=== PATIENT | male | born 1935 | race Caucasian/White ===

== ENCOUNTER 2016-11-04 14:23 | Inpatient (IN) ==
--- NOTE | 2016-11-04 14:47 | Emergency Department Report ---
Medical Clearance HPI - General Chief complaint: Medical Clearance Stated complaint: Gen Eval Time Seen by Provider: 11/04/16 14:47 Source: old records reviewed, other (retirement staff) - History of Present Illness HPI Narrative: 81 YO M brought to ED for medical clearance for [facility] from retirement. Staff who accompanies patient report that patient has become more agitated, angry, tearful and trying to exit retirement over past week. Patient stated that he want to kill himself. Asked his to bring a gun when she came to visit. long term staff reports patient has had visual hallucinations. long term staff says patient lived at home with his until September of this year when could not longer care for patient. Staff deny fever, chills, cough, report of pain or known falls/injury. Patient denies pain while in the ED. Patient has hx. of dementia per retirement staff. Home medications: Home Medications Medication Instructions Recorded Confirmed Aspirin [Adult Low Dose Aspirin EC] 81 mg PO DAILY 11/04/16 11/04/16 FLUoxetine [Prozac] 40 mg PO DAILY 11/04/16 11/04/16 Finasteride [Proscar] 5 mg PO DAILY 11/04/16 11/04/16 Fluticasone Nasal [place] [Flonase] 1 spray LYNSEY DAILY 11/04/16 11/04/16 Gabapentin [Neurontin] 800 mg PO TID 11/04/16 11/04/16 Ibuprofen 200 mg PO HS 11/04/16 11/04/16 LORazepam [Ativan] 0.5 mg PO Q8H PRN 11/04/16 11/04/16 Memantine [Namenda] 20 mg PO BID 11/04/16 11/04/16 Multivit-Minerals/Ferrous Fum 15 ml PO DAILY 11/04/16 11/04/16 [Multivitamin Liquid] OLANZapine [Olanzapine] 5 mg PO HS 11/04/16 11/04/16 Simvastatin 20 mg PO HS 11/04/16 11/04/16 Allergies/Adverse reactions: Allergies Allergy/AdvReac Type Severity Reaction Status Date / Time No Known Allergies Allergy Verified 11/04/16 14:51 Review of Systems Limitations: ROS unobtainable due to patient's medical condition PFSH HTN Hyperlipidemia BPH CKD Major depressive disorder Urinary tract infection Iron deficiency anemia Alzheimer's Dementia Surgical History: Unable due to patient condition Family History: Unable due to patient's condition - Social History Housing: retirement Physical Exam - Limitations Limitations: other (dementia) - General General appearance: alert, in no apparent distress - Normal Exams: Head:: Normocephalic without trauma Eyes:: Pupils are PERRLA w/ EOMI, No scleral icterus, irritation ENMT:: No facial trauma, nasal exudates, pharyngeal erythema Neck:: Full range of motion, without adenopathy, JVD Chest/Respirations:: Clear all hutchins, with good airflow, and symmetry bilaterally Cardiovascular:: Regular rate and rhythm Abdomen:: Bowel sounds positive, soft, non-tender, non-distended Musculoskeletal:: No tenderness, or deformity noted, all extremities Integumentary:: No rashes Neurological:: Patient is alert, and oriented (to self only) - Psychiatric Psychiatric exam: Present: other (cooperative) Course Vital Signs Temperature 98 F 11/04/16 14:40 Pulse Rate 91 11/04/16 14:40 Respiratory Rate 20 11/04/16 14:40 Blood Pressure 117/84 11/04/16 14:40 Pulse Oximetry 94 11/04/16 14:40 Temperature 97.1 F 11/07/16 19:45 Pulse Rate 75 11/07/16 19:45 Respiratory Rate 20 11/07/16 19:45 Blood Pressure 147/78 H 11/07/16 19:45 Pulse Oximetry 93 11/07/16 19:45 Medical Clearance - [facility] Narrative Medical decision making narrative: CBC unremarkable Chemistry elevated sodium of 150, most likely related to patient not drinking any water per staff, only will drink coffee. Patient was given fluids in ED. Patient is medically cleared for [facility] admission. Differential Dx. Delirium UTI Depression Anxiety Dementia - Medical Records Attestation: I reviewed the patient's medical records. - Lab Data Attestation: I reviewed the patient's lab results. Result diagrams: 11/04/16 15:09 11/06/16 07:52 Lab Results 11/04/16 11/04/16 11/04/16 Range/Units 15:09 15:09 15:09 WBC 8.0 (4.5-11.0) T/MM3 RBC 4.34 L (4.50-5.90) M/MM3 Hgb 13.3 L (13.5-17.5) GM/DL Hct 42.7 (41-53) % MCV 98.4 (80-100) UM3 MCH 30.6 (26-34) UUG MCHC 31.1 (31-37) GM/DL RDW Std Deviation 48.1 (36.9-50.2) FL Plt Count 194 (130-400) T/MM3 MPV 9.6 (9.4-12.4) UM3 Immature Gran % (Auto) 0.1 (0.0-0.5) % Neut % (Auto) 67.8 H (33-66) % Lymph % (Auto) 18.8 L (23-45) % [place] % (Auto) 7.8 (0-9.0) % Eos % (Auto) 4.9 H (0-4) % Baso % (Auto) 0.6 (0-2) % Neut # 5.4 (1.8-7.7) T/MM3 Lymph # 1.5 (1-4.8) T/MM3 [place] # 0.6 (0-0.8) T/MM3 Eos # 0.4 (0-0.5) T/MM3 Baso # 0.1 (0-0.2) T/MM3 Abs Immat Gran (auto) 0.01 (0.00-0.03) T/MM3 Turbidity 21 H (0-20) Sodium 150 H (134-144) MEQ/L Potassium 5.0 (3.6-5) MEQ/L Chloride 109 H (98-107) MEQ/L Carbon Dioxide 33 H (22-30) MEQ/L Anion Gap 8 (5-15) MEQ/L BUN 24.0 H (9-20) MG/DL Creatinine 1.5 (0.8-1.5) MG/DL GFR Calculation 45 BUN/Creatinine Ratio 16 (6-26) RATIO Glucose 93 (75-110) MG/DL Calculated Osmolality 292 H (261-280) MOSM/KG Calcium 9.2 (8.4-10.2) MG/DL Total Bilirubin 0.50 (0.20-1.30) MG/DL Icterus Index < 2 (0-7) AST 22 (17-59) U/L ALT 37 (21-72) U/L Alkaline Phosphatase 70 (38-126) U/L Total Protein 7.0 (6.3-8.2) G/DL Albumin 3.8 (3.5-5.0) G/DL Globulin 3.2 (2.4-3.6) G/DL Albumin/Globulin Ratio 1.2 (1.1-2.2) RATIO Prealbumin 26.6 (17.6-36.0) MG/DL Vitamin B12 (239-931) PG/ML Folate (2.76-20) NG/ML TSH 1.65 (0.47-4.68) MIU/L Specimen Hemolysis 22 (0-25) Ur Collection Type Urine Color (YELLOW) Urine Clarity Urine pH (5.0-8.0) Ur Specific [place] (1.015-1.025) Urine Protein (NEGATIVE) Urine Glucose (UA) (NEGATIVE) Urine Ketones (NEGATIVE) Urine Occult Blood (NEGATIVE) Urine Nitrate (NEGATIVE) Urine Bilirubin (NEGATIVE) Urine Urobilinogen (NORMAL) EU/DL Ur Leukocyte Esterase (NEGATIVE) Urinalysis Comment RPR (NonReactive) 11/04/16 11/04/16 11/04/16 Range/Units 15:09 15:09 17:16 WBC (4.5-11.0) T/MM3 RBC (4.50-5.90) M/MM3 Hgb (13.5-17.5) GM/DL Hct (41-53) % MCV (80-100) UM3 MCH (26-34) UUG MCHC (31-37) GM/DL RDW Std Deviation (36.9-50.2) FL Plt Count (130-400) T/MM3 MPV (9.4-12.4) UM3 Immature Gran % (Auto) (0.0-0.5) % Neut % (Auto) (33-66) % Lymph % (Auto) (23-45) % [place] % (Auto) (0-9.0) % Eos % (Auto) (0-4) % Baso % (Auto) (0-2) % Neut # (1.8-7.7) T/MM3 Lymph # (1-4.8) T/MM3 [place] # (0-0.8) T/MM3 Eos # (0-0.5) T/MM3 Baso # (0-0.2) T/MM3 Abs Immat Gran (auto) (0.00-0.03) T/MM3 Turbidity (0-20) Sodium (134-144) MEQ/L Potassium (3.6-5) MEQ/L Chloride (98-107) MEQ/L Carbon Dioxide (22-30) MEQ/L Anion Gap (5-15) MEQ/L BUN (9-20) MG/DL Creatinine (0.8-1.5) MG/DL GFR Calculation BUN/Creatinine Ratio (6-26) RATIO Glucose (75-110) MG/DL Calculated Osmolality (261-280) MOSM/KG Calcium (8.4-10.2) MG/DL Total Bilirubin (0.20-1.30) MG/DL Icterus Index (0-7) AST (17-59) U/L ALT (21-72) U/L Alkaline Phosphatase (38-126) U/L Total Protein (6.3-8.2) G/DL Albumin (3.5-5.0) G/DL Globulin (2.4-3.6) G/DL Albumin/Globulin Ratio (1.1-2.2) RATIO Prealbumin (17.6-36.0) MG/DL Vitamin B12 457 (239-931) PG/ML Folate 17.6 (2.76-20) NG/ML TSH (0.47-4.68) MIU/L Specimen Hemolysis (0-25) Ur Collection Type Urine, clean catch Urine Color Yellow (YELLOW) Urine Clarity Clear Urine pH 7.0 (5.0-8.0) Ur Specific [place] 1.020 (1.015-1.025) Urine Protein Negative (NEGATIVE) Urine Glucose (UA) Negative (NEGATIVE) Urine Ketones Negative (NEGATIVE) Urine Occult Blood Negative (NEGATIVE) Urine Nitrate Negative (NEGATIVE) Urine Bilirubin Negative (NEGATIVE) Urine Urobilinogen 0.2 (NORMAL) EU/DL Ur Leukocyte Esterase Negative (NEGATIVE) Urinalysis Comment Microscopic not ind. RPR Non-reactive (NonReactive) Disposition Clinical Impression: Medical clearance for psychiatric admission, Hypernatremia, Dementia with aggressive behavior Disposition: 65 To [facility] [place] [facility] Condition: Stable - Seen By: midlevel
--- OUTSIDE RECORDS SUMMARY | 2016-11-04 14:51 | External Medical Summary | Summary of Care ---
:1935 Author Name Eliazar Barnett M.D. Address [address], [place] [id number] Care Team Providers Name Role Phone Eliazar Barnett M.D. Unavailable Unavailable Ian Butcher M.D. Unavailable Unavailable Kurt Barnett Primary Care Provider Unavailable Unavailable Unavailable Unavailable Functional Status Functional Status Health Issues Name Dates Details Functional status health issues are not documented Status: Cognitive Status Health Issues Name Dates Details Cognitive status health issues are not documented Status: Problems Name Dates Details Insomnia(780.52, G47.00) Status:Active Chronic constipation(564.00, K59.00) Status:Active Esophageal ulcer(530.20, K22.10) Status:Active Actinic keratosis(702.0, L57.0) Status:Active Obesity(278.00, E66.9) Status:Active Sensorineural hearing loss(389.10, H90.5) Status:Active 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, 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 Benign colon polyp(211.3, K63.5) Status:Active Tinnitus(388.30, H93.19) Status:Active CKD (chronic kidney disease)(585.9, N18.9) Status:Active Edema(782.3, R60.9) Status:Active 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, 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 Benign prostatic hypertrophy(600.00, N40.0) Status:Active Peripheral neuropathy(356.9, G62.9) Status:Active Depression(311, F32.9) Status:Active Hyperlipidemia(272.4, E78.5) Status:Active Abnormal vision(368.9, H53.9) Status:Active Incoordination(781.3, R27.9) Status:Active Hallucinations(780.1, R44.3) Status:Active Onychomycosis of toenail(110.1, B35.1) Status:Active Hyperglycemia(790.29, R73.9) Status:Active Hypertension(401.9, I10) Status:Active Allergic rhinitis(477.9, J30.9) Status:Active Dementia(294.20, F03.90) Status:Active Medications Name Dates Details Aspirin 81 MG Oral Tablet TAKE 1 TABLET DAILY. Quantity:30 Refills:0 Kurt Barnett M.D. Yxrksow69-Zkl-3689 ActiveFinasteride 5 MG Oral Tablet take one tablet by mouth every day Quantity:90 Refills:3 Kurt Barnett M.D. Ynylkui03-Try-5501 ActiveGlycoLax Oral Powder 17 gm po daily for constipation Quantity:1 Refills:5 Kurt Barnett M.D. Ttqvmrk03-Rnc-6512 Rrxzzj819 GM Bottle Donepezil HCl - 23 MG Oral Tablet take one tablet by mouth every day Quantity:90 Refills:3 Kurt Barnett M.D. Mwqaazd29-Dbn-9840 ActiveGabapentin 600 MG Oral Tablet TAKE ONE TABLET BY MOUTH THREE TIMES DAILY Quantity:270 Refills:3 Kurt Barnett M.D. Pnojqsx8-Kxf-9927 ActiveNamenda XR 28 MG Oral Capsule Extended Release 24 Hour TAKE ONE CAPSULE BY MOUTH EVERY DAY Quantity:30 Refills:5 Kurt Barnett M.D. Sysbyoa60-Ahs-8481 ActiveTravatan Z 0.004 % Ophthalmic Solution Refills:0 Kwadwo Butcher M.D. Vxaeruq33-Hslc-2843 ActiveFLUoxetine HCl - 20 MG Oral Capsule TAKE TWO CAPSULES BY MOUTH ONCE DAILY Quantity:180 Refills:1 Kurt Barnett M.D. Vzloxnp83-Rid-9286 ActiveFluticasone Propionate 50 MCG/ACT Nasal Suspension USE 2 SPRAYS IN EACH NOSTRIL DAILY Quantity:3 Refills:5 Kurt Barnett M.D. Imkzqeg6-Xse-4222 Xvuxvu89 GM Bottle Allergies and Adverse Reactions Name Dates Details No Known Drug Allergies Status:Active Past Medical History Name Dates Details History of acute pharyngitis(V12.69, Z87.09) Status:Resolved History of chan(V15.59, Z87.828) Status:Resolved History of cataract(V12.49, Z86.69) Status:Resolved History of Hearing loss, functional(306.7, F45.8) Status:Resolved History of Numbness(782.0, R20.0) Status:Resolved Procedures Procedure Dates Details History of Complete Colonoscopy Comments:Completed: 2006 History of Dermatological Surgery Skin Graft History of Tonsillectomy With Adenoidectomy History of Arthroplasty For Hammertoe History of Rectal Surgery History of Cataract Surgery History of Eye Surgery Procedures not documented Immunization Name Dates Details Fluzone Intramuscular Injectable Administered on:10-Jan-2008 Influenza Administered on:23-Dec-2008 Influenza Administered on:12-Jan-2010 Influenza Administered on:30-Dec-2010 Pneumo (Pneumovax) Administered on:01-Mar-2011 Influenza Administered on:18-Jan-2013 Lot #:[id number] Fluzone High-Dose Intramuscular Suspension Administered on:25-Dec-2013 Lot #:[id number] Zostavax [id number] UNT/0.65ML Subcutaneous Solution Reconstituted Administered on: 12-Feb-2014 Lot #:[id number] Prevnar 13 Intramuscular Suspension Administered on:04-Jun-2014 Lot #:[id number] Family History Unknown Family Member Name Dates Details Family history of Composition Of Household ___ Brothers Comments:Family History Status:Active Family history of Composition Of Household ___ Sisters Comments:Family History Status:Active Mother Name Dates Details Family history of Alzheimer Disease Status:Active Father Name Dates Details Family history of Glaucoma Status:Active Social History Name Dates Details Smoking StatusFormer smoker Vital Signs Date Test Result Details No Known Vitals to report Results Date Description Value Details Results not documented Plan of Care Planned Observations Name Dates Details Planned Goals not documented Goal Planned Encounters Appointment; Provider: Kurt Barnett 10:00 Appointment; Provider: Kwadwo Butcher 09:45 Appointment; Provider: Bruce Amaro 10:45 Instructions Instructions not documented Encounters Appointment; Kurt Barnett Encounter Diagnosis:Problem not documented 10:45 Appointment; Kurt Barnett Encounter Diagnosis:Problem not documented 10:45 Appointment; Kurt Barnett Encounter Diagnosis:Problem not documented 09:00 Appointment; Kurt Barnett Encounter Diagnosis:Problem not documented 07:00 Appointment; Kurt Barnett Encounter Diagnosis:Problem not documented 11:00 Appointment; Moe Merritt Encounter Diagnosis:Problem not documented 16:30 Appointment; Kwadwo Butcher Encounter Diagnosis:Problem not documented 09:45 Appointment; Kurt Barnett Encounter Diagnosis:Problem not documented 10:30 Appointment; Kurt Barnett Encounter Diagnosis:Problem not documented 08:30 Appointment; Kurt Barnett Encounter Diagnosis:Problem not documented 09:30 Appointment; Kurt Barnett Encounter Diagnosis:Problem not documented 10:00 Appointment; Kurt Barnett Encounter Diagnosis:Problem not documented 10:30 Appointment; Kurt Barnett Encounter Diagnosis:Problem not documented 11:30 Appointment; Kwadwo Butcher Encounter Diagnosis:Problem not documented 11:00 Appointment; Kurt Barnett Encounter Diagnosis:Problem not documented 10:30 Appointment; Flash Corey Encounter Diagnosis:Problem not documented 13:30 Appointment; Kurt Barnett Encounter Diagnosis:Problem not documented 10:45
--- OUTSIDE RECORDS SUMMARY | 2016-11-04 14:52 | External Medical Summary | Summary of Care ---
:1935 Author Name Eliazar Barnett M.D. 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 Tinnitus(388.30, H93.19) Status:Active Edema(782.3, R60.9) Status:Active Benign prostatic hypertrophy(600.00, N40.0) Status:Active Abnormal vision(368.9, H53.9) Status:Active Incoordination(781.3, R27.9) Status:Active Hallucinations(780.1, R44.3) Status:Active Onychomycosis of toenail(110.1, B35.1) Status:Active Allergic rhinitis(477.9, J30.9) Status:Active CKD (chronic kidney disease)(585.9, N18.9) Status:Active Peripheral neuropathy(356.9, G62.9) Status:Active Hyperlipidemia(272.4, E78.5) Status:Active Routine physical examination(V70.0, Z00.00) Status:Active Depression(311, F32.9) Status:Active Urinary tract infection(599.0, N39.0) Status:Active Lower back pain(724.2, M54.5) Status:Active Hyperglycemia(790.29, R73.9) Status:Active Hypertension(401.9, I10) Status:Active Dementia(294.20, F03.90) Status:Active Lung nodule, multiple(793.19, R91.8) Status:Active Medications Name Dates Details Aspirin 81 MG Oral Tablet TAKE 1 TABLET DAILY. Quantity:30 Refills:0 Kurt Barnett M.D. Yziaylm76-Mkv-3452 ActiveFinasteride 5 MG Oral Tablet take one tablet by mouth every day Quantity:90 Refills:3 Kurt Barnett M.D. Hveqcln20-Ggg-8473 ActiveGlycoLax Oral Powder 17 gm po daily for constipation Quantity:1 Refills:5 Kurt Barnett M.D. Ehueyvf50-Epf-3032 Udytsw872 GM Bottle Donepezil HCl - 23 MG Oral Tablet TAKE ONE TABLET BY MOUTH ONCE DAILY Quantity:90 Refills:0 Kurt Barnett M.D. Vslpffc26-Pvr-7926 ActiveGabapentin 600 MG Oral Tablet TAKE ONE TABLET BY MOUTH THREE TIMES DAILY Quantity:270 Refills:3 Kurt Barnett M.D. Shobxkf7-Rhg-7221 ActiveNamenda XR 28 MG Oral Capsule Extended Release 24 Hour TAKE ONE CAPSULE BY MOUTH EVERY DAY Quantity:30 Refills:5 Kurt Barnett M.D. Hknlgjt75-Tfq-9216 ActiveTravatan Z 0.004 % Ophthalmic Solution Refills:0 Kwadwo Butcher M.D. Gqbdeei08-Rzsc-0932 ActiveFLUoxetine HCl - 20 MG Oral Capsule TAKE TWO CAPSULES BY MOUTH ONCE DAILY Quantity:180 Refills:1 Kurt Barnett M.D. Lgxcazq21-Iel-2989 ActiveFluticasone Propionate 50 MCG/ACT Nasal Suspension USE 2 SPRAYS IN EACH NOSTRIL DAILY Quantity:3 Refills:5 Kurt Barnett M.D. Lsrtwpq5-Wdi-0434 Ugixxs03 GM Bottle Motrin IB 200 MG Oral Tablet TAKE 1 TABLET EVERY 8 HOURS NEEDED. Refills:0 Kurt Barnett M.D. Rmbkcev66-Mbj-5079 ActiveMens 50+ Multi Vitamin/Min Oral Tablet TAKE 1 TABLET DAILY. Refills:0 Kurt Barnett M.D. Kgdfhxa26-Fgr-1007 ActivePercocet 5-325 MG Oral Tablet TAKE 1 TABLET EVERY 4 TO 6 HOURS NEEDED FOR PAIN. Refills:0 Kurt Barnett M.D. Dpypfvx35-Olx-2891 ActiveHydrocodone-Acetaminophen 5-325 MG Oral Tablet TAKE 1 TABLET EVERY 6 HOURS NEEDED. Quantity:24 Refills:0 Kurt Barnett M.D. Ddxfqip89-Tjj-7964 ActiveBuPROPion HCl ER (SR) 150 MG Oral Tablet Extended Release 12 Hour Take 1 tablet daily Quantity:30 Refills:2 Kurt Barnett M.D. Symczyt05-Nja-3063 Active Allergies and Adverse Reactions Name Dates Details No Known Drug Allergies Status:Active Past Medical History Name Dates Details History of acute pharyngitis(V12.69, Z87.09) Status:Resolved History of Benign colon polyp(211.3, K63.5) Status:Resolved History of chan(V15.59, Z87.828) Status:Resolved History of cataract(V12.49, Z86.69) Status:Resolved History of Hearing loss, functional(306.7, F44.6) Status:Resolved History of hematuria(V13.09, Z87.448) Status:Resolved History of Numbness(782.0, R20.0) Status:Resolved History of UTI (lower urinary tract infection)(599.0, N39.0) Status:Resolved Procedures Procedure Dates Details History of Complete Colonoscopy Comments:Completed: 2005 History of Dermatological Surgery Skin Graft History of Tonsillectomy With Adenoidectomy History of Arthroplasty For Hammertoe History of Rectal Surgery History of Cataract Surgery History of Eye Surgery CBC w/ Auto Diff 7150 Ordered:06-Jun-2015 Comprehensive Metabolic Panel 1212 Ordered:06-Jun-2015 LIPID PROFILE 1184 Ordered:06-Jun-2015 THYROID STIM. HORMONE 3602 Ordered:06-Jun-2015 LIVER PROFILE 1215 Ordered:06-Jun-2015 HEMOGLOBIN A1C 3507 Ordered:06-Jun-2015 CT CHEST WITH IV CONTRAST Ordered:05-Jun-2015 Immunization Name Dates Details Fluzone Intramuscular Injectable Administered on:10-Jan-2008 Influenza Administered on:23-Dec-2008 Influenza Administered on:12-Jan-2010 Influenza Administered on:30-Dec-2010 Pneumo (Pneumovax) Administered on:01-Mar-2011 Influenza Administered on:18-Jan-2013 Lot #:[id number] Fluzone High-Dose Intramuscular Suspension Administered on:25-Dec-2013 Lot #:[id number] Zostavax [id number] UNT/0.65ML Subcutaneous Solution Reconstituted Administered on: 12-Feb-2014 Lot #:[id number] Prevnar 13 Intramuscular Suspension Administered on:04-Jun-2014 Lot #:[id number] Fluzone High-Dose Intramuscular Suspension Administered on:23-Jan-2015 Lot #:[id number] Tdap (Adacel) Administered on:23-Jan-2015 Lot #:[id number] Family History Unknown Family Member Name Dates Details Family history of Composition Of Household ___ Brothers Comments:Family History Status:Active Family history of Composition Of Household ___ Sisters Comments:Family History Status:Active Mother Name Dates Details Family history of Alzheimer Disease Status:Active Father Name Dates Details Family history of Glaucoma Status:Active Social History Name Dates Details Smoking StatusFormer smoker Vital Signs Date Test Result Details 05-Jun-2015 10:54 BP Systolic 118mm[Hg] Status: BP Diastolic 66mm[Hg] Status: Heart Rate 84/min Status: Weight 246lb Status: Body Mass Index Calculated 31.16kg/m2 Status: Body Surface Area Calculated 2.38m2 Status: Results Date Description Value Details Results not documented Plan of Care Planned Observations Name Dates Details Planned Goals not documented Goal Planned Encounters Appointment; Provider: Kurt Barnett Ei66-Inrg-9263 11:00 Appointment; Provider: Schedule Radiology 14:30 Appointment; Provider: Bruce Amaro 10:45 Instructions Instructions not documented Encounters Appointment; Kurt Barnett Encounter Diagnosis:Problem not documented 10:45 Appointment; Kurt Barnett Encounter Diagnosis:Problem not documented 16:15 Appointment; Kurt Barnett Encounter Diagnosis:Problem not documented 10:45 Appointment; Kurt Barnett Encounter Diagnosis:Problem not documented 11:00 Appointment; Kurt Barnett Encounter Diagnosis:Problem not documented 10:00 Appointment; Kwadwo Butcher Encounter Diagnosis:Problem not documented 09:45 Appointment; Miguel Benton Encounter Diagnosis:Problem not documented 12:20 Appointment; Kurt Barnett Encounter Diagnosis:Problem not documented [...]
--- OUTSIDE RECORDS SUMMARY | 2016-11-04 14:52 | External Medical Summary | Summary of Care ---
:1935 Author Name Eliazar Barnett M.D. Address [address], [place] [id number] Care Team Providers Name Role Phone Eliazar [...] Allergic rhinitis(477.9, J30.9) Status:Active Dementia(294.20, F03.90) Status:Active Blood in urine(599.70, R31.9) Status:Active UTI (lower urinary tract infection)(599.0, N39.0) Status:Active Medications Name Dates Details Finasteride 5 MG Oral Tablet take one tablet by mouth every day Quantity:90 Refills:3 Kurt Barnett M.D. Cclhjci62-Qkk-6151 ActiveGlycoLax Oral Powder 17 gm po daily for constipation Quantity:1 Refills:5 Kurt Barnett M.D. Tiqtktc76-Hrz-9834 Xmbjqk871 GM Bottle Donepezil HCl - 23 MG Oral Tablet take one tablet by mouth every day Quantity:90 Refills:0 Kurt Barnett M.D. Zbsfdra32-Dfz-8797 ActiveGabapentin 600 MG Oral Tablet TAKE ONE TABLET BY MOUTH THREE TIMES DAILY Quantity:270 Refills:3 Kurt Barnett M.D. Iojavdu9-Udw-6888 ActiveNamenda XR 28 MG Oral Capsule Extended Release 24 Hour TAKE ONE CAPSULE BY MOUTH EVERY DAY Quantity:30 Refills:5 Kurt Barnett M.D. Nvosdkv06-Xdp-0607 ActiveTravatan Z 0.004 % Ophthalmic Solution Refills:0 Kwadwo Butcher M.D. Rlintcm63-Dbgl-8863 ActiveFLUoxetine HCl - 20 MG Oral Capsule TAKE TWO CAPSULES BY MOUTH ONCE DAILY Quantity:180 Refills:1 Kurt Barnett M.D. Tyiybem96-Xnk-4497 ActiveFluticasone Propionate 50 MCG/ACT Nasal Suspension USE 2 SPRAYS IN EACH NOSTRIL DAILY Quantity:3 Refills:5 Kurt Barnett M.D. Isivozm1-Btw-6356 Wquerj42 GM Bottle Aspirin 81 MG Oral Tablet TAKE 1 TABLET DAILY. Quantity:30 Refills:0 Kurt Barnett M.D. Zfoxhlo69-Vcc-3980 Active Allergies and Adverse Reactions Name Dates [...] (Pneumovax) Administered on:01-Mar-2011 Influenza Administered on:18-Jan-2013 Lot #:[id number] Fluzone High-Dose Intramuscular Suspension Administered on:25-Dec-2013 Lot #:[id number] Zostavax [id number] UNT/0.65ML Subcutaneous Solution Reconstituted Administered on: 12-Feb-2014 Lot #:[id number] Prevnar 13 Intramuscular Suspension Administered on:04-Jun-2014 Lot #:[id number] Family History Unknown Family Member Name Dates [...] Goal Planned Encounters Appointment; Provider: Kurt Barnett Yt55-Qyam-9010 10:00 Appointment; Provider: Bruce Amaro 10:45 Instructions Instructions not documented Encounters Appointment; Kwadwo Butcher Gz36-Ovgh-5651 Encounter Diagnosis:Problem not documented 09:45 Appointment; Miguel Benton Sx4-Xku-[id number] Encounter Diagnosis:Problem not documented 12:20 Appointment; Kurt Barnett Yv5-Qmn-5798 Encounter Diagnosis:Problem not documented 10:45 Appointment; Kurt [...]
--- OUTSIDE RECORDS SUMMARY | 2016-11-04 14:52 | External Medical Summary | Summary of Care ---
:1935 Author Name Eliazar Barnett M.D. Address [address], [place] [id number] Care Team Providers Name Role Phone Eliazar [...] disease)(585.9, N18.9) Status:Active Peripheral neuropathy(356.9, G62.9) Status:Active Benign colon polyp(211.3, K63.5) Status:Active Hyperlipidemia(272.4, E78.5) Status:Active Routine physical examination(V70.0, Z00.00) Status:Active Hypertension(401.9, I10) Status:Active Hyperglycemia(790.29, R73.9) Status:Active Dementia(294.20, F03.90) Status:Active Depression(311, F32.9) Status:Active Urinary tract infection(599.0, N39.0) Status:Active Medications Name Dates Details Aspirin 81 MG Oral Tablet TAKE 1 TABLET DAILY. Quantity:30 Refills:0 Kurt Barnett M.D. Geohrjb88-Uwj-7471 ActiveFinasteride 5 MG Oral Tablet take one tablet by mouth every day Quantity:90 Refills:3 Kurt Barnett M.D. Ylyhoav42-Ccn-7881 ActiveGlycoLax Oral Powder 17 gm po daily for constipation Quantity:1 Refills:5 Kurt Barnett M.D. Lkelspm55-Fzx-9159 Ywjbxk973 GM Bottle Donepezil HCl - 23 MG Oral Tablet TAKE ONE TABLET BY MOUTH ONCE DAILY Quantity:90 Refills:0 Kurt Barnett M.D. Fixupvv98-Mgz-2655 ActiveGabapentin 600 MG Oral Tablet TAKE ONE TABLET BY MOUTH THREE TIMES DAILY Quantity:270 Refills:3 Kurt Barnett M.D. Ufnvwvc9-Rpe-8182 ActiveNamenda XR 28 MG Oral Capsule Extended Release 24 Hour TAKE ONE CAPSULE BY MOUTH EVERY DAY Quantity:30 Refills:5 Kurt Barnett M.D. Jllpbds44-Yyz-5846 ActiveTravatan Z 0.004 % Ophthalmic Solution Refills:0 Kwadwo Butcher M.D. Wgojbls17-Fhdp-7748 ActiveFLUoxetine HCl - 20 MG Oral Capsule TAKE TWO CAPSULES BY MOUTH ONCE DAILY Quantity:180 Refills:1 Kurt Barnett M.D. Rhnehki35-Hej-9859 ActiveFluticasone Propionate 50 MCG/ACT Nasal Suspension USE 2 SPRAYS IN EACH NOSTRIL DAILY Quantity:3 Refills:5 Kurt Barnett M.D. Xbjbviw6-Bxt-2185 Qeasjc38 GM Bottle Motrin IB 200 MG Oral Tablet TAKE 1 TABLET EVERY 8 HOURS NEEDED. Refills:0 Kurt Barnett M.D. Ifgzhic20-Wiw-6491 ActiveMens 50+ Multi Vitamin/Min Oral Tablet TAKE 1 TABLET DAILY. Refills:0 Kurt Barnett M.D. Kgnnaqz04-Flj-4213 ActivePercocet 5-325 MG Oral Tablet TAKE 1 TABLET EVERY 4 TO 6 HOURS NEEDED FOR PAIN. Refills:0 Kurt Barnett M.D. Nyuysrx94-Baq-2775 ActiveLevofloxacin 500 MG Oral Tablet TAKE 1 TABLET Daily FOR 5 MORE DAYS Quantity:5 Refills:0 Kurt Barnett M.D. Csmngtv34-Ptn-8750 ActiveHydrocodone-Acetaminophen 5-325 MG Oral Tablet TAKE 1 TABLET EVERY 6 HOURS NEEDED. Quantity:24 Refills:0 Kurt Barnett M.D. Iavoysm58-Rzl-1819 Active Allergies and Adverse Reactions Name Dates [...] (Pneumovax) Administered on:01-Mar-2011 Influenza Administered on:18-Jan-2013 Lot #:[id number] Fluzone High-Dose Intramuscular Suspension Administered on:25-Dec-2013 Lot #:[id number] Zostavax [id number] UNT/0.65ML Subcutaneous Solution Reconstituted Administered on: 12-Feb-2014 Lot #:[id number] Prevnar 13 Intramuscular Suspension Administered on:04-Jun-2014 Lot #:[id number] Fluzone High-Dose Intramuscular Suspension Administered on:23-Jan-2015 Lot #:[id number] Tdap (Adacel) Administered on:23-Jan-2015 Lot #:[id number] Family History Unknown Family Member Name Dates Details Family history of Composition Of Household ___ Brothers Comments:Family History Status:Active Family history of Composition Of Household ___ Sisters Comments:Family History Status:Active Mother Name Dates Details Family history of Alzheimer Disease Status:Active Father Name Dates Details Family history of Glaucoma Status:Active Social History Name Dates Details Smoking StatusFormer smoker Vital Signs Date Test Result Details 20-May-2015 16:43 BP Systolic 104mm[Hg] Status: BP Diastolic 62mm[Hg] Status: Temperature 97.7f Status: Heart Rate 60/min Status: Weight 245lb Status: Body Mass Index Calculated 31.04kg/m2 Status: Body Surface Area Calculated 2.38m2 Status: Results Date Description Value Details Results not documented Plan of Care Planned Observations Name Dates Details Planned Goals not documented Goal Planned Encounters Appointment; Provider: Kurt Barnett 11:00 Appointment; Provider: Bruce Amaro 10:45 Instructions Instructions [...]
--- OUTSIDE RECORDS SUMMARY | 2016-11-04 14:52 | External Medical Summary | Summary of Care ---
:1935 Author Name Eliazar Barnett M.D. Address Unavailable Unavailable , Care Team Providers Name Role Phone Eliazar Barnett M.D. Unavailable Unavailable Ian Butcher M.D. Unavailable Unavailable Kurt Barnett Unavailable Unavailable Unavailable Unavailable Unavailable Functional Status Functional [...] F03.90) Status:Active Lung nodule, multiple(793.19, R91.8) Status:Active Rib pain on right side(786.50, R07.81) Status:Active Fall, accidental(E888.9, W19.XXXA) Status:Active Medications Name Dates Details Finasteride 5 MG Oral Tablet TAKE ONE TABLET BY MOUTH ONCE DAILY Quantity:90 Refills:0 AnibalM.D., Kurt Perea Jrdqt60-Zxm-2363 Active GlycoLax Oral Powder 17 gm po daily for constipation Quantity:1 Refills:5 JacksonM.D., Kurt Perea Ihjoa30-Fhq-4900 Active 527 GM Bottle Donepezil HCl - 23 MG Oral Tablet TAKE ONE TABLET BY MOUTH ONCE DAILY Quantity:90 Refills:0 AnibalM.D.Kurt Zleou60-Oiq-4894 Active Travatan Z 0.004 % Ophthalmic Solution Refills:0 Noé.D.Kwadwo Apkoy53-Jblt-6690 Active Fluticasone Propionate 50 MCG/ACT Nasal Suspension USE 2 SPRAYS IN EACH NOSTRIL DAILY Quantity:3 Refills:5 JacksonM.D.Kurt Kprcp4-Fgi-5618 Active 16 GM Bottle Motrin IB 200 MG Oral Tablet TAKE 1 TABLET EVERY 8 HOURS NEEDED. Refills:0 AnibalM.D., Kurt Perea Xeqir82-Exl-5199 Active Mens 50+ Multi Vitamin/Min Oral Tablet TAKE 1 TABLET DAILY. Refills:0 AnibalM.D., Kurt Perea Uuzav97-Ypo-6079 Active Hydrocodone-Acetaminophen 5-325 MG Oral Tablet TAKE 1 TABLET EVERY 6 HOURS NEEDED. Quantity:24 Refills:0 JacksonM.D., Kurt Perea Pchse25-Dsq-5398 Active BuPROPion HCl ER (SR) 150 MG Oral Tablet Extended Release 12 Hour TAKE ONE TABLET BY MOUTH ONCE DAILY Quantity:30 Refills:2 JacksonM.D., Kurt Perea Yghdv67-Suj-1981 Active TraZODone HCl - 100 MG Oral Tablet TAKE 1/2 TO 1 TABLET AT BEDTIME. Quantity:30 Refills:5 JacksonM.D., Kurt Perea Gtwkr84-Irkp-4194 Active Percocet 5-325 MG Oral Tablet TAKE 1 TABLET EVERY 4 TO 6 HOURS NEEDED FOR PAIN. Refills:0 AnibalM.Kerry, Kurt Perea Hdxpm62-Jot-2117 Active FLUoxetine HCl - 20 MG Oral Capsule TAKE TWO CAPSULES BY MOUTH ONCE DAILY Quantity:180 Refills:1 AnibalM.D., Kurt Perea Qgded53-Pqx-8946 Active Namenda XR 28 MG Oral Capsule Extended Release 24 Hour TAKE ONE CAPSULE BY MOUTH EVERY DAY Quantity:30 Refills:5 AnibalM.D., Kurt Perea Skopk38-Tqu-9655 Active Gabapentin 600 MG Oral Tablet TAKE ONE TABLET BY MOUTH THREE TIMES DAILY Quantity:270 Refills:3 AnibalM.D., Kurt Perea Ghgqz1-Vbu-9757 Active Aspirin 81 MG TABS TAKE 1 TABLET DAILY. Quantity:30 Refills:0 AnibalM.Kerry, Kurt Perea Fdzud88-Myt-3093 Active Allergies and Adverse Reactions Name Dates Details No Known Drug Allergies(Allergy) Status:Active Past Medical History Name Dates Details [...] not documented Immunization Name Dates Details Fluzone INJ on:10-Jan-2008 Influenza on:23-Dec-2008 Influenza on:12-Jan-2010 Influenza on:30-Dec-2010 Pneumo (Pneumovax) on:01-Mar-2011 Influenza on:18-Jan-2013 Lot #:[id number] Fluzone High-Dose SUSP on:25-Dec-2013 Lot #:[id number] Zostavax [id number] UNT/0.65ML Subcutaneous Solution Reconstituted on:12-Feb-2014 Lot #:[id number] Prevnar 13 Intramuscular Suspension on:04-Jun-2014 Lot #:[id number] Fluzone High-Dose SUSP on:23-Jan-2015 Lot #:[id number] Tdap (Adacel) on:23-Jan-2015 Lot #:[id number] Family History Unknown Family Member Name Dates Details Family history of Composition Of Household ___ Brothers Comments:Family History Status:Active Family history of Composition Of Household ___ Sisters Comments:Family History Status:Active Mother Name Dates Details Family history of Alzheimer Disease Status:Active Father Name Dates Details Family history of Glaucoma Status:Active Social History Name Dates Details - Status: Smoking Status Name Dates Details Former smoker Vital Signs Date Test Result Details No Known Vitals to report Results Date Description Value Details Results not documented Plan of Care Name Dates Details Planned Observations Comprehensive Metabolic Panel 1212 Intent HEMOGLOBIN A1C 3507 Hz71-Gplz-6835 Intent Planned Goals not documented Planned Encounters Appointment; Provider: Schedule Radiology [id number]-9018 14:30 Instructions Name Dates Details Instructions not documented Encounters Appointment; Kurt Barnett M.D. [id number]-[id number] Encounter Diagnosis:Problem not documented 16:15 Appointment; Kurt Barnett M.D. Cc04-Jrh-1513 Encounter Diagnosis:Problem not documented 10:45 Appointment; Kurt Barnett M.D. Vf18-Ixu-8408 Encounter Diagnosis:Problem not documented 11:00 Appointment; Kurt Barnett M.D. Rm87-Grqw-7486 Encounter Diagnosis:Problem not documented 10:00 Appointment; Kwadwo Butcher M.D. Ru99-Filc-9312 Encounter Diagnosis:Problem not documented 09:45 Appointment; Miguel Benton M.D. Encounter Diagnosis:Problem not documented 12:20 Appointment; Kurt Barnett M.D. Yi7-Jpm-0325 Encounter Diagnosis:Problem not documented 10:45 Appointment; Kurt Barnett M.D. Encounter Diagnosis:Problem not documented 10:45 Appointment; Kurt Barnett M.D. Encounter Diagnosis:Problem not documented 09:00 Appointment; Kurt Barnett M.D. Encounter Diagnosis:Problem not documented 07:00 Appointment; Kurt Barnett M.D. Encounter Diagnosis:Problem not documented 11:00
--- OUTSIDE RECORDS SUMMARY | 2016-11-04 14:52 | External Medical Summary ---
:1935 Author Name GENERATED, SYSTEM Care Team Providers Name Role Phone MD PREM, VANNESSA TEJADA Primary Care Provider [phone] Reason For Visit Reason for Visit from 09/17/2016 11:50 PM:Pt Stated Reason for Adm : Rhabdomyolysis, Alzheimers Chief Complaint RHABDOMYOLYSIS, AMS, ALZHEIMER Social History Social History from 09/22/2016 1:07 PM:Tobacco Use? : Former SmokerSocial History from 09/17/2016 11:50 PM:Tobacco Use? : Former Smoker Functional Status Functional Status from 09/21/2016 7:49 PM:LOC : ConfusedOriented To : PersonWeight Bearing Status : FullAssist Level : Dependent# Assists : 1Functional Status from 09/21/2016 2:35 PM:# Assists : 1Functional Status from 9:52 AM:# Assists : 1Functional Status from 09/21/2016 9:50 AM:# Assists : 1Functional Status from 09/21/2016 8:30 AM:LOC : ConfusedOriented To : Person, PlaceWeight Bearing Status : FullAssist Level : Dependent# Assists : 1Functional Status from 09/21/2016 6:11 AM:# Assists : 1Functional Status from 5:06 AM:# Assists : 1Functional Status from 09/21/2016 4:25 AM:# Assists : 1Functional Status from 09/21/2016 4:06 AM:LOC : ConfusedOriented To : PersonWeight Bearing Status : FullAssist Level : Partial# Assists : 1Functional Status from 09/21/2016 2:00 AM:# Assists : 1Functional Status from 09/20/2016 4: 10 PM:LOC : AlertOriented To : Person,Place,Time,EventWeight Bearing Status : FullAssist Level : Partial# Assists : 1Functional Status from 09/20/2016 8:11 AM: LOC : ConfusedOriented To : PersonWeight Bearing Status : FullAssist Level : Partial# Assists : 1Functional Status from 09/19/2016 8:44 PM:LOC : AlertOriented To : Person,Place,TimeWeight Bearing Status : FullAssist Level : Partial# Assists : 1Functional Status from 09/19/2016 10:07 AM:# Assists : 1Functional Status from 09/19/2016 7:47 AM:LOC : AlertOriented To : PersonWeight Bearing Status : FullAssist Level : Partial# Assists : 1Functional Status from 7:15 PM:LOC : AlertOriented To : PersonWeight Bearing Status : FullAssist Level : Partial# Assists : 1Functional Status from 09/18/2016 10:47 AM :# Assists : 1Functional Status from 09/18/2016 9:15 AM:LOC : ConfusedOriented To : PersonWeight Bearing Status : FullAssist Level : Partial# Assists : 1Functional Status from 09/17/2016 11:50 PM:LOC : ConfusedOriented To : PersonWeight Bearing Status : FullAssist Level : Partial# Assists : 2 Vital Signs Hospital Vital Signs from 09/22/2016 7:32 AM:Height : 6/4 ft,inTemperature : 96.9 FPulse : 53Respirations : 20BP : 145/90Hospital Vital Signs from 09/22/2016 3:28 AM:Height : 6/4 ft,inTemperature : 95.1 FPulse : 65BP : 185/94Hospital Vital Signs from 09/21/2016 9:58 PM:Height : 6/4 ft,inTemperature : 99.2 FPulse : 66Respirations : 16BP : 142/81Hospital Vital Signs from 09/21/2016 3:15 PM: Height : 6/4 ft,inTemperature : 98.3 FPulse : 66Respirations : 16BP : 169/ 94Hospital Vital Signs from 09/21/2016 7:58 AM:Height : 6/4 ft,inTemperature : 97.4 FPulse : 61Respirations : 16BP : 166/79Hospital Vital Signs from 09/21/2016 5:11 AM:Height : 6/4 ft,inTemperature : 97.4 FHospital Vital Signs from 2016 11:17 PM:Height : 6/4 ft,inTemperature : 98.5 FPulse : 63Respirations : 18BP : 158/90Hospital Vital Signs from 09/20/2016 3:20 PM:Height : 6/4 ft, inTemperature : 97.7 FPulse : 67Respirations : 18BP : 159/76Hospital Vital Signs from 09/20/2016 10:34 AM:Height : 6/4 ft,inHospital Vital Signs from 2016 7:33 AM:Height : 6/4 ft,inTemperature : 98.6 FPulse : 63Respirations : 18BP : 141/84Hospital Vital Signs from 09/19/2016 10:15 PM:Height : 6/4 ft, inTemperature : 98.5 FPulse : 79Respirations : 20BP : 157/70Hospital Vital Signs from 09/19/2016 2:59 PM:Height : 6/4 ft,inTemperature : 98.9 FPulse : 70Respirations : 18BP : 139/79Hospital Vital Signs from 09/19/2016 7:37 AM: Height : 6/4 ft,inTemperature : 97.1 FPulse : 68Respirations : 18BP : 141/ 85Hospital Vital Signs from 09/18/2016 10:46 PM:Height : 6/4 ft,inTemperature : 97.8 FPulse : 65Respirations : 18BP : 124/84Hospital Vital Signs from 09/18/2016 3:41 PM:Height : 6/4 ft,inTemperature : 96.5 FPulse : 60Respirations : 18BP : 139/77Hospital Vital Signs from 09/18/2016 7:12 AM:Height : 6/4 ft,inTemperature : 94.8 FPulse : 61Respirations : 18BP : 106/64Hospital Vital Signs from 2016 11:50 PM:Weight : 102.7/ kgHeight : 6/4 ft,inHospital Vital Signs from 09/17 11:48 PM:Weight : 102.7/ kgHeight : 6/3 ft,inTemperature : 97.6 FPulse : 63Respirations : 20BP : 144/78 Results Chemistry from 09/22/2016 6:02 [id number] MMOL/L(136-145 MMOL/L) POTASSIUM4.1 MMOL/L(3.5-5.1 MMOL/L) EJNXEBKU145 MMOL/L(98-107 MMOL/L) BOB034.5 MMOL/L(21.0-32.0 MMOL/L) *ANION GAP3.5 MMOL/L L(8.0-16.0 MMOL/L) BUN16 MG/DL(7-18 MG/DL) CREATININE1.37 MG/DL H(0.70-1.30 MG/DL) *BUN/CREATININE RATIO11.7(9.1-17.0 ) RGJVFYU91 MG/DL(65-99 MG/DL) *GFR EST NON AFR WFSRHCCV69 ML/MIN (Reference Range: not available) *GFR EST AFR AMER55 ML/MIN (Reference Range: not available) CALCIUM8.8 MG/DL(8.5-10.1 MG/DL) BILIRUBIN TOTAL0.40 MG/DL(0.20-1.00 MG/DL) TOTAL PROTEIN6.3 GM/DL L(6.4-8.2 GM/DL) ALBUMIN2.4 GM/DL L(3.4-5.0 GM/DL) *GLOBULIN3.9 GM/DL H(2.3-3.5 GM/DL) *A/G RATIO0.6 MG/DL L(1.5-2.2 MG/DL) ALK PHOS77 U/L(46-116 U/L) ALT (SGPT)44 U/L(14-59 U/L) AST (SGOT)27 U/L(15-37 U/L) MAGNESIUM2.1 MG/DL(1.8-2.4 MG/DL)Chemistry from 09/21/2016 6:00 ERHQPMEF196 MMOL/ L(136-145 MMOL/L) POTASSIUM4.2 MMOL/L(3.5-5.1 MMOL/L) HFJVFKSZ633 MMOL/L(98-107 MMOL/L) DSX741.7 MMOL/L(21.0-32.0 MMOL/L) *ANION GAP4.3 MMOL/L L(8.0-16.0 MMOL/L) BUN13 MG/DL(7-18 MG/DL) CREATININE1.18 MG/DL(0.70-1.30 MG/DL) *BUN/CREATININE RATIO11.0(9.1-17.0 ) SMLWQGG40 MG/DL(65-99 MG/DL) *GFR EST NON AFR IRCOZYQN84 ML/MIN (Reference Range: not available) *GFR EST AFR AMER66 ML/MIN (Reference Range: not available) CALCIUM8.1 MG/DL L(8.5-10.1 MG/DL) BILIRUBIN TOTAL0.40 MG/DL(0.20-1.00 MG/DL) TOTAL PROTEIN6.2 GM/DL L(6.4-8.2 GM/DL) ALBUMIN2.4 GM/DL L(3.4-5.0 GM/DL) *GLOBULIN3.8 GM/DL H(2.3-3.5 GM/DL) *A/G RATIO0.6 MG/DL L(1.5-2.2 MG/DL) ALK PHOS78 U/L(46-116 U/L) ALT (SGPT)45 U/L(14-59 U/L) AST (SGOT)32 U/L(15-37 U/L) MAGNESIUM1.6 MG/DL L(1.8-2.4 MG/DL)Chemistry from 09/20/2016 6:40 WMSV198 U/L(39- 308 U/L)Chemistry from 09/20/2016 2:34 DJKPISIF798 MMOL/L(136-145 MMOL/L) POTASSIUM4.1 MMOL/L(3.5-5.1 MMOL/L) MCOTJLQL978 MMOL/L(98-107 MMOL/L) LED041.1 MMOL/L(21.0-32.0 MMOL/L) *ANION GAP4.9 MMOL/L L(8.0-16.0 MMOL/L) BUN21 MG/DL H(7-18 MG/DL) CREATININE1.30 MG/DL(0.70-1.30 MG/DL) *BUN/CREATININE RATIO16.2(9.1-17.0 ) IOTGBEN473 MG/DL H(65-99 MG/DL) *GFR EST NON AFR HEXAQAWW10 ML/MIN (Reference Range: not available) *GFR EST AFR AMER59 ML/MIN (Reference Range: not available) CALCIUM8.4 MG/DL L(8.5-10.1 MG/DL) BILIRUBIN TOTAL0.40 MG/DL(0.20-1.00 MG/DL) TOTAL PROTEIN6.4 GM/DL(6.4-8.2 GM/DL) ALBUMIN2.5 GM/DL L(3.4-5.0 GM/DL) *GLOBULIN3.9 GM/DL H(2.3-3.5 GM/DL) *A/G RATIO0.6 MG/DL L(1.5-2.2 MG/DL) ALK PHOS88 U/L(46-116 U/L) ALT (SGPT)52 U/L(14-59 U/L) AST (SGOT)46 U/L H(15-37 U/L) MAGNESIUM1.6 MG/DL L(1.8-2.4 MG/DL) CK220 U/L(39-308 U/L)Chemistry from 09/19/2016 11:06 TJBL903 U/L(39-308 U/L) Chemistry from 09/19/2016 6:29 QAMZ646 U/L(39-308 U/L)Chemistry from 09/19/2016 2: 49 QEXV218 U/L H(39-308 U/L)Chemistry from 09/19/2016 11:12 XWWO437 U/L H(39-308 U/L)Chemistry from 09/19/2016 6:23 IGPH776 U/L H(39-308 U/L)Chemistry from 2016 2:48 KRYYAZVG878 MMOL/L(136-145 MMOL/L) POTASSIUM4.1 MMOL/L(3.5-5.1 MMOL/L) ALJQZYEV013 MMOL/L(98-107 MMOL/L) SZG473.3 MMOL/L(21.0-32.0 MMOL/L) *ANION GAP5.7 MMOL/L L(8.0-16.0 MMOL/L) BUN19 MG/DL H(7-18 MG/DL) CREATININE1.19 MG/DL(0.70-1.30 MG/DL) *BUN/CREATININE RATIO16.0(9.1-17.0 ) ZMRWZQA52 MG/DL(65-99 MG/DL) *GFR EST NON AFR QUXRNFIU82 ML/MIN (Reference Range: not available) *GFR EST AFR AMER66 ML/MIN (Reference Range: not available) CALCIUM8.3 MG/DL L(8.5-10.1 MG/DL) BILIRUBIN TOTAL0.80 MG/DL(0.20-1.00 MG/DL) TOTAL PROTEIN6.1 GM/DL L(6.4-8.2 GM/DL) ALBUMIN2.5 GM/DL L(3.4-5.0 GM/DL) *GLOBULIN3.6 GM/DL H(2.3-3.5 GM/DL) *A/G RATIO0.7 MG/DL L(1.5-2.2 MG/DL) ALK PHOS80 U/L(46-116 U/L) ALT (SGPT)38 U/L(14-59 U/L) AST (SGOT)45 U/L H(15-37 U/L) MAGNESIUM2.0 MG/DL(1.8-2.4 MG/DL) CK425 U/L H(39-308 U/L)Chemistry from 09/18/2016 10:48 XYZE550 U/L H(39-308 U/L) Chemistry from 09/18/2016 12:11 PMMAGNESIUM2.1 MG/DL(1.8-2.4 MG/DL) CK830 U/L H(39-308 U/L)Chemistry from 09/18/2016 6:10 QLJXAZZS019 MMOL/L(136-145 MMOL/L) POTASSIUM4.2 MMOL/L(3.5-5.1 MMOL/L) FJTIGAHI879 MMOL/L(98-107 MMOL/L) VZF382.7 MMOL/L(21.0-32.0 MMOL/L) *ANION GAP8.3 MMOL/L(8.0-16.0 MMOL/L) BUN20 MG/DL H(7-18 MG/DL) CREATININE1.16 MG/DL(0.70-1.30 MG/DL) *BUN/CREATININE RATIO17.2 H(9.1-17.0 ) LVCNLTI91 MG/DL(65-99 MG/DL) *GFR EST NON AFR XCIKGMGR82 ML/MIN (Reference Range: not available) *GFR EST AFR AMER68 ML/MIN (Reference Range: not available) CALCIUM8.4 MG/DL L(8.5-10.1 MG/DL) BP6489 U/L H(39-308 U/L)Hematology from 09/22/2016 6:02 AMWBC9.4 X10e3/UL(3.6- 11.2 X10e3/UL) RBC3.92 X10e6/UL L(4.06-5.63 X10e6/UL) BXYMMXMSCE61.1 G/DL L(12.5-16.3 G/DL) UMJGDHNXNP60.5 % L(36.7-47.1 %) *MCV93.0 FL(80.0-100.0 FL) *MCH30.9 PG(27.0-33.0 PG) *MCHC33.2 G/DL(32.0-36.0 G/DL) *RDW13.0 %(12.3-17.0 %) *RDWSD42.4(37.1-47.8 ) WJHTVZDJ234 X10e3/UL(159-386 X10e3/UL) *MPV7.5 FL(7.4-10.4 FL) AUTOMATED DIFFPERFORMED (Reference Range: not available) SEGS65.8 % (Reference Range: not available) *RIYSELKNBPF04.1 % (Reference Range: not available) *MONOCYTES7.5 % (Reference Range: not available) *EOSINOPHILS5.7 % (Reference Range: not available) *BASOPHILS0.9 % (Reference Range: not available) *ABSOLUTE NEUTROPHILS6.20 X10e3/UL(1.80-7.80 X10e3/UL) *ABSOLUTE LYMPHOCYTES1.90 X10e3/UL(1.00-3.00 X10e3/UL) *ABSOLUTE MONOCYTES0.70 X10e3/UL(0.30-1.00 X10e3/UL) *ABSOLUTE EOSINOPHILS0.50 X10e3/UL(0.00-0.50 X10e3/UL) *ABSOLUTE BASOPHILS0.10 X10e3/UL(0.00-0.20 X10e3/UL)Hematology from 09/21/2016 6: 00 AMWBC9.8 X10e3/UL(3.6-11.2 X10e3/UL) RBC3.88 X10e6/UL L(4.06-5.63 X10e6/UL) GZSJVRBMYJ72.0 G/DL L(12.5-16.3 G/DL) FGBOSKDFFR93.7 % L(36.7-47.1 %) *MCV91.9 FL(80.0-100.0 FL) *MCH30.8 PG(27.0-33.0 PG) *MCHC33.5 G/DL(32.0-36.0 G/DL) *RDW12.8 %(12.3-17.0 %) *RDWSD41.6(37.1-47.8 ) ONDWITLB175 X10e3/UL(159-386 X10e3/UL) *MPV7.7 FL(7.4-10.4 FL) AUTOMATED DIFFPERFORMED (Reference Range: not available) SEGS69.1 % (Reference Range: not available) *PGKBMMZRTTE93.0 % (Reference Range: not available) *MONOCYTES6.4 % (Reference Range: not available) *EOSINOPHILS5.5 % (Reference Range: not available) *BASOPHILS1.0 % (Reference Range: not available) *ABSOLUTE NEUTROPHILS6.70 X10e3/UL(1.80-7.80 X10e3/UL) *ABSOLUTE LYMPHOCYTES1.80 X10e3/UL(1.00-3.00 X10e3/UL) *ABSOLUTE MONOCYTES0.60 X10e3/UL(0.30-1.00 X10e3/UL) *ABSOLUTE EOSINOPHILS0.50 X10e3/UL(0.00-0.50 X10e3/UL) *ABSOLUTE BASOPHILS0.10 X10e3/UL(0.00-0.20 X10e3/UL)Hematology from 09/20/2016 2: 34 AMWBC11.3 X10e3/UL H(3.6-11.2 X10e3/UL) RBC4.17 X10e6/UL(4.06-5.63 X10e6/UL) CWAGFCVVFM87.8 G/DL(12.5-16.3 G/DL) RCBPUVZWMF73.9 %(36.7-47.1 %) *MCV93.2 FL(80.0-100.0 FL) *MCH30.7 PG(27.0-33.0 PG) *MCHC33.0 G/DL(32.0-36.0 G/DL) *RDW13.0 %(12.3-17.0 %) *RDWSD42.4(37.1-47.8 ) JPGZBKIS917 X10e3/UL(159-386 X10e3/UL) *MPV8.4 FL(7.4-10.4 FL) AUTOMATED DIFFPERFORMED (Reference Range: not available) SEGS71.5 % (Reference Range: not available) *KOZMMAGOPZJ98.0 % (Reference Range: not available) *MONOCYTES9.1 % (Reference Range: not available) *EOSINOPHILS4.4 % (Reference Range: not available) *BASOPHILS1.0 % (Reference Range: not available) *ABSOLUTE NEUTROPHILS8.10 X10e3/UL H(1.80-7.80 X10e3/UL) *ABSOLUTE LYMPHOCYTES1.60 X10e3/UL(1.00-3.00 X10e3/UL) *ABSOLUTE MONOCYTES1.00 X10e3/UL(0.30-1.00 X10e3/UL) *ABSOLUTE EOSINOPHILS0.50 X10e3/UL(0.00-0.50 X10e3/UL) *ABSOLUTE BASOPHILS0.10 X10e3/UL(0.00-0.20 X10e3/UL)Hematology from 09/19/2016 2: 48 AMWBC8.7 X10e3/UL(3.6-11.2 X10e3/UL) RBC4.00 X10e6/UL L(4.06-5.63 X10e6/UL) MEPPCRPXNS85.3 G/DL L(12.5-16.3 G/DL) CLDGMZTCVN20.3 %(36.7-47.1 %) *MCV93.3 FL(80.0-100.0 FL) *MCH30.7 PG(27.0-33.0 PG) *MCHC33.0 G/DL(32.0-36.0 G/DL) *RDW12.8 %(12.3-17.0 %) *RDWSD42.0(37.1-47.8 ) KEMXKKQE051 X10e3/UL(159-386 X10e3/UL) *MPV7.7 FL(7.4-10.4 FL) AUTOMATED DIFFPERFORMED (Reference Range: not available) SEGS67.7 % (Reference Range: not available) *JVFVTNGVPCV88.1 % (Reference Range: not available) *MONOCYTES8.5 % (Reference Range: not available) *EOSINOPHILS5.0 % (Reference Range: not available) *BASOPHILS0.7 % (Reference Range: not available) *ABSOLUTE NEUTROPHILS5.90 X10e3/UL(1.80-7.80 X10e3/UL) *ABSOLUTE LYMPHOCYTES1.60 X10e3/UL(1.00-3.00 X10e3/UL) *ABSOLUTE MONOCYTES0.70 X10e3/UL(0.30-1.00 X10e3/UL) *ABSOLUTE EOSINOPHILS0.40 X10e3/UL(0.00-0.50 X10e3/UL) *ABSOLUTE BASOPHILS0.10 X10e3/UL(0.00-0.20 X10e3/UL)Hematology from 09/18/2016 6: 10 AMWBC15.3 X10e3/UL H(3.6-11.2 X10e3/UL) RBC4.30 X10e6/UL(4.06-5.63 X10e6/UL) ZOGXKWAUJR85.9 G/DL(12.5-16.3 G/DL) KZJWKGRCCA34.7 %(36.7-47.1 %) *MCV92.1 FL(80.0-100.0 FL) *MCH30.0 PG(27.0-33.0 PG) *MCHC32.5 G/DL(32.0-36.0 G/DL) *RDW12.5 %(12.3-17.0 %) TTYKTQRK984 X10e3/UL(159-386 X10e3/UL) *MPV8.1 FL(7.4-10.4 FL) *MANUAL DIFFPERFORMED (Reference Range: not available) SEGS82.0 % (Reference Range: not available) *BANDS0.0 % (Reference Range: not available) *DCCTCOYKUOF54.0 % (Reference Range: not available) *MONOCYTES4.0 % (Reference Range: not available) *EOSINOPHILS4.0 % (Reference Range: not available) *BASOPHILS0.0 % (Reference Range: not available) *ABSOLUTE GFMFLFBUZHS67.55 X10e3/UL H(1.80-7.80 X10e3/UL) *ABSOLUTE LYMPHOCYTES1.53 X10e3/UL(1.00-3.00 X10e3/UL) *ABSOLUTE MONOCYTES0.61 X10e3/UL(0.30-1.00 X10e3/UL) *ABSOLUTE EOSINOPHILS0.61 X10e3/UL H(0.00-0.50 X10e3/UL) *ABSOLUTE BASOPHILS0.00 X10e3/UL(0.00-0.20 X10e3/UL) Problems Encounter Diagnosis Altered Mental Status Status:Active.Fall Risk Status:Active.Rhabdomyolysis Status:Active. Encounters Encounter Diagnosis Altered Mental Status Status:Active.Fall Risk Status:Active.Rhabdomyolysis Status:Active. Plan of Care Treatment Plan from 09/22/2016 12:00 PM:Care Management Note : BODY,TD,TH,BUTTON, INPUT,SELECT,TEXTAREA{FONT-SIZE: 10pt; FONT-FAMILY: [place],Helvetica; COLOR: black;} P,DIV,UL,OL,BLOCKQUOTE{MARGIN-BOTTOM: 0px; MARGIN-TOP: 0px;} BODY{MARGIN : 5px;} Tai Chi Instructor reviewed POC w/ Dr. Miner. Patient has been accepted by [facility] for discharge today. Dr. Miner signed intermediate orders et will perform med rec. [facility] would like to pick patient up at 1300. Patient's nurse at lunch. Tai Chi Instructor confirmed requested order picker time w/ [facility] Kim Clinical coordinator.Treatment Plan from 09/22/2016 10:15 AM:Care Management Note : BODY,TD,TH,BUTTON,INPUT,SELECT,TEXTAREA{FONT-SIZE: 10pt; FONT- FAMILY: [place],Helvetica; COLOR: black;} P,DIV,UL,OL,BLOCKQUOTE{MARGIN-BOTTOM: 0px; MARGIN-TOP: 0px;} BODY{MARGIN: 5px;} SW received call from [facility] stating that they received call from spouse stating that she would be there this afternoon to complete paperwork. [place] would like to order picker patientat 1300 today. ROMÁN then phoned patient's spouse Claudine who stated that she does plan to have patienttransfer to [facility]. Spouse state that she does not plan to come to hospital prior to patient being discharged as she was not feeling well today. SW explained order picker time and spouse in in agreement with plan. No other needs or concerns at this time.Treatment Plan from 09/21/2016 2:21 PM:Care Management Note : BODY,TD,TH,BUTTON,INPUT,SELECT, TEXTAREA{FONT-SIZE: 10pt; FONT-FAMILY: [place],Helvetica; COLOR: black;} P,DIV,UL, OL,BLOCKQUOTE{MARGIN-BOTTOM: 0px; MARGIN-TOP: 0px;} BODY{MARGIN: 5px;}labs and vital signs noted. Mag 1.6.Replace magnesium with IVs. IVF SL. Continues Lovenox for DVT prevention.Patient has been accepted into 2 nursing homes - to make decision. Anticipate discharge tomorrow.Treatment Plan from 2016 12:30 PM:Care Management Note : BODY,TD,TH,BUTTON,INPUT,SELECT,TEXTAREA{ FONT-SIZE: 10pt; FONT-FAMILY: [place],Helvetica; COLOR: black;} P,DIV,UL,OL, BLOCKQUOTE{MARGIN-BOTTOM: 0px; MARGIN-TOP: 0px;} BODY{MARGIN: 5px;} ROMÁN spoke with patient spouse regarding plansat discharge. Spouse would like for patient to be transferred to [facility] or [place], ROMÁN will make referrals.Treatment Plan from 09/20/2016 11:09 AM:Care Management Note : BODY,TD, TH,BUTTON,INPUT,SELECT,TEXTAREA{FONT-SIZE: 10pt; FONT-FAMILY: [place],Helvetica; COLOR: black;} P,DIV,UL,OL,BLOCKQUOTE{MARGIN-BOTTOM: 0px; MARGIN-TOP: 0px;} BODY {MARGIN: 5px;}labs and vital signs noted.Continues up with assist, follow vital signs with oximetry, monitor labs, IVF at 100, and Lovenox. [facility] is working on NH placement.Treatment Plan from 09/19/2016 2:20 PM:Care Management Note : BODY,TD,TH,BUTTON,INPUT,SELECT,TEXTAREA{FONT-SIZE: 10pt; FONT-FAMILY: [place],Helvetica; COLOR: black;} P,DIV,UL,OL,BLOCKQUOTE{MARGIN-BOTTOM: 0px; MARGIN-TOP: 0px;} BODY{MARGIN: 5px;}ROMÁN consulted with Pt's per ROMÁN Henry's request. Pt is confused, reports he does not have a . SW contacted Pt's Gonzalez via telephone ([phone] OR [phone]) to inquire aboutdesired intermediate placement choices. is okay with referrals to [facility] [place] and [facility]. SW encouraged to follow up with Linda, social services specialist with the [facility], to further inquire about the [facility] covering Pt's fci care needs.Treatment Plan from 09/18/2016 5:17 PM: Care Management Note : BODY,TD,TH,BUTTON,INPUT,SELECT,TEXTAREA{FONT-SIZE: 10pt; FONT-FAMILY: [place],Helvetica; COLOR: black;} P,DIV,UL,OL,BLOCKQUOTE{MARGIN- BOTTOM: 0px; MARGIN-TOP: 0px;} BODY{MARGIN: 5px;}ROMÁN received consult for NHP. This SW met pt and spouse in the Emergency Room on Tuesday evening prior to admission to hospital. Spouse is primary caregiver of pt at home with NO services. [facility]. PCP is Dr. Barnett at the [facility]. Pt has severe dementia and is becoming more difficult to care for. Pt has boughts of agitation and refuses to follow spouse or others directions at home. Pt is a . 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 ROMÁN handed spouse a list of NH in the [facility] and identified that [facility] in [place] has worked with the [facility]. Handed spouse information about the [facility]; and Aid and Attendance information.SW called spouse by phone today. She expressed she was exhausted. Sw offered to assist with NHP for this hospitalization dc planning. Spouse was interested in [facility] in [place] but she was notsure.ROMÁN informed the [facility] in [place] has in the past worked with the [facility]. She would like a SW to call her tomorrow at home to discuss the options. Román explained PT should work with pt on Tuesday. Pt waschanged to IP today. A Sw on Tuesday will need to make referrals to 1-3 NH's of her choice to evaluate for NHP.SW with have ROMÁN Tran call spouse on TuesdayTreatment Plan from 09/18/2016 9:48 AM:Care Management Note : BODY,TD,TH,BUTTON,INPUT,SELECT,TEXTAREA{FONT-SIZE: 10pt; FONT- FAMILY: [place],Helvetica; COLOR: black;} P,DIV,UL,OL,BLOCKQUOTE{MARGIN-BOTTOM: 0px; MARGIN-TOP: 0px;} BODY{MARGIN: 5px;}Patient to medical bed as inpatient for Rhabdomyelosis.Patient presented to ER for Altered mental status changes. Patient reports that the patient javier down on the floor and refused to get up, eat, drink, or take meds. 81Ylabs and vitals noted. CK 1752.Started IVF at 100, Lovenox for DVT prevention, Up with assist, follow labs, and monitor vital signs with oximetry.stay is anticipated longer than 2 midnights. meets inpatient status per [facility]. Procedures Completed , on 06/26/2011 12:00 AMCompleted , on 09/26/2008 12:00 AM Immunizations No immunizations administered or ordered. Hospital Course Hospital Discharge Instructions How to care for yourself at home from 09/22/2016 1:07 PM:Discharge Activity : Activity as toleratedDischarge Diet : As before hospitalizationDischarge Diet: : low sodium dietCall your doctor if: : Fever over 101 F or severe chills,Chest pain or other unexplained symptoms,Tingling or numbness develops,A sudden increase or decrease in weight,You have persistent or worseningsymptoms,If you have Heart Failure and you gain 3pounds within 1 week or your symptoms worsen. ( Weigh at home tomorrow morning)Specific Discharge Teaching Instructions provided : : NoDischarge on Warfarin : No Allergies, Adverse Reactions, Alerts This section is customer retention representative of the current allergy information, at the time of the CCD generation. In the case of regeneration of the CCD, the allergy information may not reflect the state of knownallergies at the time of the CCD' s subject visit. No Latex Allergy.No IV Contrast Allergy.No Known Drug Allergies. Medication It is the responsibility of the patient or patient customer retention representative to confirm the list of medications with either the patient's personal care provider or the patient's follow-up care provider to ensurethe patient has an appropriate list of medicationsto take at home. Discharge medicationsContinued medicationsfluticasone furoate 50 mcg spray, suspension, Ordered By: MALATHI MARK MD Directions: 2 spray nasal daily finasteride 5 mg Tablet, Ordered By: MALATHI MARK MD Directions: 1 tablet oral daily every morning Additional Instructions: pt supply FLUoxetine 20 mg Capsule, Ordered By: MALATHI MARK MD Directions: 2 capsule oral daily every morning ibuprofen (Motrin IB) 200 mg Tablet, Ordered By: MALATHI MARK MD Directions: 1 tablet oral at HS aspirin (Aspirin Low Dose) 81 mg tablet,delayed release (DR/EC), Ordered By: MALATHI MARK MD Directions: 1 tablet oral daily Additional Instructions: pt supply simvastatin 20 mg Tablet, Ordered By: MALATHI MARK MD Directions: 1 tablet oral daily at bedtime MEMAntine 10 mg Tablet, Ordered By: MALATHI MARK MD Directions: 2 tablet oral twice a day Changed medicationsgabapentin 600 mg Capsule, Ordered By: MALATHI MARK MD Directions: 1 capsule oral three times a day Additional Instructions: pt supply miqtndmg-xsnehytq-tzknzgq fum (Multi Vitamin) 9 mg iron/15 mL Liquid, Ordered By : MALATHI MARK MD Directions: 15 mL oral daily every morning Stopped medicationsNone
--- OUTSIDE RECORDS SUMMARY | 2016-11-04 14:52 | External Medical Summary | Summary of Care ---
[...] accidental(E888.9, W19.XXXA) Status:Active Medications Name Dates Details Aspirin 81 MG TABS TAKE 1 TABLET DAILY. Quantity:30 Refills:0 JacksonM.D., Kurt Perea Okkbf43-Xsa-7552 Active Finasteride 5 MG Oral Tablet TAKE ONE TABLET BY MOUTH ONCE DAILY Quantity:90 Refills:0 JacksonM.D., Kurt Perea Nuoou18-Txq-7389 Active GlycoLax Oral Powder 17 gm po daily for constipation Quantity:1 Refills:5 JacksonM.D., Kurt Perea Aiffw85-Zhe-1347 Active 527 GM Bottle Donepezil HCl - 23 MG Oral Tablet TAKE ONE TABLET BY MOUTH ONCE DAILY Quantity:90 Refills:0 JacksonM.D., Kurt Perea Vhkkm57-Xeh-7964 Active Gabapentin 600 MG Oral Tablet TAKE ONE TABLET BY MOUTH THREE TIMES DAILY Quantity:270 Refills:3 JacksonM.D., Kurt Perea Yidvi6-Cdd-6495 Active Namenda XR 28 MG Oral Capsule Extended Release 24 Hour TAKE ONE CAPSULE BY MOUTH ONCE DAILY Quantity:30 Refills:5 JacksonM.D., Kurt Perea Kafhe93-Ckz-0025 Active Travatan Z 0.004 % Ophthalmic Solution Refills:0 Noé.Kwadwo Payne Qfbff24-Gnrw-3967 Active Fluticasone Propionate 50 MCG/ACT Nasal Suspension USE 2 SPRAYS IN EACH NOSTRIL DAILY Quantity:3 Refills:5 JacksonM.D.Kurt Ipurm2-Eyg-9048 Active 16 GM Bottle Motrin IB 200 MG Oral Tablet TAKE 1 TABLET EVERY 8 HOURS NEEDED. Refills:0 JacksonM.D., Kurt Perea Ecknu73-Hab-9707 Active Mens 50+ Multi Vitamin/Min Oral Tablet TAKE 1 TABLET DAILY. Refills:0 JacksonM.D.Kurt Adyjk76-Hsv-1798 Active Percocet 5-325 MG Oral Tablet TAKE 1 TABLET EVERY 4 TO 6 HOURS NEEDED FOR PAIN. Refills:0 JacksonM.D., Kurt Perea Rndml57-Tik-4701 Active BuPROPion HCl ER (SR) 150 MG Oral Tablet Extended Release 12 Hour TAKE ONE TABLET BY MOUTH ONCE DAILY Quantity:30 Refills:2 JacksonM.D., Kurt Perea Gstgr89-Dyg-9268 Active Hydrocodone-Acetaminophen 5-325 MG Oral Tablet TAKE 1 TABLET EVERY 6 HOURS NEEDED. Quantity:24 Refills:0 JacksonM.D., Kurt Perea Hsgve34-Hxu-1342 Active FLUoxetine HCl - 20 MG Oral Capsule TAKE TWO CAPSULES BY MOUTH ONCE DAILY Quantity:180 Refills:1 JacksonM.D., Kurt Leey Ygmvg31-Wey-2871 Active TraZODone HCl - 100 MG Oral Tablet TAKE 1/2 TO 1 TABLET AT BEDTIME. Quantity:30 Refills:5 JacksonM.D., Kurt Perea Gugcb06-Lqhy-8135 Active Allergies and Adverse Reactions Name Dates [...] Eye Surgery CBC w/ Auto Diff 7150 Ordered:07-Jan-2016 Comprehensive Metabolic Panel 1212 Ordered:07-Jan-2016 LIPID PROFILE 1184 Ordered:07-Jan-2016 THYROID STIM. HORMONE 3602 Ordered:07-Jan-2016 Immunization Name Dates Details Fluzone INJ on:10-Jan-2008 Influenza on:23-Dec-2008 Influenza on:12-Jan-2010 Influenza on:30-Dec-2010 Pneumo (Pneumovax) on:01-Mar-2011 Influenza on:18-Jan-2013 Lot #:[id number] Fluzone High-Dose SUSP on:25-Dec-2013 Lot #:[id number] Zostavax 15218 UNT/0.65ML Subcutaneous Solution Reconstituted on:12-Feb-2014 Lot #:[id number] Prevnar 13 Intramuscular Suspension on:04-Jun-2014 Lot #:[id number] Fluzone High-Dose SUSP on:23-Jan-2015 Lot #:[id number] Tdap (Adacel) on:23-Jan-2015 Lot #:[id number] Fluzone High-Dose 0.5 ML Intramuscular Suspension Prefilled Syringe on:2015 Lot #:[id number] Family History Unknown Family Member Name Dates [...] of Care Name Dates Details Planned Observations CBC w/ Auto Diff 7150 Vh79-Qul-8285 Intent Comprehensive Metabolic Panel 1212 Yl48-Lru-4866 Intent LIPID PROFILE 1184 Fl76-Lrw-6116 Intent THYROID STIM. HORMONE 3602 Intent Planned Goals not documented Planned Encounters Appointment; Provider: Kurt Barnett M.D. Ok08-Klh-1952 13:15 Interventions Provided Medications/Immunizations AdministeredFluzone High-Dose 0.5 ML Intramuscular Suspension Prefilled Syringe; Done: 07 Jan 2016 Instructions Name Dates Details Instructions not documented Encounters Appointment; Kurt Barnett M.D. Wf13-Dqph-1326 Encounter Diagnosis:Problem not documented 13:45 Appointment; Kurt Barnett M.D. Ct0-Mlfj-4544 Encounter Diagnosis:Problem not documented 09:45 Appointment; Kurt Barnett M.D. Tn8-Sul-4012 Encounter Diagnosis:Problem not documented 10:45 Appointment; Kurt Barnett M.D. Fq47-Jqv-6374 Encounter Diagnosis:Problem not documented 16:15 Appointment; Kurt Barnett M.D. Encounter Diagnosis:Problem not documented 10:45 Appointment; Kurt Barnett M.D. Encounter Diagnosis:Problem not documented 11:00 Appointment; Kurt Banrett M.D. Encounter Diagnosis:Problem not documented 10:00 Appointment; Kwadwo Butcher M.D. Encounter Diagnosis:Problem not documented 09:45 Appointment; Miguel Benton M.D. Tg2-Sip-1029 Encounter Diagnosis:Problem not documented 12:20 Appointment; Kurt Barnett M.D. Encounter Diagnosis:Problem not documented 10:45 Appointment; Kurt Barnett M.D. Encounter Diagnosis:Problem not documented 10:45 Appointment; Kurt Barnett M.D. Encounter Diagnosis:Problem not documented 09:00
--- OUTSIDE RECORDS SUMMARY | 2016-11-04 14:53 | External Medical Summary | Summary of Care ---
[...] TABS TAKE 1 TABLET DAILY. Quantity:30 Refills:0 Kurt Barnett M.D. Nlgwexx24-Mpy-9162 ActiveFinasteride 5 MG Oral Tablet TAKE ONE TABLET BY MOUTH ONCE DAILY Quantity:90 Refills:0 Kurt Barnett M.D. Rigvzwv18-Epi-2798 ActiveGlycoLax Oral Powder 17 gm po daily for constipation Quantity:1 Refills:5 Kurt Barnett M.D. Ofzrhdq39-Isl-8360 Vgxfjg761 GM Bottle Donepezil HCl - 23 MG Oral Tablet TAKE ONE TABLET BY MOUTH ONCE DAILY Quantity:90 Refills:0 Kurt Barnett M.D. Hvpduve54-Ntr-4798 ActiveGabapentin 600 MG Oral Tablet TAKE ONE TABLET BY MOUTH THREE TIMES DAILY Quantity:270 Refills:3 Kurt Barnett M.D. Lxlcvxw6-Ksq-5644 ActiveNamenda XR 28 MG Oral Capsule Extended Release 24 Hour TAKE ONE CAPSULE BY MOUTH EVERY DAY Quantity:30 Refills:5 Kurt Barnett M.D. Izpbqhe13-Wbn-3733 ActiveTravatan Z 0.004 % Ophthalmic Solution Refills:0 Kwadwo Butcher M.D. Nohxlci45-Dgjp-1085 ActiveFluticasone Propionate 50 MCG/ACT Nasal Suspension USE 2 SPRAYS IN EACH NOSTRIL DAILY Quantity:3 Refills:5 Kurt Barnett M.D. Hocrctv8-Mcj-8292 Jeadaq70 GM Bottle Motrin IB 200 MG Oral Tablet TAKE 1 TABLET EVERY 8 HOURS NEEDED. Refills:0 Kurt Barnett M.D. Nqwjkdl74-Rrp-6108 ActiveMens 50+ Multi Vitamin/Min Oral Tablet TAKE 1 TABLET DAILY. Refills:0 Kurt Barnett M.D. Ipyxudw09-Gsb-5607 ActivePercocet 5-325 MG Oral Tablet TAKE 1 TABLET EVERY 4 TO 6 HOURS NEEDED FOR PAIN. Refills:0 Kurt Barnett M.D. Izxkrid47-Bje-0400 ActiveHydrocodone-Acetaminophen 5-325 MG Oral Tablet TAKE 1 TABLET EVERY 6 HOURS NEEDED. Quantity:24 Refills:0 Kurt Barnett M.D. Musbfls94-Vag-3270 ActiveFLUoxetine HCl - 20 MG Oral Capsule TAKE TWO CAPSULES BY MOUTH ONCE DAILY Quantity:180 Refills:1 Kurt Barnett M.D. Vltbrkc94-Bgt-6988 ActiveTraZODone HCl - 100 MG Oral Tablet TAKE 1/2 TO 1 TABLET AT BEDTIME. Quantity:30 Refills:5 Kurt Barnett M.D. Yhljmvi44-Irzf-3628 ActiveBuPROPion HCl ER (SR) 150 MG Oral Tablet Extended Release 12 Hour TAKE ONE TABLET BY MOUTH ONCE DAILY Quantity:30 Refills:2 Kurt Barnett M.D. Rbbgtxp70-Cmo-6768 Active Allergies and Adverse Reactions Name Dates [...] (Pneumovax) Administered on:01-Mar-2011 Influenza Administered on:18-Jan-2013 Lot #:[id number] Fluzone High-Dose Intramuscular Suspension Administered on:25-Dec-2013 Lot #:[id number] Zostavax [id number] UNT/0.65ML Subcutaneous Solution Reconstituted Administered on: 12-Feb-2014 Lot #:[id number] Prevnar 13 Intramuscular Suspension Administered on:04-Jun-2014 Lot #:[id number] Fluzone High-Dose Intramuscular Suspension Administered on:23-Jan-2015 Lot #:[id number] Tdap (Adacel) Administered on:23-Jan-2015 Lot #:[id number] Family History Unknown Family Member Name Dates Details Family history of Composition Of Household ___ Brothers Comments:Family History Status:Active Family history of Composition Of Household ___ Sisters Comments:Family History Status:Active Mother Name Dates Details Family history of Alzheimer Disease Status:Active Father Name Dates Details Family history of Glaucoma Status:Active Social History Name Dates Details Smoking StatusFormer smoker Vital Signs Date Test Result Details 11:11 BP Systolic 120mm[Hg] Status: BP Diastolic 76mm[Hg] Status: Heart Rate 80/min Status: Weight 244.25lb Status: Body Mass Index Calculated 30.94kg/m2 Status: Body Surface Area Calculated 2.38m2 Status: Results Date Description Value Details 10:56 XRay RIBS-Right Comments:Exam Date: 10/08/2015 10: 35Dictation Date: 10/08/2015 10:56 X RIBS UNILATERAL RT (Better) 10:56 XRay CHEST-PA & LAT Comments:Exam Date: 10/08/2015 10:35Dictation Date: 10/08/2015 10:56 X CHEST PA & LAT (Better) Plan of Care Planned Observations Name Dates Details Planned Goals not documented Goal Planned Encounters Appointment; Provider: Kurt Barnett Rl40-Qdtp-4320 13:45 Appointment; Provider: Kurt Barnett Jw10-Ccju-3879 11:00 Appointment; Provider: Schedule Radiology 14:30 Appointment; Provider: Bruce Amaro 10:45 Instructions Instructions not documented Encounters Appointment; Kurt Barnett Gc1-Lkmg-6589 Encounter Diagnosis:Problem not documented 09:45 Appointment; Kurt Barnett Nr7-Fzm-9472 Encounter Diagnosis:Problem not documented 10:45 Appointment; Kurt Barnett Tg74-Mna-6419 Encounter Diagnosis:Problem not documented 16:15 Appointment; Kurt [...] Barnett Encounter Diagnosis:Problem not documented 07:00 Appointment; Kutr Barnett Encounter Diagnosis:Problem not documented 11:00 Appointment; Moe Merritt Encounter Diagnosis:Problem not documented 16:30
--- OUTSIDE RECORDS SUMMARY | 2016-11-04 14:53 | External Medical Summary | Summary of Care ---
:1935 Author Name Eliazar Barnett M.D. 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 Quantity:30 Refills:0 Kurt Barnett M.D. Ishulmf60-Zdm-2079 ActiveFinasteride 5 MG Oral Tablet take one tablet by mouth every day Quantity:90 Refills:3 Kurt Barnett M.D. Gacjsoo32-Kai-0424 ActiveGlycoLax Oral Powder 17 gm po daily for constipation Quantity:1 Refills:5 Kurt Barnett M.D. Sipoewu99-Tyn-2801 Wndoif813 GM Bottle Donepezil HCl - 23 MG Oral Tablet TAKE ONE TABLET BY MOUTH ONCE DAILY Quantity:90 Refills:0 Kurt Barnett M.D. Zebjenk52-Bxo-1347 ActiveGabapentin 600 MG Oral Tablet TAKE ONE TABLET BY MOUTH THREE TIMES DAILY Quantity:270 Refills:3 Kurt Barnett M.D. Whvevcy9-Xof-3667 ActiveNamenda XR 28 MG Oral Capsule Extended Release 24 Hour TAKE ONE CAPSULE BY MOUTH EVERY DAY Quantity:30 Refills:5 Kurt Barnett M.D. Swooovc91-Qqq-1001 ActiveTravatan Z 0.004 % Ophthalmic Solution Refills:0 Kwadwo Butcher M.D. Frkcuhw13-Jxit-8449 ActiveFLUoxetine HCl - 20 MG Oral Capsule TAKE TWO CAPSULES BY MOUTH ONCE DAILY Quantity:180 Refills:1 Kurt Barnett M.D. Liqpovw92-Axe-6088 ActiveFluticasone Propionate 50 MCG/ACT Nasal Suspension USE 2 SPRAYS IN EACH NOSTRIL DAILY Quantity:3 Refills:5 Kurt Barnett M.D. Ldyvgot6-Kff-1643 Zxtngj12 GM Bottle Motrin IB 200 MG Oral Tablet TAKE 1 TABLET EVERY 8 HOURS NEEDED. Refills:0 Kurt Barnett M.D. Bebvxji74-Dvc-4252 ActiveMens 50+ Multi Vitamin/Min Oral Tablet TAKE 1 TABLET DAILY. Refills:0 Kurt Barnett M.D. Udbzvhc44-Jlu-5818 Active Allergies and Adverse Reactions Name Dates [...] (Pneumovax) Administered on:01-Mar-2011 Influenza Administered on:18-Jan-2013 Lot #:[id number] Fluzone High-Dose Intramuscular Suspension Administered on:25-Dec-2013 Lot #:[id number] Zostavax 27126 UNT/0.65ML Subcutaneous Solution Reconstituted Administered on: 12-Feb-2014 Lot #:[id number] Prevnar 13 Intramuscular Suspension Administered on:04-Jun-2014 Lot #:[id number] Fluzone High-Dose Intramuscular Suspension Administered on:23-Jan-2015 Lot #:[id number] Tdap (Adacel) Administered on:23-Jan-2015 Lot #:[id number] Family History Unknown Family Member Name Dates Details Family history of Composition Of Household ___ Brothers Comments:Family History Status:Active Family history of Composition Of Household ___ Sisters Comments:Family History Status:Active Mother Name Dates Details Family history of Alzheimer Disease Status:Active Father Name Dates Details Family history of Glaucoma Status:Active Social History Name Dates Details Smoking StatusFormer smoker Vital Signs Date Test Result Details 23-Jan-2015 11:34 BP Systolic 128mm[Hg] Status: BP Diastolic 78mm[Hg] Status: Heart Rate 58/min Status: Weight 249lb Status: Body Mass Index Calculated 31.54kg/m2 Status: Body Surface Area Calculated 2.4m2 Status: Results Date Description Value Details Results [...] Encounter Diagnosis:Problem not documented 16:30 Appointment; Kwadwo Btucher Encounter Diagnosis:Problem not documented 09:45 Appointment; Kurt [...]
--- OUTSIDE RECORDS SUMMARY | 2016-11-04 14:53 | External Medical Summary | Summary of Care ---
:1935 Author Name Eliazar Barnett M.D. Address [address] [place], [place] [id number] Care Team Providers Name Role Phone Eliazar [...] toenail(110.1, B35.1) Status:Active Allergic rhinitis(477.9, J30.9) Status:Active Hyperglycemia(790.29, R73.9) Status:Active Hypertension(401.9, I10) Status:Active CKD (chronic kidney disease)(585.9, N18.9) Status:Active Peripheral neuropathy(356.9, G62.9) Status:Active Benign colon polyp(211.3, K63.5) Status:Active Dementia(294.20, F03.90) Status:Active Depression(311, F32.9) Status:Active Hyperlipidemia(272.4, E78.5) Status:Active Routine physical examination(V70.0, Z00.00) Status:Active Medications Name Dates Details Aspirin 81 MG Oral Tablet TAKE 1 TABLET DAILY. Quantity:30 Refills:0 Kurt Barnett M.D. Clktuty89-Oaf-1923 ActiveFinasteride 5 MG Oral Tablet take one tablet by mouth every day Quantity:90 Refills:3 Kurt Barnett M.D. Zytnane08-Rdi-3988 ActiveGlycoLax Oral Powder 17 gm po daily for constipation Quantity:1 Refills:5 Kurt Barnett M.D. Oeevfds73-Pbw-6779 Yrhjbz405 GM Bottle Donepezil HCl - 23 MG Oral Tablet take one tablet by mouth every day Quantity:90 Refills:0 Kurt Barnett M.D. Ualrpwj03-Ryh-7887 ActiveGabapentin 600 MG Oral Tablet TAKE ONE TABLET BY MOUTH THREE TIMES DAILY Quantity:270 Refills:3 Kurt Barnett M.D. Isexlmj1-Igb-1735 ActiveNamenda XR 28 MG Oral Capsule Extended Release 24 Hour TAKE ONE CAPSULE BY MOUTH EVERY DAY Quantity:30 Refills:5 Kurt Barnett M.D. Kjaqzoo13-Koe-3074 ActiveTravatan Z 0.004 % Ophthalmic Solution Refills:0 Kwadwo Butcher M.D. Ssyzdlu98-Xzrw-1644 ActiveFLUoxetine HCl - 20 MG Oral Capsule TAKE TWO CAPSULES BY MOUTH ONCE DAILY Quantity:180 Refills:1 Kurt Barnett M.D. Heozdha69-Rhc-6832 ActiveFluticasone Propionate 50 MCG/ACT Nasal Suspension USE 2 SPRAYS IN EACH NOSTRIL DAILY Quantity:3 Refills:5 Kurt Barnett M.D. 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 History of hematuria(V13.09, Z87.448) Status:Resolved History [...] (Pneumovax) Administered on:01-Mar-2011 Influenza Administered on:18-Jan-2013 Lot #:[id number] Fluzone High-Dose Intramuscular Suspension Administered on:25-Dec-2013 Lot #:[id number] Zostavax 79739 UNT/0.65ML Subcutaneous Solution Reconstituted Administered on: 12-Feb-2014 Lot #:[id number] Prevnar 13 Intramuscular Suspension Administered on:04-Jun-2014 Lot #:[id number] Family History Unknown Family Member Name Dates Details Family history of Composition Of Household ___ Brothers Comments:Family History Status:Active Family history of Composition Of Household ___ Sisters Comments:Family History Status:Active Mother Name Dates Details Family history of Alzheimer Disease Status:Active Father Name Dates Details Family history of Glaucoma Status:Active Social History Name Dates Details Smoking StatusFormer smoker Vital Signs Date Test Result Details 10:01 BP Systolic 128mm[Hg] Status: BP Diastolic 80mm[Hg] Status: Heart Rate 62/min Status: Weight 263lb Status: Height 74.5in Status: Body Mass Index Calculated 33.32kg/m2 Status: Body Surface Area Calculated 2.45m2 Status: Results Date Description Value Details CBC w/ Auto Diff 7150 Comments:Fastin hours 08:58 WBC 6.8 K/uL (Better) Range: 4.5-11.0 RBC 4.42 mil/uL Range: 4.20-5.40 (Better) HGB 13.6 g/dL (Below Range: 14.0-18.0 low threshold) HCT 42.3 % (Better) Range: 42.0-53.0 MCV 95.7 fL (Better) Range: 80.0-99.0 MCH 30.9 pg (Better) Range: 27.3-32.5 MCHC 32.2 % (Better) Range: 32.0-36.0 RDW 13.0 % (Better) Range: 11.6-14.8 PLATELETS 201 K/uL (Better) Range: 150-400 MPV 7.9 fL (Better) Range: 6.0-11.0 %NEUTRO 70.9 % (Better) Range: 37.0-80.0 %LYMPHS 17.7 % (Better) Range: 13.0-50.0 %MONO 6.0 % (Better) Range: 0.0-12.0 %EOS 3.2 % (Better) Range: 0.0-7.0 %BASO 1.0 % (Better) Range: 0.0-2.5 %LORENZO 1.3 % (Better) Range: 0.0-5.0 NEUTRO 4.8 K/uL (Better) Range: 2.0-6.9 LYMPHS 1.2 K/uL (Better) Range: 0.6-3.4 MONOS 0.4 K/uL (Better) Range: 0.0-0.9 EOS 0.2 K/uL (Better) Range: 0.0-0.7 BASO 0.1 K/uL (Better) Range: 0.0-0.2 09:19 Comprehensive Metabolic Comments:Fastin hours Panel 1212 SODIUM 138 mmol/L Range: 133-144 (Better) POTASSIUM 4.2 mmol/L Range: 3.5-5.1 (Better) CHLORIDE 100 mmol/L Range: 98-110 (Better) CARBON DIOXIDE 30.3 mmol/L Range: 23.0-33.0 (Better) ANION GAP 8 mmol/L (Better) Range: 6-16 BUN 15 mg/dL (Better) Range: 7-18 CREATININE, SERUM 1.19 mg/dL (Above Range: 0.55-1.02 high threshold) Comments:Please note new reference ranges effective 2014.----- BUN:CREATININE RATIO 13 (Better) EST GFR, >60 ml/min Range: >60 (Better) EST GFR, NON-AFR BERMUDIAN 59 ml/min (Below Range: >60 low threshold) Comments:EST GFR is reported in ml/min per 1.73 m2 of body surface area. For -[place], please multiple result by 1.2.----- GLUCOSE 89 mg/dL (Better) Range: 70-100 ALK PHOSPHATASE 71 U/L (Better) Range: 46-116 TOTAL BILIRUBIN 0.60 mg/dL Range: 0.20-1.00 (Better) AST 18 U/L (Better) Range: 8-35 ALT 19 U/L (Better) Range: 16-63 Comments:Please note new reference ranges. Effective 06/13/2014.----- ALBUMIN 3.4 g/dL (Better) Range: 3.4-5.0 TOTAL PROTEIN 7.3 g/dL (Better) Range: 6.4-8.2 A/G RATIO 0.9 units (Below Range: 1.0-1.8 low threshold) CALCIUM 9.0 mg/dL Range: 8.5-10.1 (Better) 09:19 LIPID PROFILE 1184 Comments:Fastin hours CHOLESTEROL 211 mg/dL (Above Range: <200 high threshold) TRIGLYCERIDES 96 mg/dL (Better) Range: 30-200 HDL Cholesterol 58 mg/dL (Better) Range: >39 NON HDL CHOLESTEROL 153 (Better) CARDIAC RSK FACTOR 3.6 units (Below Range: 4.4-5.0 low threshold) LDL - CALCULATED 134 mg/dL (Above Range: 0-130 high threshold) 09:38 THYROID STIM. HORMONE 3602 Comments:Fastin hours THYROID STIM. HORMONE 2.705 uIU/mL Range: 0.550-4.780 (Better) Comments:\[id number]\No established reference ranges for infants and children <2 years of ageNo established reference ranges for infants and children <2 years of age----- 09:59 HEMOGLOBIN A1C 3507 Comments:Fastin hours Hemoglobin A1C 5.8 % (Better) ESTIMATED AVG. GLUCOSE 120 (Better) Plan of Care Planned Observations Name Dates Details Planned Goals not documented Goal Planned Encounters Appointment; Provider: Kurt Barnett 11:00 Appointment; Provider: Bruce Amaro 10:45 Instructions Instructions not documented Encounters Appointment; uKrt Barnett Encounter Diagnosis:Problem not documented 10:00 Appointment; [...]
--- OUTSIDE RECORDS SUMMARY | 2016-11-04 14:53 | External Medical Summary | Summary of Care ---
[...] TABS TAKE 1 TABLET DAILY. Quantity:30 Refills:0 AnibalM.Kurt Payne Dcnzd10-Jhj-9312 Active Finasteride 5 MG Oral Tablet TAKE ONE TABLET BY MOUTH ONCE DAILY Quantity:90 Refills:0 AnibalM.D., Kurt Perea Myvkw80-Fow-0480 Active GlycoLax Oral Powder 17 gm po daily for constipation Quantity:1 Refills:5 AnibalM.D., Kurt Perea Cqibt92-Chp-2685 Active 527 GM Bottle Donepezil HCl - 23 MG Oral Tablet TAKE ONE TABLET BY MOUTH ONCE DAILY Quantity:90 Refills:0 AnibalM.Brayan.Kurt Xaehf99-Lqz-3829 Active Gabapentin 600 MG Oral Tablet TAKE ONE TABLET BY MOUTH THREE TIMES DAILY Quantity:270 Refills:3 AnibalM.D.Kurt Pulsu4-Vwp-3449 Active Namenda XR 28 MG Oral Capsule Extended Release 24 Hour TAKE ONE CAPSULE BY MOUTH EVERY DAY Quantity:30 Refills:5 AnibalM.D.Kurt Trloc98-Psc-4627 Active Travatan Z 0.004 % Ophthalmic Solution Refills:0 Kwadwo Chatman Nxklo34-Gflh-1735 Active FLUoxetine HCl - 20 MG Oral Capsule TAKE TWO CAPSULES BY MOUTH ONCE DAILY Quantity:180 Refills:1 AnibalM.D.Kurt Tlprd08-Nzg-3392 Active Fluticasone Propionate 50 MCG/ACT Nasal Suspension USE 2 SPRAYS IN EACH NOSTRIL DAILY Quantity:3 Refills:5 JacksonM.D.Kurt Wmzxl8-Hnp-0848 Active 16 GM Bottle Motrin IB 200 MG Oral Tablet TAKE 1 TABLET EVERY 8 HOURS NEEDED. Refills:0 AnibalM.Kurt Payne Clkan75-Jbv-7366 Active Mens 50+ Multi Vitamin/Min Oral Tablet TAKE 1 TABLET DAILY. Refills:0 JacksonM.D., Kurt Perea Fchwu64-Pgd-3859 Active Percocet 5-325 MG Oral Tablet TAKE 1 TABLET EVERY 4 TO 6 HOURS NEEDED FOR PAIN. Refills:0 JacksonM.D., Kurtsorin Perea Kcaeu00-Syc-6970 Active Hydrocodone-Acetaminophen 5-325 MG Oral Tablet TAKE 1 TABLET EVERY 6 HOURS NEEDED. Quantity:24 Refills:0 JacksonM.D., Kurt Eliazar Dbgsf68-Mmj-7741 Active BuPROPion HCl ER (SR) 150 MG Oral Tablet Extended Release 12 Hour TAKE ONE TABLET BY MOUTH ONCE DAILY Quantity:30 Refills:2 JacksonM.D., Kurtsorin Perea Dqqgy28-Wuh-9442 Active TraZODone HCl - 100 MG Oral Tablet TAKE 1/2 TO 1 TABLET AT BEDTIME. Quantity:30 Refills:5 JacksonM.D., Kurtsorin Perea Hnnjm46-Dwnt-1144 Active Allergies and Adverse Reactions Name Dates [...] on:30-Dec-2010 Pneumo (Pneumovax) on:01-Mar-2011 Influenza on:18-Jan-2013 Lot #:[id number] Fluzone High-Dose SUSP on:25-Dec-2013 Lot #:[id number] Zostavax [id number] UNT/0.65ML Subcutaneous Solution Reconstituted on:12-Feb-2014 Lot #:[id number] Prevnar 13 Intramuscular Suspension on:04-Jun-2014 Lot #:[id number] Fluzone High-Dose SUSP on:23-Jan-2015 Lot #:[id number] Tdap (Adacel) on:23-Jan-2015 Lot #:[id number] Family History Unknown Family Member Name Dates [...] Planned Observations Comprehensive Metabolic Panel 1212 Intent LIPID PROFILE 1184 Intent THYROID STIM. HORMONE 3602 Intent HEMOGLOBIN A1C 3507 Al28-Bedu-6296 Intent Planned Goals not documented Planned Encounters Appointment; Provider: Schedule Radiology 14:30 Instructions Name Dates Details Instructions not documented Encounters Appointment; Kurt Barnett M.D. Ay42-Tcn-5073 Encounter Diagnosis:Problem not documented 16:15 Appointment; Kurt Barnett M.D. Is36-Qxq-9080 Encounter Diagnosis:Problem not documented 10:45 Appointment; Kurt Barnett M.D. Mb86-Izz-9754 Encounter Diagnosis:Problem not documented 11:00 Appointment; Kurt Barnett M.D. Ie14-Anxr-0924 Encounter Diagnosis:Problem not documented 10:00 Appointment; Kwadwo Butcher M.D. Tq02-Hqrl-1919 Encounter Diagnosis:Problem not documented 09:45 Appointment; Miguel Benton M.D. Qn0-Axf-8719 Encounter Diagnosis:Problem not documented 12:20 Appointment; Kurt Barnett M.D. Encounter Diagnosis:Problem not documented 10:45 Appointment; Kurt Barnett M.D. Encounter Diagnosis:Problem not documented 10:45 Appointment; Kurt Barnett M.D. Encounter Diagnosis:Problem not documented 09:00 Appointment; Kurt Barnett M.D. Encounter Diagnosis:Problem not documented 07:00 Appointment; Kurt Barnett M.D. Encounter Diagnosis:Problem not documented 11:00
--- OUTSIDE RECORDS SUMMARY | 2016-11-04 14:53 | External Medical Summary | Summary of Care ---
[...] hypertrophy(600.00, N40.0) Status:Active Abnormal vision(368.9, H53.9) Status:Active Hallucinations(780.1, R44.3) Status:Active Onychomycosis of toenail(110.1, B35.1) Status:Active Allergic rhinitis(477.9, J30.9) Status:Active CKD (chronic kidney disease)(585.9, N18.9) Status:Active Peripheral neuropathy(356.9, G62.9) Status:Active Routine physical examination(V70.0, Z00.00) Status:Active Depression(311, F32.9) Status:Active Urinary tract infection(599.0, N39.0) Status:Active Lower back pain(724.2, M54.5) Status:Active Lung nodule, multiple(793.19, R91.8) Status:Active Rib pain on right side(786.50, R07.81) Status:Active Fall, accidental(E888.9, W19.XXXA) Status:Active Hyperlipidemia(272.4, E78.5) Status:Active Hypertension, essential, benign(401.1, I10) Status:Active Visit for periodic health examination(V70.0, Z00.00) Status:Active Incoordination(781.3, R27.9) Status:Active Gait instability(781.2, R26.81) Status:Active Frequent falls(V15.88, R29.6) Status:Active Dementia(294.20, F03.90) Status:Active Hyperglycemia(790.29, R73.9) Status:Active Medications Name Dates Details Donepezil HCl - 23 MG Oral Tablet TAKE ONE TABLET BY MOUTH ONCE DAILY Quantity:90 Refills:0 JacksonM.D., Kurt Perea Zetce6-Oqh-4886 Active Gabapentin 600 MG Oral Tablet TAKE ONE TABLET BY MOUTH THREE TIMES DAILY Quantity:270 Refills:0 JacksonM.D., Kurt Perea Gyrcs9-Alx-4738 Active Namenda XR 28 MG Oral Capsule Extended Release 24 Hour TAKE ONE CAPSULE BY MOUTH ONCE DAILY Quantity:30 Refills:5 JacksonM.D., Kurt Perea Svobz01-Fmn-5745 Active Simvastatin 20 MG Oral Tablet TAKE 1 TABLET AT BEDTIME. Quantity:30 Refills:5 JacksonM.D., Kurt Perea Diaez98-Ygy-0091 Active GlycoLax Oral Powder 17 gm po daily for constipation Quantity:1 Refills:5 JacksonM.D., Kurt Perea Rsbwd55-Enf-5240 Active 527 GM Bottle Finasteride 5 MG Oral Tablet TAKE ONE TABLET BY MOUTH ONCE DAILY Quantity:90 Refills:0 JacksonM.D., Kurt Perea Vzdcp77-Ywd-1517 Active Aspirin 81 MG TABS TAKE 1 TABLET DAILY. Quantity:30 Refills:0 JacksonM.D., Kurt Perea Llhxa11-Srs-5804 Active Travatan Z 0.004 % Ophthalmic Solution Refills:0 EduardooneeM.DKwadwo Guy Xpbbu68-Bjao-2142 Active Fluticasone Propionate 50 MCG/ACT Nasal Suspension USE 2 SPRAYS IN EACH NOSTRIL DAILY Quantity:3 Refills:5 JacksonM.D., Kurt Kim3-Mar-2015 Active 16 GM Bottle Mens 50+ Multi Vitamin/Min Oral Tablet TAKE 1 TABLET DAILY. Refills:0 JacksonM.D., Kurt Eliazar Iyymf52-Zyj-9084 Active Motrin IB 200 MG Oral Tablet TAKE 1 TABLET EVERY 8 HOURS NEEDED. Refills:0 JacksonM.D., Kurt Eliazar Lvavn60-Gde-2576 Active TraZODone HCl - 100 MG Oral Tablet TAKE 1/2 TO 1 TABLET AT BEDTIME. Quantity:30 Refills:5 JacksonM.D., Kurt Eliazar Yyxmm22-Nhza-9124 Active BuPROPion HCl ER (SR) 150 MG Oral Tablet Extended Release 12 Hour TAKE ONE TABLET BY MOUTH ONCE DAILY Quantity:30 Refills:0 JacksonM.D., Kurt Eliazar Fgott78-Gwm-1011 Active FLUoxetine HCl - 20 MG Oral Capsule TAKE TWO CAPSULES BY MOUTH ONCE DAILY Quantity:90 Refills:1 JacksonM.D., Kurtsorin Perea Lfmol92-Cgm-1581 Active Allergies and Adverse Reactions Name Dates [...] of Cataract Surgery History of Eye Surgery HEMOGLOBIN A1C 3507 Ordered:18-Jun-2016 BASIC METABOLIC PROFILE 1210 Ordered:18-Jun-2016 LIPID PROFILE 1184 Ordered:17-Jun-2016 Comprehensive Metabolic Panel 1212 Ordered:17-Jun-2016 Immunization Name Dates Details Fluzone INJ on:10-Jan-2008 Influenza on:23-Dec-2008 Influenza on:12-Jan-2010 Influenza on:30-Dec-2010 Pneumo (Pneumovax) on:01-Mar-2011 Influenza on:18-Jan-2013 Lot #:[id number] Fluzone High-Dose SUSP on:25-Dec-2013 Lot #:[id number] Zostavax 51861 UNT/0.65ML Subcutaneous Solution Reconstituted on:12-Feb-2014 Lot #:[id number] Prevnar 13 Intramuscular Suspension on:04-Jun-2014 Lot #:[id number] Fluzone High-Dose SUSP on:23-Jan-2015 Lot #:[id number] Tdap (Adacel) on:23-Jan-2015 Lot #:[id number] Fluzone High-Dose 0.5 ML Intramuscular Suspension Prefilled Syringe on:2015 Lot #:[id number] Family History Unknown Family Member Name Dates [...] of Care Name Dates Details Planned Observations Planned Goals not documented Planned Encounters Appointment; Provider: Kurt Barnett M.D. [id number] 11:30 Instructions Name Dates Details Instructions not documented Encounters Appointment; Kurt Barnett M.D. [id number] Encounter Diagnosis:Problem not documented 13:15 Appointment; Kurt Barnett M.D. [id number] Encounter Diagnosis:Problem not documented 07:30 Appointment; Kurt Barnett M.D. Ax16-[id number] Encounter Diagnosis:Problem not documented 13:45 Appointment; Kurt Barnett M.D. [id number]-Xzwz-[id number] Encounter Diagnosis:Problem not documented 09:45 Appointment; Kurt Barnett M.D. Qt1-Rsd-7422 Encounter Diagnosis:Problem not documented 10:45 Appointment; Kurt Barnett M.D. [id number]-Mqp-2282 Encounter Diagnosis:Problem not documented 16:15 Appointment; Kurt Barnett M.D. Ke28-Mri-8169 Encounter Diagnosis:Problem not documented 10:45 Appointment; Kurt Barnett M.D. Encounter Diagnosis:Problem not documented 11:00 Appointment; Kurt Barnett M.D. Encounter Diagnosis:Problem not documented 10:00 Appointment; Kwadwo Butcher M.D. Encounter Diagnosis:Problem not documented 09:45 Appointment; Miguel Benton M.D. Encounter Diagnosis:Problem not documented 12:20
--- OUTSIDE RECORDS SUMMARY | 2016-11-04 14:53 | External Medical Summary | Summary of Care ---
[...] Fall, accidental(E888.9, W19.XXXA) Status:Active Hyperlipidemia(272.4, E78.5) Status:Active Medications Name Dates Details Aspirin 81 MG TABS TAKE 1 TABLET DAILY. Quantity:30 Refills:0 AnibalM.Kurt Payne Nugvs94-Qxh-2772 Active Finasteride 5 MG Oral Tablet TAKE ONE TABLET BY MOUTH ONCE DAILY Quantity:90 Refills:0 AnibalM.D.Kurt Kywua32-Cwt-0219 Active GlycoLax Oral Powder 17 gm po daily for constipation Quantity:1 Refills:5 JacksonM.D., Kurt Perea Metsy06-Hci-2660 Active 527 GM Bottle Donepezil HCl - 23 MG Oral Tablet TAKE ONE TABLET BY MOUTH ONCE DAILY Quantity:90 Refills:0 AnibalM.Brayan.Kurt Xujij05-Fve-5034 Active Gabapentin 600 MG Oral Tablet TAKE ONE TABLET BY MOUTH THREE TIMES DAILY Quantity:270 Refills:3 JacksonM.D.Kurt Znbjx0-Yms-8327 Active Namenda XR 28 MG Oral Capsule Extended Release 24 Hour TAKE ONE CAPSULE BY MOUTH ONCE DAILY Quantity:30 Refills:5 AnibalM.D., Kurt Perea Tobce33-Vph-1843 Active Travatan Z 0.004 % Ophthalmic Solution Refills:0 Kwadwo Chatman Hkrlx47-Lkbo-4120 Active FLUoxetine HCl - 20 MG Oral Capsule TAKE TWO CAPSULES BY MOUTH ONCE DAILY Quantity:180 Refills:1 AnibalM.D.Kurt Ekzvu53-Nct-7222 Active Fluticasone Propionate 50 MCG/ACT Nasal Suspension USE 2 SPRAYS IN EACH NOSTRIL DAILY Quantity:3 Refills:5 JacksonM.D.Kurt Btqqs6-Cxr-5779 Active 16 GM Bottle Motrin IB 200 MG Oral Tablet TAKE 1 TABLET EVERY 8 HOURS NEEDED. Refills:0 AnibalM.Brayan.Kurt Wecpg06-End-7223 Active Mens 50+ Multi Vitamin/Min Oral Tablet TAKE 1 TABLET DAILY. Refills:0 AnibalM.Kerry, Kurt Perea Vfpwa19-Geq-5860 Active BuPROPion HCl ER (SR) 150 MG Oral Tablet Extended Release 12 Hour TAKE ONE TABLET BY MOUTH ONCE DAILY Quantity:30 Refills:2 AnibalM.Brayan., Kurt Perea Wqrun85-Myw-3845 Active TraZODone HCl - 100 MG Oral Tablet TAKE 1/2 TO 1 TABLET AT BEDTIME. Quantity:30 Refills:5 AnibalM.Brayan. Kurt Leey Aepxd59-Jmir-5843 Active Simvastatin 20 MG Oral Tablet TAKE 1 TABLET AT BEDTIME. Quantity:30 Refills:5 Drake.Kerry Kurt Leey Rbrpf70-Qpi-8945 Active Allergies and Adverse Reactions Name Dates [...] on:30-Dec-2010 Pneumo (Pneumovax) on:01-Mar-2011 Influenza on:18-Jan-2013 Lot #:[id number] Fluzone High-Dose SUSP on:25-Dec-2013 Lot #:[id number] Zostavax 13062 UNT/0.65ML Subcutaneous Solution Reconstituted on:12-Feb-2014 Lot #:[id number] Prevnar 13 Intramuscular Suspension on:04-Jun-2014 Lot #:[id number] Fluzone High-Dose SUSP on:23-Jan-2015 Lot #:[id number] Tdap (Adacel) on:23-Jan-2015 Lot #:[id number] Fluzone High-Dose 0.5 ML Intramuscular Suspension Prefilled Syringe on:2015 Lot #:[id number] Family History Unknown Family Member Name Dates [...] smoker Vital Signs Date Test Result Details 01-Mar-2016 13:48 BP Systolic 122mm[Hg] Status:Comments:Location: ; Position: BP Diastolic 78mm[Hg] Status:Comments:Location: ; Position: Heart Rate 70/min Status:Comments:Location: ; Height 75in Status: Weight 242lb Status: Body Mass Index Calculated 30.25kg/m2 Status: Body Surface Area Calculated 2.38m2 Status: Results Date Description Value Details 01-Mar-2016 13:32 CBC w/ Auto Diff 7150 Comments:Fastin hours WBC 7.3 K/uL Range:4.5-11.0 RBC 4.53 mil/uL Range:4.20-5.40 HGB 14.3 g/dL Range:14.0-18.0 HCT 43.1 % Range:42.0-53.0 MCV 95.1 fL Range:80.0-99.0 MCH 31.5 pg Range:27.3-32.5 MCHC 33.1 % Range:32.0-36.0 RDW 13.3 % Range:11.6-14.8 PLATELETS 213 K/uL Range:150-400 MPV 6.4 fL Range:6.0-11.0 %NEUTRO 75.0 % Range:37.0-80.0 %LYMPHS 15.9 % Range:13.0-50.0 %MONO 4.0 % Range:0.0-12.0 %EOS 3.3 % Range:0.0-7.0 %BASO 0.5 % Range:0.0-2.5 %LORENZO 1.3 % Range:0.0-5.0 NEUTRO 5.5 K/uL Range:2.0-6.9 LYMPHS 1.2 K/uL Range:0.6-3.4 MONOS 0.3 K/uL Range:0.0-0.9 EOS 0.2 K/uL Range:0.0-0.7 BASO 0.0 K/uL Range:0.0-0.2 13:53 Comprehensive Metabolic Panel 1212 Comments:Fastin hours SODIUM 139 mmol/L Range:133-144 POTASSIUM 4.4 mmol/L Range:3.5-5.1 CHLORIDE 103 mmol/L Range:98-110 CARBON DIOXIDE 30.9 mmol/L Range:23.0-33.0 ANION GAP 5 mmol/L (Below low Range:6-16 threshold) BUN 16 mg/dL Range:7-18 CREATININE, SERUM 1.31 mg/dL (Above high Range:0.70-1.30 threshold) BUN:CREATININE RATIO 12 EST GFR, >60 ml/min Range:>60 EST GFR, NON-AFR [place] 53 ml/min (Below low Range:>60 threshold) Comments:EST GFR is reported in ml/min per 1.73 m2 of body surface area. ----- GLUCOSE 99 mg/dL Range:70-100 ALK PHOSPHATASE 72 U/L Range:46-116 TOTAL BILIRUBIN 0.60 mg/dL Range:0.20-1.00 AST 18 U/L Range:8-35 ALT 25 U/L Range:16-63 ALBUMIN 3.5 g/dL Range:3.4-5.0 TOTAL PROTEIN 7.4 g/dL Range:6.4-8.2 A/G RATIO 0.9 units (Below low Range:1.0-1.8 threshold) CALCIUM 8.8 mg/dL Range:8.5-10.1 13:53 LIPID PROFILE 1184 Comments:Fastin hours CHOLESTEROL 222 mg/dL (Above high threshold) Range:<200 TRIGLYCERIDES 77 mg/dL Range:30-200 HDL Cholesterol 70 mg/dL Range:>39 NON HDL CHOLESTEROL 152 CARDIAC RSK FACTOR 3.2 units (Below low threshold) Range:4.4-5.0 LDL - CALCULATED 137 mg/dL (Above high threshold) Range:0-130 14:10 THYROID STIM. HORMONE 3602 Comments:Fastin hours THYROID STIM. HORMONE 3.018 uIU/mL Range:0.550-4.780 Comments:No established reference ranges for infants and children <2 years of age----- Plan of Care Name Dates Details Planned Observations Planned Goals not documented Interventions Provided Medication ChangesSimvastatin 20 MG Oral Tablet - Start Instructions Name Dates Details Instructions not documented Encounters Appointment; Kurt Barnett M.D. [id number] Encounter Diagnosis:Problem not documented 07:30 Appointment; Kurt Barnett M.D. [id number] Encounter Diagnosis:Problem not documented 13:45 Appointment; Kurt Barnett M.D. Sk5-Mmka-2622 Encounter Diagnosis:Problem not documented 09:45 Appointment; Kurt Barnett M.D. Nn3-Ryl-3227 Encounter Diagnosis:Problem not documented 10:45 Appointment; Kurt Barnett M.D. [id number]-Gvh-3671 Encounter Diagnosis:Problem not documented 16:15 Appointment; Kurt Barnett M.D. Ls12-Eve-9346 Encounter Diagnosis:Problem not documented 10:45 Appointment; Kurt Barnett M.D. Encounter Diagnosis:Problem not documented 11:00 Appointment; Kurt Barnett M.D. Encounter Diagnosis:Problem not documented 10:00 Appointment; Kwadwo Butcher M.D. Encounter Diagnosis:Problem not documented 09:45 Appointment; Miguel Benton M.D. Encounter Diagnosis:Problem not documented 12:20 Appointment; Kurt Barnett M.D. Encounter Diagnosis:Problem not documented 10:45
--- OUTSIDE RECORDS SUMMARY | 2016-11-04 14:54 | External Medical Summary ---
:1935 Author Name GENERATED, SYSTEM Care Team Providers Name Role Phone MD PREM, VANNESSA TEJADA Primary Care Provider [phone] Reason For Visit Reason for Visit from [...] : 144/78 Results Chemistry from 09/22/2016 6:02 [id number] MMOL/L(136-145 MMOL/L) POTASSIUM4.1 MMOL/L(3.5-5.1 MMOL/L) OLWDPWHQ291 MMOL/L(98-107 MMOL/L) LUQ398.5 MMOL/L(21.0-32.0 MMOL/L) *ANION GAP3.5 MMOL/L L(8.0-16.0 MMOL/L) BUN16 MG/DL(7-18 MG/DL) CREATININE1.37 MG/DL H(0.70-1.30 MG/DL) *BUN/CREATININE RATIO11.7(9.1-17.0 ) IDNWSXK89 MG/DL(65-99 MG/DL) *GFR EST NON AFR GHYTBPLA54 ML/MIN (Reference Range: not available) *GFR EST AFR AMER55 ML/MIN (Reference Range: not available) CALCIUM8.8 MG/DL(8.5-10.1 MG/DL) BILIRUBIN TOTAL0.40 MG/DL(0.20-1.00 MG/DL) TOTAL PROTEIN6.3 GM/DL L(6.4-8.2 GM/DL) ALBUMIN2.4 GM/DL L(3.4-5.0 GM/DL) *GLOBULIN3.9 GM/DL H(2.3-3.5 GM/DL) *A/G RATIO0.6 MG/DL L(1.5-2.2 MG/DL) ALK PHOS77 U/L(46-116 U/L) ALT (SGPT)44 U/L(14-59 U/L) AST (SGOT)27 U/L(15-37 U/L) MAGNESIUM2.1 MG/DL(1.8-2.4 MG/DL)Chemistry from 09/21/2016 6:00 PTDALIAP034 MMOL/ L(136-145 MMOL/L) POTASSIUM4.2 MMOL/L(3.5-5.1 MMOL/L) OSMCDCJJ802 MMOL/L(98-107 MMOL/L) ETH900.7 MMOL/L(21.0-32.0 MMOL/L) *ANION GAP4.3 MMOL/L L(8.0-16.0 MMOL/L) BUN13 MG/DL(7-18 MG/DL) CREATININE1.18 MG/DL(0.70-1.30 MG/DL) *BUN/CREATININE RATIO11.0(9.1-17.0 ) YGKSLDR24 MG/DL(65-99 MG/DL) *GFR EST NON AFR LKGMCMVM37 ML/MIN (Reference Range: not available) *GFR EST AFR AMER66 ML/MIN (Reference Range: not available) CALCIUM8.1 MG/DL L(8.5-10.1 MG/DL) BILIRUBIN TOTAL0.40 MG/DL(0.20-1.00 MG/DL) TOTAL PROTEIN6.2 GM/DL L(6.4-8.2 GM/DL) ALBUMIN2.4 GM/DL L(3.4-5.0 GM/DL) *GLOBULIN3.8 GM/DL H(2.3-3.5 GM/DL) *A/G RATIO0.6 MG/DL L(1.5-2.2 MG/DL) ALK PHOS78 U/L(46-116 U/L) ALT (SGPT)45 U/L(14-59 U/L) AST (SGOT)32 U/L(15-37 U/L) MAGNESIUM1.6 MG/DL L(1.8-2.4 MG/DL)Chemistry from 09/20/2016 6:40 QWZW898 U/L(39- 308 U/L)Chemistry from 09/20/2016 2:34 RMQYPELK772 MMOL/L(136-145 MMOL/L) POTASSIUM4.1 MMOL/L(3.5-5.1 MMOL/L) UXKVZBXE285 MMOL/L(98-107 MMOL/L) TEO376.1 MMOL/L(21.0-32.0 MMOL/L) *ANION GAP4.9 MMOL/L L(8.0-16.0 MMOL/L) BUN21 MG/DL H(7-18 MG/DL) CREATININE1.30 MG/DL(0.70-1.30 MG/DL) *BUN/CREATININE RATIO16.2(9.1-17.0 ) YNTINDN432 MG/DL H(65-99 MG/DL) *GFR EST NON AFR BELZJYXL74 ML/MIN (Reference Range: not available) *GFR EST AFR AMER59 ML/MIN (Reference Range: not available) CALCIUM8.4 MG/DL L(8.5-10.1 MG/DL) BILIRUBIN TOTAL0.40 MG/DL(0.20-1.00 MG/DL) TOTAL PROTEIN6.4 GM/DL(6.4-8.2 GM/DL) ALBUMIN2.5 GM/DL L(3.4-5.0 GM/DL) *GLOBULIN3.9 GM/DL H(2.3-3.5 GM/DL) *A/G RATIO0.6 MG/DL L(1.5-2.2 MG/DL) ALK PHOS88 U/L(46-116 U/L) ALT (SGPT)52 U/L(14-59 U/L) AST (SGOT)46 U/L H(15-37 U/L) MAGNESIUM1.6 MG/DL L(1.8-2.4 MG/DL) CK220 U/L(39-308 U/L)Chemistry from 09/19/2016 11:06 UIUN069 U/L(39-308 U/L) Chemistry from 09/19/2016 6:29 ZUBH895 U/L(39-308 U/L)Chemistry from 09/19/2016 2: 49 MZXQ530 U/L H(39-308 U/L)Chemistry from 09/19/2016 11:12 ZMTC903 U/L H(39-308 U/L)Chemistry from 09/19/2016 6:23 DWPW257 U/L H(39-308 U/L)Chemistry from 2016 2:48 HBFVOPUB750 MMOL/L(136-145 MMOL/L) POTASSIUM4.1 MMOL/L(3.5-5.1 MMOL/L) AWHDEZCS832 MMOL/L(98-107 MMOL/L) LXJ968.3 MMOL/L(21.0-32.0 MMOL/L) *ANION GAP5.7 MMOL/L L(8.0-16.0 MMOL/L) BUN19 MG/DL H(7-18 MG/DL) CREATININE1.19 MG/DL(0.70-1.30 MG/DL) *BUN/CREATININE RATIO16.0(9.1-17.0 ) FRBJYGH53 MG/DL(65-99 MG/DL) *GFR EST NON AFR HUVTQXRY34 ML/MIN (Reference Range: not available) *GFR EST AFR AMER66 ML/MIN (Reference Range: not available) CALCIUM8.3 MG/DL L(8.5-10.1 MG/DL) BILIRUBIN TOTAL0.80 MG/DL(0.20-1.00 MG/DL) TOTAL PROTEIN6.1 GM/DL L(6.4-8.2 GM/DL) ALBUMIN2.5 GM/DL L(3.4-5.0 GM/DL) *GLOBULIN3.6 GM/DL H(2.3-3.5 GM/DL) *A/G RATIO0.7 MG/DL L(1.5-2.2 MG/DL) ALK PHOS80 U/L(46-116 U/L) ALT (SGPT)38 U/L(14-59 U/L) AST (SGOT)45 U/L H(15-37 U/L) MAGNESIUM2.0 MG/DL(1.8-2.4 MG/DL) CK425 U/L H(39-308 U/L)Chemistry from 09/18/2016 10:48 ZKEL422 U/L H(39-308 U/L) Chemistry from 09/18/2016 12:11 PMMAGNESIUM2.1 MG/DL(1.8-2.4 MG/DL) CK830 U/L H(39-308 U/L)Chemistry from 09/18/2016 6:10 MVBBKBWE501 MMOL/L(136-145 MMOL/L) POTASSIUM4.2 MMOL/L(3.5-5.1 MMOL/L) JRHVMFXN123 MMOL/L(98-107 MMOL/L) SDL022.7 MMOL/L(21.0-32.0 MMOL/L) *ANION GAP8.3 MMOL/L(8.0-16.0 MMOL/L) BUN20 MG/DL H(7-18 MG/DL) CREATININE1.16 MG/DL(0.70-1.30 MG/DL) *BUN/CREATININE RATIO17.2 H(9.1-17.0 ) BJMTMVI33 MG/DL(65-99 MG/DL) *GFR EST NON AFR ODZECXST22 ML/MIN (Reference Range: not available) *GFR EST AFR AMER68 ML/MIN (Reference Range: not available) CALCIUM8.4 MG/DL L(8.5-10.1 MG/DL) OJ4184 U/L H(39-308 U/L)Hematology from 09/22/2016 6:02 AMWBC9.4 X10e3/UL(3.6- 11.2 X10e3/UL) RBC3.92 X10e6/UL L(4.06-5.63 X10e6/UL) BXDLMJFWMQ79.1 G/DL L(12.5-16.3 G/DL) JRFTZSUNKV84.5 % L(36.7-47.1 %) *MCV93.0 FL(80.0-100.0 FL) *MCH30.9 PG(27.0-33.0 PG) *MCHC33.2 G/DL(32.0-36.0 G/DL) *RDW13.0 %(12.3-17.0 %) *RDWSD42.4(37.1-47.8 ) XAFEXXBR888 X10e3/UL(159-386 X10e3/UL) *MPV7.5 FL(7.4-10.4 FL) AUTOMATED DIFFPERFORMED (Reference Range: not available) SEGS65.8 % (Reference Range: not available) *TMVBXTVRAWP36.1 % (Reference Range: not available) *MONOCYTES7.5 % (Reference Range: not available) *EOSINOPHILS5.7 % (Reference Range: not available) *BASOPHILS0.9 % (Reference Range: not available) *ABSOLUTE NEUTROPHILS6.20 X10e3/UL(1.80-7.80 X10e3/UL) *ABSOLUTE LYMPHOCYTES1.90 X10e3/UL(1.00-3.00 X10e3/UL) *ABSOLUTE MONOCYTES0.70 X10e3/UL(0.30-1.00 X10e3/UL) *ABSOLUTE EOSINOPHILS0.50 X10e3/UL(0.00-0.50 X10e3/UL) *ABSOLUTE BASOPHILS0.10 X10e3/UL(0.00-0.20 X10e3/UL)Hematology from 09/21/2016 6: 00 AMWBC9.8 X10e3/UL(3.6-11.2 X10e3/UL) RBC3.88 X10e6/UL L(4.06-5.63 X10e6/UL) IYXORSTIRI20.0 G/DL L(12.5-16.3 G/DL) RVJVHYHLON16.7 % L(36.7-47.1 %) *MCV91.9 FL(80.0-100.0 FL) *MCH30.8 PG(27.0-33.0 PG) *MCHC33.5 G/DL(32.0-36.0 G/DL) *RDW12.8 %(12.3-17.0 %) *RDWSD41.6(37.1-47.8 ) IVHXSRHT262 X10e3/UL(159-386 X10e3/UL) *MPV7.7 FL(7.4-10.4 FL) AUTOMATED DIFFPERFORMED (Reference Range: not available) SEGS69.1 % (Reference Range: not available) *IZBLPUOBJLV52.0 % (Reference Range: not available) *MONOCYTES6.4 % (Reference Range: not available) *EOSINOPHILS5.5 % (Reference Range: not available) *BASOPHILS1.0 % (Reference Range: not available) *ABSOLUTE NEUTROPHILS6.70 X10e3/UL(1.80-7.80 X10e3/UL) *ABSOLUTE LYMPHOCYTES1.80 X10e3/UL(1.00-3.00 X10e3/UL) *ABSOLUTE MONOCYTES0.60 X10e3/UL(0.30-1.00 X10e3/UL) *ABSOLUTE EOSINOPHILS0.50 X10e3/UL(0.00-0.50 X10e3/UL) *ABSOLUTE BASOPHILS0.10 X10e3/UL(0.00-0.20 X10e3/UL)Hematology from 09/20/2016 2: 34 AMWBC11.3 X10e3/UL H(3.6-11.2 X10e3/UL) RBC4.17 X10e6/UL(4.06-5.63 X10e6/UL) YWLYEWHEJK62.8 G/DL(12.5-16.3 G/DL) SSSFDJPOGV17.9 %(36.7-47.1 %) *MCV93.2 FL(80.0-100.0 FL) *MCH30.7 PG(27.0-33.0 PG) *MCHC33.0 G/DL(32.0-36.0 G/DL) *RDW13.0 %(12.3-17.0 %) *RDWSD42.4(37.1-47.8 ) AGZLHRAK709 X10e3/UL(159-386 X10e3/UL) *MPV8.4 FL(7.4-10.4 FL) AUTOMATED DIFFPERFORMED (Reference Range: not available) SEGS71.5 % (Reference Range: not available) *FWUBVAEOKMD21.0 % (Reference Range: not available) *MONOCYTES9.1 % (Reference Range: not available) *EOSINOPHILS4.4 % (Reference Range: not available) *BASOPHILS1.0 % (Reference Range: not available) *ABSOLUTE NEUTROPHILS8.10 X10e3/UL H(1.80-7.80 X10e3/UL) *ABSOLUTE LYMPHOCYTES1.60 X10e3/UL(1.00-3.00 X10e3/UL) *ABSOLUTE MONOCYTES1.00 X10e3/UL(0.30-1.00 X10e3/UL) *ABSOLUTE EOSINOPHILS0.50 X10e3/UL(0.00-0.50 X10e3/UL) *ABSOLUTE BASOPHILS0.10 X10e3/UL(0.00-0.20 X10e3/UL)Hematology from 09/19/2016 2: 48 AMWBC8.7 X10e3/UL(3.6-11.2 X10e3/UL) RBC4.00 X10e6/UL L(4.06-5.63 X10e6/UL) MOBJUTCORB60.3 G/DL L(12.5-16.3 G/DL) DLVDCSLUFQ36.3 %(36.7-47.1 %) *MCV93.3 FL(80.0-100.0 FL) *MCH30.7 PG(27.0-33.0 PG) *MCHC33.0 G/DL(32.0-36.0 G/DL) *RDW12.8 %(12.3-17.0 %) *RDWSD42.0(37.1-47.8 ) ZJSNSBHI265 X10e3/UL(159-386 X10e3/UL) *MPV7.7 FL(7.4-10.4 FL) AUTOMATED DIFFPERFORMED (Reference Range: not available) SEGS67.7 % (Reference Range: not available) *UBAQXHPADAB97.1 % (Reference Range: not available) *MONOCYTES8.5 % (Reference Range: not available) *EOSINOPHILS5.0 % (Reference Range: not available) *BASOPHILS0.7 % (Reference Range: not available) *ABSOLUTE NEUTROPHILS5.90 X10e3/UL(1.80-7.80 X10e3/UL) *ABSOLUTE LYMPHOCYTES1.60 X10e3/UL(1.00-3.00 X10e3/UL) *ABSOLUTE MONOCYTES0.70 X10e3/UL(0.30-1.00 X10e3/UL) *ABSOLUTE EOSINOPHILS0.40 X10e3/UL(0.00-0.50 X10e3/UL) *ABSOLUTE BASOPHILS0.10 X10e3/UL(0.00-0.20 X10e3/UL)Hematology from 09/18/2016 6: 10 AMWBC15.3 X10e3/UL H(3.6-11.2 X10e3/UL) RBC4.30 X10e6/UL(4.06-5.63 X10e6/UL) ZUBBPFBEIR20.9 G/DL(12.5-16.3 G/DL) ZGWGBOFCYH08.7 %(36.7-47.1 %) *MCV92.1 FL(80.0-100.0 FL) *MCH30.0 PG(27.0-33.0 PG) *MCHC32.5 G/DL(32.0-36.0 G/DL) *RDW12.5 %(12.3-17.0 %) HXUDHDPX601 X10e3/UL(159-386 X10e3/UL) *MPV8.1 FL(7.4-10.4 FL) *MANUAL DIFFPERFORMED (Reference Range: not available) SEGS82.0 % (Reference Range: not available) *BANDS0.0 % (Reference Range: not available) *AWCWIEFEERM31.0 % (Reference Range: not available) *MONOCYTES4.0 % (Reference Range: not available) *EOSINOPHILS4.0 % (Reference Range: not available) *BASOPHILS0.0 % (Reference Range: not available) *ABSOLUTE ZEYVBNWKLBQ21.55 X10e3/UL H(1.80-7.80 X10e3/UL) *ABSOLUTE LYMPHOCYTES1.53 X10e3/UL(1.00-3.00 X10e3/UL) *ABSOLUTE MONOCYTES0.61 X10e3/UL(0.30-1.00 X10e3/UL) *ABSOLUTE EOSINOPHILS0.61 X10e3/UL H(0.00-0.50 X10e3/UL) *ABSOLUTE BASOPHILS0.00 X10e3/UL(0.00-0.20 X10e3/UL) Problems Encounter Diagnosis Altered Mental Status Status:Active.Fall Risk Status:Active.Rhabdomyolysis Status:Active. Encounters Encounter Diagnosis Altered Mental Status Status:Active.Fall Risk Status:Active.Rhabdomyolysis Status:Active. Plan of Care Treatment Plan from 09/22/2016 12:00 PM:Care Management Note : BODY,TD,TH,BUTTON, INPUT,SELECT,TEXTAREA{FONT-SIZE: 10pt; FONT-FAMILY: [place],Helvetica; COLOR: black;} P,DIV,UL,OL,BLOCKQUOTE{MARGIN-BOTTOM: 0px; MARGIN-TOP: 0px;} BODY{MARGIN : 5px;} [employer] Supervisor reviewed POC w/ Dr. Miner. Patient has been accepted by [facility] for discharge today. Dr. Miner signed senior living orders et will perform med rec. longterm would like to pick patient up at 1300. Patient's nurse at lunch. [employer] Supervisor confirmed requested tile picker time w/ PUMA Kim Clinical coordinator.Treatment Plan from 09/21/2016 2:21 PM:Care Management Note : BODY,TD,TH,BUTTON,INPUT,SELECT,TEXTAREA{FONT-SIZE: 10pt; FONT- FAMILY: [place],Helvetica; COLOR: black;} P,DIV,UL,OL,BLOCKQUOTE{MARGIN-BOTTOM: 0px; MARGIN-TOP: 0px;} BODY{MARGIN: 5px;}labs and vital signs noted. Mag 1.6.Replace magnesium with IVs. IVF SL. Continues Lovenox for DVT prevention.Patient has been accepted into 2 nursing homes - to make decision. Anticipate discharge tomorrow.Treatment Plan from 09/20/2016 12:30 PM: Care Management Note : BODY,TD,TH,BUTTON,INPUT,SELECT,TEXTAREA{FONT-SIZE: 10pt; FONT-FAMILY: [place],Helvetica; COLOR: black;} P,DIV,UL,OL,BLOCKQUOTE{MARGIN- BOTTOM: 0px; MARGIN-TOP: 0px;} BODY{MARGIN: 5px;} ROMÁN spoke with patient spouse regarding plansat discharge. Spouse would like for patient to be transferred to [facility], [facility] or [place], SW will make referrals.Treatment Plan from 11:09 AM:Care Management Note : BODY,TD,TH,BUTTON,INPUT,SELECT,TEXTAREA{ FONT-SIZE: 10pt; FONT-FAMILY: [place],Helvetica; COLOR: black;} P,DIV,UL,OL, BLOCKQUOTE{MARGIN-BOTTOM: 0px; MARGIN-TOP: 0px;} BODY{MARGIN: 5px;}labs and vital signs noted.Continues up with assist, follow vital signs with oximetry, monitor labs, IVF at 100, and Lovenox. [facility] is working on NH placement.Treatment Plan from 09/19/2016 2:20 PM:Care Management Note : BODY,TD, TH,BUTTON,INPUT,SELECT,TEXTAREA{FONT-SIZE: 10pt; FONT-FAMILY: [place],Helvetica; COLOR: black;} P,DIV,UL,OL,BLOCKQUOTE{MARGIN-BOTTOM: 0px; MARGIN-TOP: 0px;} BODY {MARGIN: 5px;}ROMÁN consulted with Pt's per ROMÁN Henry's request. Pt is confused, reports he does not have a . ROMÁN contacted Pt's Gonzalez via telephone ([phone] OR [phone]) to inquire aboutdesired senior living placement choices. is okay with referrals to [facility] in [place] and [facility] in [facility]. ROMÁN encouraged to follow up with Linda, director of social services with the [facility], to further inquire about the [facility] covering Pt's half-way care needs.Treatment Plan from 09/18/2016 5:17 PM:Care Management Note : BODY,TD, TH,BUTTON,INPUT,SELECT,TEXTAREA{FONT-SIZE: 10pt; FONT-FAMILY: [place],Helvetica; COLOR: black;} P,DIV,UL,OL,BLOCKQUOTE{MARGIN-BOTTOM: 0px; MARGIN-TOP: 0px;} BODY {MARGIN: 5px;}SW received consult for NHP. This SW met pt and spouse in the Emergency Room on Tuesday evening prior to admission to hospital. Spouse is primary caregiver of pt at home with NO services. [facility] PCP is Dr. Barnett at the [facility]. Pt has severe dementia and is becoming more difficult to care for. Pt has boughts of agitation and refuses to follow spouse or others directions at home. Pt is a . Spouse interested in NHP with facilities that have worked with the [facility] in the past - paying for the 's half-way care costs. SW handed spouse a list of NH in the [facility] and identified that [facility] in [place] has [facility] with [facility]. Handed spouse information about the [facility]; and Aid and Attendance information.SW called spouse by phone today. She expressed she was exhausted. Sw offered to assist with NHP for this hospitalization dc planning. Spouse was interested in [facility] in [place] but she was notsure.SW informed the [facility] in [place] has in the past worked with the [...] from 09/18/2016 9:48 AM:Care Management Note : BODY,TD,TH, BUTTON,INPUT,SELECT,TEXTAREA{FONT-SIZE: 10pt; FONT-FAMILY: [place],Helvetica; COLOR: black;} P,DIV,UL,OL,BLOCKQUOTE{MARGIN-BOTTOM: 0px; MARGIN-TOP: 0px;} BODY {MARGIN: 5px;}Patient to medical bed as inpatient for [...] morning)Specific Discharge Teaching Instructions provided : : No Allergies, Adverse Reactions, Alerts This section is field marketing representative of the current allergy information, at the time of the CCD generation. In the case of regeneration of the CCD, the allergy information may not reflect the state of knownallergies at the time of the CCD' s subject visit. No Latex Allergy.No IV Contrast Allergy.No Known Drug Allergies. Medication It is the responsibility of the patient or patient field marketing representative to confirm the list of medications [...] times a day Additional Instructions: pt supply auaphnku-kzugltta-ypoqnmx fum (Multi Vitamin) 9 mg iron/15 mL Liquid, Ordered By : MALATHI MARK MD Directions: 15 mL oral daily every morning Stopped medicationsNone
--- OUTSIDE RECORDS SUMMARY | 2016-11-04 14:54 | External Medical Summary | Summary of Care ---
:1935 Author Name Kenisha Benton M.D. Address [address], [place] [id number] Care Team Providers Name Role Phone Eliazar [...] infection)(599.0, N39.0) Status:Active Medications Name Dates Details Aspirin 81 MG Oral Tablet TAKE 1 TABLET DAILY. Quantity:30 Refills:0 Kurt Barnett M.D. Ljcpfts71-Hkl-9918 ActiveFinasteride 5 MG Oral Tablet take one tablet by mouth every day Quantity:90 Refills:3 Kurt Barnett M.D. Erinoez06-Ucm-4632 ActiveGlycoLax Oral Powder 17 gm po daily for constipation Quantity:1 Refills:5 Kurt Barnett M.D. Iqkoqgg27-Ofi-4805 Zxzrxg842 GM Bottle Donepezil HCl - 23 MG Oral Tablet take one tablet by mouth every day Quantity:90 Refills:3 Kurt Barnett M.D. Dvunabb07-Kjt-9454 ActiveGabapentin 600 MG Oral Tablet TAKE ONE TABLET BY MOUTH THREE TIMES DAILY Quantity:270 Refills:3 Kurt Barnett M.D. Nhrtvoo5-Dda-1157 ActiveNamenda XR 28 MG Oral Capsule Extended Release 24 Hour TAKE ONE CAPSULE BY MOUTH EVERY DAY Quantity:30 Refills:5 Kurt Barnett M.D. Zjwxdjp53-Vbq-1186 ActiveTravatan Z 0.004 % Ophthalmic Solution Refills:0 Kwadwo Butcher M.D. Wbzupsb22-Tlym-3327 ActiveFLUoxetine HCl - 20 MG Oral Capsule TAKE TWO CAPSULES BY MOUTH ONCE DAILY Quantity:180 Refills:1 Kurt Barnett M.D. Dzowiyj23-Wof-7647 ActiveFluticasone Propionate 50 MCG/ACT Nasal Suspension USE 2 SPRAYS IN EACH NOSTRIL DAILY Quantity:3 Refills:5 Kurt Barnett M.D. Esitauj2-Wue-9334 Qdhhuy43 GM Bottle Allergies and Adverse Reactions Name [...] (Pneumovax) Administered on:01-Mar-2011 Influenza Administered on:18-Jan-2013 Lot #:[id number] Fluzone High-Dose Intramuscular Suspension Administered on:25-Dec-2013 Lot #:[id number] Zostavax 41719 UNT/0.65ML Subcutaneous Solution Reconstituted Administered on: 12-Feb-2014 Lot #:[id number] Prevnar 13 Intramuscular Suspension Administered on:04-Jun-2014 Lot #:[id number] Family History Unknown Family Member Name Dates Details Family history of Composition Of Household ___ Brothers Comments:Family History Status:Active Family history of Composition Of Household ___ Sisters Comments:Family History Status:Active Mother Name Dates Details Family history of Alzheimer Disease Status:Active Father Name Dates Details Family history of Glaucoma Status:Active Social History Name Dates Details Smoking StatusFormer smoker Vital Signs Date Test Result Details 08-Aug-2014 13:06 BP Systolic 126mm[Hg] Status: BP Diastolic 74mm[Hg] Status: Heart Rate 60/min Status: Temperature 98.1f Status: O2 SAT 94% Status: Results Date Description Value Details 08-Aug-2014 Urinalysis, Reflex to 12:51 Microscopic or Culture PRN 8005 pH 6.0 (Better) Range: 5.0-7.5 SP GRAVITY 1.030 (Better) Range: 1.010-1.030 APPEARANCE Turbid (Abnormal) Range: Clear COLOR Red (Abnormal) Range: Straw-Yellow PROTEIN >300 mg/dL (Abnormal) Range: Negative-Trace GLUCOSE Negative mg/dL Range: Negative (Better) KETONE Trace mg/dL (Abnormal) Range: Negative BILIRUB Large (Abnormal) Range: Negative BLOOD Large (Abnormal) Range: Negative UROBIL 1.0 EU/dL (Better) Range: 0.2-1.0 NITRITE Positive (Abnormal) Range: Negative Comments:Specimen referred to Microbiology for Culture----- LEUK Moderate (Abnormal) Range: Negative 12:51 Urine Microscopic UMIC Comments:Quantity not sufficient for concentration.Less than 10 ml received for analysis WBC 21-50 /HPF (Abnormal) Range: 0-5 Comments:Specimen referred to Microbiology for Culture----- RBC TNTC /HPF (Abnormal) Range: 0-2 MUCUS 1+ /LPF (Better) Range: Negative-2+ BACTERIA 3+ /HPF (Abnormal) Range: Negative-Trace Comments:Specimen referred to Microbiology for Culture----- 10-Aug-2014 URINE CULTURE 5010 07:47 *URINE CULTURE Microbiology results Comments:URINE SOURCE:Clean CatchCOLONY COUNT>100,000 cfu/ml. RESULT:Escherichia coli (Isolate 1)Antibiotic Sensitivity Isolate 1 ------ (Better) ---Ampicillin >16 RAmpicillin/Sulbactam >16/8 RAugmentin >16/8 RCefazolin <=8 SCefepime <=8 SCefoxitin <=8 SCeftazidime <=1 SCeftriaxone <=8 SCefuroxime <=4 SCiprofloxacin <=1 SErtapen em <=1 SGentamicin <=4 SImipenem <=4 SLevofloxacin <=2 SMeropenem <=4 SNitrofurantoin <=32 SPiperacillin/ Tazobactam <=1 6 STetracycline <=4 STobramycin <=4 STrimeth/Sulfa <=2/38 SS=Sensitive, I=In termediate, R=Resistant, ESBL=Extended spectrum beta-lactamase enzymes produced, Sonido=Beta-lactamase positive, IB=Inducible Beta-lactamase enzymes known to be present.----- Plan of Care Planned Observations Name Dates Details Planned Goals not documented Goal Planned Encounters Appointment; Provider: Kurt Barnett 10:00 Appointment; Provider: Kwadwo Butcher 09:45 Appointment; Provider: Bruce Amaro 10:45 Instructions Instructions not documented Encounters Appointment; Miguel Benton Encounter Diagnosis:Problem not documented [...]
--- OUTSIDE RECORDS SUMMARY | 2016-11-04 14:54 | External Medical Summary | Summary of Care ---
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 Quantity:30 Refills:0 JacksonM.D., Kurt Perea [id number]-Qgr-0105 Active Finasteride 5 MG Oral Tablet TAKE ONE TABLET BY MOUTH ONCE DAILY Quantity:90 Refills:0 JacksonM.D., Kurt Perea Kxtik80-Rgy-0573 Active GlycoLax Oral Powder 17 gm po daily for constipation Quantity:1 Refills:5 JacksonM.D., Kurt Perea Kddts26-Cnn-4854 Active 527 GM Bottle Donepezil HCl - 23 MG Oral Tablet TAKE ONE TABLET BY MOUTH ONCE DAILY Quantity:90 Refills:0 JacksonM.D., Kurt Perea Vgyxx41-Xjn-4327 Active Gabapentin 600 MG Oral Tablet TAKE ONE TABLET BY MOUTH THREE TIMES DAILY Quantity:270 Refills:3 JacksonM.D., Kurt Perea Hncfi2-Jqb-7417 Active Namenda XR 28 MG Oral Capsule Extended Release 24 Hour TAKE ONE CAPSULE BY MOUTH ONCE DAILY Quantity:30 Refills:5 JacksonM.D., Kurt Perea Cmver84-Efi-4147 Active Travatan Z 0.004 % Ophthalmic Solution Refills:0 Noé.Kwadwo Payne Szdgn64-Wdnj-7355 Active FLUoxetine HCl - 20 MG Oral Capsule TAKE TWO CAPSULES BY MOUTH ONCE DAILY Quantity:180 Refills:1 JacksonM.D., Kurt Perea Dzwof19-Sbp-9042 Active Fluticasone Propionate 50 MCG/ACT Nasal Suspension USE 2 SPRAYS IN EACH NOSTRIL DAILY Quantity:3 Refills:5 JacksonM.D., Kurt Perea Peqte4-Yhm-2882 Active 16 GM Bottle Motrin IB 200 MG Oral Tablet TAKE 1 TABLET EVERY 8 HOURS NEEDED. Refills:0 JacksonM.D., Kurt Eliazar Xjvtd18-Tkn-9675 Active Mens 50+ Multi Vitamin/Min Oral Tablet TAKE 1 TABLET DAILY. Refills:0 AnibalM.Willie Payneony Eliazar Xjqlx75-Hie-6678 Active BuPROPion HCl ER (SR) 150 MG Oral Tablet Extended Release 12 Hour TAKE ONE TABLET BY MOUTH ONCE DAILY Quantity:30 Refills:2 AnibalM.Brayan., Kurt Eliazar Btpwy81-Ztf-5367 Active TraZODone HCl - 100 MG Oral Tablet TAKE 1/2 TO 1 TABLET AT BEDTIME. Quantity:30 Refills:5 AnibalM.D., Kurt Eliazar Atmfl97-Czeu-8387 Active Simvastatin 20 MG Oral Tablet TAKE 1 TABLET AT BEDTIME. Quantity:30 Refills:5 AnibalM.Brayan.Kurt Gdwds67-Pyx-8229 Active Allergies and Adverse Reactions Name Dates [...] on:30-Dec-2010 Pneumo (Pneumovax) on:01-Mar-2011 Influenza on:18-Jan-2013 Lot #:[id number] Fluzone High-Dose SUSP on:25-Dec-2013 Lot #:[id number] Zostavax 51876 UNT/0.65ML Subcutaneous Solution Reconstituted on:12-Feb-2014 Lot #:[id number] Prevnar 13 Intramuscular Suspension on:04-Jun-2014 Lot #:[id number] Fluzone High-Dose SUSP on:23-Jan-2015 Lot #:[id number] Tdap (Adacel) on:23-Jan-2015 Lot #:[id number] Fluzone High-Dose 0.5 ML Intramuscular Suspension Prefilled Syringe on:2015 Lot #:[id number] Family History Unknown Family Member Name Dates [...] not documented Encounters Appointment; Kurt Barnett M.D. [id number] Encounter Diagnosis:Problem not documented 07:30 Appointment; Kurt Barnett M.D. [id number] Encounter Diagnosis:Problem not documented 13:45 Appointment; Kurt Barnett M.D. Wn2-[id number] Encounter Diagnosis:Problem not documented 09:45 Appointment; Kurt Barnett M.D. [id number] Encounter Diagnosis:Problem not documented 10:45 Appointment; Kurt Barnett M.D. [id number]-[id number] Encounter Diagnosis:Problem not documented 16:15 Appointment; Kurt Barnett M.D. [id number]-[id number] Encounter Diagnosis:Problem not documented 10:45 Appointment; Kurt Barnett M.D. [id number] Encounter Diagnosis:Problem not documented 11:00 Appointment; Kurt Barnett M.D. [id number] Encounter Diagnosis:Problem not documented 10:00 Appointment; Kwadwo Butcher M.D. [id number] Encounter Diagnosis:Problem not documented 09:45 Appointment; Miguel Benton M.D. Encounter Diagnosis:Problem not documented 12:20 Appointment; Kurt Barnett M.D. Encounter Diagnosis:Problem not documented 10:45
--- OUTSIDE RECORDS SUMMARY | 2016-11-04 14:54 | External Medical Summary | Summary of Care ---
[...] TABLET DAILY. Quantity:30 Refills:0 JacksonM.D., Kurt Perea Ddiig46-Ipq-3384 Active Finasteride 5 MG Oral Tablet TAKE ONE TABLET BY MOUTH ONCE DAILY Quantity:90 Refills:0 JacksonM.D., Kurt Perea Brvsa13-Ypq-0449 Active GlycoLax Oral Powder 17 gm po daily for constipation Quantity:1 Refills:5 JacksonM.D., Kurt Preea Prhkw29-Hmw-6420 Active 527 GM Bottle Donepezil HCl - 23 MG Oral Tablet TAKE ONE TABLET BY MOUTH ONCE DAILY Quantity:90 Refills:0 JacksonM.D., Kurt Perea Gnfdt7-Brq-9941 Active Gabapentin 600 MG Oral Tablet TAKE ONE TABLET BY MOUTH THREE TIMES DAILY Quantity:270 Refills:0 JacksonM.D., Kurt Perea Avlbc9-Jyg-2115 Active Namenda XR 28 MG Oral Capsule Extended Release 24 Hour TAKE ONE CAPSULE BY MOUTH ONCE DAILY Quantity:30 Refills:5 JacksonM.D., Kurt Perea Hitmt66-Pzb-9103 Active Travatan Z 0.004 % Ophthalmic Solution Refills:0 Noé.Kwadwo Payne Tpscs65-Mnrl-1746 Active FLUoxetine HCl - 20 MG Oral Capsule TAKE TWO CAPSULES BY MOUTH ONCE DAILY Quantity:90 Refills:1 JacksonM.D., Kurt Perea Apnlr74-Bgr-1666 Active Fluticasone Propionate 50 MCG/ACT Nasal Suspension USE 2 SPRAYS IN EACH NOSTRIL DAILY Quantity:3 Refills:5 JacksonM.D., Kurt Perea Fydsx5-Tbg-2359 Active 16 GM Bottle Motrin IB 200 MG Oral Tablet TAKE 1 TABLET EVERY 8 HOURS NEEDED. Refills:0 JacksonM.D., Kurt Eliazar Htaev82-Nju-9151 Active Mens 50+ Multi Vitamin/Min Oral Tablet TAKE 1 TABLET DAILY. Refills:0 AnibalM.Kerry, Kurt Eliazar Kwvya68-Cqu-3528 Active BuPROPion HCl ER (SR) 150 MG Oral Tablet Extended Release 12 Hour TAKE ONE TABLET BY MOUTH ONCE DAILY Quantity:30 Refills:2 AnibalM.Brayan., Kurt Perea Kvyoc9-Dlc-8166 Active TraZODone HCl - 100 MG Oral Tablet TAKE 1/2 TO 1 TABLET AT BEDTIME. Quantity:30 Refills:5 AnibalM.D.Kurt Dbwao42-Blmq-0040 Active Simvastatin 20 MG Oral Tablet TAKE 1 TABLET AT BEDTIME. Quantity:30 Refills:5 AnibalM.Kurt Payne Iqeep71-Tge-5830 Active Allergies and Adverse Reactions Name Dates [...] of Cataract Surgery History of Eye Surgery Comprehensive Metabolic Panel 1212 Ordered:17-Jun-2016 LIPID PROFILE 1184 Ordered:17-Jun-2016 Immunization Name Dates Details Fluzone INJ on:10-Jan-2008 Influenza on:23-Dec-2008 Influenza on:12-Jan-2010 Influenza on:30-Dec-2010 Pneumo (Pneumovax) on:01-Mar-2011 Influenza on:18-Jan-2013 Lot #:[id number] Fluzone High-Dose SUSP on:25-Dec-2013 Lot #:[id number] Zostavax 57648 UNT/0.65ML Subcutaneous Solution Reconstituted on:12-Feb-2014 Lot #:[id number] Prevnar 13 Intramuscular Suspension on:04-Jun-2014 Lot #:[id number] Fluzone High-Dose SUSP on:23-Jan-2015 Lot #:[id number] Tdap (Adacel) on:23-Jan-2015 Lot #:[id number] Fluzone High-Dose 0.5 ML Intramuscular Suspension Prefilled Syringe on:2015 Lot #:[id number] Family History Unknown Family Member Name Dates [...] smoker Vital Signs Date Test Result Details 17-Jun-2016 09:29 BP Systolic 136mm[Hg] Status:Comments:Location: ; Position: BP Diastolic 74mm[Hg] Status:Comments:Location: ; Position: Heart Rate 74/min Status:Comments:Location: ; Weight 243lb Status: Body Mass Index Calculated 30.37kg/m2 Status: Body Surface Area Calculated 2.38m2 Status: Results Date Description Value Details 02-Jun-2016 11:01 LIPID PROFILE 1184 Comments:Fastin hours CHOLESTEROL 176 mg/dL Range:<200 TRIGLYCERIDES 88 mg/dL Range:30-200 HDL Cholesterol 70 mg/dL Range:>39 NON HDL CHOLESTEROL 106 CARDIAC RSK FACTOR 2.5 units (Below low threshold) Range:4.4-5.0 LDL - CALCULATED 88 mg/dL Range:0-130 11:01 Comprehensive Metabolic Panel 1212 Comments:Fastin hours SODIUM 142 mmol/L Range:133-144 POTASSIUM 4.1 mmol/L Range:3.5-5.1 CHLORIDE 105 mmol/L Range:98-110 CARBON DIOXIDE 31.8 mmol/L Range:23.0-33.0 ANION GAP 5 mmol/L (Below low Range:6-16 threshold) BUN 22 mg/dL (Above high Range:7-18 threshold) CREATININE, SERUM 1.35 mg/dL (Above high Range:0.70-1.30 threshold) BUN:CREATININE RATIO 16 EST GFR, >60 ml/min Range:>60 EST GFR, NON-AFR [place] R[place] 51 ml/min (Below low Range:>60 threshold) Comments:EST GFR is reported in ml/min per 1.73 m2 of body surface area. ----- GLUCOSE 114 mg/dL (Above high Range:70-100 threshold) ALK PHOSPHATASE 72 U/L Range:46-116 TOTAL BILIRUBIN 0.60 mg/dL Range:0.20-1.00 AST 18 U/L Range:8-35 ALT 26 U/L Range:16-63 ALBUMIN 3.4 g/dL Range:3.4-5.0 TOTAL PROTEIN 7.2 g/dL Range:6.4-8.2 A/G RATIO 0.9 units (Below low Range:1.0-1.8 threshold) CALCIUM 8.8 mg/dL Range:8.5-10.1 Plan of Care Name Dates Details Planned Observations Planned Goals not documented Instructions Name Dates Details Instructions not documented Encounters Appointment; Kurt Barnett M.D. Ha40-Mec-3369 Encounter Diagnosis:Problem not documented 13:15 Appointment; Kurt Barnett M.D. Encounter Diagnosis:Problem not documented 07:30 Appointment; Kurt Barnett M.D. Wa25-Ubae-3500 Encounter Diagnosis:Problem not documented 13:45 Appointment; Kurt Barnett M.D. Dc3-Rrsi-9399 Encounter Diagnosis:Problem not documented 09:45 Appointment; Kurt Barnett M.D. Sz0-Ivs-9554 Encounter Diagnosis:Problem not documented 10:45 Appointment; Kurt Barnett M.D. Di31-Lhw-9690 Encounter Diagnosis:Problem not documented 16:15 Appointment; Kurt Barnett M.D. Yx59-Cyk-3833 Encounter Diagnosis:Problem not documented 10:45 Appointment; Kurt Barnett M.D. Bo12-Wyh-6122 Encounter Diagnosis:Problem not documented 11:00 Appointment; Kurt Barnett M.D. Xu95-Crfm-0059 Encounter Diagnosis:Problem not documented 10:00 Appointment; Kwadwo Butcher M.D. Bo60-Yviu-8502 Encounter Diagnosis:Problem not documented 09:45 Appointment; Miguel Benton M.D. Encounter Diagnosis:Problem not documented 12:20
--- OUTSIDE RECORDS SUMMARY | 2016-11-04 14:54 | External Medical Summary | Continuity of Care Document ---
:1935 Author Organization [facility] Care Team Providers Name Role Phone VANNESSA BARBOSA Admitting Physician VANNESSA BARBOSA Attending Physician Hospital Admission Diagnosis No data in the System Social History Element Description Code Description Smoking Status Code Start Date End Date System Smoking Status [id number] Never smoker SNOMED-CT Problems Code Code System Problem Name Start Date End Date Status 697133325 SNOMED-CT Allergy Unknown Active 96407943 SNOMED-CT Hypercholesterolemia Unknown Active 355225088 SNOMED-CT Benign prostatic hyperplasia Unknown Active 40954879 SNOMED-CT Dementia Unknown Active Medications RxNorm Medication Dose Route Instructions Indications Start End Status Date Date 904146 24 HR 28 Oral orally every Active Memantine milligram day (do not hydrochloride crush/chew/cu 28 MG Extended t) Release Oral Capsule 1191 Aspirin 81 Oral orally every Active milligram day 42214 Bupropion 150 Oral orally every Active milligram morning 0060248 Donepezil 23 Oral orally every Active hydrochloride milligram day 23 MG Oral Tablet 162841 Finasteride 5 5 Oral orally every Active MG Oral Tablet milligram day 820461 Fluoxetine 40 40 Oral orally every Active MG Oral milligram day Capsule 6628425 Fluticasone 2 spray Intranasal into the nasal Active propionate nostril(s) congestion 0.05 MG/ACTUAT every day as Metered Dose needed. Nasal Ariton 571900 gabapentin 600 600 Oral orally 3 Active MG Oral Tablet milligram times per day Geriatric 1 Oral orally every Active Multivitamins- tablet-cap day Min richy 906698 latanoprost 1 drop Ophthalmic into the Active 0.05 MG/ML eye(s) every Ophthalmic day (both Solution eyes;) 688645 Memantine 10 Oral orally 2 Active hydrochloride milligram times per day 10 MG Oral Tablet 866725 Simvastatin 20 20 Oral orally every Active MG Oral Tablet milligram evening 39564 Trazodone 50-100 Oral orally every Active milligram day at bedtime Allergies No Known Allergies Results Radiology Results Order: CXR2VW Chest x-ray 2 viewsExam Completion Date:09/16/2016 10:33INDICATION: possible edema or infiltratesChest x -ray 2 views:There are increased lung markings in the lung bases . The findings couldeither be from fibrosis or infiltrate. The lack of prior films limitsassessment. Please clinically correlate for signs of infection. No pleuraleffusions are seen. Heart size is normal. There is no venous engorgement.Released By SIGRID LORENZ, MDDate: 09/16/201611:04Order: [id number] Shoulder LT 2 viewsExam Completion Date:09/16/2016 09:52INDICATION: fallShoulder LT 2 views:Glenohumeral and AC joint alignment is maintained. Degenerative arthritis isnoted. No focal bony lesions are seen. No definite fractures are identified.Several oldleft-sided rib fracture deformities are noted. Lowlung volume onthe left with crowding of the pulmonary markings suggesting edema/infiltrate.No pleural effusions or pneumothorax.Released By SIGRID PALAFOX, MDDate: 09/16/2016 10:17 Vital Signs Vitals Value Date Body Temperature 96.9 F 09/16/2016 Respiratory Rate 18 09/16/2016 O2% BldC Oximetry 91 09/16/2016 BP Systolic 126 mmHg 09/16/2016 BP Diastolic 76 mmHg 09/16/2016 Height 76 in 09/16/2016 Plan of Care No data in the system Procedures No data in the system Encounters No data in the system Immunizations No data in the system Functional Status No data in the system Hospital Discharge Instructions No data in the system
--- OUTSIDE RECORDS SUMMARY | 2016-11-04 14:54 | External Medical Summary | Summary of Care ---
:1935 Author Name Kenisha Benton M.D. Address [address], [place] [id number] Care Team Providers Name Role Phone Eliazar [...] F03.90) Status:Active Blood in urine(599.70, R31.9) Status:Active Medications Name Dates Details Aspirin 81 MG Oral Tablet TAKE 1 TABLET DAILY. Quantity:30 Refills:0 Kurt Barnett M.D. Zhjjnme04-Jqt-7465 ActiveFinasteride 5 MG Oral Tablet take one tablet by mouth every day Quantity:90 Refills:3 Kurt Barnett M.D. Ivxujwm23-Ode-8613 ActiveGlycoLax Oral Powder 17 gm po daily for constipation Quantity:1 Refills:5 Kurt Barnett M.D. Vnkhuxu07-Nhq-8169 Capmgx741 GM Bottle Donepezil HCl - 23 MG Oral Tablet take one tablet by mouth every day Quantity:90 Refills:3 Kurt Barnett M.D. Dbwlkbz82-Zrp-3755 ActiveGabapentin 600 MG Oral Tablet TAKE ONE TABLET BY MOUTH THREE TIMES DAILY Quantity:270 Refills:3 Kurt Barnett M.D. Orwssxz7-Vpe-9666 ActiveNamenda XR 28 MG Oral Capsule Extended Release 24 Hour TAKE ONE CAPSULE BY MOUTH EVERY DAY Quantity:30 Refills:5 Kurt Barnett M.D. Euasnwa00-Bhj-2455 ActiveTravatan Z 0.004 % Ophthalmic Solution Refills:0 Kwadwo Butcher M.D. Wkjaupr56-Rfvh-5617 ActiveFLUoxetine HCl - 20 MG Oral Capsule TAKE TWO CAPSULES BY MOUTH ONCE DAILY Quantity:180 Refills:1 Kurt Barnett M.D. Gfznjgl03-Zou-9567 ActiveFluticasone Propionate 50 MCG/ACT Nasal Suspension USE 2 SPRAYS IN EACH NOSTRIL DAILY Quantity:3 Refills:5 Kurt Barnett M.D. Mfzmsia1-Qus-2521 Dvorfm62 GM Bottle Allergies and Adverse Reactions Name [...] of Cataract Surgery History of Eye Surgery Urinalysis, Reflex to Microscopic or Ordered:08-Aug-2014 Culture PRN 8005 Immunization Name Dates Details Fluzone Intramuscular Injectable Administered on:10-Jan-2008 Influenza Administered on:23-Dec-2008 Influenza Administered on:12-Jan-2010 Influenza Administered on:30-Dec-2010 Pneumo (Pneumovax) Administered on:01-Mar-2011 Influenza Administered on:18-Jan-2013 Lot #:[id number] Fluzone High-Dose Intramuscular Suspension Administered on:25-Dec-2013 Lot #:[id number] Zostavax 53752 UNT/0.65ML Subcutaneous Solution Reconstituted Administered on: 12-Feb-2014 Lot #:[id number] Prevnar 13 Intramuscular Suspension Administered on:04-Jun-2014 Lot #:[id number] Family History Unknown Family Member Name Dates [...] Benton Encounter Diagnosis:Problem not documented 12:20 Appointment; Krut Barnett Encounter Diagnosis:Problem not documented 10:45 Appointment; [...]
--- OUTSIDE RECORDS SUMMARY | 2016-11-04 14:55 | External Medical Summary | Summary of Care ---
:1935 Author Name Eliazar Barnett M.D. Address [address], [place] [id number] Care Team Providers Name Role Phone Eliazar [...] TABLET DAILY. Quantity:30 Refills:0 Kurt Barnett M.D. Dghvtgp79-Xce-1911 ActiveFinasteride 5 MG Oral Tablet TAKE ONE TABLET BY MOUTH ONCE DAILY Quantity:90 Refills:0 Kurt Barnett M.D. Zyivnhn74-Opo-5629 ActiveGlycoLax Oral Powder 17 gm po daily for constipation Quantity:1 Refills:5 Kurt Barnett M.D. Eqemnrd70-Wvm-2324 Dvfjmv264 GM Bottle Donepezil HCl - 23 MG Oral Tablet TAKE ONE TABLET BY MOUTH ONCE DAILY Quantity:90 Refills:0 Kurt Barnett M.D. Dxjgdkx53-Jzz-2516 ActiveGabapentin 600 MG Oral Tablet TAKE ONE TABLET BY MOUTH THREE TIMES DAILY Quantity:270 Refills:3 Kurt Barnett M.D. Ipzypks0-Jwn-4700 ActiveNamenda XR 28 MG Oral Capsule Extended Release 24 Hour TAKE ONE CAPSULE BY MOUTH EVERY DAY Quantity:30 Refills:5 Kurt Barnett M.D. Teavuuf72-Aym-8327 ActiveTravatan Z 0.004 % Ophthalmic Solution Refills:0 Kwadwo Butcher M.D. Bppvgtu64-Owmo-6658 ActiveFLUoxetine HCl - 20 MG Oral Capsule TAKE TWO CAPSULES BY MOUTH ONCE DAILY Quantity:180 Refills:1 Kurt Barnett M.D. Mnkcfpu46-Bfl-5949 ActiveFluticasone Propionate 50 MCG/ACT Nasal Suspension USE 2 SPRAYS IN EACH NOSTRIL DAILY Quantity:3 Refills:5 Kurt Barnett M.D. Nsipqoe5-Luw-4753 Kvhahq21 GM Bottle Motrin IB 200 MG Oral Tablet TAKE 1 TABLET EVERY 8 HOURS NEEDED. Refills:0 Kurt Barnett M.D. Lutdmmq29-Sgd-1451 ActiveMens 50+ Multi Vitamin/Min Oral Tablet TAKE 1 TABLET DAILY. Refills:0 Kurt Barnett M.D. Xrovakc97-Aza-4733 ActivePercocet 5-325 MG Oral Tablet TAKE 1 TABLET EVERY 4 TO 6 HOURS NEEDED FOR PAIN. Refills:0 Kurt Barnett M.D. Kgmmhcc64-Ypz-1261 ActiveHydrocodone-Acetaminophen 5-325 MG Oral Tablet TAKE 1 TABLET EVERY 6 HOURS NEEDED. Quantity:24 Refills:0 Kurt Barnett M.D. Tylpprr95-Qbi-5340 ActiveBuPROPion HCl ER (SR) 150 MG Oral Tablet Extended Release 12 Hour Take 1 tablet daily Quantity:30 Refills:2 Kurt Barnett M.D. Uctmcsv43-Wro-8116 ActiveTraZODone HCl - 100 MG Oral Tablet TAKE 1/2 TO 1 TABLET AT BEDTIME. Quantity:30 Refills:5 Kurt Barnett M.D. Ypdxqdj67-Ztks-7912 Active Allergies and Adverse Reactions Name Dates [...] (Pneumovax) Administered on:01-Mar-2011 Influenza Administered on:18-Jan-2013 Lot #:[id number] Fluzone High-Dose Intramuscular Suspension Administered on:25-Dec-2013 Lot #:[id number] Zostavax 11477 UNT/0.65ML Subcutaneous Solution Reconstituted Administered on: 12-Feb-2014 Lot #:[id number] Prevnar 13 Intramuscular Suspension Administered on:04-Jun-2014 Lot #:[id number] Fluzone High-Dose Intramuscular Suspension Administered on:23-Jan-2015 Lot #:[id number] Tdap (Adacel) Administered on:23-Jan-2015 Lot #:[id number] Family History Unknown Family Member Name Dates [...] Goal Planned Encounters Appointment; Provider: Kurt Barnett Ul41-Wtfi-0549 11:00 Appointment; Provider: Schedule Radiology 14:30 Appointment; [...]
--- OUTSIDE RECORDS SUMMARY | 2016-11-04 14:55 | External Medical Summary | Summary of Care ---
[...] TABLET DAILY. Quantity:30 Refills:0 JacksonM.D., Kurt Perea Lzcii19-Biw-9236 Active Finasteride 5 MG Oral Tablet TAKE ONE TABLET BY MOUTH ONCE DAILY Quantity:90 Refills:0 JacksonM.D., Kurt Perea Ruten17-Iae-6611 Active GlycoLax Oral Powder 17 gm po daily for constipation Quantity:1 Refills:5 JacksonM.D., Kurt Perea Bhlrm02-Nrz-6058 Active 527 GM Bottle Donepezil HCl - 23 MG Oral Tablet TAKE ONE TABLET BY MOUTH ONCE DAILY Quantity:90 Refills:0 JacksonM.D., Kurt Perea Vpwln79-Fce-5782 Active Gabapentin 600 MG Oral Tablet TAKE ONE TABLET BY MOUTH THREE TIMES DAILY Quantity:270 Refills:3 JacksonM.D., Kurt Perea Qhfvu5-Cvm-1341 Active Namenda XR 28 MG Oral Capsule Extended Release 24 Hour TAKE ONE CAPSULE BY MOUTH EVERY DAY Quantity:30 Refills:5 AnibalM.D., Kurt Perea Mosfs97-Pbg-3696 Active Travatan Z 0.004 % Ophthalmic Solution Refills:0 Noé.Kwadwo Payne Punpw52-Frdh-4191 Active Fluticasone Propionate 50 MCG/ACT Nasal Suspension USE 2 SPRAYS IN EACH NOSTRIL DAILY Quantity:3 Refills:5 JacksonM.D.Kurt Srzaq9-Zgh-3438 Active 16 GM Bottle Motrin IB 200 MG Oral Tablet TAKE 1 TABLET EVERY 8 HOURS NEEDED. Refills:0 AnibalM.D., Kurt Perea Hwlwn81-Bxg-7222 Active Mens 50+ Multi Vitamin/Min Oral Tablet TAKE 1 TABLET DAILY. Refills:0 AnibalM.D.Kurt Sixdl85-Efi-3431 Active Percocet 5-325 MG Oral Tablet TAKE 1 TABLET EVERY 4 TO 6 HOURS NEEDED FOR PAIN. Refills:0 AnibalM.D. Kurt Perea Qqnlf60-Ryi-3360 Active Hydrocodone-Acetaminophen 5-325 MG Oral Tablet TAKE 1 TABLET EVERY 6 HOURS NEEDED. Quantity:24 Refills:0 AnibalM.Kerry Kurt Perea Gumyl93-Xjz-4245 Active FLUoxetine HCl - 20 MG Oral Capsule TAKE TWO CAPSULES BY MOUTH ONCE DAILY Quantity:180 Refills:1 AnibalM.D. Kurt Perea Ujehg84-Fol-9619 Active TraZODone HCl - 100 MG Oral Tablet TAKE 1/2 TO 1 TABLET AT BEDTIME. Quantity:30 Refills:5 AnibalM.D. Kurt Leey Hfhlr85-Xzbw-3719 Active BuPROPion HCl ER (SR) 150 MG Oral Tablet Extended Release 12 Hour TAKE ONE TABLET BY MOUTH ONCE DAILY Quantity:30 Refills:2 AnibalM.D.WillieKurtsorin Perea Zrwwf06-Ply-1642 Active Allergies and Adverse Reactions Name Dates [...] Status:Resolved Procedures Procedure Dates Details History of Dermatological Surgery Skin Graft History of Tonsillectomy With Adenoidectomy History of Arthroplasty For Hammertoe History of Complete Colonoscopy Comments:Completed: 2006 History of Rectal Surgery History of Cataract Surgery History of Eye Surgery Procedures not documented Immunization Name Dates Details Fluzone INJ on:10-Jan-2008 Influenza on:23-Dec-2008 Influenza on:12-Jan-2010 Influenza on:30-Dec-2010 Pneumo (Pneumovax) on:01-Mar-2011 Influenza on:18-Jan-2013 Lot #:[id number] Fluzone High-Dose SUSP on:25-Dec-2013 Lot #:[id number] Zostavax 49185 UNT/0.65ML Subcutaneous Solution Reconstituted on:12-Feb-2014 Lot #:[id number] Prevnar 13 Intramuscular Suspension on:04-Jun-2014 Lot #:[id number] Fluzone High-Dose SUSP on:23-Jan-2015 Lot #:[id number] Tdap (Adacel) on:23-Jan-2015 Lot #:[id number] Family History Unknown Family Member Name Dates [...] documented Planned Encounters Appointment; Provider: Schedule Radiology Vf13-Qdr-8889 14:30 Instructions Name Dates Details Instructions not documented Encounters Appointment; Kurt Barnett M.D. Zm90-Qab-8737 Encounter Diagnosis:Problem not documented 16:15 Appointment; Kurt Barnett M.D. Sa18-Clc-5433 Encounter Diagnosis:Problem not documented 10:45 Appointment; Kurt Barnett M.D. Fq84-Usl-4543 Encounter Diagnosis:Problem not documented 11:00 Appointment; Kurt Barnett M.D. Encounter Diagnosis:Problem not documented 10:00 Appointment; Kwadwo Butcher M.D. Gq76-Djrl-2941 Encounter Diagnosis:Problem not documented 09:45 Appointment; Miguel Benton M.D. Encounter Diagnosis:Problem not documented 12:20 Appointment; Kurt Barnett M.D. Vm8-Ebd-0443 Encounter Diagnosis:Problem not documented 10:45 Appointment; Kurt Barnett M.D. Encounter Diagnosis:Problem not documented 10:45 Appointment; Kurt Barnett M.D. Fv08-Jgz-5674 Encounter Diagnosis:Problem not documented 09:00 Appointment; Kurt Barnett M.D. Encounter Diagnosis:Problem not documented 07:00 Appointment; Kurt Barnett M.D. Encounter Diagnosis:Problem not documented 11:00
--- OUTSIDE RECORDS SUMMARY | 2016-11-04 14:55 | External Medical Summary | Summary of Care ---
[...] TABLET DAILY. Quantity:30 Refills:0 JacksonM.D., Kurt Perea Jwnhy37-Rgg-9353 Active Finasteride 5 MG Oral Tablet TAKE ONE TABLET BY MOUTH ONCE DAILY Quantity:90 Refills:0 JacksonM.D., Kurt Perea Myrrs88-Ssd-6873 Active GlycoLax Oral Powder 17 gm po daily for constipation Quantity:1 Refills:5 JacksonM.D., Kurt Perea Oqnkz32-Fvl-6672 Active 527 GM Bottle Donepezil HCl - 23 MG Oral Tablet TAKE ONE TABLET BY MOUTH ONCE DAILY Quantity:90 Refills:0 JacksonM.D., Kurt Perea Orxeu85-Vtd-2516 Active Gabapentin 600 MG Oral Tablet TAKE ONE TABLET BY MOUTH THREE TIMES DAILY Quantity:270 Refills:0 JacksonM.D., Kurt Perea Comai0-Ero-7311 Active Namenda XR 28 MG Oral Capsule Extended Release 24 Hour TAKE ONE CAPSULE BY MOUTH ONCE DAILY Quantity:30 Refills:5 JacksonM.D., Kurt Perea Fcoip72-Lla-4377 Active Travatan Z 0.004 % Ophthalmic Solution Refills:0 AllisoneM.DKwadwo Guy Bluei58-Qude-2023 Active FLUoxetine HCl - 20 MG Oral Capsule TAKE TWO CAPSULES BY MOUTH ONCE DAILY Quantity:90 Refills:0 JacksonM.D.Kurt Shieo06-Ssf-6712 Active Fluticasone Propionate 50 MCG/ACT Nasal Suspension USE 2 SPRAYS IN EACH NOSTRIL DAILY Quantity:3 Refills:5 JacksonM.D.Kurt Xuhms3-Mic-7628 Active 16 GM Bottle Motrin IB 200 MG Oral Tablet TAKE 1 TABLET EVERY 8 HOURS NEEDED. Refills:0 JacksonM.D., Kurt Eliazar Vvvfa96-Ded-8715 Active Mens 50+ Multi Vitamin/Min Oral Tablet TAKE 1 TABLET DAILY. Refills:0 AnibalM.Kerry, Kurt Perea Whqjx47-Lzv-2479 Active BuPROPion HCl ER (SR) 150 MG Oral Tablet Extended Release 12 Hour TAKE ONE TABLET BY MOUTH ONCE DAILY Quantity:30 Refills:2 AnibalM.Brayan., Kurt Perea Ayxfq4-Ugz-2265 Active TraZODone HCl - 100 MG Oral Tablet TAKE 1/2 TO 1 TABLET AT BEDTIME. Quantity:30 Refills:5 AnibalM.D.Kurt Vgktn55-Ubla-3145 Active Simvastatin 20 MG Oral Tablet TAKE 1 TABLET AT BEDTIME. Quantity:30 Refills:5 AnibalMKurt Ambrose Cqlov59-Xyg-1049 Active Allergies and Adverse Reactions Name Dates [...] of Cataract Surgery History of Eye Surgery LIPID PROFILE 1184 Ordered:28-May-2016 Comprehensive Metabolic Panel 1212 Ordered:28-May-2016 Immunization Name Dates Details Fluzone INJ on:10-Jan-2008 Influenza on:23-Dec-2008 Influenza on:12-Jan-2010 Influenza on:30-Dec-2010 Pneumo (Pneumovax) on:01-Mar-2011 Influenza on:18-Jan-2013 Lot #:[id number] Fluzone High-Dose SUSP on:25-Dec-2013 Lot #:[id number] Zostavax 23890 UNT/0.65ML Subcutaneous Solution Reconstituted on:12-Feb-2014 Lot #:[id number] Prevnar 13 Intramuscular Suspension on:04-Jun-2014 Lot #:[id number] Fluzone High-Dose SUSP on:23-Jan-2015 Lot #:[id number] Tdap (Adacel) on:23-Jan-2015 Lot #:[id number] Fluzone High-Dose 0.5 ML Intramuscular Suspension Prefilled Syringe on:2015 Lot #:[id number] Family History Unknown Family Member Name Dates [...] Planned Encounters Appointment; Provider: Kurt Barnett M.D. Fh19-Wnw-7945 09:15 Interventions Provided Labs/Procedures/ImagingComprehensive Metabolic Panel 1212; To be Done: 28 May 2016LIPID PROFILE 1184; To be Done: 28 May 2016 Instructions Name Dates Details Instructions not documented Encounters Appointment; Kurt Barnett M.D. Jf79-Aud-1200 Encounter Diagnosis:Problem not documented 13:15 Appointment; Kurt Barnett M.D. Uv5-Paq-9197 Encounter Diagnosis:Problem not documented 07:30 Appointment; Kurt Barnett M.D. Wr58-Zejs-5458 Encounter Diagnosis:Problem not documented 13:45 Appointment; Kurt Barnett M.D. Hi6-Uwtv-6032 Encounter Diagnosis:Problem not documented 09:45 Appointment; Kurt Barnett M.D. Vx5-Esg-4534 Encounter Diagnosis:Problem not documented 10:45 Appointment; Kurt Barnett M.D. Oy46-Umw-2733 Encounter Diagnosis:Problem not documented 16:15 Appointment; Kurt Barnett M.D. Vc52-Clq-5902 Encounter Diagnosis:Problem not documented 10:45 Appointment; Kurt Barnett M.D. Encounter Diagnosis:Problem not documented 11:00 Appointment; Kurt Barnett M.D. Encounter Diagnosis:Problem not documented 10:00 Appointment; Kwadwo Butcher M.D. Encounter Diagnosis:Problem not documented 09:45 Appointment; Miguel Benton M.D. Encounter Diagnosis:Problem not documented 12:20 Appointment; Kurt Barnett M.D. Encounter Diagnosis:Problem not documented 10:45
--- OUTSIDE RECORDS SUMMARY | 2016-11-04 14:55 | External Medical Summary | Summary of Care ---
:1935 Author Name Eliazar Barnett M.D. Address [address], [place] [id number] Care Team Providers Name Role Phone Eliazar [...] Status:Active Incoordination(781.3, R27.9) Status:Active Hallucinations(780.1, R44.3) Status:Active Allergic rhinitis(477.9, J30.9) Status:Active CKD (chronic kidney disease)(585.9, N18.9) Status:Active Peripheral neuropathy(356.9, G62.9) Status:Active Hyperlipidemia(272.4, E78.5) Status:Active Routine physical examination(V70.0, Z00.00) Status:Active Depression(311, F32.9) Status:Active Urinary tract infection(599.0, N39.0) Status:Active Lower back pain(724.2, M54.5) Status:Active Hyperglycemia(790.29, R73.9) Status:Active Hypertension(401.9, I10) Status:Active Dementia(294.20, F03.90) Status:Active Lung nodule, multiple(793.19, R91.8) Status:Active Onychomycosis of toenail(110.1, B35.1) Status:Active Medications Name Dates Details Finasteride 5 MG Oral Tablet take one tablet by mouth every day Quantity:90 Refills:3 Kurt Barnett M.D. Swthwvn81-Mzc-9838 ActiveGlycoLax Oral Powder 17 gm po daily for constipation Quantity:1 Refills:5 Kurt Barnett M.D. Fntucwa80-Coh-4869 Ecfqax260 GM Bottle Donepezil HCl - 23 MG Oral Tablet TAKE ONE TABLET BY MOUTH ONCE DAILY Quantity:90 Refills:0 Kurt Barnett M.D. Vcznuzc10-Yap-5497 ActiveNamenda XR 28 MG Oral Capsule Extended Release 24 Hour TAKE ONE CAPSULE BY MOUTH EVERY DAY Quantity:30 Refills:5 Kurt Barnett M.D. Bytgcic16-Eec-7341 ActiveTravatan Z 0.004 % Ophthalmic Solution Refills:0 Kwadwo Butcher M.D. Abgyiur79-Ntgv-1925 ActiveFLUoxetine HCl - 20 MG Oral Capsule TAKE TWO CAPSULES BY MOUTH ONCE DAILY Quantity:180 Refills:1 Kurt Barnett M.D. Jhviczv10-Xpu-5564 ActiveFluticasone Propionate 50 MCG/ACT Nasal Suspension USE 2 SPRAYS IN EACH NOSTRIL DAILY Quantity:3 Refills:5 Kurt Barnett M.D. Wgzugkd8-Qdz-9271 Mbilrd47 GM Bottle Motrin IB 200 MG Oral Tablet TAKE 1 TABLET EVERY 8 HOURS NEEDED. Refills:0 Kurt Barnett M.D. Sdeoxau86-Gaf-2756 ActiveMens 50+ Multi Vitamin/Min Oral Tablet TAKE 1 TABLET DAILY. Refills:0 Kurt Barnett M.D. Fgnnyvr45-Psm-4508 ActiveHydrocodone-Acetaminophen 5-325 MG Oral Tablet TAKE 1 TABLET EVERY 6 HOURS NEEDED. Quantity:24 Refills:0 Kurt Barnett M.D. Okbgsbl81-Mwh-9821 ActiveBuPROPion HCl ER (SR) 150 MG Oral Tablet Extended Release 12 Hour Take 1 tablet daily Quantity:30 Refills:2 Kurt Barnett M.D. Ypgwmmu80-Aqe-8828 ActiveGabapentin 600 MG Oral Tablet TAKE ONE TABLET BY MOUTH THREE TIMES DAILY Quantity:270 Refills:3 Kurt Barnett M.D. Pujrvek2-Nlk-6841 ActiveAspirin 81 MG Oral Tablet TAKE 1 TABLET DAILY. Quantity:30 Refills:0 Kurt Barnett M.D. Dtnnulk17-Blv-2162 ActivePercocet 5-325 MG Oral Tablet TAKE 1 TABLET EVERY 4 TO 6 HOURS NEEDED FOR PAIN. Refills:0 Kurt Barnett M.D. Nkpafpe96-Jth-9205 Active Allergies and Adverse Reactions Name Dates [...] (Pneumovax) Administered on:01-Mar-2011 Influenza Administered on:18-Jan-2013 Lot #:[id number] Fluzone High-Dose Intramuscular Suspension Administered on:25-Dec-2013 Lot #:[id number] Zostavax 17285 UNT/0.65ML Subcutaneous Solution Reconstituted Administered on: 12-Feb-2014 Lot #:[id number] Prevnar 13 Intramuscular Suspension Administered on:04-Jun-2014 Lot #:[id number] Fluzone High-Dose Intramuscular Suspension Administered on:23-Jan-2015 Lot #:[id number] Tdap (Adacel) Administered on:23-Jan-2015 Lot #:[id number] Family History Unknown Family Member Name Dates Details Family history of Composition Of Household ___ Sisters Comments:Family History Status:Active Family history of Composition Of Household ___ Brothers Comments:Family History Status:Active Mother Name Dates Details [...] Goal Planned Encounters Appointment; Provider: Kurt Barnett Of63-Hrnl-1438 11:00 Appointment; Provider: Schedule Radiology 14:30 Appointment; Provider: Bruce Amaro 10:45 Instructions Instructions not documented Encounters Appointment; Kurt Barnett Encounter Diagnosis:Problem not documented 10:45 Appointment; Kurt Barnett Encounter Diagnosis:Problem not documented 16:15 Appointment; Kurt Barnett Encounter Diagnosis:Problem not documented 10:45 Appointment; Kurt Barnett Encounter Diagnosis:Problem not documented 11:00 Appointment; Kurt Banrett Encounter Diagnosis:Problem not documented 10:00 Appointment; Kwadwo [...]
--- OUTSIDE RECORDS SUMMARY | 2016-11-04 14:55 | External Medical Summary | Summary of Care ---
:1935 Author Name Kenisha Benton M.D. Address [address], [place] [id number] Care Team Providers Name Role Phone Eliazar Banrett M.D. Unavailable Unavailable Ian Butcher M.D. Unavailable [...] TABLET DAILY. Quantity:30 Refills:0 Kurt Barnett M.D. Shftglf39-Bqm-5315 ActiveFinasteride 5 MG Oral Tablet take one tablet by mouth every day Quantity:90 Refills:3 Kurt Barnett M.D. Dzecxpy66-Sja-9348 ActiveGlycoLax Oral Powder 17 gm po daily for constipation Quantity:1 Refills:5 Kurt Barnett M.D. Lzxztwo46-Ufs-3284 Qyomhi856 GM Bottle Donepezil HCl - 23 MG Oral Tablet take one tablet by mouth every day Quantity:90 Refills:3 Kurt Barnett M.D. Ijiwpls04-Qpx-6059 ActiveGabapentin 600 MG Oral Tablet TAKE ONE TABLET BY MOUTH THREE TIMES DAILY Quantity:270 Refills:3 Kurt Barnett M.D. Sobdknp3-Iko-1492 ActiveNamenda XR 28 MG Oral Capsule Extended Release 24 Hour TAKE ONE CAPSULE BY MOUTH EVERY DAY Quantity:30 Refills:5 Kurt Barnett M.D. Uudugoh78-Thg-4938 ActiveTravatan Z 0.004 % Ophthalmic Solution Refills:0 Kwadwo Butcher M.D. Yyczrbk60-Rfgj-7604 ActiveFLUoxetine HCl - 20 MG Oral Capsule TAKE TWO CAPSULES BY MOUTH ONCE DAILY Quantity:180 Refills:1 Kurt Barnett M.D. Vfslzjm16-Slq-7464 ActiveFluticasone Propionate 50 MCG/ACT Nasal Suspension USE 2 SPRAYS IN EACH NOSTRIL DAILY Quantity:3 Refills:5 Kurt Barnett M.D. Oktnlow4-Scj-6954 Hkhwoo44 GM Bottle Allergies and Adverse Reactions Name [...] (Pneumovax) Administered on:01-Mar-2011 Influenza Administered on:18-Jan-2013 Lot #:[id number] Fluzone High-Dose Intramuscular Suspension Administered on:25-Dec-2013 Lot #:[id number] Zostavax 15200 UNT/0.65ML Subcutaneous Solution Reconstituted Administered on: 12-Feb-2014 Lot #:[id number] Prevnar 13 Intramuscular Suspension Administered on:04-Jun-2014 Lot #:[id number] Family History Unknown Family Member Name Dates [...]
--- OUTSIDE RECORDS SUMMARY | 2016-11-04 14:55 | External Medical Summary | Summary of Care ---
:1935 Author Name Eliazar Barnett M.D. Address [address] [place], [place] [id number] Care Team Providers Name Role Phone Eliazar [...] M54.5) Status:Active Lung nodule, multiple(793.19, R91.8) Status:Active Medications Name Dates Details Aspirin 81 MG Oral Tablet TAKE 1 TABLET DAILY. Quantity:30 Refills:0 Kurt Barnett M.D. Dwrglvf58-Jua-8323 ActiveFinasteride 5 MG Oral Tablet take one tablet by mouth every day Quantity:90 Refills:3 Kurt Barnett M.D. Kxzwkaw41-Rum-3745 ActiveGlycoLax Oral Powder 17 gm po daily for constipation Quantity:1 Refills:5 Kurt Barnett M.D. Lvfljoc21-Nox-1105 Vkrylg824 GM Bottle Donepezil HCl - 23 MG Oral Tablet TAKE ONE TABLET BY MOUTH ONCE DAILY Quantity:90 Refills:0 Kurt Barnett M.D. Algshzi73-Wue-3597 ActiveGabapentin 600 MG Oral Tablet TAKE ONE TABLET BY MOUTH THREE TIMES DAILY Quantity:270 Refills:3 Kurt Barnett M.D. Bvwomsm0-Ond-9729 ActiveNamenda XR 28 MG Oral Capsule Extended Release 24 Hour TAKE ONE CAPSULE BY MOUTH EVERY DAY Quantity:30 Refills:5 Kurt Barnett M.D. Ebpelxy73-Azq-1998 ActiveTravatan Z 0.004 % Ophthalmic Solution Refills:0 Kwadwo Butcher M.D. Vtubdur16-Jvnd-6694 ActiveFLUoxetine HCl - 20 MG Oral Capsule TAKE TWO CAPSULES BY MOUTH ONCE DAILY Quantity:180 Refills:1 Kurt Barnett M.D. Qvkotoo39-Bml-7568 ActiveFluticasone Propionate 50 MCG/ACT Nasal Suspension USE 2 SPRAYS IN EACH NOSTRIL DAILY Quantity:3 Refills:5 Kurt Barnett M.D. Fkhwgza0-Qda-6005 Nvbpdq24 GM Bottle Motrin IB 200 MG Oral Tablet TAKE 1 TABLET EVERY 8 HOURS NEEDED. Refills:0 Kurt Barnett M.D. Gzdbkfh57-Aap-9786 ActiveMens 50+ Multi Vitamin/Min Oral Tablet TAKE 1 TABLET DAILY. Refills:0 Kurt Barnett M.D. Tzazlmq10-Emm-7416 ActivePercocet 5-325 MG Oral Tablet TAKE 1 TABLET EVERY 4 TO 6 HOURS NEEDED FOR PAIN. Refills:0 Kurt Barnett M.D. Jqmpnyx78-Yfq-5385 ActiveLevofloxacin 500 MG Oral Tablet TAKE 1 TABLET Daily FOR 5 MORE DAYS Quantity:5 Refills:0 Kurt Barnett M.D. Azqjexr85-Joe-1113 ActiveHydrocodone-Acetaminophen 5-325 MG Oral Tablet TAKE 1 TABLET EVERY 6 HOURS NEEDED. Quantity:24 Refills:0 Kurt Barnett M.D. Adahrqx80-Wem-3817 Active Allergies and Adverse Reactions Name Dates [...] (Pneumovax) Administered on:01-Mar-2011 Influenza Administered on:18-Jan-2013 Lot #:[id number] Fluzone High-Dose Intramuscular Suspension Administered on:25-Dec-2013 Lot #:[id number] Zostavax 65074 UNT/0.65ML Subcutaneous Solution Reconstituted Administered on: 12-Feb-2014 Lot #:[id number] Prevnar 13 Intramuscular Suspension Administered on:04-Jun-2014 Lot #:[id number] Fluzone High-Dose Intramuscular Suspension Administered on:23-Jan-2015 Lot #:[id number] Tdap (Adacel) Administered on:23-Jan-2015 Lot #:[id number] Family History Unknown Family Member Name Dates [...] Instructions not documented Encounters Appointment; Kurt Barnett Wu63-Tkw-8766 Encounter Diagnosis:Problem not documented 16:15 Appointment; Kurt Barnett Encounter Diagnosis:Problem not documented 10:45 Appointment; Kurt Barnett Encounter Diagnosis:Problem not documented 11:00 Appointment; Kurt Barnett Encounter Diagnosis:Problem not documented 10:00 Appointment; Kwadwo Butcehr Encounter Diagnosis:Problem not documented 09:45 Appointment; Miguel [...] Diagnosis:Problem not documented 16:30 Appointment; Kwadwo Butcher Eh13-Wetp-1475 Encounter Diagnosis:Problem not documented 09:45 Appointment; Kurt Barnett Encounter Diagnosis:Problem not documented 10:30 Appointment; Kurt Barnett Encounter Diagnosis:Problem not documented 08:30 Appointment; Kurt Barnett Encounter Diagnosis:Problem not documented 09:30
--- OUTSIDE RECORDS SUMMARY | 2016-11-04 14:56 | External Medical Summary | Summary of Care ---
[...] Hyperglycemia(790.29, R73.9) Status:Active Medications Name Dates Details Finasteride 5 MG Oral Tablet TAKE ONE TABLET BY MOUTH ONCE DAILY Quantity:90 Refills:0 AnibalM.Kurt Payne Hpzrs11-Uro-9058 Active GlycoLax Oral Powder 17 gm po daily for constipation Quantity:1 Refills:5 AnibalM.Kurt Payne Uskpv97-Bsn-0517 Active 527 GM Bottle Donepezil HCl - 23 MG Oral Tablet TAKE ONE TABLET BY MOUTH ONCE DAILY Quantity:90 Refills:0 AnibalM.Kurt Payne Phepo1-Aqy-9558 Active Gabapentin 600 MG Oral Tablet TAKE ONE TABLET BY MOUTH THREE TIMES DAILY Quantity:270 Refills:0 Drake.Kurt Payne Nslps6-Ihd-6889 Active Namenda XR 28 MG Oral Capsule Extended Release 24 Hour TAKE ONE CAPSULE BY MOUTH ONCE DAILY Quantity:30 Refills:5 Kurt Munoz Trlqp40-Qpl-6122 Active Travatan Z 0.004 % Ophthalmic Solution Refills:0 Kwadwo [place]man Ieewg98-Jfxv-7846 Active FLUoxetine HCl - 20 MG Oral Capsule TAKE TWO CAPSULES BY MOUTH ONCE DAILY Quantity:90 Refills:1 AnibalM.Kurt Payne Mkwfm39-Ume-6410 Active Fluticasone Propionate 50 MCG/ACT Nasal Suspension USE 2 SPRAYS IN EACH NOSTRIL DAILY Quantity:3 Refills:5 AnibalM.Kurt Payne Tyxpi2-Exl-1460 Active 16 GM Bottle BuPROPion HCl ER (SR) 150 MG Oral Tablet Extended Release 12 Hour TAKE ONE TABLET BY MOUTH ONCE DAILY Quantity:30 Refills:0 JacksonM.D., Kurt Perea Ryjtc00-Ulj-8902 Active TraZODone HCl - 100 MG Oral Tablet TAKE 1/2 TO 1 TABLET AT BEDTIME. Quantity:30 Refills:5 JacksonM.D., Kurt Perea Olwab02-Mnzf-9214 Active Mens 50+ Multi Vitamin/Min Oral Tablet TAKE 1 TABLET DAILY. Refills:0 JacksonM.D., Kurt Perea Wjzyn47-Zpf-9091 Active Motrin IB 200 MG Oral Tablet TAKE 1 TABLET EVERY 8 HOURS NEEDED. Refills:0 JacksonM.D., Kurt Perea Cqjsb06-Zpj-8903 Active Aspirin 81 MG TABS TAKE 1 TABLET DAILY. Quantity:30 Refills:0 JacksonM.D., Kurt Perea Hycxb36-Ref-4584 Active Simvastatin 20 MG Oral Tablet TAKE 1 TABLET AT BEDTIME. Quantity:30 Refills:5 JacksonM.D., Kurt Perea Gahub18-Cxd-3695 Active Allergies and Adverse Reactions Name Dates [...] of Cataract Surgery History of Eye Surgery BASIC METABOLIC PROFILE 1210 Ordered:18-Jun-2016 HEMOGLOBIN A1C 3507 Ordered:18-Jun-2016 Immunization Name Dates Details Fluzone INJ on:10-Jan-2008 Influenza on:23-Dec-2008 Influenza on:12-Jan-2010 Influenza on:30-Dec-2010 Pneumo (Pneumovax) on:01-Mar-2011 Influenza on:18-Jan-2013 Lot #:[id number] Fluzone High-Dose SUSP on:25-Dec-2013 Lot #:[id number] Zostavax 09502 UNT/0.65ML Subcutaneous Solution Reconstituted on:12-Feb-2014 Lot #:[id number] Prevnar 13 Intramuscular Suspension on:04-Jun-2014 Lot #:[id number] Fluzone High-Dose SUSP on:23-Jan-2015 Lot #:[id number] Tdap (Adacel) on:23-Jan-2015 Lot #:[id number] Fluzone High-Dose 0.5 ML Intramuscular Suspension Prefilled Syringe on:2015 Lot #:[id number] Family History Unknown Family Member Name Dates [...] Planned Encounters Appointment; Provider: Kurt Barnett M.D. Eh90-Dktl-8788 11:30 Instructions Name Dates Details Instructions not documented Encounters Appointment; Kurt Barnett M.D. Wj21-Xxr-5202 Encounter Diagnosis:Problem not documented 09:15 Appointment; Kurt Barnett M.D. Gq55-Jbe-0348 Encounter Diagnosis:Problem not documented 13:15 Appointment; Kurt Barnett M.D. Pz0-Axg-1106 Encounter Diagnosis:Problem not documented 07:30 Appointment; Kurt Barnett M.D. Tp34-Bvpf-0778 Encounter Diagnosis:Problem not documented 13:45 Appointment; Kurt Barnett M.D. Pe7-Lqqm-4010 Encounter Diagnosis:Problem not documented 09:45 Appointment; Kurt Barnett M.D. Ru5-Jri-9723 Encounter Diagnosis:Problem not documented 10:45 Appointment; Kurt Barnett M.D. Ae51-Nmy-0445 Encounter Diagnosis:Problem not documented 16:15 Appointment; Kurt Barnett M.D. Encounter Diagnosis:Problem not documented 10:45 Appointment; Kurt Barnett M.D. Encounter Diagnosis:Problem not documented 11:00 Appointment; Kurt Barnett M.D. Encounter Diagnosis:Problem not documented 10:00 Appointment; Kwadwo Butcher M.D. Encounter Diagnosis:Problem not documented 09:45 Appointment; Miguel Benton M.D. Encounter Diagnosis:Problem not documented 12:20
--- OUTSIDE RECORDS SUMMARY | 2016-11-04 14:56 | External Medical Summary ---
:1935 Author Name GENERATED, SYSTEM Care Team Providers Name Role Phone MD PREM, VANNESSA TEJADA Primary Care Provider [phone] Reason For Visit Chief Complaint FALL Social History Functional Status Vital Signs Results Urinalysis from 05/19/2015 8:25 AM*URINE COLORYELLOW(STRAW/YELL/DK YELL ) *URINE APPEARANCESL CLOUDY A(CLEAR ) URINE PH8.5 A(5.0-8.0 ) URINE SPECIFIC GRAVITY1.020(<=1.005->=1.030 ) *URINE GLUCOSENEGATIVE MG/DL(NEGATIVE MG/DL) *URINE BILIRUBINNEGATIVE(NEGATIVE ) *URINE KETONESNEGATIVE MG/DL(NEGATIVE MG/DL) *URINE BLOODNEGATIVE(NEGATIVE ) *URINE PROTEINTRACE MG/DL A(NEGATIVE MG/DL) *URINE UROBILINOGEN1.0 EU/DL(0.2-1.0 EU/DL) *URINE NITRITESPOSITIVE A(NEGATIVE ) *URINE LEUKOCYTESSMALL A(NEGATIVE ) *MICROSCOPIC EXAM PERFORMEDPERFORMED *WBC VLIKQ92-89 /HPF A(0-5 /HPF) *SQUAMOUS EP. CELLSFEW /LPF(NEG-FEW /LPF) *MUCOUS THREADSFEW /LPF A(NEGATIVE /LPF) *BACTERIAMANY /HPF A(NEGATIVE /HPF) *HYALINE CASTS0-1 /LPF(0 /LPF)CT Scan from 05/19/2015 8:49 AMCT ABD/PELVIS W/O CONTRASTHistory: Right flank and back pain after fall last Tuesday. Priors: None. Findings: Abdomen Lung bases: There multiple bibasilar subpleural pulmonary nodules as well as additional nodular densities the posterior lateral aspect of the left upper lobe. This is of uncertain etiology. Liver: Normal density. No definable mass. Spleen: Normal. Pancreas: No discrete mass or inflammatory process. Gallbladder and biliary tract: No radiodense calculus or dilation. Adrenal glands: Normal. Kidneys: No nephrolithiasis. No Hydronephrosis. Urinary Bladder: Normal. Aorta: Normal in caliber. No periaortic lymphadenopathy. Bowel and Mesentery: Grossly normal. No findings of appendicitis. Ascites: None. Pelvis Lymphadenopathy: None. Reproductive: Unremarkable. Osseous Structures: No suspicious findings. Impression: No evidence of abdominal or pelvic visceral injury. Multiple subcentimeter to subpleural pulmonary nodules in both lung bases as well as in the posterior aspect left upper lobe. This may be postinflammatory in nature however dedicated CT and follow-up are recommended to exclude metastatic disease and or neoplasm. Electronically signed by: Kee Lee MD Dictated: 05/19/2015 09:33 CT CEREBRAL W/O CONTRASTHistory: fall, back pain . Priors: 09/17/2013 Findings: Ventricles and Extra axial spaces: Normal in size and morphology for the patient's age. Hemorrhage: None. Cerebral parenchyma: There is mild low density in the periventricular white matter consistent chronic microvascular ischemic change. Mass effect/midline shift: None. Brainstem/Cerebellum: Normal. Calvarium: Normal. Visualized Paranasal sinuses/Mastoids: Clear. Impression: Unremarkable CT scan of the head. Electronically signed by: Kee Lee MD Dictated: 05/19/2015 09:16 CT SPINE THORACIC W/O CONTRASTHistory: fall, back pain . Priors: None. Findings: Thoracic alignment is within normal limits No acute Fractures or subluxations are identified There is uxly-hd-awswlzqo diffuse disc space narrowing throughout the thoracic spine consistent with degenerative disc disease. No focal disc protrusions or significant central spinal stenosis is identified. 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 There is moderate osteoporosis. There multiple subcentimeter pulmonary nodules in the lung bases as well as in the left upper. The largest nodule measures 9 mm in the posterior aspect of the left upper lobe. . Impression: No evidence acute fracture. Multiple bibasilar and left upper lobe subcentimeter pulmonary nodules. This may represent pleural parenchymal scarring however dedicated CT chest is recommended for further evaluation pulmonary neoplasm or metastatic disease cannot be excluded. . This can be performed on nonemergent basis. Electronically signed by: Kee Lee MD Dictated: 05/19/2015 09:30 Problems Encounter Diagnosis No relevant problems exist. Encounters Encounter Diagnosis No relevant problems exist. Plan of Care Procedures Completed , on 06/26/2011 12:00 AMCompleted , on 09/26/2008 12:00 AM Immunizations No immunizations administered or ordered. Hospital Course Hospital Discharge Instructions Allergies, Adverse Reactions, Alerts Latex Allergy has not been assessed.IV Contrast Allergy has not been assessed.No Known Drug Allergies. Medication Medication reconciliation has not been performed.
--- OUTSIDE RECORDS SUMMARY | 2016-11-04 14:56 | External Medical Summary | Summary of Care ---
:1935 Author Name Kenisha Benton M.D. Address [address], [place] [id number] Care Team Providers Name Role Phone Eliazar [...] TABLET DAILY. Quantity:30 Refills:0 Kurt Barnett M.D. Gafmjrf58-Kuq-2936 ActiveFinasteride 5 MG Oral Tablet take one tablet by mouth every day Quantity:90 Refills:3 Kurt Barnett M.D. Vtwofzp93-Hco-8165 ActiveGlycoLax Oral Powder 17 gm po daily for constipation Quantity:1 Refills:5 Kurt Barnett M.D. Bdnyrbs71-Frw-7464 Slrjos746 GM Bottle Donepezil HCl - 23 MG Oral Tablet take one tablet by mouth every day Quantity:90 Refills:3 Kurt Barnett M.D. Qkweznl76-Fqd-0428 ActiveGabapentin 600 MG Oral Tablet TAKE ONE TABLET BY MOUTH THREE TIMES DAILY Quantity:270 Refills:3 Kurt Barnett M.D. Ejfafgc5-Qqv-0958 ActiveNamenda XR 28 MG Oral Capsule Extended Release 24 Hour TAKE ONE CAPSULE BY MOUTH EVERY DAY Quantity:30 Refills:5 Kurt Barnett M.D. Ilfmilk62-Pvw-4765 ActiveTravatan Z 0.004 % Ophthalmic Solution Refills:0 Kwadwo Butcher M.D. Eiphdxu37-Xxlj-3802 ActiveFLUoxetine HCl - 20 MG Oral Capsule TAKE TWO CAPSULES BY MOUTH ONCE DAILY Quantity:180 Refills:1 Kurt Barnett M.D. Xeajngt69-Qni-2745 ActiveFluticasone Propionate 50 MCG/ACT Nasal Suspension USE 2 SPRAYS IN EACH NOSTRIL DAILY Quantity:3 Refills:5 Kurt Barnett M.D. Qysvapu2-Fwa-5069 Nppgie44 GM Bottle Allergies and Adverse Reactions Name [...] (Pneumovax) Administered on:01-Mar-2011 Influenza Administered on:18-Jan-2013 Lot #:[id number] Fluzone High-Dose Intramuscular Suspension Administered on:25-Dec-2013 Lot #:[id number] Zostavax [id number] UNT/0.65ML Subcutaneous Solution Reconstituted Administered on: 12-Feb-2014 Lot #:[id number] Prevnar 13 Intramuscular Suspension Administered on:04-Jun-2014 Lot #:[id number] Family History Unknown Family Member Name Dates [...] Status: Results Date Description Value Details 08-Aug-2014 12:51 Urinalysis, Reflex to Microscopic or Culture PRN 8005 pH 6.0 (Better) Range: 5.0-7.5 SP GRAVITY 1.030 (Better) Range: 1.010-1.030 APPEARANCE Turbid (Abnormal) Range: Clear COLOR Red (Abnormal) Range: Straw-Yellow PROTEIN >300 mg/dL Range: Negative-Trace (Abnormal) GLUCOSE Negative mg/dL Range: Negative (Better) KETONE Trace mg/dL Range: Negative (Abnormal) BILIRUB Large (Abnormal) Range: Negative BLOOD Large (Abnormal) Range: Negative UROBIL 1.0 EU/dL (Better) Range: 0.2-1.0 NITRITE Positive (Abnormal) Range: Negative Comments:Specimen referred to Microbiology for Culture----- LEUK Moderate (Abnormal) Range: Negative 12:51 Urine Microscopic [facility] Comments:Quantity not sufficient for concentration.Less than 10 ml received for analysis WBC 21-50 /HPF Range: 0-5 (Abnormal) Comments:Specimen referred to Microbiology for Culture----- RBC TNTC /HPF Range: 0-2 (Abnormal) MUCUS 1+ /LPF (Better) Range: Negative-2+ BACTERIA 3+ /HPF (Abnormal) Range: Negative-Trace Comments:Specimen referred to Microbiology for Culture----- Plan of Care Planned Observations Name Dates [...]
--- OUTSIDE RECORDS SUMMARY | 2016-11-04 14:56 | External Medical Summary | Summary of Care ---
[...] TABLET DAILY. Quantity:30 Refills:0 JacksonM.D., Kurt Perea Szcyn87-Yih-9508 Active Finasteride 5 MG Oral Tablet TAKE ONE TABLET BY MOUTH ONCE DAILY Quantity:90 Refills:0 JacksonM.D., Kurt Perea Xhqaj32-Ynw-2052 Active GlycoLax Oral Powder 17 gm po daily for constipation Quantity:1 Refills:5 JacksonM.D., Kurt Perea Wvbct87-Omy-7589 Active 527 GM Bottle Donepezil HCl - 23 MG Oral Tablet TAKE ONE TABLET BY MOUTH ONCE DAILY Quantity:90 Refills:0 JacksonM.D., Kurt Perea Kdtje40-Sqy-1393 Active Gabapentin 600 MG Oral Tablet TAKE ONE TABLET BY MOUTH THREE TIMES DAILY Quantity:270 Refills:3 JacksonM.D., Kurt Perea Immkf8-Lbm-1797 Active Namenda XR 28 MG Oral Capsule Extended Release 24 Hour TAKE ONE CAPSULE BY MOUTH ONCE DAILY Quantity:30 Refills:5 JacksonM.D., Kurt Perea Ycwrc22-Jex-6519 Active FLUoxetine HCl - 20 MG Oral Capsule TAKE TWO CAPSULES BY MOUTH ONCE DAILY Quantity:180 Refills:1 JacksonM.D., Kurt Perea Uzfas07-Rcn-7457 Active Fluticasone Propionate 50 MCG/ACT Nasal Suspension USE 2 SPRAYS IN EACH NOSTRIL DAILY Quantity:3 Refills:5 JacksonM.D., Kurt Perea Zrjru2-Hjm-7637 Active 16 GM Bottle Motrin IB 200 MG Oral Tablet TAKE 1 TABLET EVERY 8 HOURS NEEDED. Refills:0 JacksonM.D., Kurt Perea Nmfoj02-Buw-1642 Active Mens 50+ Multi Vitamin/Min Oral Tablet TAKE 1 TABLET DAILY. Refills:0 JacksonM.D., Kurt Perea Mmamr26-Uct-7815 Active Hydrocodone-Acetaminophen 5-325 MG Oral Tablet TAKE 1 TABLET EVERY 6 HOURS NEEDED. Quantity:24 Refills:0 AnibalM.Brayan., Kurt Perea Zmybr70-Gkr-1371 Active BuPROPion HCl ER (SR) 150 MG Oral Tablet Extended Release 12 Hour TAKE ONE TABLET BY MOUTH ONCE DAILY Quantity:30 Refills:2 AnibalM.D., Kurt Perea Xwycw78-Wxn-9179 Active TraZODone HCl - 100 MG Oral Tablet TAKE 1/2 TO 1 TABLET AT BEDTIME. Quantity:30 Refills:5 AnibalM.D., Kurt Leey Mejio29-Lgay-2863 Active Percocet 5-325 MG Oral Tablet TAKE 1 TABLET EVERY 4 TO 6 HOURS NEEDED FOR PAIN. Refills:0 AnibalM.Brayan., Kurt Eliazar Ggjdu76-Nha-5521 Active Travatan Z 0.004 % Ophthalmic Solution Refills:0 Lurdes Kwadwo Sosa Hvxlw52-Dwzt-8919 Active Allergies and Adverse Reactions Name Dates [...] on:30-Dec-2010 Pneumo (Pneumovax) on:01-Mar-2011 Influenza on:18-Jan-2013 Lot #:[id number] Fluzone High-Dose SUSP on:25-Dec-2013 Lot #:[id number] Zostavax 73187 UNT/0.65ML Subcutaneous Solution Reconstituted on:12-Feb-2014 Lot #:[id number] Prevnar 13 Intramuscular Suspension on:04-Jun-2014 Lot #:[id number] Fluzone High-Dose SUSP on:23-Jan-2015 Lot #:[id number] Tdap (Adacel) on:23-Jan-2015 Lot #:[id number] Fluzone High-Dose 0.5 ML Intramuscular Suspension Prefilled Syringe on:2015 Lot #:[id number] Family History Unknown Family Member Name Dates [...] Planned Observations CBC w/ Auto Diff 7150 Ng99-Gnd-9153 Intent Comprehensive Metabolic Panel 1212 Sf75-Kzz-2386 Intent LIPID PROFILE 1184 Nw27-Qst-0594 Intent THYROID STIM. HORMONE 3602 Intent Planned Goals not documented Planned Encounters Appointment; Provider: Kurt Barnett M.D. Mm60-Mvg-0540 13:15 Interventions Provided Medications/Immunizations AdministeredFluzone High-Dose 0.5 ML Intramuscular Suspension Prefilled Syringe; Done: 07 Jan 2016 Instructions Name Dates Details Instructions not documented Encounters Appointment; Kurt Barnett M.D. Tl88-Fxmf-1327 Encounter Diagnosis:Problem not documented 13:45 Appointment; Kurt Barnett M.D. Ry9-Aifl-1594 Encounter Diagnosis:Problem not documented 09:45 Appointment; Kurt Barnett M.D. An4-Jja-3371 Encounter Diagnosis:Problem not documented 10:45 Appointment; Kurt Barnett M.D. Nh02-Gha-0701 Encounter Diagnosis:Problem not documented 16:15 Appointment; Kurt Barnett M.D. Encounter Diagnosis:Problem not documented 10:45 Appointment; Kurt Barnett M.D. Encounter Diagnosis:Problem not documented 11:00 Appointment; Kurt Barnett M.D. Encounter Diagnosis:Problem not documented 10:00 Appointment; Kwadwo Butcher M.D. Encounter Diagnosis:Problem not documented 09:45 Appointment; Miguel Benton M.D. Xs1-Cdj-9543 Encounter Diagnosis:Problem not documented 12:20 Appointment; Kurt Barnett M.D. Encounter Diagnosis:Problem not documented 10:45
--- OUTSIDE RECORDS SUMMARY | 2016-11-04 14:56 | External Medical Summary | Summary of Care ---
:1935 Author Name Kenisha Benton M.D. Address [address] [place], [place] [id number] Care Team Providers Name Role Phone Eliazar [...] TABLET DAILY. Quantity:30 Refills:0 Kurt Barnett M.D. Tgiqocw37-Kgm-4877 ActiveFinasteride 5 MG Oral Tablet take one tablet by mouth every day Quantity:90 Refills:3 Kurt Barnett M.D. Gscoqff29-Adu-5329 ActiveGlycoLax Oral Powder 17 gm po daily for constipation Quantity:1 Refills:5 Kurt Barnett M.D. Pbrmsey58-Rbv-9847 Fvjmkb122 GM Bottle Donepezil HCl - 23 MG Oral Tablet take one tablet by mouth every day Quantity:90 Refills:3 Kurt Barnett M.D. Qiwzoxx75-Kzs-5486 ActiveGabapentin 600 MG Oral Tablet TAKE ONE TABLET BY MOUTH THREE TIMES DAILY Quantity:270 Refills:3 Kurt Barnett M.D. Yepljkd5-Zgi-4564 ActiveNamenda XR 28 MG Oral Capsule Extended Release 24 Hour TAKE ONE CAPSULE BY MOUTH EVERY DAY Quantity:30 Refills:5 Kurt Barnett M.D. Kplrmfm06-Vzv-8874 ActiveTravatan Z 0.004 % Ophthalmic Solution Refills:0 Kwadwo Butcher M.D. Xliqhkk55-Udjt-8543 ActiveFLUoxetine HCl - 20 MG Oral Capsule TAKE TWO CAPSULES BY MOUTH ONCE DAILY Quantity:180 Refills:1 Kurt Barnett M.D. Xpqkvje72-Wwj-7916 ActiveFluticasone Propionate 50 MCG/ACT Nasal Suspension USE 2 SPRAYS IN EACH NOSTRIL DAILY Quantity:3 Refills:5 Kurt Barnett M.D. Vmkuejq8-Jej-1118 Pckpyz27 GM Bottle Allergies and Adverse Reactions Name [...] (Pneumovax) Administered on:01-Mar-2011 Influenza Administered on:18-Jan-2013 Lot #:[id number] Fluzone High-Dose Intramuscular Suspension Administered on:25-Dec-2013 Lot #:[id number] Zostavax 19260 UNT/0.65ML Subcutaneous Solution Reconstituted Administered on: 12-Feb-2014 Lot #:[id number] Prevnar 13 Intramuscular Suspension Administered on:04-Jun-2014 Lot #:[id number] Family History Unknown Family Member Name Dates [...] to report Results Date Description Value Details 08-Aug-2014 12:51 [...] Goal Planned Encounters Appointment; Provider: Kurt Barnett Ca27-Jjgi-7025 10:00 Appointment; Provider: Kwadwo Butcher 09:45 Appointment; [...]
--- OUTSIDE RECORDS SUMMARY | 2016-11-04 14:56 | External Medical Summary | Summary of Care ---
:1935 Author Name Eliazar Barnett M.D. Address [address] [place], [place] [id number] Care Team Providers Name Role Phone Eliazar [...] TABLET DAILY. Quantity:30 Refills:0 Kurt Barnett M.D. Bfdcshs09-Lyi-0950 ActiveFinasteride 5 MG Oral Tablet take one tablet by mouth every day Quantity:90 Refills:3 Kurt Barnett M.D. Gublemy99-Ojj-7525 ActiveGlycoLax Oral Powder 17 gm po daily for constipation Quantity:1 Refills:5 Kurt Barnett M.D. Nyywmgv65-Pyv-9677 Znxxck371 GM Bottle Donepezil HCl - 23 MG Oral Tablet TAKE ONE TABLET BY MOUTH ONCE DAILY Quantity:90 Refills:0 Kurt Barnett M.D. Rlasrht26-Jeg-2669 ActiveGabapentin 600 MG Oral Tablet TAKE ONE TABLET BY MOUTH THREE TIMES DAILY Quantity:270 Refills:3 Kurt Barnett M.D. Tgcfozt4-Bka-2357 ActiveNamenda XR 28 MG Oral Capsule Extended Release 24 Hour TAKE ONE CAPSULE BY MOUTH EVERY DAY Quantity:30 Refills:5 Kurt Barnett M.D. Xzeiews37-Qeh-3937 ActiveTravatan Z 0.004 % Ophthalmic Solution Refills:0 Kwadwo Butcher M.D. Mdadeks89-Elsm-2858 ActiveFLUoxetine HCl - 20 MG Oral Capsule TAKE TWO CAPSULES BY MOUTH ONCE DAILY Quantity:180 Refills:1 Kurt Barnett M.D. Hngrryt30-Tli-9040 ActiveFluticasone Propionate 50 MCG/ACT Nasal Suspension USE 2 SPRAYS IN EACH NOSTRIL DAILY Quantity:3 Refills:5 Kurt Barnett M.D. Qbxxcck2-Xsk-6417 Lpcycf66 GM Bottle Motrin IB 200 MG Oral Tablet TAKE 1 TABLET EVERY 8 HOURS NEEDED. Refills:0 Kurt Barnett M.D. Rioswsd29-Ndh-5027 ActiveMens 50+ Multi Vitamin/Min Oral Tablet TAKE 1 TABLET DAILY. Refills:0 Kurt Barnett M.D. Hjbytcd16-Pbv-6632 ActivePercocet 5-325 MG Oral Tablet TAKE 1 TABLET EVERY 4 TO 6 HOURS NEEDED FOR PAIN. Refills:0 Kurt Barnett M.D. Jkrfspd24-Ndv-7980 ActiveHydrocodone-Acetaminophen 5-325 MG Oral Tablet TAKE 1 TABLET EVERY 6 HOURS NEEDED. Quantity:24 Refills:0 Kurt Barnett M.D. Ujvswlp82-Uid-7170 Active Allergies and Adverse Reactions Name Dates [...] History of Eye Surgery LIPID PROFILE 1184 Ordered:06-Jun-2015 THYROID STIM. HORMONE 3602 Ordered:06-Jun-2015 LIVER PROFILE 1215 Ordered:06-Jun-2015 HEMOGLOBIN A1C 3507 Ordered:06-Jun-2015 CBC w/ Auto Diff 7150 Ordered:06-Jun-2015 Comprehensive Metabolic Panel 1212 Ordered:06-Jun-2015 CT CHEST WITH IV CONTRAST Ordered:05-Jun-2015 Immunization Name Dates Details Fluzone Intramuscular Injectable Administered on:10-Jan-2008 Influenza Administered on:23-Dec-2008 Influenza Administered on:12-Jan-2010 Influenza Administered on:30-Dec-2010 Pneumo (Pneumovax) Administered on:01-Mar-2011 Influenza Administered on:18-Jan-2013 Lot #:[id number] Fluzone High-Dose Intramuscular Suspension Administered on:25-Dec-2013 Lot #:[id number] Zostavax [id number] UNT/0.65ML Subcutaneous Solution Reconstituted Administered on: 12-Feb-2014 Lot #:[id number] Prevnar 13 Intramuscular Suspension Administered on:04-Jun-2014 Lot #:[id number] Fluzone High-Dose Intramuscular Suspension Administered on:23-Jan-2015 Lot #:[id number] Tdap (Adacel) Administered on:23-Jan-2015 Lot #:[id number] Family History Unknown Family Member Name Dates [...] Status: Body Surface Area Calculated 2.38m2 Status: 20-May-2015 16:43 BP Systolic 104mm[Hg] Status: BP Diastolic 62mm[Hg] Status: Temperature 97.7f Status: Heart Rate 60/min Status: Weight 245lb Status: Body Mass Index Calculated 31.04kg/m2 Status: Body Surface Area Calculated 2.38m2 Status: Results Date Description Value Details Results not documented Plan of Care Planned Observations Name Dates Details Planned Goals not documented Goal Planned Encounters Appointment; Provider: Kurt Barnett 11:00 Appointment; Provider: Schedule Radiology 14:30 Appointment; [...]
--- OUTSIDE RECORDS SUMMARY | 2016-11-04 14:56 | External Medical Summary | Summary of Care ---
:1935 Author Name Eliazar Barnett M.D. Address [address] [place], [place] [id number] Care Team Providers Name Role Phone Eliazar [...] TABLET DAILY. Quantity:30 Refills:0 Kurt Barnett M.D. Uijdnmc46-Jpq-8494 ActiveFinasteride 5 MG Oral Tablet take one tablet by mouth every day Quantity:90 Refills:3 Kurt Barnett M.D. Lgdvhny10-Dah-7945 ActiveGlycoLax Oral Powder 17 gm po daily for constipation Quantity:1 Refills:5 Kurt Barnett M.D. Jwgnhiu82-Ohi-1365 Klaqcu186 GM Bottle Donepezil HCl - 23 MG Oral Tablet TAKE ONE TABLET BY MOUTH ONCE DAILY Quantity:90 Refills:0 Kurt Barnett M.D. Teyoogw97-Wet-2287 ActiveGabapentin 600 MG Oral Tablet TAKE ONE TABLET BY MOUTH THREE TIMES DAILY Quantity:270 Refills:3 Kurt Barnett M.D. Qohupua3-Lef-5346 ActiveTravatan Z 0.004 % Ophthalmic Solution Refills:0 Kwadwo Butcher M.D. Jueppcg97-Zrap-5181 ActiveFluticasone Propionate 50 MCG/ACT Nasal Suspension USE 2 SPRAYS IN EACH NOSTRIL DAILY Quantity:3 Refills:5 Kurt Barnett M.D. Chrqchw7-Ojp-1330 Yvombb66 GM Bottle Motrin IB 200 MG Oral Tablet TAKE 1 TABLET EVERY 8 HOURS NEEDED. Refills:0 Kurt Barnett M.D. Ycsqtsy68-Fqn-4451 ActiveMens 50+ Multi Vitamin/Min Oral Tablet TAKE 1 TABLET DAILY. Refills:0 Kurt Barnett M.D. Cavodtt89-Ztv-8692 ActivePercocet 5-325 MG Oral Tablet TAKE 1 TABLET EVERY 4 TO 6 HOURS NEEDED FOR PAIN. Refills:0 Kurt Barnett M.D. Agabjag51-Rob-3928 ActiveBuPROPion HCl ER (SR) 150 MG Oral Tablet Extended Release 12 Hour Take 1 tablet daily Quantity:30 Refills:2 Kurt Barnett M.D. Ynzkokk83-Asn-5264 ActiveFLUoxetine HCl - 20 MG Oral Capsule TAKE TWO CAPSULES BY MOUTH ONCE DAILY Quantity:180 Refills:1 Kurt Barnett M.D. Mrtiszp43-Cmx-5589 ActiveNamenda XR 28 MG Oral Capsule Extended Release 24 Hour TAKE ONE CAPSULE BY MOUTH EVERY DAY Quantity:30 Refills:5 Kurt Barnett M.D. Yjghzgl51-Fkg-4056 ActiveHydrocodone-Acetaminophen 5-325 MG Oral Tablet TAKE 1 TABLET EVERY 6 HOURS NEEDED. Quantity:24 Refills:0 Kurt Barnett M.D. Srbtutv82-Sgd-1353 Active Allergies and Adverse Reactions Name Dates [...] (Pneumovax) Administered on:01-Mar-2011 Influenza Administered on:18-Jan-2013 Lot #:[id number] Fluzone High-Dose Intramuscular Suspension Administered on:25-Dec-2013 Lot #:[id number] Zostavax 92232 UNT/0.65ML Subcutaneous Solution Reconstituted Administered on: 12-Feb-2014 Lot #:[id number] Prevnar 13 Intramuscular Suspension Administered on:04-Jun-2014 Lot #:[id number] Fluzone High-Dose Intramuscular Suspension Administered on:23-Jan-2015 Lot #:[id number] Tdap (Adacel) Administered on:23-Jan-2015 Lot #:[id number] Family History Unknown Family Member Name Dates [...] Goal Planned Encounters Appointment; Provider: Kurt Barnett Jl40-Kxkd-4778 11:00 Appointment; Provider: Schedule Radiology 14:30 Appointment; [...]
--- OUTSIDE RECORDS SUMMARY | 2016-11-04 14:56 | External Medical Summary | Continuity of Care Document ---
:1935 Author Organization [facility] Care Team Providers Name Role Phone VANNESSA BARBOSA Admitting Physician VANNESSA BARBOSA Attending Physician Hospital Admission Diagnosis Code Admission Diagnosis Date [id number] Infective pneumonia Social History Element Description Code Description Smoking Status Code Start Date End Date System Smoking Status [id number] Never smoker SNOMED-CT Problems Code Code System Problem Name Start Date End Date Status 927880323 SNOMED-CT Allergy Unknown Active 69672332 SNOMED-CT Hypercholesterolemia Unknown Active 622199649 SNOMED-CT Benign prostatic hyperplasia Unknown Active 93463895 SNOMED-CT Dementia Unknown Active Medications RxNorm Medication Dose Route Instructions Indications Start End Status Date Date 759597 24 HR 28 Oral orally every Active Memantine milligram day (do not hydrochloride crush/chew/cu 28 MG Extended t) Release Oral Capsule 1191 Aspirin 81 Oral orally every Active milligram day 38194 Bupropion 150 Oral orally every Active milligram morning 1178663 Donepezil 23 Oral orally every Active hydrochloride milligram day 23 MG Oral Tablet 279071 Finasteride 5 5 Oral orally every Active MG Oral Tablet milligram day 073491 Fluoxetine 40 40 Oral orally every Active MG Oral milligram day Capsule 2229795 Fluticasone 2 spray Intranasal into the nasal Active propionate nostril(s) congestion 0.05 MG/ACTUAT every day as Metered Dose needed. Nasal [place] 926581 gabapentin 600 600 Oral orally 3 Active MG Oral Tablet milligram times per day Geriatric 1 Oral orally every Active Multivitamins- tablet-cap day Min richy 043778 latanoprost 1 drop Ophthalmic into the Active 0.05 MG/ML eye(s) every Ophthalmic day (both Solution eyes;) 034327 Memantine 10 Oral orally 2 Active hydrochloride milligram times per day 10 MG Oral Tablet 041858 Simvastatin 20 20 Oral orally every Active MG Oral Tablet milligram evening 29286 Trazodone 50-100 Oral orally every Active milligram [...] venous engorgement.Released By SIGRID LORENZ, MDDate: 09/16/201611:04Order: [id number] Shoulder LT 2 viewsExam Completion Date:09/16/2016 09:52INDICATION: [...] Procedures No data in the system Encounters Date Code Diagnosis Status (ICD10) - J168 PNEUMONIA D/T SPEC INF ORGANISMS Active Immunizations No data in the system Functional Status No data in the system Hospital Discharge Instructions No data in the system
--- OUTSIDE RECORDS SUMMARY | 2016-11-04 14:57 | External Medical Summary | Continuity of Care Document ---
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 05/26/2015 SHERYL CABELLO G309 Alzheimer's disease, unspecified 05/26/2015 SHERYL CABELLO M545 Low back pain 05/26/2015 SHERYL CABELLO M546 Pain in thoracic spine 05/26/2015 SHERYL CABELLO M549 Dorsalgia, unspecified 05/26/2015 SHERYL CABELLO N390 Urinary tract infection, site not specified 05/26/2015 SHERYL CABELLO R918 Other nonspecific abnormal finding of lung field 05/26/2015 SHERYL CABELLO [id number] Fall on same level, unspecified, initial encounter 05/26/2015 SHERYL CABELLO [id number] Unsp place in [facility]instit[facility] (private) residence as place 05/27/2015 SHERYL CABELLO 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 05/27/2015 SHERYL CABELLO G309 Alzheimer's disease, unspecified 05/27/2015 SHERYL CABELLO M545 Low back pain 05/27/2015 SHERYL CABELLO M546 Pain in thoracic spine 05/27/2015 SHERYL CABELLO M549 Dorsalgia, unspecified 05/27/2015 SHERYL CABELLO N390 Urinary tract infection, site not specified 05/27/2015 SHERYL CABELLO R918 Other nonspecific abnormal finding of lung field 05/27/2015 SHERYL CABELLO [id number] Fall on same level, unspecified, initial encounter 05/27/2015 SHERYL CABELLO [id number] [facility] as place 09/29/2016 RICKY HINDS 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 09/29/2016 RICKY HINDS L D G309 Alzheimer's disease, unspecified 09/29/2016 FARZANEHERCHIND L D G629 Polyneuropathy, unspecified 09/29/2016 FARZANEHERCHIND L D I10 Essential (primary) hypertension 09/29/2016 FARZANEHERCHIND L D M6282 Rhabdomyolysis 09/29/2016 CHIN HINDSD L D N400 Enlarged prostate without lower urinary tract symptoms 09/29/2016 FARZANEHERCHIND L D R627 Adult failure to thrive 09/29/2016 CHIN HINDSD L D Z66 Do not resuscitate 09/30/2016 RICKY HINDS L D 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 09/30/2016 CHIN HINDSD L D G309 Alzheimer's disease, unspecified 09/30/2016 FARZANEHERCHIND L D G629 Polyneuropathy, unspecified 09/30/2016 FARZANEHERCHIND L D I10 Essential (primary) hypertension 09/30/2016 CHIN HINDSD L D M6282 Rhabdomyolysis 09/30/2016 CHIN HINDSD L D N400 Enlarged prostate without lower urinary tract symptoms 09/30/2016 CHIN HINDSD L D R627 Adult failure to thrive 09/30/2016 CHIN HINDSD L D Z66 Do not resuscitate 10/08/2016 VANNESSA BARBOSA 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 10/08/2016 VANNESSA BARBOSA F05 DELIRIUM DUE TO KNOWN ANKITA PHYSIOLOGICAL CONDITION 10/08/2016 VANNESSA BARBOSA J16.8 PNEUMONIA DUE TO OTHER ANKITA SPECIFIED INFECTIOUS ORGANISMS 10/08/2016 VANNESSA BARBOSA M19.012 PRIMARY OSTEOARTHRITIS, ANKITA LEFT SHOULDER 10/08/2016 VANNESSA BARBOSA M25.512 PAIN IN LEFT SHOULDER ANKITA Procedures Code Description [place] [address] 05/19/2015 72364 05/19/2015 29337 05/19/2015 58172 05/19/2015 99584 05/19/2015 44369 05/19/2015 79392 05/19/2015 50590 05/19/2015 40643 05/19/2015 15203 05/19/2015 A9270 05/19/2015 J1170 05/19/2015 Results Test Result Range GLUCOSE, METER - 09/17/16 18:40 GLUCOSE, METER 90 65-99 GFR ESTIMATION - 09/17/16 18:47 *GFR EST NON AFR MAURITANIAN 53 mL/min NRG *GRFA EST AFR AMER 62 mL/min NRG COMPREHENSIVE METABOLIC PANEL - 09/17/16 18:47 TOTAL PROTEIN 7.3 6.4-8.2 ALBUMIN 3.1 3.4-5.0 *GLOBULIN 4.2 2.3-3.5 *A/G RATIO 0.7 1.5-2.2 BILIFUBIN TOTAL 0.90 0.20-1.00 ALK PHOS 85 U/L 46-116 ALT (SGPT) 46 U/L 14-59 AST (SGOT) 78 U/L 15-37 AMMONIA - 09/17/16 18:47 AMMONIA <10 ug/L 11-32 ALCOHOL - 09/17/16 18:47 ALCOHOL <0.003 NRG CBC WITH PLATELET AND DIFFERENTIAL - 09/17/16 18:47 WBC 15.2 10*3/uL 3.6-11.2 RBC 4.33 4.06-5.63 HEMOGLOBIN 13.3 12.5-16.3 HEMATOCRIT 40.1 % 36.7-47.1 MCV 92.7 fL 80.0-100.0 MCH 30.8 pg 27.0-33.0 MCHC 33.2 32.0-36.0 RDW 12.9 % 12.3-17.0 RDWSD 42.0 37.1-47.8 MPV 8.1 fL 7.4-10.4 PLATELETS 209 10*3/uL 159-386 SEGS 83.2 % NRG *LYMPHOCYTES 6.7 % NRG *MONOCYTES 7.6 % NRG *EOSINOPHILS 2.0 % NRG *BASOPHILS 0.5 % NRG *ABSOLUTE NEUTROPHILS 12.70 10*3/uL 1.80-7.80 *ABSOLUTE LYMPHOCYTES 1.00 10*3/uL 1.00-3.00 *ABSOLUTE MONOCYTES 1.20 10*3/uL 0.30-1.00 *ABSOLUTE EOSINOPHILS 0.30 10*3/uL 0.00-0.50 *ABSOLUTE BASOPHILS 0.10 10*3/uL 0.00-0.20 AUTOMATED DIFF PERFORMED NRG TSH - 09/17/16 18:47 TSH 2.755 u[IU]/L 0.340-4.820 CK - 09/17/16 18:47 CK 1752 U/L 39-308 PARTIAL THROMBOPLASTIN TIME - 09/17/16 18:47 PARTIAL THROMBOPLASTIN TIME 28.7 s 23.0-31.0 PROTHROMBIN TIME - 09/17/16 18:47 *PROTHROMBIN TIME 13.1 s 9.4-11.5 *INR 1.2 0.9-1.1 TROPONIN-I - 09/17/16 18:47 TROPONIN-I <0.017 ng/mL 0.000-0.056 BNP - 09/17/16 18:47 B-TYPE NATRIURETIC PROTEIN 76 pg/mL 1-100 LACTIC ACID - 09/17/16 20:15 LACTIC ACID 1.0 0.9-1.7 URINALYSIS (CULTURE PRN) - 09/17/16 20:55 *URINE COLOR DK YELLOW STRAW/YELL/DK YELL *URINE APPEARANCE CLEAR CLEAR *URINE GLUCOSE NEGATIVE NEGATIVE *URINE BILIRUBIN NEGATIVE NEGATIVE *URINE KETONES 15 NEGATIVE URINE SPECIFIC GRAVITY 1.025 <=1.005->=1.030 *URINE BLOOD MODERATE NEGATIVE URINE PH 6.0 5.0-8.0 *URINE PROTEIN 30 NEGATIVE *URINE UROBILINOGEN 4.0 0.2-1.0 *URINE NITRITES NEGATIVE NEGATIVE *URINE LEUKOCYTES NEGATIVE NEGATIVE URINE MICROSCOPIC - 09/17/16 20:55 WBC 0-1 /[HPF] 0-5 RBC 1-5 /[HPF] 0-1 MUCOUS THREADS FEW /[LPF] NEGATIVE MICROSCOPIC EXAM PERFORMED PERFORMED NRG UR DRUGS OF ABUSE SCREEN - 09/17/16 20:55 *COCAINE NEGATIVE ng/mL NEG <150 *PCP NEGATIVE ng/mL NEG <25 *CANNABINOIDS NEGATIVE NEG <50 *BENZODIAZEINE NEGATIVE ng/mL NEG <200 *AMPHETAMINE NEGATIVE ng/mL NEG <500 *BARBITURATES NEGATIVE ng/mL NEG <200 *OPIATES NEGATIVE ng/mL NEG <300 CBC WITH PLATELET AND DIFFERENTIAL - 09/18/16 06:10 SEGS 82.0 % NRG *LYMPHOCYTES 10.0 % NRG *MONOCYTES 4.0 % NRG *EOSINOPHILS 4.0 % NRG *BASOPHILS 0.0 % NRG *ABSOLUTE NEUTROPHILS 12.55 10*3/uL 1.80-7.80 *ABSOLUTE LYMPHOCYTES 1.53 10*3/uL 1.00-3.00 *ABSOLUTE MONOCYTES 0.61 10*3/uL 0.30-1.00 *ABSOLUTE EOSINOPHILS 0.61 10*3/uL 0.00-0.50 *ABSOLUTE BASOPHILS 0.00 10*3/uL 0.00-0.20 BASIC METABOLIC PANEL - 09/18/16 06:10 SODIUM 136 mmol/L 136-145 POTASSIUM 4.2 mmol/L 3.5-5.1 CHLORIDE 102 mmol/L 98-107 TCO2 25.7 mmol/L 21.0-32.0 *ANION GAP 8.3 mmol/L 8.0-16.0 GLUCOSE 97 65-99 BUN 20 7-18 CREATININE 1.16 0.70-1.30 *BUN/CREATININE RATIO 17.2 9.1-17.0 CALCIUM 8.4 8.5-10.1 GFR ESTIMATION - 09/18/16 06:10 *GFR EST NON AFR MAURITANIAN 59 mL/min NRG *GRFA EST AFR AMER 68 mL/min NRG CK - 09/18/16 06:10 CK 1016 U/L 39-308 MANUAL DIFFERENTIAL - 09/18/16 06:10 *BANDS 0.0 % NRG *MANUAL DIFF PERFORMED NRG CK - 09/18/16 12:11 CK 830 U/L 39-308 MAGNESIUM - 09/18/16 12:11 MAGNESIUM 2.1 1.8-2.4 CK - 09/18/16 22:48 CK 497 U/L 39-308 CBC WITH PLATELET AND DIFFERENTIAL - 09/19/16 02:48 WBC 8.7 10*3/uL 3.6-11.2 RBC 4.00 4.06-5.63 HEMOGLOBIN 12.3 12.5-16.3 HEMATOCRIT 37.3 % 36.7-47.1 MCV 93.3 fL 80.0-100.0 MCH 30.7 pg 27.0-33.0 MCHC 33.0 32.0-36.0 RDW 12.8 % 12.3-17.0 RDWSD 42.0 37.1-47.8 MPV 7.7 fL 7.4-10.4 PLATELETS 198 10*3/uL 159-386 SEGS 67.7 % NRG *LYMPHOCYTES 18.1 % NRG *MONOCYTES 8.5 % NRG *EOSINOPHILS 5.0 % NRG *BASOPHILS 0.7 % NRG *ABSOLUTE NEUTROPHILS 5.90 10*3/uL 1.80-7.80 *ABSOLUTE LYMPHOCYTES 1.60 10*3/uL 1.00-3.00 *ABSOLUTE MONOCYTES 0.70 10*3/uL 0.30-1.00 *ABSOLUTE EOSINOPHILS 0.40 10*3/uL 0.00-0.50 *ABSOLUTE BASOPHILS 0.10 10*3/uL 0.00-0.20 AUTOMATED DIFF PERFORMED NR COMPREHENSIVE METABOLIC PANEL - 09/19/16 02:48 SODIUM 139 mmol/L 136-145 POTASSIUM 4.1 mmol/L 3.5-5.1 CHLORIDE 106 mmol/L 98-107 TCO2 27.3 mmol/L 21.0-32.0 *ANION GAP 5.7 mmol/L 8.0-16.0 GLUCOSE 81 65-99 BUN 19 7-18 CREATININE 1.19 0.70-1.30 *BUN/CREATININE RATIO 16.0 9.1-17.0 CALCIUM 8.3 8.5-10.1 TOTAL PROTEIN 6.1 6.4-8.2 ALBUMIN 2.5 3.4-5.0 *GLOBULIN 3.6 2.3-3.5 *A/G RATIO 0.7 1.5-2.2 BILIFUBIN TOTAL 0.80 0.20-1.00 ALK PHOS 80 U/L 46-116 ALT (SGPT) 38 U/L 14-59 AST (SGOT) 45 U/L 15-37 MAGNESIUM - 09/19/16 02:48 MAGNESIUM 2.0 1.8-2.4 GFR ESTIMATION - 09/19/16 02:48 *GFR EST NON AFR MAURITANIAN 57 mL/min NRG *GRFA EST AFR AMER 66 mL/min NR CK - 09/19/16 02:48 CK 425 U/L 39-308 CK - 09/19/16 06:23 CK 394 U/L 39-308 CK - 09/19/16 11:12 CK 368 U/L 39-308 CK - 09/19/16 14:49 CK 310 U/L 39-308 CK - 09/19/16 18:29 CK 298 U/L 39-308 CK - 09/19/16 23:06 CK 255 U/L 39-308 CBC WITH PLATELET AND DIFFERENTIAL - 09/20/16 02:34 WBC 11.3 10*3/uL 3.6-11.2 RBC 4.17 4.06-5.63 HEMOGLOBIN 12.8 12.5-16.3 HEMATOCRIT 38.9 % 36.7-47.1 MCV 93.2 fL 80.0-100.0 MCH 30.7 pg 27.0-33.0 MCHC 33.0 32.0-36.0 RDW 13.0 % 12.3-17.0 RDWSD 42.4 37.1-47.8 MPV 8.4 fL 7.4-10.4 PLATELETS 215 10*3/uL 159-386 SEGS 71.5 % NRG *LYMPHOCYTES 14.0 % NRG *MONOCYTES 9.1 % NRG *EOSINOPHILS 4.4 % NRG *BASOPHILS 1.0 % NRG *ABSOLUTE NEUTROPHILS 8.10 10*3/uL 1.80-7.80 *ABSOLUTE LYMPHOCYTES 1.60 10*3/uL 1.00-3.00 *ABSOLUTE MONOCYTES 1.00 10*3/uL 0.30-1.00 *ABSOLUTE EOSINOPHILS 0.50 10*3/uL 0.00-0.50 *ABSOLUTE BASOPHILS 0.10 10*3/uL 0.00-0.20 AUTOMATED DIFF PERFORMED NR COMPREHENSIVE METABOLIC PANEL - 09/20/16 02:34 TOTAL PROTEIN 6.4 6.4-8.2 ALBUMIN 2.5 3.4-5.0 *GLOBULIN 3.9 2.3-3.5 *A/G RATIO 0.6 1.5-2.2 BILIFUBIN TOTAL 0.40 0.20-1.00 ALK PHOS 88 U/L 46-116 ALT (SGPT) 52 U/L 14-59 AST (SGOT) 46 U/L 15-37 GFR ESTIMATION - 09/20/16 02:34 *GFR EST NON AFR MAURITANIAN 51 mL/min NRG *GRFA EST AFR AMER 59 mL/min NRG CK - 09/20/16 02:34 CK 220 U/L 39-308 MAGNESIUM - 09/20/16 02:34 MAGNESIUM 1.6 1.8-2.4 CK - 09/20/16 06:40 CK 207 U/L 39-308 CBC WITH PLATELET AND DIFFERENTIAL - 09/21/16 06:00 WBC 9.8 10*3/uL 3.6-11.2 RBC 3.88 4.06-5.63 HEMOGLOBIN 12.0 12.5-16.3 HEMATOCRIT 35.7 % 36.7-47.1 MCV 91.9 fL 80.0-100.0 MCH 30.8 pg 27.0-33.0 MCHC 33.5 32.0-36.0 RDW 12.8 % 12.3-17.0 RDWSD 41.6 37.1-47.8 MPV 7.7 fL 7.4-10.4 PLATELETS 224 10*3/uL 159-386 SEGS 69.1 % NRG *LYMPHOCYTES 18.0 % NRG *MONOCYTES 6.4 % NRG *EOSINOPHILS 5.5 % NRG *BASOPHILS 1.0 % NRG *ABSOLUTE NEUTROPHILS 6.70 10*3/uL 1.80-7.80 *ABSOLUTE LYMPHOCYTES 1.80 10*3/uL 1.00-3.00 *ABSOLUTE MONOCYTES 0.60 10*3/uL 0.30-1.00 *ABSOLUTE EOSINOPHILS 0.50 10*3/uL 0.00-0.50 *ABSOLUTE BASOPHILS 0.10 10*3/uL 0.00-0.20 AUTOMATED DIFF PERFORMED NRG MAGNESIUM - 09/21/16 06:00 MAGNESIUM 1.6 1.8-2.4 COMPREHENSIVE METABOLIC PANEL - 09/21/16 06:00 SODIUM 140 mmol/L 136-145 POTASSIUM 4.2 mmol/L 3.5-5.1 CHLORIDE 107 mmol/L 98-107 TCO2 28.7 mmol/L 21.0-32.0 *ANION GAP 4.3 mmol/L 8.0-16.0 GLUCOSE 86 65-99 BUN 13 7-18 CREATININE 1.18 0.70-1.30 *BUN/CREATININE RATIO 11.0 9.1-17.0 CALCIUM 8.1 8.5-10.1 TOTAL PROTEIN 6.2 6.4-8.2 ALBUMIN 2.4 3.4-5.0 *GLOBULIN 3.8 2.3-3.5 *A/G RATIO 0.6 1.5-2.2 BILIFUBIN TOTAL 0.40 0.20-1.00 ALK PHOS 78 U/L 46-116 ALT (SGPT) 45 U/L 14-59 AST (SGOT) 32 U/L 15-37 GFR ESTIMATION - 09/21/16 06:00 *GFR EST NON AFR MAURITANIAN 57 mL/min NRG *GRFA EST AFR AMER 66 mL/min NRG CBC WITH PLATELET AND DIFFERENTIAL - 09/22/16 06:02 WBC 9.4 10*3/uL 3.6-11.2 RBC 3.92 4.06-5.63 HEMOGLOBIN 12.1 12.5-16.3 HEMATOCRIT 36.5 % 36.7-47.1 MCV 93.0 fL 80.0-100.0 MCH 30.9 pg 27.0-33.0 MCHC 33.2 32.0-36.0 RDW 13.0 % 12.3-17.0 RDWSD 42.4 37.1-47.8 MPV 7.5 fL 7.4-10.4 PLATELETS 227 10*3/uL 159-386 SEGS 65.8 % NRG *LYMPHOCYTES 20.1 % NRG *MONOCYTES 7.5 % NRG *EOSINOPHILS 5.7 % NRG *BASOPHILS 0.9 % NRG *ABSOLUTE NEUTROPHILS 6.20 10*3/uL 1.80-7.80 *ABSOLUTE LYMPHOCYTES 1.90 10*3/uL 1.00-3.00 *ABSOLUTE MONOCYTES 0.70 10*3/uL 0.30-1.00 *ABSOLUTE EOSINOPHILS 0.50 10*3/uL 0.00-0.50 *ABSOLUTE BASOPHILS 0.10 10*3/uL 0.00-0.20 AUTOMATED DIFF PERFORMED NRG COMPREHENSIVE METABOLIC PANEL - 09/22/16 06:02 SODIUM 140 mmol/L 136-145 POTASSIUM 4.1 mmol/L 3.5-5.1 CHLORIDE 105 mmol/L 98-107 TCO2 31.5 mmol/L 21.0-32.0 *ANION GAP 3.5 mmol/L 8.0-16.0 GLUCOSE 92 65-99 BUN 16 7-18 CREATININE 1.37 0.70-1.30 *BUN/CREATININE RATIO 11.7 9.1-17.0 CALCIUM 8.8 8.5-10.1 TOTAL PROTEIN 6.3 6.4-8.2 ALBUMIN 2.4 3.4-5.0 *GLOBULIN 3.9 2.3-3.5 *A/G RATIO 0.6 1.5-2.2 BILIFUBIN TOTAL 0.40 0.20-1.00 ALK PHOS 77 U/L 46-116 ALT (SGPT) 44 U/L 14-59 AST (SGOT) 27 U/L 15-37 MAGNESIUM - 09/22/16 06:02 MAGNESIUM 2.1 1.8-2.4 GFR ESTIMATION - 09/22/16 06:02 *GFR EST NON AFR MAURITANIAN 48 mL/min NRG *GRFA EST AFR AMER 55 mL/min NRG Encounters ACCT No. Visit Discharge Status Pt. Type Provider Facility Loc./Unit Complaint Date/Time [id number] 09/16/2016 ACT Unknown Fco BARBOSA UPPER 09:45:00 [facility]
[2016-11-04] MEDS ORDERED: SALINE FLUSH 10ml SYRINGE IVF PRN (15:41)
[2016-11-04] MEDS ORDERED: NS 1,000 ML IV ONE (15:41)
[2016-11-04] MEDS ORDERED: HALOPERIDOL 5 MG/ML INJECTION IM PRN (18:19)
[2016-11-04] MEDS: LORazepam 0.5 MG TABLET PO PRN (18:30)
[2016-11-04] MEDS: HALOPERIDOL 0.5 MG TABLET PO PRN (18:30)
[2016-11-04] MEDS ORDERED: HALOPERIDOL 5 MG/ML INJECTION IM ONE (19:33)
[2016-11-04 19:55] VITALS: BMI 31.8
[2016-11-04] MEDS: IBUPROFEN 200 MG TABLET PO SCH (20:38)
[2016-11-04] MEDS: SIMVASTATIN 20 MG TABLET PO SCH (20:38)
[2016-11-04] MEDS: GABAPENTIN 800 MG TABLET PO SCH (20:39)
[2016-11-04] MEDS: MEMANTINE 10 MG TABLET PO SCH (20:39)
[2016-11-04] MEDS ORDERED: OLANZapine 5 MG TABLET PO SCH (21:00)
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
[2016-11-05] MEDS: ASPIRIN *EC* 81 MG TABLET PO SCH (09:41)
[2016-11-05] MEDS: MULTI-VITAMIN + MINERAL TABLET PO SCH (09:41)
[2016-11-05] MEDS: FLUTICASONE NASAL SPRAY 50mcg EA NOSTRIL SCH (09:41)
[2016-11-05] MEDS: MEMANTINE 10 MG TABLET PO SCH ×2 (09:41→19:22)
[2016-11-05] MEDS: GABAPENTIN 800 MG TABLET PO SCH ×3 (09:41→19:22)
[2016-11-05] MEDS: FINASTERIDE 5 MG TABLET PO SCH (09:41)
[2016-11-05] MEDS: HALOPERIDOL 1 MG/0.5 ML ORAL LIQUID PO PRN (15:45)
[2016-11-05] MEDS: LORazepam INTENSOL 1mg/0.5ml ORAL LIQUID SL PRN (15:46)
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
[2016-11-05] MEDS: OLANZapine ODT 5 MG TABLET PO SCH (18:10)
[2016-11-05] MEDS: SIMVASTATIN 20 MG TABLET PO SCH (19:22)
[2016-11-05] MEDS: IBUPROFEN 200 MG TABLET PO SCH ×2 (19:22→23:07)
[2016-11-05] MEDS: DIVALPROEX SPRINKLE 125 MG CAPSULE PO SCH (19:23)
[2016-11-05] MEDS ORDERED: DIVALPROEX 250 MG TABLET PO SCH (21:00)
[2016-11-06] MEDS: FLUTICASONE NASAL SPRAY 50mcg EA NOSTRIL SCH (09:57)
[2016-11-06] MEDS: ASPIRIN *EC* 81 MG TABLET PO SCH (09:57)
[2016-11-06] MEDS: GABAPENTIN 800 MG TABLET PO SCH ×4 (09:57→20:56)
[2016-11-06] MEDS: DIVALPROEX SPRINKLE 125 MG CAPSULE PO SCH ×3 (09:57→20:56)
[2016-11-06] MEDS: MEMANTINE 10 MG TABLET PO SCH ×3 (09:57→20:56)
[2016-11-06] MEDS: MULTI-VITAMIN + MINERAL TABLET PO SCH (09:58)
[2016-11-06] MEDS: FINASTERIDE 5 MG TABLET PO SCH (09:58)
[2016-11-06] MEDS: HALOPERIDOL 1 MG/0.5 ML ORAL LIQUID PO PRN (10:39)
[2016-11-06] MEDS: LORazepam INTENSOL 1mg/0.5ml ORAL LIQUID SL PRN (10:40)
--- NOTE | 2016-11-06 11:56 | Neuropsych Progress Note ---
[facility] Subjective Date: 11/06/16 - Sujective/Severity of Illness Medications: Aspirin (Ecotrin) 81 mg PO DAILY [facility] Last Admin: 11/06/16 09:57 Dose: 81 mg Divalproex Sodium (Depakote Sprinkle) 250 mg PO BID [facility] Last Admin: 11/06/16 09:57 Dose: 250 mg Finasteride (Proscar) 5 mg PO DAILY [facility] Last Admin: 11/06/16 09:58 Dose: 5 mg Fluticasone Propionate (Flonase) 1 spray EA NOSTRIL DAILY [facility] Last Admin: 11/06/16 09:57 Dose: 1 spray Gabapentin (Neurontin) 800 mg PO TID [facility] Last Admin: 11/06/16 09:57 Dose: 800 mg Haloperidol (Haldol) 0.5 mg PO Q6H PRN PRN Reason: Extreme agitation Last Admin: 11/04/16 18:30 Dose: 0.5 mg Haloperidol Decanoate (Haldol Liquid) 0.5 mg PO Q6H PRN Last Admin: 11/06/16 10:39 Dose: 0.5 mg Haloperidol Lactate (Haldol) 0.5 mg IM Q6H PRN PRN Reason: Agitation Ibuprofen (Motrin) 200 mg PO 2100 [facility] Last Admin: 11/05/16 23:07 Dose: 200 mg Lorazepam (Ativan) 0.5 mg PO Q6H PRN PRN Reason: Extreme agitation Last Admin: 11/04/16 18:30 Dose: 0.5 mg Lorazepam (Ativan Inj) 0.5 mg IM Q6H PRN PRN Reason: Extreme agitation Lorazepam (Ativan Intensol) 0.5 mg SL Q6H PRN Last Admin: 11/06/16 10:40 Dose: 0.5 mg Memantine (Namenda) 10 mg PO BID [facility] Last Admin: 11/06/16 09:57 Dose: 10 mg Multivitamins/Minerals (Therapeutic - M) 1 tab PO DAILY [facility] Last Admin: 11/06/16 09:58 Dose: 1 tab Olanzapine (Zyprexa Zydis) 5 mg PO 1730 [facility] Last Admin: 11/05/16 18:10 Dose: 5 mg Simvastatin (Zocor) 20 mg PO 2100 [facility] Last Admin: 11/05/16 19:22 Dose: 20 mg Sodium Chloride (Iv Flush) 10 - 80 ml IVF PRN PRN PRN Reason: Flushing Last Admin: 11/04/16 16:21 Dose: 10 ml Subjective: Pt seen and chart examined. Nursing reports pt slept well and has a good appetite. Had some agitation and exit seeking behavior this AM but was redirectable. On face to face the pt states he is doing well. He is only oriented to self. He was able to tell me he has Alzheimers which is why he is here. He reports tolerating his medications well. Start Time: 11:15 Stop Time: 11:30 Mental Status Exam Vitals: Last Vital Signs Temp 96.7 F L 11/06/16 10:00 Pulse 76 11/06/16 10:00 Resp 16 11/06/16 10:00 BP 142/81 H 11/06/16 10:00 Pulse Ox 97 11/06/16 10:00 Height: 1.88 m Weight: 112.4 kg - Mental Status Exam Muscle Strength/Tone: Normal Dressing: Casual Grooming: Good Attitude: Guarded Motor Activity: Agitation Eye Contact: Fair Speech: Slowed Volume: Soft Rhythm: Appropriate Rhythm Orientation: Oriented to person Mood: Irritable Rate of Thoughts: Delayed Thought Organization: [place] Associations: Loose-associations Abstract Reasoning: Poor abstract reasoning Thought Content: Ruminations Perception/Psychotic: Hx psychosis, 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 Language: Naming Impaired Fund of Knowledge: Poor fund of knowledge Memory: Poor-immediate, Poor-recent Suicidal Ideation: None Homicidal Ideation: None Insight: Poor Judgement: Poor Impulse Control: Poor - Laboratory Result Diagrams: 11/04/16 15:09 11/06/16 07:52 Laboratory Results - last 24 hr 11/06/16 07:52 Turbidity < 20 Sodium 144 Potassium 4.7 Chloride 108 H Carbon Dioxide 28 Anion Gap 8 BUN 23.0 H Creatinine 1.2 D GFR Calculation 58 BUN/Creatinine Ratio 19 Glucose 85 Calculated Osmolality 280 Calcium 9.4 Icterus Index < 2 Specimen Hemolysis 42 H Assessment and Plan (1) Major neurocognitive disorder due to Alzheimer's disease, probable, with behavioral disturbance Current visit: Yes Status: Acute Hospital Course Summary Disclaimer: The visit summary below is not to be considered part of the above Progress Note. Hospital Course: 11/05/16 Plan Agree with admission to [facility] under the care of Dr. Webster for acute psychiatric evaluation and treatment. Patient has had significant behaviors overnight required multiple when necessary agents. In 10 used to provide a safe environment for patient and staff. Hypernatremia, present on admission with a sodium of 150. Have asked nursing staff to encourage oral intake. If sodium does not improve. Patient may require IV fluids for hydration. Home medications reviewed. At this time it does not appear the patient is on any antihypertensives. We will monitor his blood pressure carefully. Continue with other chronic medical medications including Neurontin, proscar, aspirin, and simvastatin Appreciate medical consultation. We will continue to follow patient during his stay on the [facility]. At time of discharge his medical care will return to his primary care provider, Dr. Eliazar Barnett 11/05/16 09:44 11/06/16 11:56 Continue current care
[2016-11-06] MEDS ORDERED: HALOPERIDOL 1 MG TABLET PO PRN (16:36)
[2016-11-06] MEDS ORDERED: LORazepam 1 MG TABLET PO SCH (16:45)
[2016-11-06] MEDS: OLANZapine ODT 5 MG TABLET PO SCH (17:52)
[2016-11-06] MEDS: SIMVASTATIN 20 MG TABLET PO SCH ×2 (20:05→20:57)
[2016-11-06] MEDS: LORazepam 0.5 MG TABLET PO PRN (20:05)
[2016-11-06] MEDS: HALOPERIDOL 0.5 MG TABLET PO PRN (20:05)
[2016-11-06] MEDS: IBUPROFEN 200 MG TABLET PO SCH ×2 (20:08→20:53)
[2016-11-06] MEDS: HALOPERIDOL 5 MG/ML INJECTION IM PRN (20:30)
[2016-11-06] MEDS ORDERED: HALOPERIDOL 5 MG/ML INJECTION IM PRN (23:01)
[2016-11-07] MEDS: DIVALPROEX SPRINKLE 125 MG CAPSULE PO SCH ×3 (09:29→20:52)
[2016-11-07] MEDS: ASPIRIN *EC* 81 MG TABLET PO SCH (09:29)
[2016-11-07] MEDS: GABAPENTIN 800 MG TABLET PO SCH ×4 (09:30→20:52)
[2016-11-07] MEDS: MEMANTINE 10 MG TABLET PO SCH ×3 (09:30→20:52)
[2016-11-07] MEDS: FLUTICASONE NASAL SPRAY 50mcg EA NOSTRIL SCH (09:30)
[2016-11-07] MEDS: FINASTERIDE 5 MG TABLET PO SCH (09:30)
[2016-11-07] MEDS: HALOPERIDOL 0.5 MG TABLET PO PRN ×2 (09:30→18:34)
[2016-11-07] MEDS: MULTI-VITAMIN + MINERAL TABLET PO SCH (09:30)
[2016-11-07] MEDS: LORazepam 0.5 MG TABLET PO PRN ×2 (09:30→18:34)
--- NOTE | 2016-11-07 11:11 | Neuropsych Progress Note ---
[facility] Subjective Date: 11/07/16 - Sujective/Severity of Illness Medications: Aspirin (Ecotrin) 81 mg PO DAILY [facility] Last Admin: 11/07/16 09:29 Dose: 81 mg Divalproex Sodium (Depakote Sprinkle) 250 mg PO BID [facility] Last Admin: 11/07/16 09:29 Dose: 250 mg Finasteride (Proscar) 5 mg PO DAILY [facility] Last Admin: 11/07/16 09:30 Dose: 5 mg Fluticasone Propionate (Flonase) 1 spray EA NOSTRIL DAILY [facility] Last Admin: 11/07/16 09:30 Dose: 1 spray Gabapentin (Neurontin) 800 mg PO TID [facility] Last Admin: 11/07/16 09:30 Dose: 800 mg Haloperidol (Haldol) 0.5 mg PO Q6H PRN PRN Reason: Extreme agitation Last Admin: 11/07/16 09:30 Dose: 0.5 mg Haloperidol Decanoate (Haldol Liquid) 0.5 mg PO Q6H PRN Last Admin: 11/06/16 10:39 Dose: 0.5 mg Haloperidol Lactate (Haldol) 0.5 mg IM Q6H PRN PRN Reason: Agitation Last Admin: 11/06/16 20:30 Dose: 0.5 mg Ibuprofen (Motrin) 200 mg PO 2100 [facility] Last Admin: 11/06/16 20:53 Dose: Not Given Lorazepam (Ativan) 0.5 mg PO Q6H PRN PRN Reason: Extreme agitation Last Admin: 11/07/16 09:30 Dose: 0.5 mg Lorazepam (Ativan Inj) 0.5 mg IM Q6H PRN PRN Reason: Extreme agitation Last Admin: 11/06/16 20:30 Dose: 0.5 mg Lorazepam (Ativan Intensol) 0.5 mg SL Q6H PRN Last Admin: 11/06/16 10:40 Dose: 0.5 mg Lorazepam (Ativan Inj) 0.5 mg IM ONCE PRN Last Admin: 11/07/16 00:14 Dose: 0.5 mg Memantine (Namenda) 10 mg PO BID [facility] Last Admin: 11/07/16 09:30 Dose: 10 mg Multivitamins/Minerals (Therapeutic - M) 1 tab PO DAILY [facility] Last Admin: 11/07/16 09:30 Dose: 1 tab Olanzapine (Zyprexa Zydis) 5 mg PO 1730 [facility] Last Admin: 11/06/16 17:52 Dose: 5 mg Simvastatin (Zocor) 20 mg PO 2100 [facility] Last Admin: 11/06/16 20:57 Dose: Not Given Sodium Chloride (Iv Flush) 10 - 80 ml IVF PRN PRN PRN Reason: Flushing Last Admin: 11/04/16 16:21 Dose: 10 ml Subjective: Pt seen and chart examined. Nursing reports pt was agitated last night and aggressive with cares. Pt required IM Ativan and Haldol. Pt had some agitation again this morning. On face to face the pt is resting in a chair. He is sleepy. He does not appear in any distress. Tolerating meds Start Time: 10:15 Stop Time: 10:30 Mental Status Exam Vitals: Last Vital Signs Temp 97.0 F 11/07/16 03:43 Pulse 65 11/07/16 03:43 Resp 13 11/07/16 03:43 BP 141/74 H 11/07/16 03:43 Pulse Ox 97 11/07/16 03:43 Height: 1.88 m Weight: 112.4 kg - Mental Status Exam Muscle Strength/Tone: Normal Dressing: Casual Grooming: Good Attitude: Guarded Motor Activity: Agitation Eye Contact: Fair Speech: Slowed Volume: Soft Rhythm: Appropriate Rhythm Orientation: Oriented to person Mood: Irritable Rate of Thoughts: Delayed Thought Organization: [place] Associations: Loose-associations Abstract Reasoning: Poor abstract reasoning Thought Content: Ruminations Perception/Psychotic: Hx psychosis, 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 Hospital Course: 11/05/16 Plan Agree with admission to [facility] under the care of Dr. Webster for acute psychiatric evaluation and treatment. Patient has had significant behaviors overnight required multiple when necessary agents. In 10 used to provide a safe environment for patient and staff. Hypernatremia, present on admission with a sodium of 150. Have asked nursing staff to encourage oral intake. If sodium does not improve. Patient may require IV fluids for hydration. Home medications reviewed. At this time it does not appear the patient is on any antihypertensives. We will monitor his blood pressure carefully. Continue with other chronic medical medications including Neurontin, proscar, aspirin, and simvastatin Appreciate medical consultation. We will continue to follow patient during his stay on the [facility] unit. At time of discharge his medical care will return to his primary care provider, Dr. Eliazar Barnett 11/05/16 09:44 11/06/16 11:56 Continue current care 11/07/16 11:11 Increase Zyprexa to 7.5mg
--- NOTE | 2016-11-07 12:23 | Progress Note ---
Subjective: Efrain is seen this morning in follow up for his dementia with increased behaviors. He is seen while sleeping in the recliner in the day room. Nursing reports that he had a rough night with increased behaviors including hallucinations and aggressive behaviors. He required 1:1 care with frequent cueing due to impulsivity and lack of safety awareness. As the night progressive, he became more restless and required PRN medications. He was able to sleep some last night but woke up agitated. Nursing reports that today he has been more somnolent most likely due to the PRN medications given last night and this morning. Nursing denies any current concerns. On exam, he is sleeping soundly but arouses easily with voice and touch stimuli but quickly falls back to sleep. Cardiac exam reveals regular rate and rhythm and lungs are clear to auscultation. Abdomen is soft, nontender with active bowel sounds. Trace edema noted to bilateral lower extremities. Exam is limited due to patient sleeping. BMP on 11/06 was unremarkable. Objective Vital signs: Temperature 97.0 F 11/07/16 03:43 Pulse Rate 65 11/07/16 03:43 Respiratory Rate 13 11/07/16 03:43 Blood Pressure 141/74 H 11/07/16 03:43 Pulse Oximetry 97 11/07/16 03:43 Oxygen Delivery Method Room Air Body Mass Index: 31.8 - Constitutional Present: no acute distress Comments: sleeping - Routine HEENT Exam Head: Present: normocephalic, atraumatic ENT: Present: mucous membranes moist - Routine Respiratory Exam Present: CTA bilaterally. Absent: stridor, wheezes - Routine Cardiovascular Exam Present: RRR, S1, S2 - Routine Abdominal Exam Present: soft, normoactive bowel sounds, non distended - Routine Extremities Exam Present: edema (trace), pulses intact. Absent: cyanosis - Routine Musculoskeletal Exam Musculoskeletal: Present: no clubbing or cyanosis, no erythema - Routine Skin Exam Present: intact, dry. Absent: jaundice - Routine Neurological Exam Absent: facial asymmetry sleeping - Routine Lymphatic Exam Lymphatic: Absent: lymphedema - Routine Psychiatric Exam Comments: sleeping Results - Labs CBC & Chem 7: 11/04/16 15:09 11/06/16 07:52 Assessment and Plan (1) Dementia with behavioral disturbance Current visit: Yes Status: Acute (2) Hypernatremia Current visit: Yes Status: Acute Resuscitation Status: Do Not Resuscitate Assessment and Plan: 11/07/16-Mirakian. Impression Alzheimer's Dementia with behaviors. * Continue psychiatric care per team. Continue to provide safe and supportive environment and encourage participation in floor activities. PRN medications as indicated for hallucinations, aggression and impulsive behaviors. Zyprexa increased to 7.5mg. Hypernatremia, acute. * Resolved since admission at 144 on 11/06. Will continue to monitor and encourage oral intake. Anemia. * Hemoglobin on 11/04 showed mild anemia at 13.3. Continue to monitor trends. Hypertension, chronic. * Blood pressure remains slightly elevated with systolic in 140's. Continue to monitor. May consider initiation of antihypertensive in remains elevated. Hyperlipidemia. * Continue home medications. Follow as outpatient. Neuropathy, chronic. * Continue home Neurontin which may cause some drowsiness. Monitor closely. BPH, chronic. * Continue home Proscar. Chronic kidney disease, stage III. * Monitor renal function periodically throughout admission. - Time spent with patient 25 - 35 minutes Sepsis Assessment - Evaluation Sepsis screening result: No Definite Risk Hospital Course Summary Disclaimer: The visit summary below is not to be considered part of the above Progress Note. Hospital Course: 11/05/16 Plan Agree with admission to [facility] under the care of Dr. Webster for acute psychiatric evaluation and treatment. Patient has had significant behaviors overnight required multiple when necessary agents. In 10 used to provide a safe environment for patient and staff. Hypernatremia, present on admission with a sodium of 150. Have asked nursing staff to encourage oral intake. If sodium does not improve. Patient may require IV fluids for hydration. Home medications reviewed. At this time it does not appear the patient is on any antihypertensives. We will monitor his blood pressure carefully. Continue with other chronic medical medications including Neurontin, proscar, aspirin, and simvastatin Appreciate medical consultation. We will continue to follow patient during his stay on the [facility]. At time of discharge his medical care will return to his primary care provider, Dr. Eliazar Barnett 11/05/16 09:44 11/06/16 11:56 Continue current care 11/07/16 11:11 Increase Zyprexa to 7.5mg 11/07/16 12:33-Mirakian. Impression Alzheimer's Dementia with behaviors. * Continue psychiatric care per team. Continue to provide safe and supportive environment and encourage participation in floor activities. PRN medications as indicated for hallucinations, aggression and impulsive behaviors. Zyprexa increased to 7.5mg. Hypernatremia, acute. * Resolved since admission at 144 on 11/06. Will continue to monitor and encourage oral intake. Anemia. * Hemoglobin on 11/04 showed mild anemia at 13.3. Continue to monitor trends. Hypertension, chronic. * Blood pressure remains slightly elevated with systolic in 140's. Continue to monitor. May consider initiation of antihypertensive in remains elevated. Hyperlipidemia. * Continue home medications. Follow as outpatient. Neuropathy, chronic. * Continue home Neurontin which may cause some drowsiness. Monitor closely. BPH, chronic. * Continue home Proscar. Chronic kidney disease, stage III. * Monitor renal function periodically throughout admission.
[2016-11-07] MEDS: OLANZapine ODT 5 MG TABLET PO SCH (17:47)
[2016-11-07] MEDS: IBUPROFEN 200 MG TABLET PO SCH ×2 (19:15→20:52)
[2016-11-07] MEDS: SIMVASTATIN 20 MG TABLET PO SCH ×2 (19:17→20:53)
[2016-11-08] MEDS: FLUTICASONE NASAL SPRAY 50mcg EA NOSTRIL SCH (08:00)
[2016-11-08] MEDS: GABAPENTIN 800 MG TABLET PO SCH ×3 (08:00→18:59)
[2016-11-08] MEDS: MULTI-VITAMIN + MINERAL TABLET PO SCH (08:00)
[2016-11-08] MEDS: FINASTERIDE 5 MG TABLET PO SCH (08:00)
[2016-11-08] MEDS: DIVALPROEX SPRINKLE 125 MG CAPSULE PO SCH ×2 (08:00→19:00)
[2016-11-08] MEDS: ASPIRIN *EC* 81 MG TABLET PO SCH (08:00)
[2016-11-08] MEDS: MEMANTINE 10 MG TABLET PO SCH ×2 (08:00→18:59)
[2016-11-08] MEDS: LORazepam 0.5 MG TABLET PO PRN (14:56)
[2016-11-08] MEDS: HALOPERIDOL 0.5 MG TABLET PO PRN (14:56)
--- NOTE | 2016-11-08 15:47 | CT Scan Report ---
EXAM: CT head/brain wo con LOCATION OF DICTATION: [facility] HISTORY: mental status change COMPARISON: No prior studies available for comparison. TECHNIQUE: Axial CT images through the head were performed without contrast. Iterative Reconstruction dose reducing technique was utilized. FINDINGS: There is prominence of the ventricles and sulci compatible with age-related atrophy. There is significant deep/subcortical white matter disease likely secondary to chronic small vessel ischemia. The brainstem, cerebellum, and cerebral hemispheres otherwise have a normal morphology and CT attenuation. There is no evidence of midline displacement. No hemorrhage, signs of acute territorial stroke, mass effect, mass lesions, or edema is evident. The visualized portions of the skull base, midface, and calvarium demonstrate no abnormality. The paranasal sinuses are well aerated and free of significant disease. The tympanic and mastoid cavities appear normal. IMPRESSION: 1. Age-related atrophy and significant deep/subcortical white matter disease likely secondary to chronic small vessel ischemia. 2. No evidence for acute intracranial process or hemorrhage. .
--- NOTE | 2016-11-08 16:21 | XRay Report ---
LOCATION OF DICTATION: [place] EXAM: XR chest 2V HISTORY: mental status change COMPARISON: No prior studies available for comparison. FINDINGS: The heart size is upper limits normal. The mediastinal configuration is unremarkable. There are no consolidating opacities or pleural effusions. There is mild basilar atelectasis suggested. There is no evidence for a pneumothorax. The osseous structures are within normal limits. IMPRESSION: 1. Upper limits normal sized heart without CHF or pneumonia. 2. Mild bibasal atelectasis. .
[2016-11-08] MEDS: OLANZapine ODT 5 MG TABLET PO SCH (17:00)
--- NOTE | 2016-11-08 18:05 | Neuropsych Progress Note ---
[facility] Subjective Date: 11/08/16 - Sujective/Severity of Illness Medications: Aspirin (Ecotrin) 81 mg PO DAILY [facility] Last Admin: 11/08/16 08:00 Dose: 81 mg Divalproex Sodium (Depakote Sprinkle) 250 mg PO BID [facility] Last Admin: 11/08/16 08:00 Dose: 250 mg Finasteride (Proscar) 5 mg PO DAILY [facility] Last Admin: 11/08/16 08:00 Dose: 5 mg Fluticasone Propionate (Flonase) 1 spray EA NOSTRIL DAILY [facility] Last Admin: 11/08/16 08:00 Dose: 1 spray Gabapentin (Neurontin) 800 mg PO TID [facility] Last Admin: 11/08/16 14:20 Dose: 800 mg Haloperidol (Haldol) 0.5 mg PO Q6H PRN PRN Reason: Extreme agitation Last Admin: 11/08/16 14:56 Dose: 0.5 mg Haloperidol Decanoate (Haldol Liquid) 0.5 mg PO Q6H PRN Last Admin: 11/06/16 10:39 Dose: 0.5 mg Haloperidol Lactate (Haldol) 0.5 mg IM Q6H PRN PRN Reason: Agitation Last Admin: 11/06/16 20:30 Dose: 0.5 mg Ibuprofen (Motrin) 200 mg PO 2100 [facility] Last Admin: 11/07/16 20:52 Dose: Not Given Lorazepam (Ativan) 0.5 mg PO Q6H PRN PRN Reason: Extreme agitation Last Admin: 11/08/16 14:56 Dose: 0.5 mg Lorazepam (Ativan Inj) 0.5 mg IM Q6H PRN PRN Reason: Extreme agitation Last Admin: 11/06/16 20:30 Dose: 0.5 mg Lorazepam (Ativan Intensol) 0.5 mg SL Q6H PRN Last Admin: 11/06/16 10:40 Dose: 0.5 mg Lorazepam (Ativan Inj) 0.5 mg IM ONCE PRN Last Admin: 11/07/16 00:14 Dose: 0.5 mg Memantine (Namenda) 10 mg PO BID [facility] Last Admin: 11/08/16 08:00 Dose: 10 mg Multivitamins/Minerals (Therapeutic - M) 1 tab PO DAILY [facility] Last Admin: 11/08/16 08:00 Dose: 1 tab Olanzapine (Zyprexa Zydis) 7.5 mg PO 1730 [facility] Last Admin: 11/08/16 17:00 Dose: 7.5 mg Simvastatin (Zocor) 20 mg PO 2100 [facility] Last Admin: 11/07/16 20:53 Dose: Not Given Sodium Chloride (Iv Flush) 10 - 80 ml IVF PRN PRN PRN Reason: Flushing Last Admin: 11/04/16 16:21 Dose: 10 ml Subjective: Pt seen and chart examined. Nursing reports pt remains somewhat agitated at times. Pt required Haldol and Ativan x 2 yesterday. Pt is doing a little better today and no behaviors noted. Eating well. On face to face the pt is pleasant but confused. He is only oriented to self. He denies any pain. Tolerating meds Start Time: 17:30 Stop Time: 17:45 Mental Status Exam Vitals: Last Vital Signs Temp 97.0 F 11/08/16 15:50 Pulse 90 11/08/16 15:50 Resp 16 11/08/16 15:50 BP 133/76 11/08/16 15:50 Pulse Ox 93 11/08/16 15:50 Height: 1.88 m Weight: 112.4 kg - Mental Status Exam Muscle Strength/Tone: Normal Dressing: Casual Grooming: Good Attitude: Guarded Motor Activity: Agitation Eye Contact: Fair Speech: Slowed Volume: Soft Rhythm: Appropriate Rhythm Orientation: Oriented to person Mood: Irritable Rate of Thoughts: Delayed Thought Organization: [place] Associations: Loose-associations Abstract Reasoning: Poor abstract reasoning Thought Content: Ruminations Perception/Psychotic: Hx psychosis, 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 Language: Naming Impaired Fund of Knowledge: Poor fund of knowledge Memory: Poor-immediate, Poor-recent Suicidal Ideation: None Homicidal Ideation: None Insight: Poor Judgement: Poor Impulse Control: Poor - Laboratory Result Diagrams: 11/08/16 04:30 11/08/16 04:30 Laboratory Results - last 24 hr 11/08/16 11/08/16 04:30 04:30 WBC 8.8 RBC 4.16 L Hgb 12.4 L Hct 40.2 L MCV 96.6 MCH 29.8 MCHC 30.8 L RDW Std Deviation 46.8 Plt Count 194 MPV 10.1 Immature Gran % (Auto) 0.2 Neut % (Auto) 65.5 Lymph % (Auto) 21.1 L [place] % (Auto) 8.1 Eos % (Auto) 4.6 H Baso % (Auto) 0.5 Neut # 5.8 Lymph # 1.9 [place] # 0.7 Eos # 0.4 Baso # 0.0 Abs Immat Gran (auto) 0.02 Turbidity < 20 Sodium 142 Potassium 4.7 Chloride 105 Carbon Dioxide 31 H Anion Gap 6 BUN 25.0 H Creatinine 1.3 GFR Calculation 53 BUN/Creatinine Ratio 19 Glucose 105 Calculated Osmolality 277 Calcium 9.6 Icterus Index < 2 Specimen Hemolysis < 15 Assessment and Plan (1) Major neurocognitive disorder due to Alzheimer's disease, probable, with behavioral disturbance Current visit: Yes Status: Acute Hospital Course Summary Disclaimer: The visit summary below is not to be considered part of the above Progress Note. Hospital Course: 11/05/16 Plan Agree with [facility] under the care of Dr. Webster for acute psychiatric evaluation and treatment. Patient has had significant behaviors overnight required multiple when necessary agents. In 10 used to provide a safe environment for patient and staff. Hypernatremia, present on admission with a sodium of 150. Have asked nursing staff to encourage oral intake. If sodium does not improve. Patient may require IV fluids for hydration. Home medications reviewed. At this time it does not appear the patient is on any antihypertensives. We will monitor his blood pressure carefully. Continue with other chronic medical medications including Neurontin, proscar, aspirin, and simvastatin Appreciate medical consultation. We will continue to follow patient during [facility] stay [facility]. At time of discharge his medical care will return to his primary care provider, Dr. Eliazar Barnett 11/05/16 09:44 11/06/16 11:56 Continue current care 11/07/16 11:11 Increase Zyprexa to 7.5mg 11/07/16 12:33-Mirakian. Impression Alzheimer's Dementia with behaviors. * Continue psychiatric care per team. Continue to provide safe and supportive environment and encourage participation in floor activities. PRN medications as indicated for hallucinations, aggression and impulsive behaviors. Zyprexa increased to 7.5mg. Hypernatremia, acute. * Resolved since admission at 144 on 11/06. Will continue to monitor and encourage oral intake. Anemia. * Hemoglobin on 11/04 showed mild anemia at 13.3. Continue to monitor trends. Hypertension, chronic. * Blood pressure remains slightly elevated with systolic in 140's. Continue to monitor. May consider initiation of antihypertensive in remains elevated. Hyperlipidemia. * Continue home medications. Follow as outpatient. Neuropathy, chronic. * Continue home Neurontin which may cause some drowsiness. Monitor closely. BPH, chronic. * Continue home Proscar. Chronic kidney disease, stage III. * Monitor renal function periodically throughout admission. 11/08/16 18:05 Increase Zyprexa to 10mg at HS
[2016-11-08] MEDS: IBUPROFEN 200 MG TABLET PO SCH (19:00)
[2016-11-08] MEDS: SIMVASTATIN 20 MG TABLET PO SCH (19:00)
[2016-11-09] MEDS: IBUPROFEN 200 MG TABLET PO SCH ×3 (02:44→23:26)
[2016-11-09] MEDS: DIVALPROEX SPRINKLE 125 MG CAPSULE PO SCH ×4 (02:44→23:25)
[2016-11-09] MEDS: GABAPENTIN 800 MG TABLET PO SCH ×4 (02:45→19:12)
[2016-11-09] MEDS: SIMVASTATIN 20 MG TABLET PO SCH ×2 (02:45→19:12)
[2016-11-09] MEDS: MEMANTINE 10 MG TABLET PO SCH ×3 (02:45→19:12)
[2016-11-09] MEDS: MULTI-VITAMIN + MINERAL TABLET PO SCH (08:58)
[2016-11-09] MEDS: ASPIRIN *EC* 81 MG TABLET PO SCH (08:58)
[2016-11-09] MEDS: FLUTICASONE NASAL SPRAY 50mcg EA NOSTRIL SCH (08:58)
[2016-11-09] MEDS: FINASTERIDE 5 MG TABLET PO SCH (08:58)
--- NOTE | 2016-11-09 09:37 | Progress Note ---
Subjective: Efrain is seen this morning in follow up for his dementia with behavioral disturbance. He denies any concerns or complaints this morning including no chest pain, shortness of breath, abdominal pain, nausea, vomiting or diarrhea. He does report that his morning started off rough because he was unable to get to the bathroom in time and wet his bed. He denies any dysuria, burning or pain. Medical notes reviewed and indicate that overall, his behaviors appear to be improving but he continues to have episodes of agitation but does better with activity. His appetite is good and his bowels are moving. On exam, he is seen while being wheeled to the day room for breakfast. He is alert and orientated to self only but has a pleasant disposition. Cardiac exam reveals regular rate and rhythm with diminished heart sounds and lungs are clear to auscultation. Abdomen is soft, nontender with active bowel sounds. Trace edema noted to bilateral lower extremities. Recent labs on 11/08 revealed persistent anemia with hemoglobin at 12.4 and otherwise stable and unremarkable. CXR on 11/08 showed mild atelectasis with no apparent pneumonia or CHF. CT head on 11/08 revealed age related atrophy and significant deep/ subcortical white matter disease most likely secondary to chronic small vessel ischemia and no acute intracranial changes or hemorrhage. Objective Vital signs: Temperature 97.6 F 11/08/16 19:46 Pulse Rate 103 H 11/08/16 19:46 Respiratory Rate 17 11/08/16 19:46 Blood Pressure 124/73 11/08/16 19:46 Pulse Oximetry 94 11/08/16 19:46 Oxygen Delivery Method Room Air Body Mass Index: 31.8 - Constitutional Present: no acute distress, well nourished, well developed, cooperative - Routine HEENT Exam Head: Present: normocephalic, atraumatic Eye: Present: PERRL. Absent: conjunctival icterus ENT: Present: mucous membranes moist - Routine Respiratory Exam Present: CTA bilaterally. Absent: stridor, wheezes, crackles - Routine Cardiovascular Exam Present: RRR, S1, S2 - Routine Abdominal Exam Present: soft, normoactive bowel sounds, non distended, non tender - Routine Extremities Exam Present: edema (trace), non tender, pulses intact. Absent: cyanosis - Routine Back/Spine/Pelvis Exam Back/Spine: Absent: vertebral tenderness - Routine Musculoskeletal Exam Musculoskeletal: Present: no clubbing or cyanosis, moving extremities well - Routine Skin Exam Present: intact, dry, warm Comments: afebrile - Routine Neurological Exam Present: alert, moving all extremities, normal speech. Absent: oriented X3 ( orientated to person only), facial asymmetry - Routine Lymphatic Exam Lymphatic: Absent: lymphedema - Routine Psychiatric Exam Present: cooperative Results - Labs CBC & Chem 7: 11/08/16 04:30 11/08/16 04:30 Assessment and Plan (1) Dementia with behavioral disturbance Current visit: Yes Status: Acute (2) Hypernatremia Current visit: Yes Status: Resolved Acute-present on admission, sodium 150 Resuscitation Status: Do Not Resuscitate Assessment and Plan: 11/09/16-Ortiz. Impression Alzheimer's Dementia with behaviors. * Continue psychiatric care per team. Continue to provide safe and supportive environment and encourage participation in floor activities. PRN medications as indicated for hallucinations, aggression and impulsive behaviors. Zyprexa increased to 10mg at bedtime. Hypernatremia, acute - RESOLVED. * Resolved since admission at 144 on 11/06. Will continue to monitor and encourage oral intake. Recent lab on 11/08 showed sodium at 142. Anemia. * Persistent anemia noted. Hemoglobin on 11/08 was 12.4. Continue to monitor trends. Hypertension, chronic. * Blood pressure stable. Continue to monitor. Patient is currently not on any antihypertensives. Hyperlipidemia, chronic. * Continue home medications. Follow as outpatient. Neuropathy, chronic. * Continue home Neurontin which may cause some drowsiness. Monitor closely. BPH, chronic. * Continue home Proscar. Chronic kidney disease, stage III. * Monitor renal function periodically throughout admission. - Time spent with patient 25 - 35 minutes Sepsis Assessment - Evaluation Sepsis screening result: No Definite Risk Hospital Course Summary Disclaimer: The visit summary below is not to be considered part of the above Progress Note. Hospital Course: 11/05/16 Plan Agree with admission to [facility] under the care of Dr. Webster for acute psychiatric evaluation and treatment. Patient has had significant behaviors overnight required multiple when necessary agents. In 10 used to provide a safe environment for patient and staff. Hypernatremia, present on admission with a sodium of 150. Have asked nursing staff to encourage oral intake. If sodium does not improve. Patient may require IV fluids for hydration. Home medications reviewed. At this time it does not appear the patient is on any antihypertensives. We will monitor his blood pressure carefully. Continue with other chronic medical medications including Neurontin, proscar, aspirin, and simvastatin Appreciate medical consultation. We will continue to follow patient during his stay on the [facility]. At time of discharge his medical care will return to his primary care provider, Dr. Eliazar Barnett 11/05/16 09:44 11/06/16 11:56 Continue current care 11/07/16 11:11 Increase Zyprexa to 7.5mg 11/07/16 12:33-Mirakian. Impression Alzheimer's Dementia with behaviors. * Continue psychiatric care per team. Continue to provide safe and supportive environment and encourage participation in floor activities. PRN medications as indicated for hallucinations, aggression and impulsive behaviors. Zyprexa increased to 7.5mg. Hypernatremia, acute. * Resolved since admission at 144 on 11/06. Will continue to monitor and encourage oral intake. Anemia. * Hemoglobin on 11/04 showed mild anemia at 13.3. Continue to monitor trends. Hypertension, chronic. * Blood pressure remains slightly elevated with systolic in 140's. Continue to monitor. May consider initiation of antihypertensive in remains elevated. Hyperlipidemia. * Continue home medications. Follow as outpatient. Neuropathy, chronic. * Continue home Neurontin which may cause some drowsiness. Monitor closely. BPH, chronic. * Continue home Proscar. Chronic kidney disease, stage III. * Monitor renal function periodically throughout admission. 11/08/16 18:05 Increase Zyprexa to 10mg at HS 11/09/16-Mirakian. Impression Alzheimer's Dementia with behaviors. * Continue psychiatric care per team. Continue to provide safe and supportive environment and encourage participation in floor activities. PRN medications as indicated for hallucinations, aggression and impulsive behaviors. Zyprexa increased to 10mg at bedtime. Hypernatremia, acute - RESOLVED. * Resolved since admission at 144 on 11/06. Will continue to monitor and encourage oral intake. Recent lab on 11/08 showed sodium at 142. Anemia. * Persistent anemia noted. Hemoglobin on 11/08 was 12.4. Continue to monitor trends. Hypertension, chronic. * Blood pressure stable. Continue to monitor. Patient is currently not on any antihypertensives. Hyperlipidemia, chronic. * Continue home medications. Follow as outpatient. Neuropathy, chronic. * Continue home Neurontin which may cause some drowsiness. Monitor closely. BPH, chronic. * Continue home Proscar. Chronic kidney disease, stage III. * Monitor renal function periodically throughout admission.
[2016-11-09] MEDS: LORazepam INTENSOL 1mg/0.5ml ORAL LIQUID SL PRN ×2 (15:49→22:13)
[2016-11-09] MEDS: HALOPERIDOL 1 MG/0.5 ML ORAL LIQUID PO PRN ×2 (15:49→22:13)
[2016-11-09] MEDS: OLANZapine ODT 5 MG TABLET PO SCH (17:20)
--- NOTE | 2016-11-09 19:00 | Neuropsych Progress Note ---
[facility] Subjective Date: 11/09/16 - Sujective/Severity of Illness Medications: Aspirin (Ecotrin) 81 mg PO DAILY [facility] Last Admin: 11/09/16 08:58 Dose: 81 mg Divalproex Sodium (Depakote Sprinkle) 250 mg PO BID [facility] Last Admin: 11/09/16 08:57 Dose: 250 mg Finasteride (Proscar) 5 mg PO DAILY [facility] Last Admin: 11/09/16 08:58 Dose: 5 mg Fluticasone Propionate (Flonase) 1 spray EA NOSTRIL DAILY [facility] Last Admin: 11/09/16 08:58 Dose: 1 spray Gabapentin (Neurontin) 800 mg PO TID [facility] Last Admin: 11/09/16 16:25 Dose: Not Given Haloperidol (Haldol) 0.5 mg PO Q6H PRN PRN Reason: Extreme agitation Last Admin: 11/08/16 14:56 Dose: 0.5 mg Haloperidol Decanoate (Haldol Liquid) 0.5 mg PO Q6H PRN Last Admin: 11/09/16 15:49 Dose: 0.5 mg Haloperidol Lactate (Haldol) 0.5 mg IM Q6H PRN PRN Reason: Agitation Last Admin: 11/06/16 20:30 Dose: 0.5 mg Ibuprofen (Motrin) 200 mg PO 2100 [facility] Last Admin: 11/09/16 02:44 Dose: Not Given Lorazepam (Ativan) 0.5 mg PO Q6H PRN PRN Reason: Extreme agitation Last Admin: 11/08/16 14:56 Dose: 0.5 mg Lorazepam (Ativan Inj) 0.5 mg IM Q6H PRN PRN Reason: Extreme agitation Last Admin: 11/06/16 20:30 Dose: 0.5 mg Lorazepam (Ativan Intensol) 0.5 mg SL Q6H PRN Last Admin: 11/09/16 15:49 Dose: 0.5 mg Lorazepam (Ativan Inj) 0.5 mg IM ONCE PRN Last Admin: 11/07/16 00:14 Dose: 0.5 mg Memantine (Namenda) 10 mg PO BID [facility] Last Admin: 11/09/16 08:58 Dose: 10 mg Multivitamins/Minerals (Therapeutic - M) 1 tab PO DAILY [facility] Last Admin: 11/09/16 08:58 Dose: 1 tab Olanzapine (Zyprexa Zydis) 10 mg PO 1730 [facility] Last Admin: 11/09/16 17:20 Dose: 10 mg Simvastatin (Zocor) 20 mg PO 2100 [facility] Last Admin: 11/09/16 02:45 Dose: Not Given Sodium Chloride (Iv Flush) 10 - 80 ml IVF PRN PRN PRN Reason: Flushing Last Admin: 11/04/16 16:21 Dose: 10 ml Subjective: Pt seen and chart examined. Nursing reports pt can be irritable at times with some agitation. Sleeping better. had Haldol and Ativan today at 1550. On face to face the pt was having VH and was trying to get on the floor and get something that was not there. Pt is pleasant but confused. He is only oriented to self. He denies any pain. Tolerating meds Start Time: 18:00 Stop Time: 18:15 Mental Status Exam Vitals: Last Vital Signs Temp 98.6 F 11/09/16 16:00 Pulse 88 11/09/16 16:00 Resp 18 11/09/16 16:00 BP 157/83 H 11/09/16 16:00 Pulse Ox 91 11/09/16 16:00 Height: 1.88 m Weight: 112.4 kg - Mental Status Exam Muscle Strength/Tone: Normal Dressing: Casual Grooming: Good Attitude: Guarded Motor Activity: Agitation Eye Contact: Fair Speech: Slowed Volume: Soft Rhythm: Appropriate Rhythm Orientation: Oriented to person Mood: Irritable Rate of Thoughts: Delayed Thought Organization: [place] Associations: Loose-associations Abstract Reasoning: Poor abstract reasoning Thought Content: Ruminations Perception/Psychotic: Perception Normal Current Hallucinations: Visual Language: Naming Impaired Fund of Knowledge: Poor fund of knowledge Memory: Poor-immediate, Poor-recent Suicidal Ideation: None Homicidal Ideation: None Insight: Poor Judgement: Poor Impulse Control: Poor - Laboratory Result Diagrams: 11/08/16 04:30 11/08/16 04:30 Assessment and Plan (1) Major neurocognitive disorder due to Alzheimer's disease, probable, with behavioral disturbance Current visit: Yes Status: Acute Hospital Course Summary Disclaimer: The visit summary below is not to be considered part of the above Progress Note. Hospital Course: 11/05/16 Plan Agree with admission to [facility] under the care of Dr. Webster for acute psychiatric evaluation and treatment. Patient has had significant behaviors overnight required multiple when necessary agents. In 10 used to provide a safe environment for patient and staff. Hypernatremia, present on admission with a sodium of 150. Have asked nursing staff to encourage oral intake. If sodium does not improve. Patient may require IV fluids for hydration. Home medications reviewed. At this time it does not appear the patient is on any antihypertensives. We will monitor his blood pressure carefully. Continue with other chronic medical medications including Neurontin, proscar, aspirin, and simvastatin Appreciate medical consultation. We will continue to follow patient during his stay on the [facility]. At time of discharge his medical care will return to his primary care provider, Dr. Eliazar Barnett 11/05/16 09:44 11/06/16 11:56 Continue current care 11/07/16 11:11 Increase Zyprexa to 7.5mg 11/07/16 12:33-Mirakian. Impression Alzheimer's Dementia with behaviors. * Continue psychiatric care per team. Continue to provide safe and supportive environment and encourage participation in floor activities. PRN medications as indicated for hallucinations, aggression and impulsive behaviors. Zyprexa increased to 7.5mg. Hypernatremia, acute. * Resolved since admission at 144 on 11/06. Will continue to monitor and encourage oral intake. Anemia. * Hemoglobin on 11/04 showed mild anemia at 13.3. Continue to monitor trends. Hypertension, chronic. * Blood pressure remains slightly elevated with systolic in 140's. Continue to monitor. May consider initiation of antihypertensive in remains elevated. Hyperlipidemia. * Continue home medications. Follow as outpatient. Neuropathy, chronic. * Continue home Neurontin which may cause some drowsiness. Monitor closely. BPH, chronic. * Continue home Proscar. Chronic kidney disease, stage III. * Monitor renal function periodically throughout admission. 11/08/16 18:05 Increase Zyprexa to 10mg at HS 11/09/16-Mirakian. Impression Alzheimer's Dementia with behaviors. * Continue psychiatric care per team. Continue to provide safe and supportive environment and encourage participation in floor activities. PRN medications as indicated for hallucinations, aggression and impulsive behaviors. Zyprexa increased to 10mg at bedtime. Hypernatremia, acute - RESOLVED. * Resolved since admission at 144 on 11/06. Will continue to monitor and encourage oral intake. Recent lab on 11/08 showed sodium at 142. Anemia. * Persistent anemia noted. Hemoglobin on 11/08 was 12.4. Continue to monitor trends. Hypertension, chronic. * Blood pressure stable. Continue to monitor. Patient is currently not on any antihypertensives. Hyperlipidemia, chronic. * Continue home medications. Follow as outpatient. Neuropathy, chronic. * Continue home Neurontin which may cause some drowsiness. Monitor closely. BPH, chronic. * Continue home Proscar. Chronic kidney disease, stage III. * Monitor renal function periodically throughout admission. 11/09/16 18:59 Continue current care
[2016-11-10] MEDS: GABAPENTIN 800 MG TABLET PO SCH ×3 (09:12→19:16)
[2016-11-10] MEDS: MEMANTINE 10 MG TABLET PO SCH ×2 (09:12→19:16)
[2016-11-10] MEDS: MULTI-VITAMIN + MINERAL TABLET PO SCH (09:12)
[2016-11-10] MEDS: FLUTICASONE NASAL SPRAY 50mcg EA NOSTRIL SCH (09:12)
[2016-11-10] MEDS: ASPIRIN *EC* 81 MG TABLET PO SCH (09:12)
[2016-11-10] MEDS: DIVALPROEX SPRINKLE 125 MG CAPSULE PO SCH ×2 (09:12→19:16)
[2016-11-10] MEDS: FINASTERIDE 5 MG TABLET PO SCH (09:13)
[2016-11-10] MEDS: Bisacodyl EC TAB 5 MG TABLET PO PRN (12:30)
[2016-11-10] MEDS: LORazepam INTENSOL 1mg/0.5ml ORAL LIQUID SL PRN (15:43)
[2016-11-10] MEDS: HALOPERIDOL 1 MG/0.5 ML ORAL LIQUID PO PRN (15:44)
[2016-11-10] MEDS: OLANZapine ODT 5 MG TABLET PO SCH (17:27)
--- NOTE | 2016-11-10 18:46 | Neuropsych Progress Note ---
[facility] Subjective Date: 11/10/16 - Sujective/Severity of Illness Medications: Aspirin (Ecotrin) 81 mg PO DAILY [facility] Last Admin: 11/10/16 09:12 Dose: 81 mg Bisacodyl (Dulcolax) 10 mg PO DAILY PRN PRN Reason: Constipation Last Admin: 11/10/16 12:30 Dose: 10 mg Divalproex Sodium (Depakote Sprinkle) 250 mg PO BID [facility] Last Admin: 11/10/16 09:12 Dose: 250 mg Finasteride (Proscar) 5 mg PO DAILY [facility] Last Admin: 11/10/16 09:13 Dose: 5 mg Fluticasone Propionate (Flonase) 1 spray EA NOSTRIL DAILY [facility] Last Admin: 11/10/16 09:12 Dose: 1 spray Gabapentin (Neurontin) 800 mg PO TID [facility] Last Admin: 11/10/16 15:41 Dose: 800 mg Haloperidol (Haldol) 0.5 mg PO Q6H PRN PRN Reason: Extreme agitation Last Admin: 11/08/16 14:56 Dose: 0.5 mg Haloperidol Decanoate (Haldol Liquid) 0.5 mg PO Q6H PRN Last Admin: 11/10/16 15:44 Dose: 0.5 mg Haloperidol Lactate (Haldol) 0.5 mg IM Q6H PRN PRN Reason: Agitation Last Admin: 11/06/16 20:30 Dose: 0.5 mg Ibuprofen (Motrin) 200 mg PO 2100 [facility] Last Admin: 11/09/16 23:26 Dose: 200 mg Lorazepam (Ativan) 0.5 mg PO Q6H PRN PRN Reason: Extreme agitation Last Admin: 11/08/16 14:56 Dose: 0.5 mg Lorazepam (Ativan Inj) 0.5 mg IM Q6H PRN PRN Reason: Extreme agitation Last Admin: 11/06/16 20:30 Dose: 0.5 mg Lorazepam (Ativan Intensol) 0.5 mg SL Q6H PRN Last Admin: 11/10/16 15:43 Dose: 0.5 mg Lorazepam (Ativan Inj) 0.5 mg IM ONCE PRN Last Admin: 11/07/16 00:14 Dose: 0.5 mg Memantine (Namenda) 10 mg PO BID [facility] Last Admin: 11/10/16 09:12 Dose: 10 mg Multivitamins/Minerals (Therapeutic - M) 1 tab PO DAILY [facility] Last Admin: 11/10/16 09:12 Dose: 1 tab Olanzapine (Zyprexa Zydis) 10 mg PO 1730 [facility] Last Admin: 11/10/16 17:27 Dose: 10 mg Simvastatin (Zocor) 20 mg PO 2100 [facility] Last Admin: 11/09/16 19:12 Dose: 20 mg Sodium Chloride (Iv Flush) 10 - 80 ml IVF PRN PRN PRN Reason: Flushing Last Admin: 11/04/16 16:21 Dose: 10 ml Subjective: Pt seen and chart examined. Nursing reports pt had some VH last night and was given Haldol and Ativan at 2215. Pt has done better today and no behaviors noted. On face to face the pt is pleasant but confused. He is only oriented to self. he denies any pain. Tolerating meds Start Time: 17:00 Stop Time: 17:15 Mental Status Exam Vitals: Last Vital Signs Temp 97.4 F 11/10/16 16:00 Pulse 83 11/10/16 16:00 Resp 16 11/10/16 16:00 BP 174/84 H 11/10/16 16:00 Pulse Ox 99 11/10/16 16:00 Height: 1.88 m Weight: 112.4 kg - Mental Status Exam Muscle Strength/Tone: Normal Dressing: Casual Grooming: Good Attitude: Guarded Motor Activity: Agitation Eye Contact: Fair Speech: Slowed Volume: Soft Rhythm: Appropriate Rhythm Orientation: Oriented to person Mood: Irritable Rate of Thoughts: Delayed Thought Organization: [place] Associations: Loose-associations Abstract Reasoning: Poor abstract reasoning Thought Content: Ruminations Perception/Psychotic: Perception Normal Current Hallucinations: Visual Language: Naming Impaired Fund of Knowledge: Poor fund of knowledge Memory: Poor-immediate, Poor-recent Suicidal Ideation: None Homicidal Ideation: None Insight: Poor Judgement: Poor Impulse Control: Poor - Laboratory Result Diagrams: 11/08/16 04:30 11/08/16 04:30 Assessment and Plan (1) Major neurocognitive disorder due to Alzheimer's disease, probable, with behavioral disturbance Current visit: Yes Status: Acute Hospital Course Summary Disclaimer: The visit summary below is not to be considered part of the above Progress Note. Hospital Course: 11/05/16 Plan Agree with admission to [facility] under the care of Dr. Webster for acute psychiatric evaluation and treatment. Patient has had significant behaviors overnight required multiple when necessary agents. In 10 used to provide a safe environment for patient and staff. Hypernatremia, present on admission with a sodium of 150. Have asked nursing staff to encourage oral intake. If sodium does not improve. Patient may require IV fluids for hydration. Home medications reviewed. At this time it does not appear the patient is on any antihypertensives. We will monitor his blood pressure carefully. Continue with other chronic medical medications including Neurontin, proscar, aspirin, and simvastatin Appreciate medical consultation. We will continue to follow patient during his stay on the [facility]. At time of discharge his medical care will return to his primary care provider, Dr. Eliazar Barnett 11/05/16 09:44 11/06/16 11:56 Continue current care 11/07/16 11:11 Increase Zyprexa to 7.5mg 11/07/16 12:33-Mirakian. Impression Alzheimer's Dementia with behaviors. * Continue psychiatric care per team. Continue to provide safe and supportive environment and encourage participation in floor activities. PRN medications as indicated for hallucinations, aggression and impulsive behaviors. Zyprexa increased to 7.5mg. Hypernatremia, acute. * Resolved since admission at 144 on 11/06. Will continue to monitor and encourage oral intake. Anemia. * Hemoglobin on 11/04 showed mild anemia at 13.3. Continue to monitor trends. Hypertension, chronic. * Blood pressure remains slightly elevated with systolic in 140's. Continue to monitor. May consider initiation of antihypertensive in remains elevated. Hyperlipidemia. * Continue home medications. Follow as outpatient. Neuropathy, chronic. * Continue home Neurontin which may cause some drowsiness. Monitor closely. BPH, chronic. * Continue home Proscar. Chronic kidney disease, stage III. * Monitor renal function periodically throughout admission. 11/08/16 18:05 Increase Zyprexa to 10mg at HS 11/09/16-Mirakian. Impression Alzheimer's Dementia with behaviors. * Continue psychiatric care per team. Continue to provide safe and supportive environment and encourage participation in floor activities. PRN medications as indicated for hallucinations, aggression and impulsive behaviors. Zyprexa increased to 10mg at bedtime. Hypernatremia, acute - RESOLVED. * Resolved since admission at 144 on 11/06. Will continue to monitor and encourage oral intake. Recent lab on 11/08 showed sodium at 142. Anemia. * Persistent anemia noted. Hemoglobin on 11/08 was 12.4. Continue to monitor trends. Hypertension, chronic. * Blood pressure stable. Continue to monitor. Patient is currently not on any antihypertensives. Hyperlipidemia, chronic. * Continue home medications. Follow as outpatient. Neuropathy, chronic. * Continue home Neurontin which may cause some drowsiness. Monitor closely. BPH, chronic. * Continue home Proscar. Chronic kidney disease, stage III. * Monitor renal function periodically throughout admission. 11/09/16 18:59 Continue current care 11/10/16 18:46 Depakote level in AM
[2016-11-10] MEDS: IBUPROFEN 200 MG TABLET PO SCH (19:16)
[2016-11-10] MEDS: SIMVASTATIN 20 MG TABLET PO SCH (19:16)
[2016-11-11] MEDS: DIVALPROEX SPRINKLE 125 MG CAPSULE PO SCH ×2 (09:24→20:00)
[2016-11-11] MEDS: FLUTICASONE NASAL SPRAY 50mcg EA NOSTRIL SCH (09:24)
[2016-11-11] MEDS: ASPIRIN *EC* 81 MG TABLET PO SCH (09:24)
[2016-11-11] MEDS: FINASTERIDE 5 MG TABLET PO SCH (09:25)
[2016-11-11] MEDS: GABAPENTIN 800 MG TABLET PO SCH ×3 (09:25→20:01)
[2016-11-11] MEDS: MEMANTINE 10 MG TABLET PO SCH ×2 (09:25→20:01)
[2016-11-11] MEDS: MULTI-VITAMIN + MINERAL TABLET PO SCH (09:25)
[2016-11-11] MEDS: OLANZapine ODT 5 MG TABLET PO SCH (17:14)
--- NOTE | 2016-11-11 18:16 | Neuropsych Progress Note ---
[facility] Subjective Date: 11/11/16 - Sujective/Severity of Illness Medications: Aspirin (Ecotrin) 81 mg PO DAILY [facility] Last Admin: 11/11/16 09:24 Dose: 81 mg Bisacodyl (Dulcolax) 10 mg PO DAILY PRN PRN Reason: Constipation Last Admin: 11/10/16 12:30 Dose: 10 mg Divalproex Sodium (Depakote Sprinkle) 250 mg PO BID [facility] Last Admin: 11/11/16 09:24 Dose: 250 mg Finasteride (Proscar) 5 mg PO DAILY [facility] Last Admin: 11/11/16 09:25 Dose: 5 mg Fluticasone Propionate (Flonase) 1 spray EA NOSTRIL DAILY [facility] Last Admin: 11/11/16 09:24 Dose: 1 spray Gabapentin (Neurontin) 800 mg PO TID [facility] Last Admin: 11/11/16 15:28 Dose: 800 mg Haloperidol (Haldol) 0.5 mg PO Q6H PRN PRN Reason: Extreme agitation Last Admin: 11/08/16 14:56 Dose: 0.5 mg Haloperidol Decanoate (Haldol Liquid) 0.5 mg PO Q6H PRN Last Admin: 11/10/16 15:44 Dose: 0.5 mg Haloperidol Lactate (Haldol) 0.5 mg IM Q6H PRN PRN Reason: Agitation Last Admin: 11/06/16 20:30 Dose: 0.5 mg Ibuprofen (Motrin) 200 mg PO 2100 [facility] Last Admin: 11/10/16 19:16 Dose: 200 mg Lorazepam (Ativan) 0.5 mg PO Q6H PRN PRN Reason: Extreme agitation Last Admin: 11/08/16 14:56 Dose: 0.5 mg Lorazepam (Ativan Inj) 0.5 mg IM Q6H PRN PRN Reason: Extreme agitation Last Admin: 11/06/16 20:30 Dose: 0.5 mg Lorazepam (Ativan Intensol) 0.5 mg SL Q6H PRN Last Admin: 11/10/16 15:43 Dose: 0.5 mg Lorazepam (Ativan Inj) 0.5 mg IM ONCE PRN Last Admin: 11/07/16 00:14 Dose: 0.5 mg Memantine (Namenda) 10 mg PO BID [facility] Last Admin: 11/11/16 09:25 Dose: 10 mg Multivitamins/Minerals (Therapeutic - M) 1 tab PO DAILY [facility] Last Admin: 11/11/16 09:25 Dose: 1 tab Neomycin/Polymyxin/Bacitracin (Neosporin) 1 applic TP TID [facility] Stop: 11/15/16 23:59 Olanzapine (Zyprexa Zydis) 10 mg PO 1730 [facility] Last Admin: 11/11/16 17:14 Dose: 10 mg Simvastatin (Zocor) 20 mg PO 2100 [facility] Last Admin: 11/10/16 19:16 Dose: 20 mg Sodium Chloride (Iv Flush) 10 - 80 ml IVF PRN PRN PRN Reason: Flushing Last Admin: 11/04/16 16:21 Dose: 10 ml Subjective: Pt seen and chart examined. Nursing reports pt did a little better today. Slept well last night and no behaviors today. Eating well. On face to face the pt is more alert today and is able to answer some questions. He was smiling and joking with this proposal manager writer. He is pleasant and cooperative but only oriented to self. Denies pain. Tolerating meds Start Time: 17:30 Stop Time: 17:45 Mental Status Exam Vitals: Last Vital Signs Temp 97.0 F 11/11/16 16:00 Pulse 95 11/11/16 16:00 Resp 21 11/11/16 16:00 BP 140/73 H 11/11/16 16:00 Pulse Ox 96 11/11/16 16:00 Height: 1.88 m Weight: 112.4 kg - Mental Status Exam Muscle Strength/Tone: Normal Dressing: Casual Grooming: Good Attitude: Guarded Motor Activity: Normal Eye Contact: Fair Speech: Slowed Volume: Soft Rhythm: Appropriate Rhythm Orientation: Oriented to person Mood: Euthymic Rate of Thoughts: Delayed Thought Organization: [place] Associations: Loose-associations Abstract Reasoning: Poor abstract reasoning Thought Content: Ruminations Perception/Psychotic: Perception Normal Current Hallucinations: Visual Language: Naming Impaired Fund of Knowledge: Poor fund of knowledge Memory: Poor-immediate, Poor-recent Suicidal Ideation: None Homicidal Ideation: None Insight: Poor Judgement: Poor Impulse Control: Poor - Laboratory Result Diagrams: 11/08/16 04:30 11/08/16 04:30 Laboratory Results - last 24 hr 11/11/16 07:47 Valproic Acid 21.5 L Assessment and Plan (1) Major neurocognitive disorder due to Alzheimer's disease, probable, with behavioral disturbance Current visit: Yes Status: Acute Hospital Course Summary Disclaimer: The visit summary below is not to be considered part of the above Progress Note. Hospital Course: 11/05/16 Plan Agree with admission to [facility] under the care of Dr. Webster for acute psychiatric evaluation and treatment. Patient has had significant behaviors overnight required multiple when necessary agents. In 10 used to provide a safe environment for patient and staff. Hypernatremia, present on admission with a sodium of 150. Have asked nursing staff to encourage oral intake. If sodium does not improve. Patient may require IV fluids for hydration. Home medications reviewed. At this time it does not appear the patient is on any antihypertensives. We will monitor his blood pressure carefully. Continue with other chronic medical medications including Neurontin, proscar, aspirin, and simvastatin Appreciate medical consultation. We will continue to follow patient during [facility] stay [facility]. At time of discharge his medical care will return to his primary care provider, Dr. Eliazar Barnett 11/05/16 09:44 11/06/16 11:56 Continue current care 11/07/16 11:11 Increase Zyprexa to 7.5mg 11/07/16 12:33-Mirakian. Impression Alzheimer's Dementia with behaviors. * Continue psychiatric care per team. Continue to provide safe and supportive environment and encourage participation in floor activities. PRN medications as indicated for hallucinations, aggression and impulsive behaviors. Zyprexa increased to 7.5mg. Hypernatremia, acute. * Resolved since admission at 144 on 11/06. Will continue to monitor and encourage oral intake. Anemia. * Hemoglobin on 11/04 showed mild anemia at 13.3. Continue to monitor trends. Hypertension, chronic. * Blood pressure remains slightly elevated with systolic in 140's. Continue to monitor. May consider initiation of antihypertensive in remains elevated. Hyperlipidemia. * Continue home medications. Follow as outpatient. Neuropathy, chronic. * Continue home Neurontin which may cause some drowsiness. Monitor closely. BPH, chronic. * Continue home Proscar. Chronic kidney disease, stage III. * Monitor renal function periodically throughout admission. 11/08/16 18:05 Increase Zyprexa to 10mg at HS 11/09/16-Mirakian. Impression Alzheimer's Dementia with behaviors. * Continue psychiatric care per team. Continue to provide safe and supportive environment and encourage participation in floor activities. PRN medications as indicated for hallucinations, aggression and impulsive behaviors. Zyprexa increased to 10mg at bedtime. Hypernatremia, acute - RESOLVED. * Resolved since admission at 144 on 11/06. Will continue to monitor and encourage oral intake. Recent lab on 11/08 showed sodium at 142. Anemia. * Persistent anemia noted. Hemoglobin on 11/08 was 12.4. Continue to monitor trends. Hypertension, chronic. * Blood pressure stable. Continue to monitor. Patient is currently not on any antihypertensives. Hyperlipidemia, chronic. * Continue home medications. Follow as outpatient. Neuropathy, chronic. * Continue home Neurontin which may cause some drowsiness. Monitor closely. BPH, chronic. * Continue home Proscar. Chronic kidney disease, stage III. * Monitor renal function periodically throughout admission. 11/09/16 18:59 Continue current care 11/10/16 18:46 Depakote level in AM 11/11/16 18:16 Continue current care
--- NOTE | 2016-11-11 19:24 | Progress Note ---
Subjective: Patient seen in the day room sitting at the table. Nurses requested a visit to evaluate a lesion on his back. Today patient complained of an area on his back that was painful for a time. He's not had pain prior to this, and he does not have consistent pain. He's had no fever and overall has been stable. Nurses report his mood has been labile today. Objective Vital signs: Temperature 97.0 F 11/11/16 16:00 Pulse Rate 95 11/11/16 16:00 Respiratory Rate 21 11/11/16 16:00 Blood Pressure 140/73 H 11/11/16 16:00 Pulse Oximetry 96 11/11/16 16:00 Oxygen Delivery Method Room Air Body Mass Index: 31.8 - Constitutional Present: no acute distress, well nourished, well developed - Routine HEENT Exam Head: Present: normocephalic, atraumatic - Routine Respiratory Exam Present: CTA bilaterally. Absent: wheezes - Routine Cardiovascular Exam Present: RRR, S1, S2. Absent: murmur - Routine Abdominal Exam Present: soft, normoactive bowel sounds, non distended. Absent: tenderness - Routine Skin Exam Present: dry, warm Comments: Irritated seborrheic keratosis noted on the mid upper back - Routine Neurological Exam Present: alert - Routine Lymphatic Exam Lymphatic: Absent: adenopathy - Routine Psychiatric Exam Present: normal affect, cooperative Results - Labs CBC & Chem 7: 11/08/16 04:30 11/08/16 04:30 Assessment and Plan (1) Dementia with behavioral disturbance Current visit: Yes Status: Acute (2) Hypernatremia Current visit: Yes Status: Resolved Acute-present on admission, sodium 150 Assessment and Plan: Assessment: Irritated seborrheic keratosis Dementia with behaviors Alzheimer's disease Hypertension Hyperlipidemia Neuropathy. BPH Plan: Nurses and patient reassured the lesion is characteristic for an irritated seborrheic keratosis. Differential diagnosis would include herpes zoster, however this is unlikely as he's not had any prodrome of pain and only has 1 lesion. If he should develop further lesions, nurses will alert the hospitalist team. Use triple antibiotic ointment 3 times a day for 4 days. Other chronic problems are stable. Continue current plan. Sepsis Assessment - Evaluation Sepsis screening result: No Definite Risk Hospital Course Summary Disclaimer: The visit summary below is not to be considered part of the above Progress Note. Hospital Course: 11/05/16 hospitalist consult Plan Agree with admission to [facility] under the care of Dr. Webster for acute psychiatric evaluation and treatment. Patient has had significant behaviors overnight required multiple when necessary agents. In 10 used to provide a safe environment for patient and staff. Hypernatremia, present on admission with a sodium of 150. Have asked nursing staff to encourage oral intake. If sodium does not improve. Patient may require IV fluids for hydration. Home medications reviewed. At this time it does not appear the patient is on any antihypertensives. We will monitor his blood pressure carefully. Continue with other chronic medical medications including Neurontin, proscar, aspirin, and simvastatin Appreciate medical consultation. We will continue to follow patient during [facility] stay [facility]. At time of discharge his medical care will return to his primary care provider, Dr. Eliazar Barnett 11/05/16 09:44 11/06/16 11:56 Continue current care 11/07/16 11:11 Increase Zyprexa to 7.5mg 11/07/16 12:33-Mirakian. 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 * Continue psychiatric care per team. Continue to provide safe and supportive environment and encourage participation in floor activities. PRN medications as indicated for hallucinations, aggression and impulsive behaviors. Zyprexa increased to 7.5mg. Hypernatremia, acute. * Resolved since admission at 144 on 11/06. Will continue to monitor and encourage oral intake. Anemia. * Hemoglobin on 11/04 showed mild anemia at 13.3. Continue to monitor trends. Hypertension, chronic. * Blood pressure remains slightly elevated with systolic in 140's. Continue to monitor. May consider initiation of antihypertensive in remains elevated. Hyperlipidemia. * Continue home medications. Follow as outpatient. Neuropathy, chronic. * Continue home Neurontin which may cause some drowsiness. Monitor closely. BPH, chronic. * Continue home Proscar. Chronic kidney disease, stage III. * Monitor renal function periodically throughout admission. 11/08/16 18:05 Increase Zyprexa to 10mg at HS 11/09/16-Mirakian. 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 * Continue psychiatric care per team. Continue to provide safe and supportive environment and encourage participation in floor activities. PRN medications as indicated for hallucinations, aggression and impulsive behaviors. Zyprexa increased to 10mg at bedtime. Hypernatremia, acute - RESOLVED. * Resolved since admission at 144 on 11/06. Will continue to monitor and encourage oral intake. Recent lab on 11/08 showed sodium at 142. Anemia. * Persistent anemia noted. Hemoglobin on 11/08 was 12.4. Continue to monitor trends. Hypertension, chronic. * Blood pressure stable. Continue to monitor. Patient is currently not on any antihypertensives. Hyperlipidemia, chronic. * Continue home medications. Follow as outpatient. Neuropathy, chronic. * Continue home Neurontin which may cause some drowsiness. Monitor closely. BPH, chronic. * Continue home Proscar. Chronic kidney disease, stage III. * Monitor renal function periodically throughout admission. 11/09/16 18:59 Continue current care 11/10/16 18:46 Depakote level in AM 11/11/16 18:16 Continue current care 11/11/16 19:33 hospitalist progress note Nurses and patient reassured the lesion is characteristic for an irritated seborrheic keratosis. Differential diagnosis would include herpes zoster, however this is unlikely as he's not had any prodrome of pain and only has 1 lesion. If he should develop further lesions, nurses will alert the hospitalist team. Use triple antibiotic ointment 3 times a day for 4 days. Other chronic problems are stable. Continue current plan.
[2016-11-11] MEDS: SIMVASTATIN 20 MG TABLET PO SCH (20:01)
[2016-11-11] MEDS: IBUPROFEN 200 MG TABLET PO SCH (20:01)
[2016-11-12] MEDS: NEOMYCIN/POLYMYXIN/BACITRACIN OINT PACKET TP SCH ×2 (10:35→14:29)
[2016-11-12] MEDS: DIVALPROEX SPRINKLE 125 MG CAPSULE PO SCH ×2 (10:35→19:21)
[2016-11-12] MEDS: MEMANTINE 10 MG TABLET PO SCH ×2 (10:35→19:22)
[2016-11-12] MEDS: MULTI-VITAMIN + MINERAL TABLET PO SCH (10:35)
[2016-11-12] MEDS: GABAPENTIN 800 MG TABLET PO SCH ×3 (10:35→19:22)
[2016-11-12] MEDS: ASPIRIN *EC* 81 MG TABLET PO SCH (10:35)
[2016-11-12] MEDS: FLUTICASONE NASAL SPRAY 50mcg EA NOSTRIL SCH (10:35)
[2016-11-12] MEDS: FINASTERIDE 5 MG TABLET PO SCH (10:35)
[2016-11-12] MEDS: OLANZapine ODT 5 MG TABLET PO SCH (16:42)
--- NOTE | 2016-11-12 17:54 | Neuropsych Progress Note ---
[facility] Subjective Date: 11/12/16 - Sujective/Severity of Illness Medications: Aspirin (Ecotrin) 81 mg PO DAILY [facility] Last Admin: 11/12/16 10:35 Dose: 81 mg Bisacodyl (Dulcolax) 10 mg PO DAILY PRN PRN Reason: Constipation Last Admin: 11/10/16 12:30 Dose: 10 mg Divalproex Sodium (Depakote Sprinkle) 250 mg PO BID [facility] Last Admin: 11/12/16 10:35 Dose: 250 mg Finasteride (Proscar) 5 mg PO DAILY [facility] Last Admin: 11/12/16 10:35 Dose: 5 mg Fluticasone Propionate (Flonase) 1 spray EA NOSTRIL DAILY [facility] Last Admin: 11/12/16 10:35 Dose: 1 spray Gabapentin (Neurontin) 800 mg PO TID [facility] Last Admin: 11/12/16 14:29 Dose: 800 mg Haloperidol (Haldol) 0.5 mg PO Q6H PRN PRN Reason: Extreme agitation Last Admin: 11/08/16 14:56 Dose: 0.5 mg Haloperidol Decanoate (Haldol Liquid) 0.5 mg PO Q6H PRN Last Admin: 11/10/16 15:44 Dose: 0.5 mg Haloperidol Lactate (Haldol) 0.5 mg IM Q6H PRN PRN Reason: Agitation Last Admin: 11/06/16 20:30 Dose: 0.5 mg Ibuprofen (Motrin) 200 mg PO 2100 [facility] Last Admin: 11/11/16 20:01 Dose: 200 mg Lorazepam (Ativan) 0.5 mg PO Q6H PRN PRN Reason: Extreme agitation Last Admin: 11/08/16 14:56 Dose: 0.5 mg Lorazepam (Ativan Inj) 0.5 mg IM Q6H PRN PRN Reason: Extreme agitation Last Admin: 11/06/16 20:30 Dose: 0.5 mg Lorazepam (Ativan Intensol) 0.5 mg SL Q6H PRN Last Admin: 11/10/16 15:43 Dose: 0.5 mg Lorazepam (Ativan Inj) 0.5 mg IM ONCE PRN Last Admin: 11/07/16 00:14 Dose: 0.5 mg Memantine (Namenda) 10 mg PO BID [facility] Last Admin: 11/12/16 10:35 Dose: 10 mg Multivitamins/Minerals (Therapeutic - M) 1 tab PO DAILY [facility] Last Admin: 11/12/16 10:35 Dose: 1 tab Neomycin/Polymyxin/Bacitracin (Neosporin) 1 applic TP TID [facility] Stop: 11/15/16 23:59 Last Admin: 11/12/16 14:29 Dose: 1 applic Olanzapine (Zyprexa Zydis) 10 mg PO 1730 [facility] Last Admin: 11/12/16 16:42 Dose: 10 mg Simvastatin (Zocor) 20 mg PO 2100 [facility] Last Admin: 11/11/16 20:01 Dose: 20 mg Sodium Chloride (Iv Flush) 10 - 80 ml IVF PRN PRN PRN Reason: Flushing Last Admin: 11/04/16 16:21 Dose: 10 ml Subjective: Pt seen and chart examined. Nursing reports pt is doing better. Sleeping well and has a good appetite. No behaviors noted. On face to face the pt is pleasant and cooperative. He is only oriented to self. He denies any pain. voices no concerns at this time Start Time: 17:45 Stop Time: 18:00 Mental Status Exam Vitals: Last Vital Signs Temp 98 F 11/12/16 17:04 Pulse 99 11/12/16 17:04 Resp 16 11/12/16 17:04 BP 117/66 11/12/16 17:04 Pulse Ox 95 11/12/16 17:04 Height: 1.88 m Weight: 110.2 kg - Mental Status Exam Muscle Strength/Tone: Normal Dressing: Casual Grooming: Good Attitude: Cooperative Motor Activity: Normal Eye Contact: Fair Speech: Slowed Volume: Soft Rhythm: Appropriate Rhythm Orientation: Oriented to person Mood: Euthymic Affect: Bright Rate of Thoughts: Delayed Thought Organization: [place] Associations: Loose-associations Abstract Reasoning: Poor abstract reasoning Thought Content: Ruminations Perception/Psychotic: Perception Normal Language: Naming Impaired Fund of Knowledge: Poor fund of knowledge Memory: Poor-immediate, Poor-recent Suicidal Ideation: None Homicidal Ideation: None Insight: Poor Judgement: Poor Impulse Control: Fair - Laboratory Result Diagrams: 11/08/16 04:30 11/08/16 04:30 Assessment and Plan (1) Major neurocognitive disorder due to Alzheimer's disease, probable, with behavioral disturbance Current visit: Yes Status: Acute Hospital Course Summary Disclaimer: The visit summary below is not to be considered part of the above Progress Note. Hospital Course: 11/05/16 hospitalist consult Plan Agree with admission to [facility] under the care of Dr. Webster for acute psychiatric evaluation and treatment. Patient has had significant behaviors overnight required multiple when necessary agents. In 10 used to provide a safe environment for patient and staff. Hypernatremia, present on admission with a sodium of 150. Have asked nursing staff to encourage oral intake. If sodium does not improve. Patient may require IV fluids for hydration. Home medications reviewed. At this time it does not appear the patient is on any antihypertensives. We will monitor his blood pressure carefully. Continue with other chronic medical medications including Neurontin, proscar, aspirin, and simvastatin Appreciate medical consultation. We will continue to follow patient during [facility] stay [facility]. At time of discharge his medical care will return to his primary care provider, Dr. Eliazar Barnett 11/05/16 09:44 11/06/16 11:56 Continue current care 11/07/16 11:11 Increase Zyprexa to 7.5mg 11/07/16 12:33-Mirakian. 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 * Continue psychiatric care per team. Continue to provide safe and supportive environment and encourage participation in floor activities. PRN medications as indicated for hallucinations, aggression and impulsive behaviors. Zyprexa increased to 7.5mg. Hypernatremia, acute. * Resolved since admission at 144 on 11/06. Will continue to monitor and encourage oral intake. Anemia. * Hemoglobin on 11/04 showed mild anemia at 13.3. Continue to monitor trends. Hypertension, chronic. * Blood pressure remains slightly elevated with systolic in 140's. Continue to monitor. May consider initiation of antihypertensive in remains elevated. Hyperlipidemia. * Continue home medications. Follow as outpatient. Neuropathy, chronic. * Continue home Neurontin which may cause some drowsiness. Monitor closely. BPH, chronic. * Continue home Proscar. Chronic kidney disease, stage III. * Monitor renal function periodically throughout admission. 11/08/16 18:05 Increase Zyprexa to 10mg at HS 11/09/16-Mirakian. 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 * Continue psychiatric care per team. Continue to provide safe and supportive environment and encourage participation in floor activities. PRN medications as indicated for hallucinations, aggression and impulsive behaviors. Zyprexa increased to 10mg at bedtime. Hypernatremia, acute - RESOLVED. * Resolved since admission at 144 on 11/06. Will continue to monitor and encourage oral intake. Recent lab on 11/08 showed sodium at 142. Anemia. * Persistent anemia noted. Hemoglobin on 11/08 was 12.4. Continue to monitor trends. Hypertension, chronic. * Blood pressure stable. Continue to monitor. Patient is currently not on any antihypertensives. Hyperlipidemia, chronic. * Continue home medications. Follow as outpatient. Neuropathy, chronic. * Continue home Neurontin which may cause some drowsiness. Monitor closely. BPH, chronic. * Continue home Proscar. Chronic kidney disease, stage III. * Monitor renal function periodically throughout admission. 11/09/16 18:59 Continue current care 11/10/16 18:46 Depakote level in AM 11/11/16 18:16 Continue current care 11/11/16 19:33 hospitalist progress note Nurses and patient reassured the lesion is characteristic for an irritated seborrheic keratosis. Differential diagnosis would include herpes zoster, however this is unlikely as he's not had any prodrome of pain and only has 1 lesion. If he should develop further lesions, nurses will alert the hospitalist team. Use triple antibiotic ointment 3 times a day for 4 days. Other chronic problems are stable. Continue current plan. 11/12/16 17:53 Continue current care
[2016-11-12] MEDS: SIMVASTATIN 20 MG TABLET PO SCH (19:21)
[2016-11-12] MEDS: IBUPROFEN 200 MG TABLET PO SCH ×2 (19:22→20:22)
[2016-11-13] MEDS: NEOMYCIN/POLYMYXIN/BACITRACIN OINT PACKET TP SCH ×4 (00:10→20:29)
[2016-11-13] MEDS: MULTI-VITAMIN + MINERAL TABLET PO SCH (09:28)
[2016-11-13] MEDS: DIVALPROEX SPRINKLE 125 MG CAPSULE PO SCH ×2 (09:28→20:28)
[2016-11-13] MEDS: ASPIRIN *EC* 81 MG TABLET PO SCH (09:28)
[2016-11-13] MEDS: MEMANTINE 10 MG TABLET PO SCH ×2 (09:28→20:29)
[2016-11-13] MEDS: GABAPENTIN 800 MG TABLET PO SCH ×3 (09:28→20:28)
[2016-11-13] MEDS: FINASTERIDE 5 MG TABLET PO SCH (09:28)
[2016-11-13] MEDS: FLUTICASONE NASAL SPRAY 50mcg EA NOSTRIL SCH (09:29)
--- NOTE | 2016-11-13 10:11 | Neuropsych Progress Note ---
[facility] Subjective Date: 11/13/16 - Sujective/Severity of Illness Medications: Aspirin (Ecotrin) 81 mg PO DAILY [facility] Last Admin: 11/13/16 09:28 Dose: 81 mg Bisacodyl (Dulcolax) 10 mg PO DAILY PRN PRN Reason: Constipation Last Admin: 11/10/16 12:30 Dose: 10 mg Divalproex Sodium (Depakote Sprinkle) 250 mg PO BID [facility] Last Admin: 11/13/16 09:28 Dose: 250 mg Finasteride (Proscar) 5 mg PO DAILY [facility] Last Admin: 11/13/16 09:28 Dose: 5 mg Fluticasone Propionate (Flonase) 1 spray EA NOSTRIL DAILY [facility] Last Admin: 11/13/16 09:29 Dose: 1 spray Gabapentin (Neurontin) 800 mg PO TID [facility] Last Admin: 11/13/16 09:28 Dose: 800 mg Haloperidol (Haldol) 0.5 mg PO Q6H PRN PRN Reason: Extreme agitation Last Admin: 11/08/16 14:56 Dose: 0.5 mg Haloperidol Decanoate (Haldol Liquid) 0.5 mg PO Q6H PRN Last Admin: 11/10/16 15:44 Dose: 0.5 mg Haloperidol Lactate (Haldol) 0.5 mg IM Q6H PRN PRN Reason: Agitation Last Admin: 11/06/16 20:30 Dose: 0.5 mg Ibuprofen (Motrin) 200 mg PO 2100 [facility] Last Admin: 11/12/16 20:22 Dose: 200 mg Lorazepam (Ativan) 0.5 mg PO Q6H PRN PRN Reason: Extreme agitation Last Admin: 11/08/16 14:56 Dose: 0.5 mg Lorazepam (Ativan Inj) 0.5 mg IM Q6H PRN PRN Reason: Extreme agitation Last Admin: 11/06/16 20:30 Dose: 0.5 mg Lorazepam (Ativan Intensol) 0.5 mg SL Q6H PRN Last Admin: 11/10/16 15:43 Dose: 0.5 mg Lorazepam (Ativan Inj) 0.5 mg IM ONCE PRN Last Admin: 11/07/16 00:14 Dose: 0.5 mg Memantine (Namenda) 10 mg PO BID [facility] Last Admin: 11/13/16 09:28 Dose: 10 mg Multivitamins/Minerals (Therapeutic - M) 1 tab PO DAILY [facility] Last Admin: 11/13/16 09:28 Dose: 1 tab Neomycin/Polymyxin/Bacitracin (Neosporin) 1 applic TP TID [facility] Stop: 11/15/16 23:59 Last Admin: 11/13/16 09:28 Dose: 1 applic Olanzapine (Zyprexa Zydis) 10 mg PO 1730 [facility] Last Admin: 11/12/16 16:42 Dose: 10 mg Simvastatin (Zocor) 20 mg PO 2100 [facility] Last Admin: 11/12/16 19:21 Dose: 20 mg Sodium Chloride (Iv Flush) 10 - 80 ml IVF PRN PRN PRN Reason: Flushing Last Admin: 11/04/16 16:21 Dose: 10 ml Subjective: Pt seen and chart examined. Nursing reports pt is doing well. Sleeping well and has a good appetite. No behaviors noted. On face to face the pt is pleasant but confused. He is only oriented to self. He denies any pain and voices no concerns at this time. Tolerating meds Start Time: 09:15 Stop Time: 09:30 Mental Status Exam Vitals: Last Vital Signs Temp 96.6 F L 11/13/16 09:00 Pulse 61 11/13/16 09:00 Resp 16 11/13/16 09:00 BP 135/74 11/13/16 09:00 Pulse Ox 95 11/13/16 09:00 Height: 1.88 m Weight: 110.2 kg - Mental Status Exam Muscle Strength/Tone: Normal Dressing: Casual Grooming: Good Attitude: Cooperative Motor Activity: Normal Eye Contact: Fair Speech: Slowed Volume: Soft Rhythm: Appropriate Rhythm Orientation: Oriented to person Mood: Euthymic Rate of Thoughts: Delayed Thought Organization: [place] Associations: Loose-associations Abstract Reasoning: Poor abstract reasoning Thought Content: Ruminations Perception/Psychotic: Perception Normal Current Hallucinations: Visual Language: Naming Impaired Fund of Knowledge: Poor fund of knowledge Memory: Poor-immediate, Poor-recent Suicidal Ideation: None Homicidal Ideation: None Insight: Poor Judgement: Poor Impulse Control: Fair - Laboratory Result Diagrams: 11/08/16 04:30 11/08/16 04:30 Assessment and Plan (1) Major neurocognitive disorder due to Alzheimer's disease, probable, with behavioral disturbance Current visit: Yes Status: Acute Hospital Course Summary Disclaimer: The visit summary below is not to be considered part of the above Progress Note. Hospital Course: 11/05/16 hospitalist consult Plan Agree with admission to [facility] unit under the care of Dr. Webster for acute psychiatric evaluation and treatment. Patient has had significant behaviors overnight required multiple when necessary agents. In 10 used to provide a safe environment for patient and staff. Hypernatremia, present on admission with a sodium of 150. Have asked nursing staff to encourage oral intake. If sodium does not improve. Patient may require IV fluids for hydration. Home medications reviewed. At this time it does not appear the patient is on any antihypertensives. We will monitor his blood pressure carefully. Continue with other chronic medical medications including Neurontin, proscar, aspirin, and simvastatin Appreciate medical consultation. We will continue to follow patient during [facility] stay [facility]. At time of discharge his medical care will return to his primary care provider, Dr. Eliazar Barnett 11/05/16 09:44 11/06/16 11:56 Continue current care 11/07/16 11:11 Increase Zyprexa to 7.5mg 11/07/16 12:33-Mirakian. 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 * Continue psychiatric care per team. Continue to provide safe and supportive environment and encourage participation in floor activities. PRN medications as indicated for hallucinations, aggression and impulsive behaviors. Zyprexa increased to 7.5mg. Hypernatremia, acute. * Resolved since admission at 144 on 11/06. Will continue to monitor and encourage oral intake. Anemia. * Hemoglobin on 11/04 showed mild anemia at 13.3. Continue to monitor trends. Hypertension, chronic. * Blood pressure remains slightly elevated with systolic in 140's. Continue to monitor. May consider initiation of antihypertensive in remains elevated. Hyperlipidemia. * Continue home medications. Follow as outpatient. Neuropathy, chronic. * Continue home Neurontin which may cause some drowsiness. Monitor closely. BPH, chronic. * Continue home Proscar. Chronic kidney disease, stage III. * Monitor renal function periodically throughout admission. 11/08/16 18:05 Increase Zyprexa to 10mg at HS 11/09/16-Mirakian. 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 * Continue psychiatric care per team. Continue to provide safe and supportive environment and encourage participation in floor activities. PRN medications as indicated for hallucinations, aggression and impulsive behaviors. Zyprexa increased to 10mg at bedtime. Hypernatremia, acute - RESOLVED. * Resolved since admission at 144 on 11/06. Will continue to monitor and encourage oral intake. Recent lab on 11/08 showed sodium at 142. Anemia. * Persistent anemia noted. Hemoglobin on 11/08 was 12.4. Continue to monitor trends. Hypertension, chronic. * Blood pressure stable. Continue to monitor. Patient is currently not on any antihypertensives. Hyperlipidemia, chronic. * Continue home medications. Follow as outpatient. Neuropathy, chronic. * Continue home Neurontin which may cause some drowsiness. Monitor closely. BPH, chronic. * Continue home Proscar. Chronic kidney disease, stage III. * Monitor renal function periodically throughout admission. 11/09/16 18:59 Continue current care 11/10/16 18:46 Depakote level in AM 11/11/16 18:16 Continue current care 11/11/16 19:33 hospitalist progress note Nurses and patient reassured the lesion is characteristic for an irritated seborrheic keratosis. Differential diagnosis would include herpes zoster, however this is unlikely as he's not had any prodrome of pain and only has 1 lesion. If he should develop further lesions, nurses will alert the hospitalist team. Use triple antibiotic ointment 3 times a day for 4 days. Other chronic problems are stable. Continue current plan. 11/12/16 17:53 Continue current care 11/13/16 10:10 Continue current care
--- NOTE | 2016-11-13 15:45 | Progress Note ---
Subjective: Bruce is seen in follow up. He is not happy being in the hospital. Will not allow me to exam him. Reports he is frustrated with his life changes. Objective Vital signs: Temperature 96.6 F L 11/13/16 09:00 Pulse Rate 61 11/13/16 09:00 Respiratory Rate 16 11/13/16 09:00 Blood Pressure 135/74 11/13/16 09:00 Pulse Oximetry 95 11/13/16 09:00 Oxygen Delivery Method Room Air Body Mass Index: 31.8 - Constitutional Present: no acute distress, cooperative Comments: Irritable - Routine HEENT Exam Head: Present: normocephalic, atraumatic Eye: Present: EOMI, PERRL ENT: Present: mucous membranes moist - Routine Respiratory Exam Absent: accessory muscle use, dyspnea - Routine Abdominal Exam Present: soft, non distended, non tender - Routine Extremities Exam Present: no edema, non tender - Routine Back/Spine/Pelvis Exam Back/Spine: Present: full ROM - Routine Skin Exam Present: intact, dry, warm - Routine Neurological Exam Present: alert - Routine Psychiatric Exam Present: depressed. Absent: good insight, good judgment Comments: Irritable. refused exam. Results - Labs CBC & Chem 7: 11/08/16 04:30 11/08/16 04:30 - Impressions CT head IMPRESSION: 1. Age-related atrophy and significant deep/subcortical white matter disease likely secondary to chronic small vessel ischemia. 2. No evidence for acute intracranial process or hemorrhage. CXR IMPRESSION: 1. Upper limits normal sized heart without CHF or pneumonia. 2. Mild bibasal atelectasis. Assessment and Plan (1) Dementia with behavioral disturbance Current visit: Yes Status: Acute (2) Hypernatremia Current visit: Yes Status: Resolved Acute-present on admission, sodium 150 Assessment and Plan: Assessment: Irritated seborrheic keratosis Dementia with behaviors Alzheimer's disease Hypertension Hyperlipidemia Neuropathy. BPH Plan: 11/13/16 Patient remains irritable, endorses depression. Is pleasant with other patients. Labs are reviewed- plan recheck on Tuesday AM. BP is well controlled. Continues supportive care, safe environment. Charts, documentation, imaging reviewed during this visit. Sepsis Assessment - Evaluation Sepsis screening result: No Definite Risk Hospital Course Summary Disclaimer: The visit summary below is not to be considered part of the above Progress Note. Hospital Course: 11/05/16 hospitalist consult Plan Agree with admission to [facility] under the care of Dr. Webster for acute psychiatric evaluation and treatment. Patient has had significant behaviors overnight required multiple when necessary agents. In 10 used to provide a safe environment for patient and staff. Hypernatremia, present on admission with a sodium of 150. Have asked nursing staff to encourage oral intake. If sodium does not improve. Patient may require IV fluids for hydration. Home medications reviewed. At this time it does not appear the patient is on any antihypertensives. We will monitor his blood pressure carefully. Continue with other chronic medical medications including Neurontin, proscar, aspirin, and simvastatin Appreciate medical consultation. We will continue to follow patient during [facility] stay [facility]. At time of discharge his medical care will return to his primary care provider, Dr. Eliazar Barnett 11/05/16 09:44 11/06/16 11:56 Continue current care 11/07/16 11:11 Increase Zyprexa to 7.5mg 11/07/16 12:33-Mirakian. 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 * Continue psychiatric care per team. Continue to provide safe and supportive environment and encourage participation in floor activities. PRN medications as indicated for hallucinations, aggression and impulsive behaviors. Zyprexa increased to 7.5mg. Hypernatremia, acute. * Resolved since admission at 144 on 11/06. Will continue to monitor and encourage oral intake. Anemia. * Hemoglobin on 11/04 showed mild anemia at 13.3. Continue to monitor trends. Hypertension, chronic. * Blood pressure remains slightly elevated with systolic in 140's. Continue to monitor. May consider initiation of antihypertensive in remains elevated. Hyperlipidemia. * Continue home medications. Follow as outpatient. Neuropathy, chronic. * Continue home Neurontin which may cause some drowsiness. Monitor closely. BPH, chronic. * Continue home Proscar. Chronic kidney disease, stage III. * Monitor renal function periodically throughout admission. 11/08/16 18:05 Increase Zyprexa to 10mg at HS 11/09/16-Mirakian. 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 * Continue psychiatric care per team. Continue to provide safe and supportive environment and encourage participation in floor activities. PRN medications as indicated for hallucinations, aggression and impulsive behaviors. Zyprexa increased to 10mg at bedtime. Hypernatremia, acute - RESOLVED. * Resolved since admission at 144 on 11/06. Will continue to monitor and encourage oral intake. Recent lab on 11/08 showed sodium at 142. Anemia. * Persistent anemia noted. Hemoglobin on 11/08 was 12.4. Continue to monitor trends. Hypertension, chronic. * Blood pressure stable. Continue to monitor. Patient is currently not on any antihypertensives. Hyperlipidemia, chronic. * Continue home medications. Follow as outpatient. Neuropathy, chronic. * Continue home Neurontin which may cause some drowsiness. Monitor closely. BPH, chronic. * Continue home Proscar. Chronic kidney disease, stage III. * Monitor renal function periodically throughout admission. 11/09/16 18:59 Continue current care 11/10/16 18:46 Depakote level in AM 11/11/16 18:16 Continue current care 11/11/16 19:33 hospitalist progress note Nurses and patient reassured the lesion is characteristic for an irritated seborrheic keratosis. Differential diagnosis would include herpes zoster, however this is unlikely as he's not had any prodrome of pain and only has 1 lesion. If he should develop further lesions, nurses will alert the hospitalist team. Use triple antibiotic ointment 3 times a day for 4 days. Other chronic problems are stable. Continue current plan. 11/12/16 17:53 Continue current care 11/13/16 10:10 Continue current care 11/13/16 15:54 11/13/16 Patient remains irritable, endorses depression. Is pleasant with other patients. Labs are reviewed- plan recheck on Tuesday AM. BP is well controlled. Continues supportive care, safe environment.
[2016-11-13] MEDS: OLANZapine ODT 5 MG TABLET PO SCH (16:56)
[2016-11-13] MEDS: SIMVASTATIN 20 MG TABLET PO SCH (20:30)
[2016-11-13] MEDS: IBUPROFEN 200 MG TABLET PO SCH (20:33)
[2016-11-14] MEDS: NEOMYCIN/POLYMYXIN/BACITRACIN OINT PACKET TP SCH ×5 (10:04→22:23)
[2016-11-14] MEDS: DIVALPROEX SPRINKLE 125 MG CAPSULE PO SCH ×3 (10:04→22:22)
[2016-11-14] MEDS: FLUTICASONE NASAL SPRAY 50mcg EA NOSTRIL SCH (10:04)
[2016-11-14] MEDS: ASPIRIN *EC* 81 MG TABLET PO SCH (10:04)
[2016-11-14] MEDS: FINASTERIDE 5 MG TABLET PO SCH (10:05)
[2016-11-14] MEDS: MEMANTINE 10 MG TABLET PO SCH ×3 (10:05→22:23)
[2016-11-14] MEDS: GABAPENTIN 800 MG TABLET PO SCH ×4 (10:05→22:23)
[2016-11-14] MEDS: MULTI-VITAMIN + MINERAL TABLET PO SCH (10:05)
--- NOTE | 2016-11-14 12:50 | Neuropsych Progress Note ---
[facility] Subjective Date: 11/14/16 - Sujective/Severity of Illness Medications: Aspirin (Ecotrin) 81 mg PO DAILY [facility] Last Admin: 11/14/16 10:04 Dose: 81 mg Bisacodyl (Dulcolax) 10 mg PO DAILY PRN PRN Reason: Constipation Last Admin: 11/10/16 12:30 Dose: 10 mg Divalproex Sodium (Depakote Sprinkle) 250 mg PO BID [facility] Last Admin: 11/14/16 10:04 Dose: 250 mg Finasteride (Proscar) 5 mg PO DAILY [facility] Last Admin: 11/14/16 10:05 Dose: 5 mg Fluticasone Propionate (Flonase) 1 spray EA NOSTRIL DAILY [facility] Last Admin: 11/14/16 10:04 Dose: 1 spray Gabapentin (Neurontin) 800 mg PO TID [facility] Last Admin: 11/14/16 10:05 Dose: 800 mg Haloperidol (Haldol) 0.5 mg PO Q6H PRN PRN Reason: Extreme agitation Last Admin: 11/08/16 14:56 Dose: 0.5 mg Haloperidol Decanoate (Haldol Liquid) 0.5 mg PO Q6H PRN Last Admin: 11/10/16 15:44 Dose: 0.5 mg Haloperidol Lactate (Haldol) 0.5 mg IM Q6H PRN PRN Reason: Agitation Last Admin: 11/06/16 20:30 Dose: 0.5 mg Ibuprofen (Motrin) 200 mg PO 2100 [facility] Last Admin: 11/13/16 20:33 Dose: 200 mg Lorazepam (Ativan) 0.5 mg PO Q6H PRN PRN Reason: Extreme agitation Last Admin: 11/08/16 14:56 Dose: 0.5 mg Lorazepam (Ativan Inj) 0.5 mg IM Q6H PRN PRN Reason: Extreme agitation Last Admin: 11/06/16 20:30 Dose: 0.5 mg Lorazepam (Ativan Intensol) 0.5 mg SL Q6H PRN Last Admin: 11/10/16 15:43 Dose: 0.5 mg Lorazepam (Ativan Inj) 0.5 mg IM ONCE PRN Last Admin: 11/07/16 00:14 Dose: 0.5 mg Magnesium Hydroxide (Mom) 30 ml PO DAILY PRN PRN Reason: Constipation Last Admin: 11/14/16 10:09 Dose: 30 ml Memantine (Namenda) 10 mg PO BID [facility] Last Admin: 11/14/16 10:05 Dose: 10 mg Multivitamins/Minerals (Therapeutic - M) 1 tab PO DAILY [facility] Last Admin: 11/14/16 10:05 Dose: 1 tab Neomycin/Polymyxin/Bacitracin (Neosporin) 1 applic TP TID [facility] Stop: 11/15/16 23:59 Last Admin: 11/14/16 10:06 Dose: 1 applic Olanzapine (Zyprexa Zydis) 10 mg PO 1730 [facility] Last Admin: 11/13/16 16:56 Dose: 10 mg Simvastatin (Zocor) 20 mg PO 2100 [facility] Last Admin: 11/13/16 20:30 Dose: 20 mg Sodium Chloride (Iv Flush) 10 - 80 ml IVF PRN PRN PRN Reason: Flushing Last Admin: 11/04/16 16:21 Dose: 10 ml Subjective: Pt seen and chart examined. Nursing reports pt is doing well. Sleeping well and has a good appetite. No behaviors noted. On face to face the pt is pleasant but confused. He is only oriented to self. Denies any pain. Tolerating meds Start Time: 12:15 Stop Time: 12:30 Mental Status Exam Vitals: Last Vital Signs Temp 96.2 F L 11/14/16 09:58 Pulse 56 L 11/14/16 09:58 Resp 14 11/14/16 09:58 BP 155/82 H 11/14/16 09:58 Pulse Ox 97 11/14/16 09:58 Height: 1.88 m Weight: 110.9 kg - Mental Status Exam Muscle Strength/Tone: Normal Dressing: Casual Grooming: Good Attitude: Cooperative Motor Activity: Normal Eye Contact: Fair Speech: Slowed Volume: Soft Rhythm: Appropriate Rhythm Orientation: Oriented to person Mood: Euthymic Rate of Thoughts: Delayed Thought Organization: [place] Associations: Loose-associations Abstract Reasoning: Poor abstract reasoning Thought Content: Ruminations Perception/Psychotic: Perception Normal Current Hallucinations: Visual Language: Naming Impaired Fund of Knowledge: Poor fund of knowledge Memory: Poor-immediate, Poor-recent Suicidal Ideation: None Homicidal Ideation: None Insight: Poor Judgement: Poor Impulse Control: Fair - Laboratory Result Diagrams: 11/08/16 04:30 11/08/16 04:30 Assessment and Plan (1) Major neurocognitive disorder due to Alzheimer's disease, probable, with behavioral disturbance Current visit: Yes Status: Acute Hospital Course Summary Disclaimer: The visit summary below is not to be considered part of the above Progress Note. Hospital Course: 11/05/16 hospitalist consult Plan Agree with admission to [facility] unit under the care of Dr. Webster for acute psychiatric evaluation and treatment. Patient has had significant behaviors overnight required multiple when necessary agents. In 10 used to provide a safe environment for patient and staff. Hypernatremia, present on admission with a sodium of 150. Have asked nursing staff to encourage oral intake. If sodium does not improve. Patient may require IV fluids for hydration. Home medications reviewed. At this time it does not appear the patient is on any antihypertensives. We will monitor his blood pressure carefully. Continue with other chronic medical medications including Neurontin, proscar, aspirin, and simvastatin Appreciate medical consultation. We will continue to follow patient during [facility]. At time of discharge his medical care will return to his primary care provider, Dr. Eliazar Barnett 11/05/16 09:44 11/06/16 11:56 Continue current care 11/07/16 11:11 Increase Zyprexa to 7.5mg 11/07/16 12:33-Mirakian. 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 * Continue psychiatric care per team. Continue to provide safe and supportive environment and encourage participation in floor activities. PRN medications as indicated for hallucinations, aggression and impulsive behaviors. Zyprexa increased to 7.5mg. Hypernatremia, acute. * Resolved since admission at 144 on 11/06. Will continue to monitor and encourage oral intake. Anemia. * Hemoglobin on 11/04 showed mild anemia at 13.3. Continue to monitor trends. Hypertension, chronic. * Blood pressure remains slightly elevated with systolic in 140's. Continue to monitor. May consider initiation of antihypertensive in remains elevated. Hyperlipidemia. * Continue home medications. Follow as outpatient. Neuropathy, chronic. * Continue home Neurontin which may cause some drowsiness. Monitor closely. BPH, chronic. * Continue home Proscar. Chronic kidney disease, stage III. * Monitor renal function periodically throughout admission. 11/08/16 18:05 Increase Zyprexa to 10mg at HS 11/09/16-Mirakian. 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 * Continue psychiatric care per team. Continue to provide safe and supportive environment and encourage participation in floor activities. PRN medications as indicated for hallucinations, aggression and impulsive behaviors. Zyprexa increased to 10mg at bedtime. Hypernatremia, acute - RESOLVED. * Resolved since admission at 144 on 11/06. Will continue to monitor and encourage oral intake. Recent lab on 11/08 showed sodium at 142. Anemia. * Persistent anemia noted. Hemoglobin on 11/08 was 12.4. Continue to monitor trends. Hypertension, chronic. * Blood pressure stable. Continue to monitor. Patient is currently not on any antihypertensives. Hyperlipidemia, chronic. * Continue home medications. Follow as outpatient. Neuropathy, chronic. * Continue home Neurontin which may cause some drowsiness. Monitor closely. BPH, chronic. * Continue home Proscar. Chronic kidney disease, stage III. * Monitor renal function periodically throughout admission. 11/09/16 18:59 Continue current care 11/10/16 18:46 Depakote level in AM 11/11/16 18:16 Continue current care 11/11/16 19:33 hospitalist progress note Nurses and patient reassured the lesion is characteristic for an irritated seborrheic keratosis. Differential diagnosis would include herpes zoster, however this is unlikely as he's not had any prodrome of pain and only has 1 lesion. If he should develop further lesions, nurses will alert the hospitalist team. Use triple antibiotic ointment 3 times a day for 4 days. Other chronic problems are stable. Continue current plan. 11/12/16 17:53 Continue current care 11/13/16 10:10 Continue current care 11/13/16 15:54 11/13/16 Patient remains irritable, endorses depression. Is pleasant with other patients. Labs are reviewed- plan recheck on Tuesday AM. BP is well controlled. Continues supportive care, safe environment. 11/14/16 12:49 Continue current care
[2016-11-14] MEDS: LORazepam INTENSOL 1mg/0.5ml ORAL LIQUID SL PRN (13:40)
[2016-11-14] MEDS: OLANZapine ODT 5 MG TABLET PO SCH (17:11)
[2016-11-14] MEDS: SIMVASTATIN 20 MG TABLET PO SCH ×2 (19:39→22:23)
[2016-11-14] MEDS: IBUPROFEN 200 MG TABLET PO SCH (20:06)
[2016-11-15] MEDS: GABAPENTIN 800 MG TABLET PO SCH ×3 (10:31→19:52)
[2016-11-15] MEDS: DIVALPROEX SPRINKLE 125 MG CAPSULE PO SCH ×2 (10:32→19:50)
[2016-11-15] MEDS: FINASTERIDE 5 MG TABLET PO SCH (10:32)
[2016-11-15] MEDS: MEMANTINE 10 MG TABLET PO SCH ×2 (10:32→19:52)
[2016-11-15] MEDS: ASPIRIN *EC* 81 MG TABLET PO SCH (10:32)
[2016-11-15] MEDS: MULTI-VITAMIN + MINERAL TABLET PO SCH (10:32)
[2016-11-15] MEDS: NEOMYCIN/POLYMYXIN/BACITRACIN OINT PACKET TP SCH ×3 (10:33→19:50)
[2016-11-15] MEDS: FLUTICASONE NASAL SPRAY 50mcg EA NOSTRIL SCH (10:33)
--- NOTE | 2016-11-15 11:21 | Progress Note ---
Subjective: Patient is seen in his room today. He is alert and oriented to self only. He is cooperative. Nurses have no concerns about him today. He has no complaints. Objective Vital signs: Temperature 97.0 F 11/15/16 09:00 Pulse Rate 138 H 11/15/16 09:00 Respiratory Rate 16 11/15/16 09:00 Blood Pressure 116/64 11/15/16 09:00 Pulse Oximetry 94 11/15/16 09:00 Oxygen Delivery Method Room Air Weight: 110.9 kg - Constitutional Present: no acute distress, well nourished, well developed - Routine HEENT Exam Head: Present: normocephalic, atraumatic - Routine Respiratory Exam Present: CTA bilaterally. Absent: wheezes - Routine Cardiovascular Exam Present: RRR. Absent: murmur - Routine Abdominal Exam Present: soft, normoactive bowel sounds, non distended. Absent: tenderness - Routine Extremities Exam Present: no edema, normal capillary refill - Routine Skin Exam Present: dry, warm - Routine Neurological Exam Present: alert Oriented to self only - Routine Lymphatic Exam Lymphatic: Absent: adenopathy - Routine Psychiatric Exam Present: normal affect, cooperative Results - Labs CBC & Chem 7: 11/15/16 05:10 11/15/16 05:10 Assessment and Plan (1) Dementia with behavioral disturbance Current visit: Yes Status: Acute (2) Hypernatremia Current visit: Yes Status: Resolved Acute-present on admission, sodium 150 Assessment and Plan: Assessment: anemia - unspecified Dementia with behaviors Alzheimer's disease Hypertension Hyperlipidemia Neuropathy. BPH Plan: Hgb is dropping. On 11/04/16 hemoglobin was 13.3. Today hemoglobin is 11.8. MCV and MCH within normal limits. Check hemoccults and get records of most recent colonoscopy and hemoglobin. Continue to follow. Charts, documentation, imaging reviewed during this visit. Sepsis Assessment - Evaluation Sepsis screening result: No Definite Risk Hospital Course Summary Disclaimer: The visit summary below is not to be considered part of the above Progress Note. Hospital Course: 11/05/16 hospitalist consult Plan Agree with [facility] under the care of Dr. Webster for acute psychiatric evaluation and treatment. Patient has had significant behaviors overnight required multiple when necessary agents. In 10 used to provide a safe environment for patient and staff. Hypernatremia, present on admission with a sodium of 150. Have asked nursing staff to encourage oral intake. If sodium does not improve. Patient may require IV fluids for hydration. Home medications reviewed. At this time it does not appear the patient is on any antihypertensives. We will monitor his blood pressure carefully. Continue with other chronic medical medications including Neurontin, proscar, aspirin, and simvastatin Appreciate medical consultation. We will continue to follow patient during [facility] stay [facility]. At time of discharge his medical care will return to his primary care provider, Dr. Eliazar Barnett 11/05/16 09:44 11/06/16 11:56 Continue current care 11/07/16 11:11 Increase Zyprexa to 7.5mg 11/07/16 12:33-Mirakian. 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 * Continue psychiatric care per team. Continue to provide safe and supportive environment and encourage participation in floor activities. PRN medications as indicated for hallucinations, aggression and impulsive behaviors. Zyprexa increased to 7.5mg. Hypernatremia, acute. * Resolved since admission at 144 on 11/06. Will continue to monitor and encourage oral intake. Anemia. * Hemoglobin on 11/04 showed mild anemia at 13.3. Continue to monitor trends. Hypertension, chronic. * Blood pressure remains slightly elevated with systolic in 140's. Continue to monitor. May consider initiation of antihypertensive in remains elevated. Hyperlipidemia. * Continue home medications. Follow as outpatient. Neuropathy, chronic. * Continue home Neurontin which may cause some drowsiness. Monitor closely. BPH, chronic. * Continue home Proscar. Chronic kidney disease, stage III. * Monitor renal function periodically throughout admission. 11/08/16 18:05 Increase Zyprexa to 10mg at HS 11/09/16-Mirakian. 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 * Continue psychiatric care per team. Continue to provide safe and supportive environment and encourage participation in floor activities. PRN medications as indicated for hallucinations, aggression and impulsive behaviors. Zyprexa increased to 10mg at bedtime. Hypernatremia, acute - RESOLVED. * Resolved since admission at 144 on 11/06. Will continue to monitor and encourage oral intake. Recent lab on 11/08 showed sodium at 142. Anemia. * Persistent anemia noted. Hemoglobin on 11/08 was 12.4. Continue to monitor trends. Hypertension, chronic. * Blood pressure stable. Continue to monitor. Patient is currently not on any antihypertensives. Hyperlipidemia, chronic. * Continue home medications. Follow as outpatient. Neuropathy, chronic. * Continue home Neurontin which may cause some drowsiness. Monitor closely. BPH, chronic. * Continue home Proscar. Chronic kidney disease, stage III. * Monitor renal function periodically throughout admission. 11/09/16 18:59 Continue current care 11/10/16 18:46 Depakote level in AM 11/11/16 18:16 Continue current care 11/11/16 19:33 hospitalist progress note Nurses and patient reassured the lesion is characteristic for an irritated seborrheic keratosis. Differential diagnosis would include herpes zoster, however this is unlikely as he's not had any prodrome of pain and only has 1 lesion. If he should develop further lesions, nurses will alert the hospitalist team. Use triple antibiotic ointment 3 times a day for 4 days. Other chronic problems are stable. Continue current plan. 11/15/16 Hgb is dropping. On 11/04/16 hemoglobin was 13.3. Today hemoglobin is 11.8. MCV and MCH within normal limits. Check hemoccults and get records of most recent colonoscopy and hemoglobin. Continue to follow. Charts, documentation, imaging reviewed during this visit.
[2016-11-15] MEDS: LORazepam INTENSOL 1mg/0.5ml ORAL LIQUID SL PRN (15:15)
[2016-11-15] MEDS: OLANZapine ODT 5 MG TABLET PO SCH (17:40)
[2016-11-15] MEDS: HALOPERIDOL 1 MG/0.5 ML ORAL LIQUID PO PRN (18:41)
--- NOTE | 2016-11-15 18:59 | Neuropsych Progress Note ---
[facility] Subjective Date: 11/15/16 - Sujective/Severity of Illness Medications: Aspirin (Ecotrin) 81 mg PO DAILY [facility] Last Admin: 11/15/16 10:32 Dose: 81 mg Bisacodyl (Dulcolax) 10 mg PO DAILY PRN PRN Reason: Constipation Last Admin: 11/10/16 12:30 Dose: 10 mg Divalproex Sodium (Depakote Sprinkle) 250 mg PO BID [facility] Last Admin: 11/15/16 10:32 Dose: 250 mg Finasteride (Proscar) 5 mg PO DAILY [facility] Last Admin: 11/15/16 10:32 Dose: 5 mg Fluticasone Propionate (Flonase) 1 spray EA NOSTRIL DAILY [facility] Last Admin: 11/15/16 10:33 Dose: 1 spray Gabapentin (Neurontin) 800 mg PO TID [facility] Last Admin: 11/15/16 15:15 Dose: 800 mg Haloperidol (Haldol) 0.5 mg PO Q6H PRN PRN Reason: Extreme agitation Last Admin: 11/08/16 14:56 Dose: 0.5 mg Haloperidol Decanoate (Haldol Liquid) 0.5 mg PO Q6H PRN Last Admin: 11/15/16 18:41 Dose: 0.5 mg Haloperidol Lactate (Haldol) 0.5 mg IM Q6H PRN PRN Reason: Agitation Last Admin: 11/06/16 20:30 Dose: 0.5 mg Ibuprofen (Motrin) 200 mg PO 2100 [facility] Last Admin: 11/14/16 20:06 Dose: 200 mg Lorazepam (Ativan) 0.5 mg PO Q6H PRN PRN Reason: Extreme agitation Last Admin: 11/08/16 14:56 Dose: 0.5 mg Lorazepam (Ativan Inj) 0.5 mg IM Q6H PRN PRN Reason: Extreme agitation Last Admin: 11/06/16 20:30 Dose: 0.5 mg Lorazepam (Ativan Intensol) 0.5 mg SL Q6H PRN Last Admin: 11/15/16 15:15 Dose: 0.5 mg Lorazepam (Ativan Inj) 0.5 mg IM ONCE PRN Last Admin: 11/07/16 00:14 Dose: 0.5 mg Magnesium Hydroxide (Mom) 30 ml PO DAILY PRN PRN Reason: Constipation Last Admin: 11/14/16 10:09 Dose: 30 ml Memantine (Namenda) 10 mg PO BID [facility] Last Admin: 11/15/16 10:32 Dose: 10 mg Multivitamins/Minerals (Therapeutic - M) 1 tab PO DAILY [facility] Last Admin: 11/15/16 10:32 Dose: 1 tab Neomycin/Polymyxin/Bacitracin (Neosporin) 1 applic TP TID [facility] Stop: 11/15/16 23:59 Last Admin: 11/15/16 14:47 Dose: 1 applic Olanzapine (Zyprexa Zydis) 10 mg PO 1730 [facility] Last Admin: 11/15/16 17:40 Dose: 10 mg Simvastatin (Zocor) 20 mg PO 2100 [facility] Last Admin: 11/14/16 22:23 Dose: Not Given Sodium Chloride (Iv Flush) 10 - 80 ml IVF PRN PRN PRN Reason: Flushing Last Admin: 11/04/16 16:21 Dose: 10 ml Subjective: Pt seen and chart examined. Nursing reports pt can get somewhat confused and agitated around 1500 and it can last until around shift change. Pt received PRN Ativan around 1500 which was helpful but he became somewhat agitated again around 1800. PT is not aggressive just somewhat hard to redirect. On face to face the pt is pleasant but confused. He denies any pain. Tolerating meds Start Time: 17:15 Stop Time: 17:30 Mental Status Exam Vitals: Last Vital Signs Temp 97.9 F 11/15/16 16:40 Pulse 67 11/15/16 16:40 Resp 17 11/15/16 16:40 BP 124/81 11/15/16 16:40 Pulse Ox 95 11/15/16 16:40 Height: 1.88 m Weight: 110.9 kg - Mental Status Exam Muscle Strength/Tone: Normal Dressing: Casual Grooming: Good Attitude: Cooperative Motor Activity: Normal Eye Contact: Fair Speech: Slowed Volume: Soft Rhythm: Appropriate Rhythm Orientation: Oriented to person Mood: Euthymic Rate of Thoughts: Delayed Thought Organization: [place] Associations: Loose-associations Abstract Reasoning: Poor abstract reasoning Thought Content: Ruminations Perception/Psychotic: Perception Normal Current Hallucinations: Visual Language: Naming Impaired Fund of Knowledge: Poor fund of knowledge Memory: Poor-immediate, Poor-recent Suicidal Ideation: None Homicidal Ideation: None Insight: Poor Judgement: Poor Impulse Control: Fair - Laboratory Result Diagrams: 11/15/16 05:10 11/15/16 05:10 Laboratory Results - last 24 hr 11/15/16 11/15/16 05:10 05:10 WBC 7.6 RBC 3.98 L Hgb 11.8 L Hct 38.9 L MCV 97.7 MCH 29.6 MCHC 30.3 L RDW Std Deviation 47.3 Plt Count 187 MPV 10.7 Immature Gran % (Auto) 0.3 Neut % (Auto) 53.8 Lymph % (Auto) 30.2 Sanders % (Auto) 9.1 H Eos % (Auto) 5.7 H Baso % (Auto) 0.9 Neut # 4.1 Lymph # 2.3 Sanders # 0.7 Eos # 0.4 Baso # 0.1 Abs Immat Gran (auto) 0.02 Turbidity < 20 Sodium 144 Potassium 4.7 Chloride 107 Carbon Dioxide 32 H Anion Gap 5 BUN 36.0 H Creatinine 1.5 GFR Calculation 45 BUN/Creatinine Ratio 24 Glucose 104 Calculated Osmolality 285 H Calcium 9.0 Icterus Index < 2 Specimen Hemolysis < 15 Assessment and Plan (1) Major neurocognitive disorder due to Alzheimer's disease, probable, with behavioral disturbance Current visit: Yes Status: Acute Hospital Course Summary Disclaimer: The visit summary below is not to be considered part of the above Progress Note. Hospital Course: 11/05/16 hospitalist consult Plan Agree with [facility] under the care of Dr. Webster for acute psychiatric evaluation and treatment. Patient has had significant behaviors overnight required multiple when necessary agents. In 10 used to provide a safe environment for patient and staff. Hypernatremia, present on admission with a sodium of 150. Have asked nursing staff to encourage oral intake. If sodium does not improve. Patient may require IV fluids for hydration. Home medications reviewed. At this time it does not appear the patient is on any antihypertensives. We will monitor his blood pressure carefully. Continue with other chronic medical medications including Neurontin, proscar, aspirin, and simvastatin Appreciate medical consultation. We will continue to follow patient during [facility] stay [facility]. At time of discharge his medical care will return to his primary care provider, Dr. Eliazar Barnett 11/05/16 09:44 11/06/16 11:56 Continue current care 11/07/16 11:11 Increase Zyprexa to 7.5mg 11/07/16 12:33-Mirakian. 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 * Continue psychiatric care per team. Continue to provide safe and supportive environment and encourage participation in floor activities. PRN medications as indicated for hallucinations, aggression and impulsive behaviors. Zyprexa increased to 7.5mg. Hypernatremia, acute. * Resolved since admission at 144 on 11/06. Will continue to monitor and encourage oral intake. Anemia. * Hemoglobin on 11/04 showed mild anemia at 13.3. Continue to monitor trends. Hypertension, chronic. * Blood pressure remains slightly elevated with systolic in 140's. Continue to monitor. May consider initiation of antihypertensive in remains elevated. Hyperlipidemia. * Continue home medications. Follow as outpatient. Neuropathy, chronic. * Continue home Neurontin which may cause some drowsiness. Monitor closely. BPH, chronic. * Continue home Proscar. Chronic kidney disease, stage III. * Monitor renal function periodically throughout admission. 11/08/16 18:05 Increase Zyprexa to 10mg at HS 11/09/16-Mirakian. 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 * Continue psychiatric care per team. Continue to provide safe and supportive environment and encourage participation in floor activities. PRN medications as indicated for hallucinations, aggression and impulsive behaviors. Zyprexa increased to 10mg at bedtime. Hypernatremia, acute - RESOLVED. * Resolved since admission at 144 on 11/06. Will continue to monitor and encourage oral intake. Recent lab on 11/08 showed sodium at 142. Anemia. * Persistent anemia noted. Hemoglobin on 11/08 was 12.4. Continue to monitor trends. Hypertension, chronic. * Blood pressure stable. Continue to monitor. Patient is currently not on any antihypertensives. Hyperlipidemia, chronic. * Continue home medications. Follow as outpatient. Neuropathy, chronic. * Continue home Neurontin which may cause some drowsiness. Monitor closely. BPH, chronic. * Continue home Proscar. Chronic kidney disease, stage III. * Monitor renal function periodically throughout admission. 11/09/16 18:59 Continue current care 11/10/16 18:46 Depakote level in AM 11/11/16 18:16 Continue current care 11/11/16 19:33 hospitalist progress note Nurses and patient reassured the lesion is characteristic for an irritated seborrheic keratosis. Differential diagnosis would include herpes zoster, however this is unlikely as he's not had any prodrome of pain and only has 1 lesion. If he should develop further lesions, nurses will alert the hospitalist team. Use triple antibiotic ointment 3 times a day for 4 days. Other chronic problems are stable. Continue current plan. 11/15/16 Hgb is dropping. On 11/04/16 hemoglobin was 13.3. Today hemoglobin is 11.8. MCV and MCH within normal limits. Check hemoccults and get records of most recent colonoscopy and hemoglobin. Continue to follow. Charts, documentation, imaging reviewed during this visit. 11/15/16 18:59 Increasing Depakote to 250mg PO TID
[2016-11-15] MEDS: IBUPROFEN 200 MG TABLET PO SCH ×2 (19:51→20:06)
[2016-11-15] MEDS: SIMVASTATIN 20 MG TABLET PO SCH (19:52)
[2016-11-16] MEDS: DIVALPROEX SPRINKLE 125 MG CAPSULE PO SCH ×3 (11:10→19:33)
[2016-11-16] MEDS: MEMANTINE 10 MG TABLET PO SCH ×2 (11:11→19:34)
[2016-11-16] MEDS: ASPIRIN *EC* 81 MG TABLET PO SCH (11:11)
[2016-11-16] MEDS: FLUTICASONE NASAL SPRAY 50mcg EA NOSTRIL SCH (11:11)
[2016-11-16] MEDS: FINASTERIDE 5 MG TABLET PO SCH (11:12)
[2016-11-16] MEDS: MULTI-VITAMIN + MINERAL TABLET PO SCH (11:12)
[2016-11-16] MEDS: GABAPENTIN 800 MG TABLET PO SCH ×3 (11:12→19:33)
--- NOTE | 2016-11-16 16:52 | Neuropsych Progress Note ---
[facility] Subjective Date: 11/16/16 - Sujective/Severity of Illness Medications: Aspirin (Ecotrin) 81 mg PO DAILY [facility] Last Admin: 11/16/16 11:11 Dose: 81 mg Bisacodyl (Dulcolax) 10 mg PO DAILY PRN PRN Reason: Constipation Last Admin: 11/10/16 12:30 Dose: 10 mg Divalproex Sodium (Depakote Sprinkle) 250 mg PO TID [facility] Last Admin: 11/16/16 14:30 Dose: 250 mg Finasteride (Proscar) 5 mg PO DAILY [facility] Last Admin: 11/16/16 11:12 Dose: 5 mg Fluticasone Propionate (Flonase) 1 spray EA NOSTRIL DAILY [facility] Last Admin: 11/16/16 11:11 Dose: 1 spray Gabapentin (Neurontin) 800 mg PO TID [facility] Last Admin: 11/16/16 14:30 Dose: 800 mg Haloperidol (Haldol) 0.5 mg PO Q6H PRN PRN Reason: Extreme agitation Last Admin: 11/08/16 14:56 Dose: 0.5 mg Haloperidol Decanoate (Haldol Liquid) 0.5 mg PO Q6H PRN Last Admin: 11/15/16 18:41 Dose: 0.5 mg Haloperidol Lactate (Haldol) 0.5 mg IM Q6H PRN PRN Reason: Agitation Last Admin: 11/06/16 20:30 Dose: 0.5 mg Ibuprofen (Motrin) 200 mg PO 2100 [facility] Last Admin: 11/15/16 20:06 Dose: 200 mg Lorazepam (Ativan) 0.5 mg PO Q6H PRN PRN Reason: Extreme agitation Last Admin: 11/08/16 14:56 Dose: 0.5 mg Lorazepam (Ativan Inj) 0.5 mg IM Q6H PRN PRN Reason: Extreme agitation Last Admin: 11/06/16 20:30 Dose: 0.5 mg Lorazepam (Ativan Intensol) 0.5 mg SL Q6H PRN Last Admin: 11/15/16 15:15 Dose: 0.5 mg Lorazepam (Ativan Inj) 0.5 mg IM ONCE PRN Last Admin: 11/07/16 00:14 Dose: 0.5 mg Magnesium Hydroxide (Mom) 30 ml PO DAILY PRN PRN Reason: Constipation Last Admin: 11/14/16 10:09 Dose: 30 ml Memantine (Namenda) 10 mg PO BID [facility] Last Admin: 11/16/16 11:11 Dose: 10 mg Multivitamins/Minerals (Therapeutic - M) 1 tab PO DAILY [facility] Last Admin: 11/16/16 11:12 Dose: 1 tab Olanzapine (Zyprexa Zydis) 10 mg PO 1730 [facility] Last Admin: 11/15/16 17:40 Dose: 10 mg Olanzapine (Zyprexa) 2.5 mg PO 1500 [facility] Simvastatin (Zocor) 20 mg PO 2100 [facility] Last Admin: 11/15/16 19:52 Dose: 20 mg Sodium Chloride (Iv Flush) 10 - 80 ml IVF PRN PRN PRN Reason: Flushing Last Admin: 11/04/16 16:21 Dose: 10 ml Subjective: Pt seen and chart examined. Nursing reports pt remains irritable at times. Pt had some issues with sleep and tends to escalate around 1500. On face to face the pt is pleasant but confused. He is only oriented to self. He denies any pain. Tolerating meds Start Time: 16:00 Stop Time: 16:15 Mental Status Exam Vitals: Last Vital Signs Temp 97.0 F 11/16/16 16:30 Pulse 71 11/16/16 16:30 Resp 20 11/16/16 16:30 BP 134/67 11/16/16 16:30 Pulse Ox 98 11/16/16 16:30 Height: 1.88 m Weight: 110.9 kg - Mental Status Exam Muscle Strength/Tone: Normal Dressing: Casual Grooming: Good Attitude: Cooperative Motor Activity: Normal Eye Contact: Fair Speech: Slowed Volume: Soft Rhythm: Appropriate Rhythm Orientation: Oriented to person Mood: Euthymic Rate of Thoughts: Delayed Thought Organization: [place] Associations: Loose-associations Abstract Reasoning: Poor abstract reasoning Thought Content: Ruminations Perception/Psychotic: Perception Normal Current Hallucinations: Visual Language: Naming Impaired Fund of Knowledge: Poor fund of knowledge Memory: Poor-immediate, Poor-recent Suicidal Ideation: None Homicidal Ideation: None Insight: Poor Judgement: Poor Impulse Control: Fair - Laboratory Result Diagrams: 11/16/16 06:49 11/15/16 05:10 Laboratory Results - last 24 hr 11/16/16 06:49 WBC 7.2 RBC 4.25 L Hgb 13.0 L Hct 41.5 MCV 97.6 MCH 30.6 MCHC 31.3 RDW Std Deviation 48.2 Plt Count 202 MPV 10.4 Immature Gran % (Auto) 0.3 Neut % (Auto) 54.3 Lymph % (Auto) 30.1 Ellis % (Auto) 7.8 Eos % (Auto) 6.4 H Baso % (Auto) 1.1 Neut # 3.9 Lymph # 2.2 Ellis # 0.6 Eos # 0.5 Baso # 0.1 Abs Immat Gran (auto) 0.02 Assessment and Plan (1) Major neurocognitive disorder due to Alzheimer's disease, probable, with behavioral disturbance Current visit: Yes Status: Acute Hospital Course Summary Disclaimer: The visit summary below is not to be considered part of the above Progress Note. Hospital Course: 11/05/16 hospitalist consult Plan Agree with [facility] to [facility] under the care of Dr. Webster for acute psychiatric evaluation and treatment. Patient has had significant behaviors overnight required multiple when necessary agents. In 10 used to provide a safe environment for patient and staff. Hypernatremia, present on admission with a sodium of 150. Have asked nursing staff to encourage oral intake. If sodium does not improve. Patient may require IV fluids for hydration. Home medications reviewed. At this time it does not appear the patient is on any antihypertensives. We will monitor his blood pressure carefully. Continue with other chronic medical medications including Neurontin, proscar, aspirin, and simvastatin Appreciate medical consultation. We will continue to follow patient during his stay [facility]. At time of discharge his medical care will return to his primary care provider, Dr. Eliazar Barnett 11/05/16 09:44 11/06/16 11:56 Continue current care 11/07/16 11:11 Increase Zyprexa to 7.5mg 11/07/16 12:33-Mirakian. 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 * Continue psychiatric care per team. Continue to provide safe and supportive environment and encourage participation in floor activities. PRN medications as indicated for hallucinations, aggression and impulsive behaviors. Zyprexa increased to 7.5mg. Hypernatremia, acute. * Resolved since admission at 144 on 11/06. Will continue to monitor and encourage oral intake. Anemia. * Hemoglobin on 11/04 showed mild anemia at 13.3. Continue to monitor trends. Hypertension, chronic. * Blood pressure remains slightly elevated with systolic in 140's. Continue to monitor. May consider initiation of antihypertensive in remains elevated. Hyperlipidemia. * Continue home medications. Follow as outpatient. Neuropathy, chronic. * Continue home Neurontin which may cause some drowsiness. Monitor closely. BPH, chronic. * Continue home Proscar. Chronic kidney disease, stage III. * Monitor renal function periodically throughout admission. 11/08/16 18:05 Increase Zyprexa to 10mg at HS 11/09/16-Ortiz. 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 * Continue psychiatric care per team. Continue to provide safe and supportive environment and encourage participation in floor activities. PRN medications as indicated for hallucinations, aggression and impulsive behaviors. Zyprexa increased to 10mg at bedtime. Hypernatremia, acute - RESOLVED. * Resolved since admission at 144 on 11/06. Will continue to monitor and encourage oral intake. Recent lab on 11/08 showed sodium at 142. Anemia. * Persistent anemia noted. Hemoglobin on 11/08 was 12.4. Continue to monitor trends. Hypertension, chronic. * Blood pressure stable. Continue to monitor. Patient is currently not on any antihypertensives. Hyperlipidemia, chronic. * Continue home medications. Follow as outpatient. Neuropathy, chronic. * Continue home Neurontin which may cause some drowsiness. Monitor closely. BPH, chronic. * Continue home Proscar. Chronic kidney disease, stage III. * Monitor renal function periodically throughout admission. 11/09/16 18:59 Continue current care 11/10/16 18:46 Depakote level in AM 11/11/16 18:16 Continue current care 11/11/16 19:33 hospitalist progress note Nurses and patient reassured the lesion is characteristic for an irritated seborrheic keratosis. Differential diagnosis would include herpes zoster, however this is unlikely as he's not had any prodrome of pain and only has 1 lesion. If he should develop further lesions, nurses will alert the hospitalist team. Use triple antibiotic ointment 3 times a day for 4 days. Other chronic problems are stable. Continue current plan. 11/15/16 Hgb is dropping. On 11/04/16 hemoglobin was 13.3. Today hemoglobin is 11.8. MCV and MCH within normal limits. Check hemoccults and get records of most recent colonoscopy and hemoglobin. Continue to follow. Charts, documentation, imaging reviewed during this visit. 11/15/16 18:59 Increasing Depakote to 250mg PO TID 11/16/16 16:52 Zyprexa 2.5mg at 1500
[2016-11-16] MEDS: OLANZapine ODT 5 MG TABLET PO SCH (17:23)
[2016-11-16] MEDS: IBUPROFEN 200 MG TABLET PO SCH (19:33)
[2016-11-16] MEDS: SIMVASTATIN 20 MG TABLET PO SCH (19:34)
[2016-11-17] MEDS: IBUPROFEN 200 MG TABLET PO SCH ×3 (01:04→23:41)
[2016-11-17] MEDS: DIVALPROEX SPRINKLE 125 MG CAPSULE PO SCH ×4 (01:04→20:03)
[2016-11-17] MEDS: MEMANTINE 10 MG TABLET PO SCH ×4 (01:05→23:42)
[2016-11-17] MEDS: GABAPENTIN 800 MG TABLET PO SCH ×5 (01:05→23:42)
[2016-11-17] MEDS: SIMVASTATIN 20 MG TABLET PO SCH ×3 (01:05→23:42)
--- NOTE | 2016-11-17 08:07 | Discharge Instructions ---
Discharge Plan - Med Rec/Dispo Referrals/Follow Up: Elisha Barragan [Provider Group] (Patient will be seen on rounds at the facility for follow up mental health services with Katy Killian APRN, with [facility]. ) Juanita Barnett [Family Provider] - (Patient will follow up with Dr. Eliazar Barnett on December 03, 2016 at 9:[address] [place], [place] [phone]) Additional Instructions: IN CASE OF PSYCHIATRIC EMERGENCY, CONTACT [facility] STAFF AT [phone] ( AVAILABLE 224 HOURS A DAY). Prescriptions: New Bisacodyl EC Tab [Dulcolax] 10 mg PO DAILY PRN tablet PRN Reason: Constipation Continue Gabapentin [Neurontin] 800 mg PO TID Ibuprofen 200 mg PO HS Simvastatin 20 mg PO HS Finasteride [Proscar] 5 mg PO DAILY Aspirin [Adult Low Dose Aspirin EC] 81 mg PO DAILY Multivit-Minerals/Ferrous Fum [Multivitamin Liquid] 15 ml PO DAILY Fluticasone Nasal [place] [Flonase] 1 spray [place] DAILY No Action Memantine [Namenda] 20 mg PO BID OLANZapine [Olanzapine] 5 mg PO HS LORazepam [Ativan] 0.5 mg PO Q8H PRN PRN Reason: Anxiety FLUoxetine [Prozac] 40 mg PO DAILY
[2016-11-17] MEDS: ACETAMINOPHEN 325 MG TABLET PO PRN ×2 (10:16→21:35)
[2016-11-17] MEDS: FLUTICASONE NASAL SPRAY 50mcg EA NOSTRIL SCH (10:16)
[2016-11-17] MEDS: MULTI-VITAMIN + MINERAL TABLET PO SCH (10:16)
[2016-11-17] MEDS: FINASTERIDE 5 MG TABLET PO SCH (10:16)
[2016-11-17] MEDS: ASPIRIN *EC* 81 MG TABLET PO SCH (10:16)
[2016-11-17] MEDS: OLANZapine 2.5 MG TABLET PO SCH (14:31)
[2016-11-17] MEDS: OLANZapine ODT 5 MG TABLET PO SCH (17:34)
--- NOTE | 2016-11-17 18:14 | Neuropsych Progress Note ---
[facility] Subjective Date: 11/17/16 - Sujective/Severity of Illness Medications: Acetaminophen (Tylenol) 325 mg PO Q5H PRN PRN Reason: Discomfort Last Admin: 11/17/16 10:16 Dose: 325 mg Aspirin (Ecotrin) 81 mg PO DAILY [facility] Last Admin: 11/17/16 10:16 Dose: 81 mg Bisacodyl (Dulcolax) 10 mg PO DAILY PRN PRN Reason: Constipation Last Admin: 11/10/16 12:30 Dose: 10 mg Divalproex Sodium (Depakote Sprinkle) 250 mg PO TID [facility] Last Admin: 11/17/16 14:30 Dose: 250 mg Finasteride (Proscar) 5 mg PO DAILY [facility] Last Admin: 11/17/16 10:16 Dose: 5 mg Fluticasone Propionate (Flonase) 1 spray EA NOSTRIL DAILY [facility] Last Admin: 11/17/16 10:16 Dose: 1 spray Gabapentin (Neurontin) 800 mg PO TID [facility] Last Admin: 11/17/16 14:30 Dose: 800 mg Haloperidol (Haldol) 0.5 mg PO Q6H PRN PRN Reason: Extreme agitation Last Admin: 11/08/16 14:56 Dose: 0.5 mg Haloperidol Decanoate (Haldol Liquid) 0.5 mg PO Q6H PRN Last Admin: 11/15/16 18:41 Dose: 0.5 mg Haloperidol Lactate (Haldol) 0.5 mg IM Q6H PRN PRN Reason: Agitation Last Admin: 11/06/16 20:30 Dose: 0.5 mg Ibuprofen (Motrin) 200 mg PO 2100 [facility] Last Admin: 11/17/16 01:04 Dose: Not Given Lorazepam (Ativan) 0.5 mg PO Q6H PRN PRN Reason: Extreme agitation Last Admin: 11/08/16 14:56 Dose: 0.5 mg Lorazepam (Ativan Inj) 0.5 mg IM Q6H PRN PRN Reason: Extreme agitation Last Admin: 11/06/16 20:30 Dose: 0.5 mg Lorazepam (Ativan Intensol) 0.5 mg SL Q6H PRN Last Admin: 11/15/16 15:15 Dose: 0.5 mg Lorazepam (Ativan Inj) 0.5 mg IM ONCE PRN Last Admin: 11/07/16 00:14 Dose: 0.5 mg Magnesium Hydroxide (Mom) 30 ml PO DAILY PRN PRN Reason: Constipation Last Admin: 11/14/16 10:09 Dose: 30 ml Memantine (Namenda) 10 mg PO BID [facility] Last Admin: 11/17/16 10:16 Dose: 10 mg Multivitamins/Minerals (Therapeutic - M) 1 tab PO DAILY [facility] Last Admin: 11/17/16 10:16 Dose: 1 tab Olanzapine (Zyprexa Zydis) 10 mg PO 1730 [facility] Last Admin: 11/17/16 17:34 Dose: 10 mg Olanzapine (Zyprexa) 2.5 mg PO 1500 [facility] Last Admin: 11/17/16 14:31 Dose: 2.5 mg Simvastatin (Zocor) 20 mg PO 2100 [facility] Last Admin: 11/17/16 01:05 Dose: Not Given Sodium Chloride (Iv Flush) 10 - 80 ml IVF PRN PRN PRN Reason: Flushing Last Admin: 11/04/16 16:21 Dose: 10 ml Subjective: Pt seen and chart examined. Nursing reports pt continues to have issues with sleep and can be some what irritable at night. Pt does better during the day and is more redirectable. On face to face the pt is pleasant but confused. He is joking with staff. Only oriented x 1. Denies any pain. Tolerating meds. Start Time: 17:30 Stop Time: 17:45 Mental Status Exam Vitals: Last Vital Signs Temp 96.4 F L 11/17/16 16:38 Pulse 72 11/17/16 16:38 Resp 14 11/17/16 16:38 BP 126/66 11/17/16 16:38 Pulse Ox 93 11/17/16 16:38 Height: 1.88 m Weight: 110.9 kg - Mental Status Exam Muscle Strength/Tone: Normal Dressing: Casual Grooming: Good Attitude: Cooperative Motor Activity: Normal Eye Contact: Fair Speech: Slowed Volume: Soft Rhythm: Appropriate Rhythm Orientation: Oriented to person Mood: Euthymic Rate of Thoughts: Delayed Thought Organization: [place] Associations: Loose-associations Abstract Reasoning: Poor abstract reasoning Thought Content: Ruminations Perception/Psychotic: Perception Normal Current Hallucinations: Visual Language: Naming Impaired Fund of Knowledge: Poor fund of knowledge Memory: Poor-immediate, Poor-recent Suicidal Ideation: None Homicidal Ideation: None Insight: Poor Judgement: Poor Impulse Control: Fair - Laboratory Result Diagrams: 11/16/16 06:49 11/15/16 05:10 Laboratory Results - last 24 hr 11/17/16 12:47 Stool Occult Blood Negative Assessment and Plan (1) Major neurocognitive disorder due to Alzheimer's disease, probable, with behavioral disturbance Current visit: Yes Status: Acute Hospital Course Summary Disclaimer: The visit summary below is not to be considered part of the above Progress Note. Hospital Course: 11/05/16 hospitalist consult Plan Agree with admission to [facility] under the care of Dr. Webster for acute psychiatric evaluation and treatment. Patient has had significant behaviors overnight required multiple when necessary agents. In 10 used to provide a safe environment for patient and staff. Hypernatremia, present on admission with a sodium of 150. Have asked nursing staff to encourage oral intake. If sodium does not improve. Patient may require IV fluids for hydration. Home medications reviewed. At this time it does not appear the patient is on any antihypertensives. We will monitor his blood pressure carefully. Continue with other chronic medical medications including Neurontin, proscar, aspirin, and simvastatin Appreciate medical consultation. We will continue to follow patient during his stay [facility]. At time of discharge his medical care will return to his primary care provider, Dr. Eliazar Barnett 11/05/16 09:44 11/06/16 11:56 Continue current care 11/07/16 11:11 Increase Zyprexa to 7.5mg 11/07/16 12:33-Mirakian. 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 * Continue psychiatric care per team. Continue to provide safe and supportive environment and encourage participation in floor activities. PRN medications as indicated for hallucinations, aggression and impulsive behaviors. Zyprexa increased to 7.5mg. Hypernatremia, acute. * Resolved since admission at 144 on 11/06. Will continue to monitor and encourage oral intake. Anemia. * Hemoglobin on 11/04 showed mild anemia at 13.3. Continue to monitor trends. Hypertension, chronic. * Blood pressure remains slightly elevated with systolic in 140's. Continue to monitor. May consider initiation of antihypertensive in remains elevated. Hyperlipidemia. * Continue home medications. Follow as outpatient. Neuropathy, chronic. * Continue home Neurontin which may cause some drowsiness. Monitor closely. BPH, chronic. * Continue home Proscar. Chronic kidney disease, stage III. * Monitor renal function periodically throughout admission. 11/08/16 18:05 Increase Zyprexa to 10mg at HS 11/09/16-Ortiz. 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 * Continue psychiatric care per team. Continue to provide safe and supportive environment and encourage participation in floor activities. PRN medications as indicated for hallucinations, aggression and impulsive behaviors. Zyprexa increased to 10mg at bedtime. Hypernatremia, acute - RESOLVED. * Resolved since admission at 144 on 11/06. Will continue to monitor and encourage oral intake. Recent lab on 11/08 showed sodium at 142. Anemia. * Persistent anemia noted. Hemoglobin on 11/08 was 12.4. Continue to monitor trends. Hypertension, chronic. * Blood pressure stable. Continue to monitor. Patient is currently not on any antihypertensives. Hyperlipidemia, chronic. * Continue home medications. Follow as outpatient. Neuropathy, chronic. * Continue home Neurontin which may cause some drowsiness. Monitor closely. BPH, chronic. * Continue home Proscar. Chronic kidney disease, stage III. * Monitor renal function periodically throughout admission. 11/09/16 18:59 Continue current care 11/10/16 18:46 Depakote level in AM 11/11/16 18:16 Continue current care 11/11/16 19:33 hospitalist progress note Nurses and patient reassured the lesion is characteristic for an irritated seborrheic keratosis. Differential diagnosis would include herpes zoster, however this is unlikely as he's not had any prodrome of pain and only has 1 lesion. If he should develop further lesions, nurses will alert the hospitalist team. Use triple antibiotic ointment 3 times a day for 4 days. Other chronic problems are stable. Continue current plan. 11/15/16 Hgb is dropping. On 11/04/16 hemoglobin was 13.3. Today hemoglobin is 11.8. MCV and MCH within normal limits. Check hemoccults and get records of most recent colonoscopy and hemoglobin. Continue to follow. Charts, documentation, imaging reviewed during this visit. 11/15/16 18:59 Increasing Depakote to 250mg PO TID 11/16/16 16:52 Zyprexa 2.5mg at 1500 11/17/16 18:14 Continue to have some agitation at night with poor sleep. Will add Ativan 0.5mg PO QHS
[2016-11-17] MEDS: LORazepam 0.5 MG TABLET PO SCH ×2 (19:58→23:41)
[2016-11-17] MEDS: HALOPERIDOL 0.5 MG TABLET PO PRN (21:35)
[2016-11-18] MEDS: FLUTICASONE NASAL SPRAY 50mcg EA NOSTRIL SCH (10:25)
[2016-11-18] MEDS: FINASTERIDE 5 MG TABLET PO SCH (10:25)
[2016-11-18] MEDS: DIVALPROEX SPRINKLE 125 MG CAPSULE PO SCH ×4 (10:25→23:52)
[2016-11-18] MEDS: MULTI-VITAMIN + MINERAL TABLET PO SCH (10:25)
[2016-11-18] MEDS: GABAPENTIN 800 MG TABLET PO SCH ×4 (10:25→23:53)
[2016-11-18] MEDS: MEMANTINE 10 MG TABLET PO SCH ×3 (10:25→23:53)
[2016-11-18] MEDS: ASPIRIN *EC* 81 MG TABLET PO SCH (10:25)
[2016-11-18] MEDS: OLANZapine 2.5 MG TABLET PO SCH (15:13)
[2016-11-18] MEDS: OLANZapine ODT 5 MG TABLET PO SCH (17:29)
--- NOTE | 2016-11-18 19:13 | Neuropsych Progress Note ---
[facility] Subjective Date: 11/18/16 - Sujective/Severity of Illness Medications: Acetaminophen (Tylenol) 325 mg PO Q5H PRN PRN Reason: Discomfort Last Admin: 11/17/16 21:35 Dose: 325 mg Aspirin (Ecotrin) 81 mg PO DAILY [facility] Last Admin: 11/18/16 10:25 Dose: 81 mg Bisacodyl (Dulcolax) 10 mg PO DAILY PRN PRN Reason: Constipation Last Admin: 11/10/16 12:30 Dose: 10 mg Divalproex Sodium (Depakote Sprinkle) 250 mg PO TID [facility] Last Admin: 11/18/16 15:12 Dose: 250 mg Finasteride (Proscar) 5 mg PO DAILY [facility] Last Admin: 11/18/16 10:25 Dose: 5 mg Fluticasone Propionate (Flonase) 1 spray EA NOSTRIL DAILY [facility] Last Admin: 11/18/16 10:25 Dose: 1 spray Gabapentin (Neurontin) 800 mg PO TID [facility] Last Admin: 11/18/16 15:12 Dose: 800 mg Haloperidol (Haldol) 0.5 mg PO Q6H PRN PRN Reason: Extreme agitation Last Admin: 11/17/16 21:35 Dose: 0.5 mg Haloperidol Decanoate (Haldol Liquid) 0.5 mg PO Q6H PRN Last Admin: 11/15/16 18:41 Dose: 0.5 mg Haloperidol Lactate (Haldol) 0.5 mg IM Q6H PRN PRN Reason: Agitation Last Admin: 11/06/16 20:30 Dose: 0.5 mg Ibuprofen (Motrin) 200 mg PO 2100 [facility] Last Admin: 11/17/16 23:41 Dose: Not Given Lorazepam (Ativan) 0.5 mg PO Q6H PRN PRN Reason: Extreme agitation Last Admin: 11/08/16 14:56 Dose: 0.5 mg Lorazepam (Ativan Inj) 0.5 mg IM Q6H PRN PRN Reason: Extreme agitation Last Admin: 11/06/16 20:30 Dose: 0.5 mg Lorazepam (Ativan Intensol) 0.5 mg SL Q6H PRN Last Admin: 11/15/16 15:15 Dose: 0.5 mg Lorazepam (Ativan Inj) 0.5 mg IM ONCE PRN Last Admin: 11/07/16 00:14 Dose: 0.5 mg Lorazepam (Ativan) 0.5 mg PO HS [facility] Last Admin: 11/17/16 23:41 Dose: Not Given Magnesium Hydroxide (Mom) 30 ml PO DAILY PRN PRN Reason: Constipation Last Admin: 11/14/16 10:09 Dose: 30 ml Memantine (Namenda) 10 mg PO BID [facility] Last Admin: 11/18/16 10:25 Dose: 10 mg Multivitamins/Minerals (Therapeutic - M) 1 tab PO DAILY [facility] Last Admin: 11/18/16 10:25 Dose: 1 tab Olanzapine (Zyprexa Zydis) 10 mg PO 1730 [facility] Last Admin: 11/18/16 17:29 Dose: 10 mg Olanzapine (Zyprexa) 2.5 mg PO 1500 [facility] Last Admin: 11/18/16 15:13 Dose: 2.5 mg Simvastatin (Zocor) 20 mg PO 2100 [facility] Last Admin: 11/17/16 23:42 Dose: Not Given Sodium Chloride (Iv Flush) 10 - 80 ml IVF PRN PRN PRN Reason: Flushing Last Admin: 11/04/16 16:21 Dose: 10 ml Subjective: Pt seen and chart examined. Nursing reports pt had some issues falling asleep last night but did well after asleep. Has done well today and no behaviors noted. On face to face the pt is pleasant but confused. He is only oriented to self. He denies any pain. Tolerating meds Start Time: 18:30 Stop Time: 18:45 Mental Status Exam Vitals: Last Vital Signs Temp 97.4 F 11/18/16 16:45 Pulse 76 11/18/16 16:45 Resp 18 11/18/16 16:45 BP 130/70 11/18/16 16:45 Pulse Ox 98 11/18/16 16:45 Height: 1.88 m Weight: 110.9 kg - Mental Status Exam Muscle Strength/Tone: Normal Dressing: Casual Grooming: Good Attitude: Cooperative Motor Activity: Normal Eye Contact: Fair Speech: Slowed Volume: Soft Rhythm: Appropriate Rhythm Orientation: Oriented to person Mood: Euthymic Rate of Thoughts: Delayed Thought Organization: [place] Associations: Loose-associations Abstract Reasoning: Poor abstract reasoning Thought Content: Ruminations Perception/Psychotic: Perception Normal Current Hallucinations: Visual Language: Naming Impaired Fund of Knowledge: Poor fund of knowledge Memory: Poor-immediate, Poor-recent Suicidal Ideation: None Homicidal Ideation: None Insight: Poor Judgement: Poor Impulse Control: Fair - Laboratory Result Diagrams: 11/16/16 06:49 11/15/16 05:10 Assessment and Plan (1) Major neurocognitive disorder due to Alzheimer's disease, probable, with behavioral disturbance Current visit: Yes Status: Acute Hospital Course Summary Disclaimer: The visit summary below is not to be considered part of the above Progress Note. Hospital Course: 11/05/16 hospitalist consult Plan Agree [facility] under the care of Dr. Webster for acute psychiatric evaluation and treatment. Patient has had significant behaviors overnight required multiple when necessary agents. In 10 used to provide a safe environment for patient and staff. Hypernatremia, present on admission with a sodium of 150. Have asked nursing staff to encourage oral intake. If sodium does not improve. Patient may require IV fluids for hydration. Home medications reviewed. At this time it does not appear the patient is on any antihypertensives. We will monitor his blood pressure carefully. Continue with other chronic medical medications including Neurontin, proscar, aspirin, and simvastatin Appreciate medical consultation. We will continue to follow patient during [facility]. At time of discharge his medical care will return to his primary care provider, Dr. Eliazar Barnett 11/05/16 09:44 11/06/16 11:56 Continue current care 11/07/16 11:11 Increase Zyprexa to 7.5mg 11/07/16 12:33-Mirakian. 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 * Continue psychiatric care per team. Continue to provide safe and supportive environment and encourage participation in floor activities. PRN medications as indicated for hallucinations, aggression and impulsive behaviors. Zyprexa increased to 7.5mg. Hypernatremia, acute. * Resolved since admission at 144 on 11/06. Will continue to monitor and encourage oral intake. Anemia. * Hemoglobin on 11/04 showed mild anemia at 13.3. Continue to monitor trends. Hypertension, chronic. * Blood pressure remains slightly elevated with systolic in 140's. Continue to monitor. May consider initiation of antihypertensive in remains elevated. Hyperlipidemia. * Continue home medications. Follow as outpatient. Neuropathy, chronic. * Continue home Neurontin which may cause some drowsiness. Monitor closely. BPH, chronic. * Continue home Proscar. Chronic kidney disease, stage III. * Monitor renal function periodically throughout admission. 11/08/16 18:05 Increase Zyprexa to 10mg at HS 11/09/16-Ortiz. 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 * Continue psychiatric care per team. Continue to provide safe and supportive environment and encourage participation in floor activities. PRN medications as indicated for hallucinations, aggression and impulsive behaviors. Zyprexa increased to 10mg at bedtime. Hypernatremia, acute - RESOLVED. * Resolved since admission at 144 on 11/06. Will continue to monitor and encourage oral intake. Recent lab on 11/08 showed sodium at 142. Anemia. * Persistent anemia noted. Hemoglobin on 11/08 was 12.4. Continue to monitor trends. Hypertension, chronic. * Blood pressure stable. Continue to monitor. Patient is currently not on any antihypertensives. Hyperlipidemia, chronic. * Continue home medications. Follow as outpatient. Neuropathy, chronic. * Continue home Neurontin which may cause some drowsiness. Monitor closely. BPH, chronic. * Continue home Proscar. Chronic kidney disease, stage III. * Monitor renal function periodically throughout admission. 11/09/16 18:59 Continue current care 11/10/16 18:46 Depakote level in AM 11/11/16 18:16 Continue current care 11/11/16 19:33 hospitalist progress note Nurses and patient reassured the lesion is characteristic for an irritated seborrheic keratosis. Differential diagnosis would include herpes zoster, however this is unlikely as he's not had any prodrome of pain and only has 1 lesion. If he should develop further lesions, nurses will alert the hospitalist team. Use triple antibiotic ointment 3 times a day for 4 days. Other chronic problems are stable. Continue current plan. 11/15/16 Hgb is dropping. On 11/04/16 hemoglobin was 13.3. Today hemoglobin is 11.8. MCV and MCH within normal limits. Check hemoccults and get records of most recent colonoscopy and hemoglobin. Continue to follow. Charts, documentation, imaging reviewed during this visit. 11/15/16 18:59 Increasing Depakote to 250mg PO TID 11/16/16 16:52 Zyprexa 2.5mg at 1500 11/17/16 18:14 Continue to have some agitation at night with poor sleep. Will add Ativan 0.5mg PO QHS 11/18/16 19:13 PT continues to have issues with sleep and some aggression at night. Will continue current meds and continue to monitor
[2016-11-18] MEDS: LORazepam 0.5 MG TABLET PO SCH ×2 (19:47→23:52)
[2016-11-18] MEDS: IBUPROFEN 200 MG TABLET PO SCH ×2 (19:49→23:52)
[2016-11-18] MEDS: HALOPERIDOL 0.5 MG TABLET PO PRN (19:51)
[2016-11-18] MEDS: SIMVASTATIN 20 MG TABLET PO SCH ×2 (19:51→23:53)
[2016-11-19] MEDS: LORazepam INTENSOL 1mg/0.5ml ORAL LIQUID SL PRN (00:51)
[2016-11-19] MEDS: ACETAMINOPHEN 325 MG TABLET PO PRN (00:51)
[2016-11-19] MEDS: HALOPERIDOL 0.5 MG TABLET PO PRN (02:35)
--- NOTE | 2016-11-19 11:37 | Progress Note ---
<OrtizAnna Grant - Last Filed: 11/19/16 11:33> Subjective: Efrain is seen this morning in follow up for his dementia with increased behaviors. He is seen while sleeping in his room and arouses briefly on exam. Review of clinical notes indicates that he continues to have episodes of increased behaviors requiring PRN medications, particularly in the evening hours and at night. He also continues to have episodes of restlessness and visual hallucinations. He was scheduled for discharge earlier this week which was postponed due to his persistent behaviors. He has had previous issues with sleeping which has improved with the addition of Ativan at bedtime and Zyprexa in the late afternoon. His appetite remains stable and his bowels are moving. On exam, he is sleeping and arouses briefly. He is in no apparent distress and snoring on exam. Responds to soft voice and cold touch. Cardiac exam reveals regular rate and rhythm. Lungs are diminished bilaterally due to open mouth breathing. Abdomen is soft with active bowel sounds. No edema noted to lower extremities and he actively moves all extremities on exam during sleep. No new labs noted. Recent fecal occult blood was negative. Documented pulse ox of 84 % noted on nursing notes from last night which appears to be erroneous. Current SAO2 is 98% on room air. Objective Vital signs: Temperature 95.8 F L 11/19/16 08:00 Pulse Rate 57 L 11/19/16 08:00 Respiratory Rate 16 11/19/16 08:00 Blood Pressure 147/90 H 11/19/16 08:00 Pulse Oximetry 98 11/19/16 08:00 Oxygen Delivery Method Room Air Height/Weight/BMI: Height 6 ft 2 in Weight 248 lb 7.375 oz Body Mass Index 31.8 - Constitutional Present: no acute distress, well nourished, well developed, cooperative Comments: sleeping - Routine HEENT Exam Head: Present: normocephalic, atraumatic ENT: Present: mucous membranes moist Comments: limited exam due to patient sleeping. - Routine Respiratory Exam Present: decreased breath sounds (bilaterally), CTA bilaterally Comments: snoring on exam - Routine Cardiovascular Exam Present: S1, S2 - Routine Abdominal Exam Present: soft, normoactive bowel sounds, non tender - Routine Extremities Exam Present: no edema, pulses intact - Routine Musculoskeletal Exam Musculoskeletal: Present: no clubbing or cyanosis, moving extremities well - Routine Skin Exam Present: intact, dry, warm. Absent: cyanosis, jaundice - Routine Neurological Exam Present: moving all extremities sleeping - Routine Lymphatic Exam Lymphatic: Absent: lymphedema - Routine Psychiatric Exam Present: cooperative Comments: sleeping Results - Labs CBC & Chem 7: 11/16/16 06:49 11/15/16 05:10 Assessment and Plan (1) Dementia with behavioral disturbance Current visit: Yes Status: Acute (2) Hypernatremia Current visit: Yes Status: Resolved Acute-present on admission, sodium 150 Resuscitation Status: Do Not Resuscitate Assessment and Plan: 11/19-Mirakian. Assessment: Dementia with behaviors, acute on chronic. * Patient was scheduled for discharge on or around 11/17 which was postponed due to persistent evening behaviors. Continue care per psychiatric team. Some reported improvement with Ativan QHS and afternoon Zyprexa. Continue to provide safe and supportive environment and encourage participation in floor activities. Hypertension, chronic. * Blood pressures fairly well controlled. Continue to monitor closely. Anemia, unspecified. * Concern over hemoglobin trending down from 13.3 on 11/04. Recheck CBC on 11/16 showed hemoglobin at 13.0. Fecal occult was negative. Will recheck CBC on to monitor blood counts. Hyperlipidemia, chronic. * Continue home medication, Zocor, and follow as outpatient. Neuropathy, chronic. * Continue home Neurontin. BPH, chronic. * Continue home Proscar. Monitor closely for signs of urinary retention or infection. Will recheck BMP on 11/22 to monitor electrolytes and renal function. - Time spent with patient 25 - 35 minutes Sepsis Assessment - Evaluation Sepsis screening result: No Definite Risk Hospital Course Summary Disclaimer: The visit summary below is not to be considered part of the above Progress Note. Hospital Course: 11/05/16 hospitalist consult Plan Agree with admission to [facility] under the care of Dr. Webster for acute psychiatric evaluation and treatment. Patient has had significant behaviors overnight required multiple when necessary agents. In 10 used to provide a safe environment for patient and staff. Hypernatremia, present on admission with a sodium of 150. Have asked nursing staff to encourage oral intake. If sodium does not improve. Patient may require IV fluids for hydration. Home medications reviewed. At this time it does not appear the patient is on any antihypertensives. We will monitor his blood pressure carefully. Continue with other chronic medical medications including Neurontin, proscar, aspirin, and simvastatin Appreciate medical consultation. We will continue to follow patient during his stay [facility]. At time of discharge his medical care will return to his primary care provider, Dr. Eliazar Barnett 11/05/16 09:44 11/06/16 11:56 Continue current care 11/07/16 11:11 Increase Zyprexa to 7.5mg 11/07/16 12:33-Mirakian. 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 * Continue psychiatric care per team. Continue to provide safe and supportive environment and encourage participation in floor activities. PRN medications as indicated for hallucinations, aggression and impulsive behaviors. Zyprexa increased to 7.5mg. Hypernatremia, acute. * Resolved since admission at 144 on 11/06. Will continue to monitor and encourage oral intake. Anemia. * Hemoglobin on 11/04 showed mild anemia at 13.3. Continue to monitor trends. Hypertension, chronic. * Blood pressure remains slightly elevated with systolic in 140's. Continue to monitor. May consider initiation of antihypertensive in remains elevated. Hyperlipidemia. * Continue home medications. Follow as outpatient. Neuropathy, chronic. * Continue home Neurontin which may cause some drowsiness. Monitor closely. BPH, chronic. * Continue home Proscar. Chronic kidney disease, stage III. * Monitor renal function periodically throughout admission. 11/08/16 18:05 Increase Zyprexa to 10mg at HS 11/09/16-Mirakian. 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 * Continue psychiatric care per team. Continue to provide safe and supportive environment and encourage participation in floor activities. PRN medications as indicated for hallucinations, aggression and impulsive behaviors. Zyprexa increased to 10mg at bedtime. Hypernatremia, acute - RESOLVED. * Resolved since admission at 144 on 11/06. Will continue to monitor and encourage oral intake. Recent lab on 11/08 showed sodium at 142. Anemia. * Persistent anemia noted. Hemoglobin on 11/08 was 12.4. Continue to monitor trends. Hypertension, chronic. * Blood pressure stable. Continue to monitor. Patient is currently not on any antihypertensives. Hyperlipidemia, chronic. * Continue home medications. Follow as outpatient. Neuropathy, chronic. * Continue home Neurontin which may cause some drowsiness. Monitor closely. BPH, chronic. * Continue home Proscar. Chronic kidney disease, stage III. * Monitor renal function periodically throughout admission. 11/09/16 18:59 Continue current care 11/10/16 18:46 Depakote level in AM 11/11/16 18:16 Continue current care 11/11/16 19:33 hospitalist progress note Nurses and patient reassured the lesion is characteristic for an irritated seborrheic keratosis. Differential diagnosis would include herpes zoster, however this is unlikely as he's not had any prodrome of pain and only has 1 lesion. If he should develop further lesions, nurses will alert the hospitalist team. Use triple antibiotic ointment 3 times a day for 4 days. Other chronic problems are stable. Continue current plan. 11/15/16 Hgb is dropping. On 11/04/16 hemoglobin was 13.3. Today hemoglobin is 11.8. MCV and MCH within normal limits. Check hemoccults and get records of most recent colonoscopy and hemoglobin. Continue to follow. Charts, documentation, imaging reviewed during this visit. 11/15/16 18:59 Increasing Depakote to 250mg PO TID 11/16/16 16:52 Zyprexa 2.5mg at 1500 11/17/16 18:14 Continue to have some agitation at night with poor sleep. Will add Ativan 0.5mg PO QHS 11/18/16 19:13 PT continues to have issues with sleep and some aggression at night. Will continue current meds and continue to monitor 11/19/16 11:46 Dementia with behaviors, acute on chronic. * Patient was scheduled for discharge on or around 11/17 which was postponed due to persistent evening behaviors. Continue care per psychiatric team. Some reported improvement with Ativan QHS and afternoon Zyprexa. Continue to provide safe and supportive environment and encourage participation in floor activities. Hypertension, chronic. * Blood pressures fairly well controlled. Continue to monitor closely. Anemia, unspecified. * Concern over hemoglobin trending down from 13.3 on 11/04. Recheck CBC on 11/16 showed hemoglobin at 13.0. Fecal occult was negative. Will recheck CBC on to monitor blood counts. Hyperlipidemia, chronic. * Continue home medication, Zocor, and follow as outpatient. Neuropathy, chronic. * Continue home Neurontin. BPH, chronic. * Continue home Proscar. Monitor closely for signs of urinary retention or infection. Will recheck BMP on 11/22 to monitor electrolytes and renal function. <PinedaLola - Last Filed: 11/19/16 17:49> Objective Vital signs: Temperature 95.8 F L 11/19/16 08:00 Pulse Rate 57 L 11/19/16 08:00 Respiratory Rate 16 11/19/16 08:00 Blood Pressure 147/90 H 11/19/16 08:00 Pulse Oximetry 98 11/19/16 08:00 Oxygen Delivery Method Room Air Height/Weight/BMI: Height 1.88 m Weight 112.7 kg Body Mass Index 31.8 Results - Labs CBC & Chem 7: 11/16/16 06:49 11/15/16 05:10 Assessment and Plan (1) Dementia with behavioral disturbance Current visit: Yes Status: Acute (2) Hypernatremia Current visit: Yes Status: Resolved 11/19/16 17:47 I reviewed this chart, the patient history, and the HEAD CHARGER's/PA's documented findings as above. We discussed and formulated the assessment and plan as above with the additions below.-Dr. Sung The patient was sleeping in a recliner in the day room. His nurse stated that he required extra medication last night for behaviors and has been somnolent today. When I tried to wake him up to talk or do an exam he lifts the covers off of him and puts them over his head. He will not answer any questions for me. Chest is clear to auscultation. Cardiovascular reveals a regular rate and rhythm. Abdomen is soft and nontender. Extremities are free of edema. Continue with current treatment for now. We will continue to follow along. Hospital Course Summary Disclaimer: The visit summary below is not to be considered part of the above Progress Note.
[2016-11-19] MEDS: FLUTICASONE NASAL SPRAY 50mcg EA NOSTRIL SCH (12:20)
[2016-11-19] MEDS: ASPIRIN *EC* 81 MG TABLET PO SCH (12:20)
[2016-11-19] MEDS: MEMANTINE 10 MG TABLET PO SCH ×3 (12:20→21:09)
[2016-11-19] MEDS: FINASTERIDE 5 MG TABLET PO SCH (12:21)
[2016-11-19] MEDS: GABAPENTIN 800 MG TABLET PO SCH ×4 (12:21→21:09)
[2016-11-19] MEDS: MULTI-VITAMIN + MINERAL TABLET PO SCH (12:21)
[2016-11-19] MEDS: DIVALPROEX SPRINKLE 125 MG CAPSULE PO SCH ×4 (12:24→21:08)
[2016-11-19] MEDS: OLANZapine 2.5 MG TABLET PO SCH (17:34)
--- NOTE | 2016-11-19 17:36 | Neuropsych Progress Note ---
[facility] Subjective Date: 11/19/16 - Sujective/Severity of Illness Medications: Acetaminophen (Tylenol) 325 mg PO Q5H PRN PRN Reason: Discomfort Last Admin: 11/19/16 00:51 Dose: 325 mg Aspirin (Ecotrin) 81 mg PO DAILY [facility] Last Admin: 11/19/16 12:20 Dose: 81 mg Bisacodyl (Dulcolax) 10 mg PO DAILY PRN PRN Reason: Constipation Last Admin: 11/10/16 12:30 Dose: 10 mg Divalproex Sodium (Depakote Sprinkle) 250 mg PO TID [facility] Last Admin: 11/19/16 12:24 Dose: 250 mg Finasteride (Proscar) 5 mg PO DAILY [facility] Last Admin: 11/19/16 12:21 Dose: 5 mg Fluticasone Propionate (Flonase) 1 spray EA NOSTRIL DAILY [facility] Last Admin: 11/19/16 12:20 Dose: 1 spray Gabapentin (Neurontin) 800 mg PO TID [facility] Last Admin: 11/19/16 12:21 Dose: 800 mg Haloperidol (Haldol) 0.5 mg PO Q6H PRN PRN Reason: Extreme agitation Last Admin: 11/19/16 02:35 Dose: 0.5 mg Haloperidol Decanoate (Haldol Liquid) 0.5 mg PO Q6H PRN Last Admin: 11/15/16 18:41 Dose: 0.5 mg Haloperidol Lactate (Haldol) 0.5 mg IM Q6H PRN PRN Reason: Agitation Last Admin: 11/06/16 20:30 Dose: 0.5 mg Ibuprofen (Motrin) 200 mg PO 2100 [facility] Last Admin: 11/18/16 23:52 Dose: Not Given Lorazepam (Ativan) 0.5 mg PO Q6H PRN PRN Reason: Extreme agitation Last Admin: 11/08/16 14:56 Dose: 0.5 mg Lorazepam (Ativan Inj) 0.5 mg IM Q6H PRN PRN Reason: Extreme agitation Last Admin: 11/06/16 20:30 Dose: 0.5 mg Lorazepam (Ativan Intensol) 0.5 mg SL Q6H PRN Last Admin: 11/19/16 00:51 Dose: 0.5 mg Lorazepam (Ativan Inj) 0.5 mg IM ONCE PRN Last Admin: 11/07/16 00:14 Dose: 0.5 mg Lorazepam (Ativan) 0.5 mg PO HS [facility] Last Admin: 11/18/16 23:52 Dose: Not Given Magnesium Hydroxide (Mom) 30 ml PO DAILY PRN PRN Reason: Constipation Last Admin: 11/14/16 10:09 Dose: 30 ml Memantine (Namenda) 10 mg PO BID [facility] Last Admin: 11/19/16 12:20 Dose: 10 mg Multivitamins/Minerals (Therapeutic - M) 1 tab PO DAILY [facility] Last Admin: 11/19/16 12:21 Dose: 1 tab Olanzapine (Zyprexa Zydis) 10 mg PO 1730 [facility] Last Admin: 11/18/16 17:29 Dose: 10 mg Olanzapine (Zyprexa) 2.5 mg PO 1500 [facility] Last Admin: 11/18/16 15:13 Dose: 2.5 mg Simvastatin (Zocor) 20 mg PO 2100 [facility] Last Admin: 11/18/16 23:53 Dose: Not Given Sodium Chloride (Iv Flush) 10 - 80 ml IVF PRN PRN PRN Reason: Flushing Last Admin: 11/04/16 16:21 Dose: 10 ml Subjective: Pt seen and chart examined. Nursing reports pt did not fall asleep easily and had some agitation in the evening. Pt received Haldol around bedtime and did not fall asleep until around 0200. Pt does fairly well during the day. On face to face the pt is sleeping in a chair. He is only oriented to self but pleasant. Denies pain. Start Time: 17:00 Stop Time: 17:15 Mental Status Exam Vitals: Last Vital Signs Temp 95.8 F L 11/19/16 08:00 Pulse 57 L 11/19/16 08:00 Resp 16 11/19/16 08:00 BP 147/90 H 11/19/16 08:00 Pulse Ox 98 11/19/16 08:00 Height: 1.88 m Weight: 112.7 kg - Mental Status Exam Muscle Strength/Tone: Normal Dressing: Casual Grooming: Good Attitude: Cooperative Motor Activity: Normal Eye Contact: Fair Speech: Slowed Volume: Soft Rhythm: Appropriate Rhythm Orientation: Oriented to person Mood: Euthymic Rate of Thoughts: Delayed Thought Organization: [place] Associations: Loose-associations Abstract Reasoning: Poor abstract reasoning Thought Content: Ruminations Perception/Psychotic: Perception Normal Current Hallucinations: Visual Language: Naming Impaired Fund of Knowledge: Poor fund of knowledge Memory: Poor-immediate, Poor-recent Suicidal Ideation: None Homicidal Ideation: None Insight: Poor Judgement: Poor Impulse Control: Fair - Laboratory Result Diagrams: 11/16/16 06:49 11/15/16 05:10 Assessment and Plan (1) Major neurocognitive disorder due to Alzheimer's disease, probable, with behavioral disturbance Current visit: Yes Status: Acute Hospital Course Summary Disclaimer: The visit summary below is not to be considered part of the above Progress Note. Hospital Course: 11/05/16 hospitalist consult Plan Agree with admission to [facility] unit under the care of Dr. Webster for acute psychiatric evaluation and treatment. Patient has had significant behaviors overnight required multiple when necessary agents. In 10 used to provide a safe environment for patient and staff. Hypernatremia, present on admission with a sodium of 150. Have asked nursing staff to encourage oral intake. If sodium does not improve. Patient may require IV fluids for hydration. Home medications reviewed. At this time it does not appear the patient is on any antihypertensives. We will monitor his blood pressure carefully. Continue with other chronic medical medications including Neurontin, proscar, aspirin, and simvastatin Appreciate medical consultation. We will continue to follow patient during [facility] stay [facility]. At time of discharge his medical care will return to his primary care provider, Dr. Eliazar Barnett 11/05/16 09:44 11/06/16 11:56 Continue current care 11/07/16 11:11 Increase Zyprexa to 7.5mg 11/07/16 12:33-Mirakian. 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 * Continue psychiatric care per team. Continue to provide safe and supportive environment and encourage participation in floor activities. PRN medications as indicated for hallucinations, aggression and impulsive behaviors. Zyprexa increased to 7.5mg. Hypernatremia, acute. * Resolved since admission at 144 on 11/06. Will continue to monitor and encourage oral intake. Anemia. * Hemoglobin on 11/04 showed mild anemia at 13.3. Continue to monitor trends. Hypertension, chronic. * Blood pressure remains slightly elevated with systolic in 140's. Continue to monitor. May consider initiation of antihypertensive in remains elevated. Hyperlipidemia. * Continue home medications. Follow as outpatient. Neuropathy, chronic. * Continue home Neurontin which may cause some drowsiness. Monitor closely. BPH, chronic. * Continue home Proscar. Chronic kidney disease, stage III. * Monitor renal function periodically throughout admission. 11/08/16 18:05 Increase Zyprexa to 10mg at HS 11/09/16-Ortiz. 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 * Continue psychiatric care per team. Continue to provide safe and supportive environment and encourage participation in floor activities. PRN medications as indicated for hallucinations, aggression and impulsive behaviors. Zyprexa increased to 10mg at bedtime. Hypernatremia, acute - RESOLVED. * Resolved since admission at 144 on 11/06. Will continue to monitor and encourage oral intake. Recent lab on 11/08 showed sodium at 142. Anemia. * Persistent anemia noted. Hemoglobin on 11/08 was 12.4. Continue to monitor trends. Hypertension, chronic. * Blood pressure stable. Continue to monitor. Patient is currently not on any antihypertensives. Hyperlipidemia, chronic. * Continue home medications. Follow as outpatient. Neuropathy, chronic. * Continue home Neurontin which may cause some drowsiness. Monitor closely. BPH, chronic. * Continue home Proscar. Chronic kidney disease, stage III. * Monitor renal function periodically throughout admission. 11/09/16 18:59 Continue current care 11/10/16 18:46 Depakote level in AM 11/11/16 18:16 Continue current care 11/11/16 19:33 hospitalist progress note Nurses and patient reassured the lesion is characteristic for an irritated seborrheic keratosis. Differential diagnosis would include herpes zoster, however this is unlikely as he's not had any prodrome of pain and only has 1 lesion. If he should develop further lesions, nurses will alert the hospitalist team. Use triple antibiotic ointment 3 times a day for 4 days. Other chronic problems are stable. Continue current plan. 11/15/16 Hgb is dropping. On 11/04/16 hemoglobin was 13.3. Today hemoglobin is 11.8. MCV and MCH within normal limits. Check hemoccults and get records of most recent colonoscopy and hemoglobin. Continue to follow. Charts, documentation, imaging reviewed during this visit. 11/15/16 18:59 Increasing Depakote to 250mg PO TID 11/16/16 16:52 Zyprexa 2.5mg at 1500 11/17/16 18:14 Continue to have some agitation at night with poor sleep. Will add Ativan 0.5mg PO QHS 11/18/16 19:13 PT continues to have issues with sleep and some aggression at night. Will continue current meds and continue to monitor 11/19/16 11:46 Dementia with behaviors, acute on chronic. * Patient was scheduled for discharge on or around 11/17 which was postponed due to persistent evening behaviors. Continue care per psychiatric team. Some reported improvement with Ativan QHS and afternoon Zyprexa. Continue to provide safe and supportive environment and encourage participation in floor activities. Hypertension, chronic. * Blood pressures fairly well controlled. Continue to monitor closely. Anemia, unspecified. * Concern over hemoglobin trending down from 13.3 on 11/04. Recheck CBC on 11/16 showed hemoglobin at 13.0. Fecal occult was negative. Will recheck CBC on to monitor blood counts. Hyperlipidemia, chronic. * Continue home medication, Zocor, and follow as outpatient. Neuropathy, chronic. * Continue home Neurontin. BPH, chronic. * Continue home Proscar. Monitor closely for signs of urinary retention or infection. Will recheck BMP on 11/22 to monitor electrolytes and renal function. 11/19/16 17:36 Pt continues to have some agitation at night with poor sleep. D/C scheduled Ativan and start Trazodone 50mg PO QHS
[2016-11-19] MEDS: OLANZapine ODT 5 MG TABLET PO SCH (19:21)
[2016-11-19] MEDS: TRAZODONE 50 MG TABLET PO SCH ×3 (19:21→21:09)
[2016-11-19] MEDS: SIMVASTATIN 20 MG TABLET PO SCH ×2 (19:45→21:09)
[2016-11-19] MEDS: IBUPROFEN 200 MG TABLET PO SCH ×2 (19:45→21:08)
[2016-11-19] MEDS: HALOPERIDOL 1 MG/0.5 ML ORAL LIQUID PO PRN (22:35)
[2016-11-20] MEDS: MEMANTINE 10 MG TABLET PO SCH ×2 (08:24→20:16)
[2016-11-20] MEDS: GABAPENTIN 800 MG TABLET PO SCH ×3 (08:24→20:16)
[2016-11-20] MEDS: DIVALPROEX SPRINKLE 125 MG CAPSULE PO SCH ×3 (08:24→20:14)
[2016-11-20] MEDS: FINASTERIDE 5 MG TABLET PO SCH (08:24)
[2016-11-20] MEDS: MULTI-VITAMIN + MINERAL TABLET PO SCH (08:24)
[2016-11-20] MEDS: ASPIRIN *EC* 81 MG TABLET PO SCH (08:24)
[2016-11-20] MEDS: FLUTICASONE NASAL SPRAY 50mcg EA NOSTRIL SCH (08:24)
--- NOTE | 2016-11-20 13:49 | Neuropsych Progress Note ---
[facility] Subjective Date: 11/20/16 - Sujective/Severity of Illness Medications: Acetaminophen (Tylenol) 325 mg PO Q5H PRN PRN Reason: Discomfort Last Admin: 11/19/16 00:51 Dose: 325 mg Aspirin (Ecotrin) 81 mg PO DAILY [facility] Last Admin: 11/20/16 08:24 Dose: 81 mg Bisacodyl (Dulcolax) 10 mg PO DAILY PRN PRN Reason: Constipation Last Admin: 11/10/16 12:30 Dose: 10 mg Divalproex Sodium (Depakote Sprinkle) 250 mg PO TID [facility] Last Admin: 11/20/16 08:24 Dose: 250 mg Finasteride (Proscar) 5 mg PO DAILY [facility] Last Admin: 11/20/16 08:24 Dose: 5 mg Fluticasone Propionate (Flonase) 1 spray EA NOSTRIL DAILY [facility] Last Admin: 11/20/16 08:24 Dose: 1 spray Gabapentin (Neurontin) 800 mg PO TID [facility] Last Admin: 11/20/16 08:24 Dose: 800 mg Haloperidol (Haldol) 0.5 mg PO Q6H PRN PRN Reason: Extreme agitation Last Admin: 11/19/16 02:35 Dose: 0.5 mg Haloperidol Decanoate (Haldol Liquid) 0.5 mg PO Q6H PRN Last Admin: 11/19/16 22:35 Dose: 0.5 mg Haloperidol Lactate (Haldol) 0.5 mg IM Q6H PRN PRN Reason: Agitation Last Admin: 11/06/16 20:30 Dose: 0.5 mg Ibuprofen (Motrin) 200 mg PO 2100 [facility] Last Admin: 11/19/16 21:08 Dose: Not Given Lorazepam (Ativan) 0.5 mg PO Q6H PRN PRN Reason: Extreme agitation Last Admin: 11/08/16 14:56 Dose: 0.5 mg Lorazepam (Ativan Inj) 0.5 mg IM Q6H PRN PRN Reason: Extreme agitation Last Admin: 11/06/16 20:30 Dose: 0.5 mg Lorazepam (Ativan Intensol) 0.5 mg SL Q6H PRN Last Admin: 11/19/16 00:51 Dose: 0.5 mg Lorazepam (Ativan Inj) 0.5 mg IM ONCE PRN Last Admin: 11/07/16 00:14 Dose: 0.5 mg Magnesium Hydroxide (Mom) 30 ml PO DAILY PRN PRN Reason: Constipation Last Admin: 11/14/16 10:09 Dose: 30 ml Memantine (Namenda) 10 mg PO BID [facility] Last Admin: 11/20/16 08:24 Dose: 10 mg Multivitamins/Minerals (Therapeutic - M) 1 tab PO DAILY [facility] Last Admin: 11/20/16 08:24 Dose: 1 tab Olanzapine (Zyprexa Zydis) 10 mg PO 1730 [facility] Last Admin: 11/19/16 19:21 Dose: 10 mg Olanzapine (Zyprexa) 2.5 mg PO 1500 [facility] Last Admin: 11/19/16 17:34 Dose: Not Given Simvastatin (Zocor) 20 mg PO 2100 [facility] Last Admin: 11/19/16 21:09 Dose: Not Given Sodium Chloride (Iv Flush) 10 - 80 ml IVF PRN PRN PRN Reason: Flushing Last Admin: 11/04/16 16:21 Dose: 10 ml Trazodone HCl (Desyrel) 50 mg PO HS [facility] Last Admin: 11/19/16 21:09 Dose: Not Given Subjective: Pt seen and chart examined. Nursing report pt can remain confused and irritable in the evening around bedtime and did receive a prn but did sleep better. Pt remains some what impulsive but is redirectable and no aggression noted. On face to face the pt is pleasant but confused. He is only oriented to self. He denies any pain. Tolerating meds Start Time: 11:30 Stop Time: 11:45 Mental Status Exam Vitals: Last Vital Signs Temp 97.4 F 11/20/16 08:00 Pulse 62 11/20/16 08:00 Resp 16 11/20/16 08:00 BP 104/61 11/20/16 08:00 Pulse Ox 92 11/20/16 08:00 Height: 1.88 m Weight: 112.7 kg - Mental Status Exam Muscle Strength/Tone: Normal Dressing: Casual Grooming: Good Attitude: Cooperative Motor Activity: Normal Eye Contact: Fair Speech: Slowed Volume: Soft Rhythm: Appropriate Rhythm Orientation: Oriented to person Mood: Euthymic Rate of Thoughts: Delayed Thought Organization: [place] Associations: Loose-associations Abstract Reasoning: Poor abstract reasoning Thought Content: Ruminations Perception/Psychotic: Perception Normal Current Hallucinations: Visual Language: Naming Impaired Fund of Knowledge: Poor fund of knowledge Memory: Poor-immediate, Poor-recent Suicidal Ideation: None Homicidal Ideation: None Insight: Poor Judgement: Poor Impulse Control: Fair - Laboratory Result Diagrams: 11/16/16 06:49 11/15/16 05:10 Assessment and Plan (1) Major neurocognitive disorder due to Alzheimer's disease, probable, with behavioral disturbance Current visit: Yes Status: Acute Hospital Course Summary Disclaimer: The visit summary below is not to be considered part of the above Progress Note. Hospital Course: 11/05/16 hospitalist consult Plan Agree with admission to [facility] unit under the care of Dr. Webster for acute psychiatric evaluation and treatment. Patient has had significant behaviors overnight required multiple when necessary agents. In 10 used to provide a safe environment for patient and staff. Hypernatremia, present on admission with a sodium of 150. Have asked nursing staff to encourage oral intake. If sodium does not improve. Patient may require IV fluids for hydration. Home medications reviewed. At this time it does not appear the patient is on any antihypertensives. We will monitor his blood pressure carefully. Continue with other chronic medical medications including Neurontin, proscar, aspirin, and simvastatin Appreciate medical consultation. We will continue to follow patient [facility]. At time of discharge his medical care will return to his primary care provider, Dr. Eliazar Barnett 11/05/16 09:44 11/06/16 11:56 Continue current care 11/07/16 11:11 Increase Zyprexa to 7.5mg 11/07/16 12:33-Mirakian. 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 * Continue psychiatric care per team. Continue to provide safe and supportive environment and encourage participation in floor activities. PRN medications as indicated for hallucinations, aggression and impulsive behaviors. Zyprexa increased to 7.5mg. Hypernatremia, acute. * Resolved since admission at 144 on 11/06. Will continue to monitor and encourage oral intake. Anemia. * Hemoglobin on 11/04 showed mild anemia at 13.3. Continue to monitor trends. Hypertension, chronic. * Blood pressure remains slightly elevated with systolic in 140's. Continue to monitor. May consider initiation of antihypertensive in remains elevated. Hyperlipidemia. * Continue home medications. Follow as outpatient. Neuropathy, chronic. * Continue home Neurontin which may cause some drowsiness. Monitor closely. BPH, chronic. * Continue home Proscar. Chronic kidney disease, stage III. * Monitor renal function periodically throughout admission. 11/08/16 18:05 Increase Zyprexa to 10mg at HS 11/09/16-Ortiz. 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 * Continue psychiatric care per team. Continue to provide safe and supportive environment and encourage participation in floor activities. PRN medications as indicated for hallucinations, aggression and impulsive behaviors. Zyprexa increased to 10mg at bedtime. Hypernatremia, acute - RESOLVED. * Resolved since admission at 144 on 11/06. Will continue to monitor and encourage oral intake. Recent lab on 11/08 showed sodium at 142. Anemia. * Persistent anemia noted. Hemoglobin on 11/08 was 12.4. Continue to monitor trends. Hypertension, chronic. * Blood pressure stable. Continue to monitor. Patient is currently not on any antihypertensives. Hyperlipidemia, chronic. * Continue home medications. Follow as outpatient. Neuropathy, chronic. * Continue home Neurontin which may cause some drowsiness. Monitor closely. BPH, chronic. * Continue home Proscar. Chronic kidney disease, stage III. * Monitor renal function periodically throughout admission. 11/09/16 18:59 Continue current care 11/10/16 18:46 Depakote level in AM 11/11/16 18:16 Continue current care 11/11/16 19:33 hospitalist progress note Nurses and patient reassured the lesion is characteristic for an irritated seborrheic keratosis. Differential diagnosis would include herpes zoster, however this is unlikely as he's not had any prodrome of pain and only has 1 lesion. If he should develop further lesions, nurses will alert the hospitalist team. Use triple antibiotic ointment 3 times a day for 4 days. Other chronic problems are stable. Continue current plan. 11/15/16 Hgb is dropping. On 11/04/16 hemoglobin was 13.3. Today hemoglobin is 11.8. MCV and MCH within normal limits. Check hemoccults and get records of most recent colonoscopy and hemoglobin. Continue to follow. Charts, documentation, imaging reviewed during this visit. 11/15/16 18:59 Increasing Depakote to 250mg PO TID 11/16/16 16:52 Zyprexa 2.5mg at 1500 11/17/16 18:14 Continue to have some agitation at night with poor sleep. Will add Ativan 0.5mg PO QHS 11/18/16 19:13 PT continues to have issues with sleep and some aggression at night. Will continue current meds and continue to monitor 11/19/16 11:46 Dementia with behaviors, acute on chronic. * Patient was scheduled for discharge on or around 11/17 which was postponed due to persistent evening behaviors. Continue care per psychiatric team. Some reported improvement with Ativan QHS and afternoon Zyprexa. Continue to provide safe and supportive environment and encourage participation in floor activities. Hypertension, chronic. * Blood pressures fairly well controlled. Continue to monitor closely. Anemia, unspecified. * Concern over hemoglobin trending down from 13.3 on 11/04. Recheck CBC on 11/16 showed hemoglobin at 13.0. Fecal occult was negative. Will recheck CBC on to monitor blood counts. Hyperlipidemia, chronic. * Continue home medication, Zocor, and follow as outpatient. Neuropathy, chronic. * Continue home Neurontin. BPH, chronic. * Continue home Proscar. Monitor closely for signs of urinary retention or infection. Will recheck BMP on 11/22 to monitor electrolytes and renal function. 11/19/16 17:36 Pt continues to have some agitation at night with poor sleep. D/C scheduled Ativan and start Trazodone 50mg PO QHS 11/20/16 13:46 Pt remains some what irritable in the evenings but it is improving. Continue current care
[2016-11-20] MEDS: OLANZapine 2.5 MG TABLET PO SCH (14:34)
[2016-11-20] MEDS: OLANZapine ODT 5 MG TABLET PO SCH (17:20)
[2016-11-20] MEDS: TRAZODONE 50 MG TABLET PO SCH (20:15)
[2016-11-20] MEDS: IBUPROFEN 200 MG TABLET PO SCH (20:15)
[2016-11-20] MEDS: SIMVASTATIN 20 MG TABLET PO SCH (20:17)
[2016-11-20] MEDS: HALOPERIDOL 1 MG/0.5 ML ORAL LIQUID PO PRN (20:17)
[2016-11-20] MEDS: LORazepam INTENSOL 1mg/0.5ml ORAL LIQUID SL PRN (22:18)
[2016-11-21] MEDS: DIVALPROEX SPRINKLE 125 MG CAPSULE PO SCH ×4 (11:01→23:26)
[2016-11-21] MEDS: ASPIRIN *EC* 81 MG TABLET PO SCH (11:02)
[2016-11-21] MEDS: FLUTICASONE NASAL SPRAY 50mcg EA NOSTRIL SCH (11:02)
[2016-11-21] MEDS: MEMANTINE 10 MG TABLET PO SCH ×3 (11:03→23:26)
[2016-11-21] MEDS: FINASTERIDE 5 MG TABLET PO SCH (11:04)
[2016-11-21] MEDS: GABAPENTIN 800 MG TABLET PO SCH ×4 (11:04→23:27)
[2016-11-21] MEDS: MULTI-VITAMIN + MINERAL TABLET PO SCH (11:04)
[2016-11-21] MEDS: Bisacodyl EC TAB 5 MG TABLET PO PRN (14:56)
[2016-11-21] MEDS: OLANZapine 2.5 MG TABLET PO SCH (14:56)
--- NOTE | 2016-11-21 17:12 | Neuropsych Progress Note ---
[facility] Subjective Date: 11/21/16 - Sujective/Severity of Illness Medications: Acetaminophen (Tylenol) 325 mg PO Q5H PRN PRN Reason: Discomfort Last Admin: 11/19/16 00:51 Dose: 325 mg Aspirin (Ecotrin) 81 mg PO DAILY [facility] Last Admin: 11/21/16 11:02 Dose: 81 mg Bisacodyl (Dulcolax) 10 mg PO DAILY PRN PRN Reason: Constipation Last Admin: 11/21/16 14:56 Dose: 10 mg Divalproex Sodium (Depakote Sprinkle) 250 mg PO TID [facility] Last Admin: 11/21/16 14:55 Dose: 250 mg Finasteride (Proscar) 5 mg PO DAILY [facility] Last Admin: 11/21/16 11:04 Dose: 5 mg Fluticasone Propionate (Flonase) 1 spray EA NOSTRIL DAILY [facility] Last Admin: 11/21/16 11:02 Dose: Not Given Gabapentin (Neurontin) 800 mg PO TID [facility] Last Admin: 11/21/16 14:56 Dose: 800 mg Haloperidol (Haldol) 0.5 mg PO Q6H PRN PRN Reason: Extreme agitation Last Admin: 11/19/16 02:35 Dose: 0.5 mg Haloperidol Decanoate (Haldol Liquid) 0.5 mg PO Q6H PRN Last Admin: 11/20/16 20:17 Dose: 0.5 mg Haloperidol Lactate (Haldol) 0.5 mg IM Q6H PRN PRN Reason: Agitation Last Admin: 11/06/16 20:30 Dose: 0.5 mg Ibuprofen (Motrin) 200 mg PO 2100 [facility] Last Admin: 11/20/16 20:15 Dose: 200 mg Lorazepam (Ativan) 0.5 mg PO Q6H PRN PRN Reason: Extreme agitation Last Admin: 11/08/16 14:56 Dose: 0.5 mg Lorazepam (Ativan Inj) 0.5 mg IM Q6H PRN PRN Reason: Extreme agitation Last Admin: 11/06/16 20:30 Dose: 0.5 mg Lorazepam (Ativan Intensol) 0.5 mg SL Q6H PRN Last Admin: 11/20/16 22:18 Dose: 0.5 mg Lorazepam (Ativan Inj) 0.5 mg IM ONCE PRN Last Admin: 11/07/16 00:14 Dose: 0.5 mg Magnesium Hydroxide (Mom) 30 ml PO DAILY PRN PRN Reason: Constipation Last Admin: 11/14/16 10:09 Dose: 30 ml Memantine (Namenda) 10 mg PO BID [facility] Last Admin: 11/21/16 11:03 Dose: 10 mg Multivitamins/Minerals (Therapeutic - M) 1 tab PO DAILY [facility] Last Admin: 11/21/16 11:04 Dose: 1 tab Olanzapine (Zyprexa Zydis) 10 mg PO 1730 [facility] Last Admin: 11/20/16 17:20 Dose: 10 mg Olanzapine (Zyprexa) 2.5 mg PO 1500 [facility] Last Admin: 11/21/16 14:56 Dose: 2.5 mg Simvastatin (Zocor) 20 mg PO 2100 [facility] Last Admin: 11/20/16 20:17 Dose: 20 mg Sodium Chloride (Iv Flush) 10 - 80 ml IVF PRN PRN PRN Reason: Flushing Last Admin: 11/04/16 16:21 Dose: 10 ml Trazodone HCl (Desyrel) 50 mg PO HS [facility] Last Admin: 11/20/16 20:15 Dose: 50 mg Subjective: Pt seen and chart examined. Nursing report pt can remain confused and irritable in the evening around bedtime and did receive a prn but did sleep better. On face to face the pt is pleasant but confused. He is oriented to self only. He denies any pain. Tolerating meds. Start Time: 11:30 Stop Time: 11:45 Mental Status Exam Vitals: Last Vital Signs Temp 97.8 F 11/21/16 16:00 Pulse 88 11/21/16 16:00 Resp 18 11/21/16 16:00 BP 131/75 11/21/16 16:00 Pulse Ox 92 11/21/16 16:00 Height: 1.88 m Weight: 112.7 kg - Mental Status Exam Muscle Strength/Tone: Normal Dressing: Casual Grooming: Good Attitude: Cooperative Motor Activity: Normal Eye Contact: Fair Speech: Slowed Volume: Soft Rhythm: Appropriate Rhythm Orientation: Oriented to person Mood: Euthymic Rate of Thoughts: Delayed Thought Organization: [place] Associations: Loose-associations Abstract Reasoning: Poor abstract reasoning Thought Content: Ruminations Perception/Psychotic: Perception Normal Current Hallucinations: Visual Language: Naming Impaired Fund of Knowledge: Poor fund of knowledge Memory: Poor-immediate, Poor-recent Suicidal Ideation: None Homicidal Ideation: None Insight: Poor Judgement: Poor Impulse Control: Fair - Laboratory Result Diagrams: 11/16/16 06:49 11/15/16 05:10 Assessment and Plan (1) Major neurocognitive disorder due to Alzheimer's disease, probable, with behavioral disturbance Current visit: Yes Status: Acute Hospital Course Summary Disclaimer: The visit summary below is not to be considered part of the above Progress Note. Hospital Course: 11/05/16 hospitalist consult Plan Agree with admission to [facility] unit under the care of Dr. Webster for acute psychiatric evaluation and treatment. Patient has had significant behaviors overnight required multiple when necessary agents. In 10 used to provide a safe environment for patient and staff. Hypernatremia, present on admission with a sodium of 150. Have asked nursing staff to encourage oral intake. If sodium does not improve. Patient may require IV fluids for hydration. Home medications reviewed. At this time it does not appear the patient is on any antihypertensives. We will monitor his blood pressure carefully. Continue with other chronic medical medications including Neurontin, proscar, aspirin, and simvastatin Appreciate medical consultation. We will continue to follow patient [facility]. At time of discharge his medical care will return to his primary care provider, Dr. Eliazar Barnett 11/05/16 09:44 11/06/16 11:56 Continue current care 11/07/16 11:11 Increase Zyprexa to 7.5mg 11/07/16 12:33-Mirakian. 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 * Continue psychiatric care per team. Continue to provide safe and supportive environment and encourage participation in floor activities. PRN medications as indicated for hallucinations, aggression and impulsive behaviors. Zyprexa increased to 7.5mg. Hypernatremia, acute. * Resolved since admission at 144 on 11/06. Will continue to monitor and encourage oral intake. Anemia. * Hemoglobin on 11/04 showed mild anemia at 13.3. Continue to monitor trends. Hypertension, chronic. * Blood pressure remains slightly elevated with systolic in 140's. Continue to monitor. May consider initiation of antihypertensive in remains elevated. Hyperlipidemia. * Continue home medications. Follow as outpatient. Neuropathy, chronic. * Continue home Neurontin which may cause some drowsiness. Monitor closely. BPH, chronic. * Continue home Proscar. Chronic kidney disease, stage III. * Monitor renal function periodically throughout admission. 11/08/16 18:05 Increase Zyprexa to 10mg at HS 11/09/16-Ortiz. 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 * Continue psychiatric care per team. Continue to provide safe and supportive environment and encourage participation in floor activities. PRN medications as indicated for hallucinations, aggression and impulsive behaviors. Zyprexa increased to 10mg at bedtime. Hypernatremia, acute - RESOLVED. * Resolved since admission at 144 on 11/06. Will continue to monitor and encourage oral intake. Recent lab on 11/08 showed sodium at 142. Anemia. * Persistent anemia noted. Hemoglobin on 11/08 was 12.4. Continue to monitor trends. Hypertension, chronic. * Blood pressure stable. Continue to monitor. Patient is currently not on any antihypertensives. Hyperlipidemia, chronic. * Continue home medications. Follow as outpatient. Neuropathy, chronic. * Continue home Neurontin which may cause some drowsiness. Monitor closely. BPH, chronic. * Continue home Proscar. Chronic kidney disease, stage III. * Monitor renal function periodically throughout admission. 11/09/16 18:59 Continue current care 11/10/16 18:46 Depakote level in AM 11/11/16 18:16 Continue current care 11/11/16 19:33 hospitalist progress note Nurses and patient reassured the lesion is characteristic for an irritated seborrheic keratosis. Differential diagnosis would include herpes zoster, however this is unlikely as he's not had any prodrome of pain and only has 1 lesion. If he should develop further lesions, nurses will alert the hospitalist team. Use triple antibiotic ointment 3 times a day for 4 days. Other chronic problems are stable. Continue current plan. 11/15/16 Hgb is dropping. On 11/04/16 hemoglobin was 13.3. Today hemoglobin is 11.8. MCV and MCH within normal limits. Check hemoccults and get records of most recent colonoscopy and hemoglobin. Continue to follow. Charts, documentation, imaging reviewed during this visit. 11/15/16 18:59 Increasing Depakote to 250mg PO TID 11/16/16 16:52 Zyprexa 2.5mg at 1500 11/17/16 18:14 Continue to have some agitation at night with poor sleep. Will add Ativan 0.5mg PO QHS 11/18/16 19:13 PT continues to have issues with sleep and some aggression at night. Will continue current meds and continue to monitor 11/19/16 11:46 Dementia with behaviors, acute on chronic. * Patient was scheduled for discharge on or around 11/17 which was postponed due to persistent evening behaviors. Continue care per psychiatric team. Some reported improvement with Ativan QHS and afternoon Zyprexa. Continue to provide safe and supportive environment and encourage participation in floor activities. Hypertension, chronic. * Blood pressures fairly well controlled. Continue to monitor closely. Anemia, unspecified. * Concern over hemoglobin trending down from 13.3 on 11/04. Recheck CBC on 11/16 showed hemoglobin at 13.0. Fecal occult was negative. Will recheck CBC on to monitor blood counts. Hyperlipidemia, chronic. * Continue home medication, Zocor, and follow as outpatient. Neuropathy, chronic. * Continue home Neurontin. BPH, chronic. * Continue home Proscar. Monitor closely for signs of urinary retention or infection. Will recheck BMP on 11/22 to monitor electrolytes and renal function. 11/19/16 17:36 Pt continues to have some agitation at night with poor sleep. D/C scheduled Ativan and start Trazodone 50mg PO QHS 11/20/16 13:46 Pt remains some what irritable in the evenings but it is improving. Continue current care 11/21/16 17:11 Some agitation in the evening. Continue current care
[2016-11-21] MEDS: OLANZapine ODT 5 MG TABLET PO SCH (17:22)
[2016-11-21] MEDS: IBUPROFEN 200 MG TABLET PO SCH ×2 (19:34→23:26)
[2016-11-21] MEDS: SIMVASTATIN 20 MG TABLET PO SCH ×2 (19:34→23:27)
[2016-11-21] MEDS: TRAZODONE 50 MG TABLET PO SCH ×2 (19:35→23:26)
[2016-11-22] MEDS: DIVALPROEX SPRINKLE 125 MG CAPSULE PO SCH ×4 (12:26→22:15)
[2016-11-22] MEDS: FLUTICASONE NASAL SPRAY 50mcg EA NOSTRIL SCH (12:27)
[2016-11-22] MEDS: MEMANTINE 10 MG TABLET PO SCH ×3 (12:27→22:16)
[2016-11-22] MEDS: ASPIRIN *EC* 81 MG TABLET PO SCH (12:27)
[2016-11-22] MEDS: GABAPENTIN 800 MG TABLET PO SCH ×4 (12:28→22:16)
[2016-11-22] MEDS: FINASTERIDE 5 MG TABLET PO SCH (12:28)
[2016-11-22] MEDS: MULTI-VITAMIN + MINERAL TABLET PO SCH (12:28)
[2016-11-22] MEDS: OLANZapine 2.5 MG TABLET PO SCH (14:47)
[2016-11-22] MEDS: OLANZapine ODT 5 MG TABLET PO SCH (17:19)
--- NOTE | 2016-11-22 18:17 | Neuropsych Progress Note ---
[facility] Subjective Date: 11/22/16 - Sujective/Severity of Illness Medications: Acetaminophen (Tylenol) 325 mg PO Q5H PRN PRN Reason: Discomfort Last Admin: 11/19/16 00:51 Dose: 325 mg Aspirin (Ecotrin) 81 mg PO DAILY [facility] Last Admin: 11/22/16 12:27 Dose: 81 mg Bisacodyl (Dulcolax) 10 mg PO DAILY PRN PRN Reason: Constipation Last Admin: 11/21/16 14:56 Dose: 10 mg Divalproex Sodium (Depakote Sprinkle) 250 mg PO TID [facility] Last Admin: 11/22/16 14:47 Dose: 250 mg Finasteride (Proscar) 5 mg PO DAILY [facility] Last Admin: 11/22/16 12:28 Dose: 5 mg Fluticasone Propionate (Flonase) 1 spray EA NOSTRIL DAILY [facility] Last Admin: 11/22/16 12:27 Dose: 1 spray Gabapentin (Neurontin) 800 mg PO TID [facility] Last Admin: 11/22/16 14:47 Dose: 800 mg Haloperidol (Haldol) 0.5 mg PO Q6H PRN PRN Reason: Extreme agitation Last Admin: 11/19/16 02:35 Dose: 0.5 mg Haloperidol Decanoate (Haldol Liquid) 0.5 mg PO Q6H PRN Last Admin: 11/20/16 20:17 Dose: 0.5 mg Haloperidol Lactate (Haldol) 0.5 mg IM Q6H PRN PRN Reason: Agitation Last Admin: 11/06/16 20:30 Dose: 0.5 mg Ibuprofen (Motrin) 200 mg PO 2100 [facility] Last Admin: 11/21/16 23:26 Dose: Not Given Lorazepam (Ativan) 0.5 mg PO Q6H PRN PRN Reason: Extreme agitation Last Admin: 11/08/16 14:56 Dose: 0.5 mg Lorazepam (Ativan Inj) 0.5 mg IM Q6H PRN PRN Reason: Extreme agitation Last Admin: 11/06/16 20:30 Dose: 0.5 mg Lorazepam (Ativan Intensol) 0.5 mg SL Q6H PRN Last Admin: 11/20/16 22:18 Dose: 0.5 mg Lorazepam (Ativan Inj) 0.5 mg IM ONCE PRN Last Admin: 11/07/16 00:14 Dose: 0.5 mg Magnesium Hydroxide (Mom) 30 ml PO DAILY PRN PRN Reason: Constipation Last Admin: 11/14/16 10:09 Dose: 30 ml Memantine (Namenda) 10 mg PO BID [facility] Last Admin: 11/22/16 12:27 Dose: 10 mg Multivitamins/Minerals (Therapeutic - M) 1 tab PO DAILY [facility] Last Admin: 11/22/16 12:28 Dose: 1 tab Olanzapine (Zyprexa Zydis) 10 mg PO 1730 [facility] Last Admin: 11/22/16 17:19 Dose: 10 mg Olanzapine (Zyprexa) 2.5 mg PO 1500 [facility] Last Admin: 11/22/16 14:47 Dose: 2.5 mg Simvastatin (Zocor) 20 mg PO 2100 [facility] Last Admin: 11/21/16 23:27 Dose: Not Given Sodium Chloride (Iv Flush) 10 - 80 ml IVF PRN PRN PRN Reason: Flushing Last Admin: 11/04/16 16:21 Dose: 10 ml Trazodone HCl (Desyrel) 50 mg PO HS [facility] Last Admin: 11/21/16 23:26 Dose: Not Given Subjective: Pt seen and chart examined.Nursing reports pt continues to be impulsive and can have VH at times but no aggression noted. Pt is sleeping better. On face to face the pt is pleasant but confused. He is only oriented to self. He denies any pain. Tolerating meds Start Time: 17:30 Stop Time: 17:45 Mental Status Exam Vitals: Last Vital Signs Temp 98.2 F 11/22/16 08:00 Pulse 78 11/22/16 08:00 Resp 16 11/22/16 08:00 BP 117/76 11/22/16 08:00 Pulse Ox 94 11/22/16 08:00 Height: 1.88 m Weight: 112.7 kg - Mental Status Exam Muscle Strength/Tone: Normal Dressing: Casual Grooming: Good Attitude: Cooperative Motor Activity: Normal Eye Contact: Fair Speech: Slowed Volume: Soft Rhythm: Appropriate Rhythm Orientation: Oriented to person Mood: Euthymic Rate of Thoughts: Delayed Thought Organization: [place] Associations: Loose-associations Abstract Reasoning: Poor abstract reasoning Thought Content: Ruminations Perception/Psychotic: Perception Normal Current Hallucinations: Visual Language: Naming Impaired Fund of Knowledge: Poor fund of knowledge Memory: Poor-immediate, Poor-recent Suicidal Ideation: None Homicidal Ideation: None Insight: Poor Judgement: Poor Impulse Control: Fair - Laboratory Result Diagrams: 11/22/16 05:36 11/22/16 05:36 Laboratory Results - last 24 hr 11/22/16 11/22/16 05:36 05:36 WBC 8.4 RBC 4.22 L Hgb 12.8 L Hct 41.0 MCV 97.2 MCH 30.3 MCHC 31.2 RDW Std Deviation 47.9 Plt Count 181 MPV 10.3 Immature Gran % (Auto) 0.6 H Neut % (Auto) 58.5 Lymph % (Auto) 27.6 [place] % (Auto) 8.2 Eos % (Auto) 4.4 H Baso % (Auto) 0.7 Neut # 4.9 Lymph # 2.3 [place] # 0.7 Eos # 0.4 Baso # 0.1 Abs Immat Gran (auto) 0.05 H Turbidity < 20 Sodium 146 H Potassium 4.8 Chloride 105 Carbon Dioxide 32 H Anion Gap 9 BUN 31.0 H Creatinine 1.5 GFR Calculation 45 BUN/Creatinine Ratio 21 Glucose 89 Calculated Osmolality 287 H Calcium 9.3 Icterus Index < 2 Specimen Hemolysis < 15 Assessment and Plan (1) Major neurocognitive disorder due to Alzheimer's disease, probable, with behavioral disturbance Current visit: Yes Status: Acute Hospital Course Summary Disclaimer: The visit summary below is not to be considered part of the above Progress Note. Hospital Course: 11/05/16 hospitalist consult Plan A[facility] with [facility] under the care of Dr. Webster for acute psychiatric evaluation and treatment. Patient has had significant behaviors overnight required multiple when necessary agents. In 10 used to provide a safe environment for patient and staff. Hypernatremia, present on admission with a sodium of 150. Have asked nursing staff to encourage oral intake. If sodium does not improve. Patient may require IV fluids for hydration. Home medications reviewed. At this time it does not appear the patient is on any antihypertensives. We will monitor his blood pressure carefully. Continue with other chronic medical medications including Neurontin, proscar, aspirin, and simvastatin Appreciate medical consultation. We will continue to follow patient during [facility] stay [facility]. At time of discharge his medical care will return to his primary care provider, Dr. Eliazar Barnett 11/05/16 09:44 11/06/16 11:56 Continue current care 11/07/16 11:11 Increase Zyprexa to 7.5mg 11/07/16 12:33-Mirakian. 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 * Continue psychiatric care per team. Continue to provide safe and supportive environment and encourage participation in floor activities. PRN medications as indicated for hallucinations, aggression and impulsive behaviors. Zyprexa increased to 7.5mg. Hypernatremia, acute. * Resolved since admission at 144 on 11/06. Will continue to monitor and encourage oral intake. Anemia. * Hemoglobin on 11/04 showed mild anemia at 13.3. Continue to monitor trends. Hypertension, chronic. * Blood pressure remains slightly elevated with systolic in 140's. Continue to monitor. May consider initiation of antihypertensive in remains elevated. Hyperlipidemia. * Continue home medications. Follow as outpatient. Neuropathy, chronic. * Continue home Neurontin which may cause some drowsiness. Monitor closely. BPH, chronic. * Continue home Proscar. Chronic kidney disease, stage III. * Monitor renal function periodically throughout admission. 11/08/16 18:05 Increase Zyprexa to 10mg at HS 11/09/16-Mirakian. 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 * Continue psychiatric care per team. Continue to provide safe and supportive environment and encourage participation in floor activities. PRN medications as indicated for hallucinations, aggression and impulsive behaviors. Zyprexa increased to 10mg at bedtime. Hypernatremia, acute - RESOLVED. * Resolved since admission at 144 on 11/06. Will continue to monitor and encourage oral intake. Recent lab on 11/08 showed sodium at 142. Anemia. * Persistent anemia noted. Hemoglobin on 11/08 was 12.4. Continue to monitor trends. Hypertension, chronic. * Blood pressure stable. Continue to monitor. Patient is currently not on any antihypertensives. Hyperlipidemia, chronic. * Continue home medications. Follow as outpatient. Neuropathy, chronic. * Continue home Neurontin which may cause some drowsiness. Monitor closely. BPH, chronic. * Continue home Proscar. Chronic kidney disease, stage III. * Monitor renal function periodically throughout admission. 11/09/16 18:59 Continue current care 11/10/16 18:46 Depakote level in AM 11/11/16 18:16 Continue current care 11/11/16 19:33 hospitalist progress note Nurses and patient reassured the lesion is characteristic for an irritated seborrheic keratosis. Differential diagnosis would include herpes zoster, however this is unlikely as he's not had any prodrome of pain and only has 1 lesion. If he should develop further lesions, nurses will alert the hospitalist team. Use triple antibiotic ointment 3 times a day for 4 days. Other chronic problems are stable. Continue current plan. 11/15/16 Hgb is dropping. On 11/04/16 hemoglobin was 13.3. Today hemoglobin is 11.8. MCV and MCH within normal limits. Check hemoccults and get records of most recent colonoscopy and hemoglobin. Continue to follow. Charts, documentation, imaging reviewed during this visit. 11/15/16 18:59 Increasing Depakote to 250mg PO TID 11/16/16 16:52 Zyprexa 2.5mg at 1500 11/17/16 18:14 Continue to have some agitation at night with poor sleep. Will add Ativan 0.5mg PO QHS 11/18/16 19:13 PT continues to have issues with sleep and some aggression at night. Will continue current meds and continue to monitor 11/19/16 11:46 Dementia with behaviors, acute on chronic. * Patient was scheduled for discharge on or around 11/17 which was postponed due to persistent evening behaviors. Continue care per psychiatric team. Some reported improvement with Ativan QHS and afternoon Zyprexa. Continue to provide safe and supportive environment and encourage participation in floor activities. Hypertension, chronic. * Blood pressures fairly well controlled. Continue to monitor closely. Anemia, unspecified. * Concern over hemoglobin trending down from 13.3 on 11/04. Recheck CBC on 11/16 showed hemoglobin at 13.0. Fecal occult was negative. Will recheck CBC on to monitor blood counts. Hyperlipidemia, chronic. * Continue home medication, Zocor, and follow as outpatient. Neuropathy, chronic. * Continue home Neurontin. BPH, chronic. * Continue home Proscar. Monitor closely for signs of urinary retention or infection. Will recheck BMP on 11/22 to monitor electrolytes and renal function. 11/19/16 17:36 Pt continues to have some agitation at night with poor sleep. D/C scheduled Ativan and start Trazodone 50mg PO QHS 11/20/16 13:46 Pt remains some what irritable in the evenings but it is improving. Continue current care 11/21/16 17:11 Some agitation in the evening. Continue current care 11/22/16 18:17 Depakote level in AM. PT continues to be impulsive and have VH
[2016-11-22] MEDS: HALOPERIDOL 1 MG/0.5 ML ORAL LIQUID PO PRN (18:29)
[2016-11-22] MEDS: LORazepam INTENSOL 1mg/0.5ml ORAL LIQUID SL PRN (18:29)
[2016-11-22] MEDS: TRAZODONE 50 MG TABLET PO SCH ×2 (19:45→22:15)
[2016-11-22] MEDS: IBUPROFEN 200 MG TABLET PO SCH ×2 (19:45→22:16)
[2016-11-22] MEDS: SIMVASTATIN 20 MG TABLET PO SCH ×2 (19:46→22:17)
--- NOTE | 2016-11-23 09:33 | Discharge Instructions ---
Discharge Plan - Med Rec/Dispo Referrals/Follow Up: [facility] [Provider Group] (Patient will be seen on rounds at the facility for follow up mental health services with Katy Killian APRN, with [facility]. ) Juanita Barnett [Family Provider] - (Patient will follow up with Dr. Eliazar Barnett on December 03, 2016 at 9:[address] [place], [place] [phone]) Additional Instructions: Discharge Diagnosis: Reasons for Admission: Increase in visual hallucinations, restless wandering, and exit seeking behaviors. IN CASE OF PSYCHIATRIC EMERGENCY, CONTACT [facility] AT [phone] ( AVAILABLE 224 HOURS A DAY). Prescriptions: Continue Memantine [Namenda] 20 mg PO BID Gabapentin [Neurontin] 800 mg PO TID Ibuprofen 200 mg PO HS Simvastatin 20 mg PO HS Finasteride [Proscar] 5 mg PO DAILY Aspirin [Adult Low Dose Aspirin EC] 81 mg PO DAILY Multivit-Minerals/Ferrous Fum [Multivitamin Liquid] 15 ml PO DAILY Fluticasone Nasal [place] [Flonase] 1 spray LYNSEY DAILY No Action OLANZapine [Olanzapine] 5 mg PO HS LORazepam [Ativan] 0.5 mg PO Q8H PRN PRN Reason: Anxiety FLUoxetine [Prozac] 40 mg PO DAILY
[2016-11-23] MEDS: FLUTICASONE NASAL SPRAY 50mcg EA NOSTRIL SCH (11:35)
[2016-11-23] MEDS: DIVALPROEX SPRINKLE 125 MG CAPSULE PO SCH ×3 (11:36→19:57)
[2016-11-23] MEDS: ASPIRIN *EC* 81 MG TABLET PO SCH (11:36)
[2016-11-23] MEDS: MEMANTINE 10 MG TABLET PO SCH ×2 (11:36→19:58)
[2016-11-23] MEDS: GABAPENTIN 800 MG TABLET PO SCH ×3 (11:36→19:58)
[2016-11-23] MEDS: MULTI-VITAMIN + MINERAL TABLET PO SCH (11:37)
[2016-11-23] MEDS: FINASTERIDE 5 MG TABLET PO SCH (11:37)
[2016-11-23] MEDS: HALOPERIDOL 1 MG/0.5 ML ORAL LIQUID PO PRN (13:51)
[2016-11-23] MEDS: OLANZapine 2.5 MG TABLET PO SCH (15:32)
[2016-11-23] MEDS: ACETAMINOPHEN 325 MG TABLET PO PRN (17:04)
[2016-11-23] MEDS: OLANZapine ODT 5 MG TABLET PO SCH (17:05)
[2016-11-23] MEDS: IBUPROFEN 200 MG TABLET PO SCH (19:57)
[2016-11-23] MEDS: TRAZODONE 50 MG TABLET PO SCH ×2 (19:57→19:58)
[2016-11-23] MEDS: SIMVASTATIN 20 MG TABLET PO SCH (19:58)
[2016-11-23] MEDS: LORazepam 0.5 MG TABLET PO PRN (20:01)
--- NOTE | 2016-11-23 20:50 | Neuropsych Progress Note ---
[facility] Subjective Date: 11/23/16 - Sujective/Severity of Illness Medications: Acetaminophen (Tylenol) 325 mg PO Q5H PRN PRN Reason: Discomfort Last Admin: 11/23/16 17:04 Dose: 325 mg Aspirin (Ecotrin) 81 mg PO DAILY [facility] Last Admin: 11/23/16 11:36 Dose: 81 mg Bisacodyl (Dulcolax) 10 mg PO DAILY PRN PRN Reason: Constipation Last Admin: 11/21/16 14:56 Dose: 10 mg Divalproex Sodium (Depakote Sprinkle) 250 mg PO DAILY [facility] Divalproex Sodium (Depakote Sprinkle) 500 mg PO BID [facility] Finasteride (Proscar) 5 mg PO DAILY [facility] Last Admin: 11/23/16 11:37 Dose: 5 mg Fluticasone Propionate (Flonase) 1 spray EA NOSTRIL DAILY [facility] Last Admin: 11/23/16 11:35 Dose: 1 spray Gabapentin (Neurontin) 800 mg PO TID [facility] Last Admin: 11/23/16 19:58 Dose: 800 mg Haloperidol (Haldol) 0.5 mg PO Q6H PRN PRN Reason: Extreme agitation Last Admin: 11/19/16 02:35 Dose: 0.5 mg Haloperidol Decanoate (Haldol Liquid) 0.5 mg PO Q6H PRN Last Admin: 11/23/16 13:51 Dose: 0.5 mg Haloperidol Lactate (Haldol) 0.5 mg IM Q6H PRN PRN Reason: Agitation Last Admin: 11/06/16 20:30 Dose: 0.5 mg Ibuprofen (Motrin) 200 mg PO 2100 [facility] Last Admin: 11/23/16 19:57 Dose: 200 mg Lorazepam (Ativan) 0.5 mg PO Q6H PRN PRN Reason: Extreme agitation Last Admin: 11/23/16 20:01 Dose: 0.5 mg Lorazepam (Ativan Inj) 0.5 mg IM Q6H PRN PRN Reason: Extreme agitation Last Admin: 11/06/16 20:30 Dose: 0.5 mg Lorazepam (Ativan Intensol) 0.5 mg SL Q6H PRN Last Admin: 11/22/16 18:29 Dose: 0.5 mg Lorazepam (Ativan Inj) 0.5 mg IM ONCE PRN Last Admin: 11/07/16 00:14 Dose: 0.5 mg Magnesium Hydroxide (Mom) 30 ml PO DAILY PRN PRN Reason: Constipation Last Admin: 11/14/16 10:09 Dose: 30 ml Memantine (Namenda) 10 mg PO BID [facility] Last Admin: 11/23/16 19:58 Dose: 10 mg Multivitamins/Minerals (Therapeutic - M) 1 tab PO DAILY [facility] Last Admin: 11/23/16 11:37 Dose: 1 tab Olanzapine (Zyprexa Zydis) 10 mg PO 1730 [facility] Last Admin: 11/23/16 17:05 Dose: 10 mg Olanzapine (Zyprexa) 2.5 mg PO 1500 [facility] Last Admin: 11/23/16 15:32 Dose: 2.5 mg Simvastatin (Zocor) 20 mg PO 2100 [facility] Last Admin: 11/23/16 19:58 Dose: 20 mg Sodium Chloride (Iv Flush) 10 - 80 ml IVF PRN PRN PRN Reason: Flushing Last Admin: 11/04/16 16:21 Dose: 10 ml Trazodone HCl (Desyrel) 50 mg PO HS [facility] Last Admin: 11/23/16 19:58 Dose: 50 mg Subjective: Pt seen and chart examined. Nursing reports pt continues to be restless and impulsive at times but has not been aggressive and is redirectable. Sleeping better. On face to face the pt states he is doing well. Pleasant but confused. Only oriented to self. Denies pain. Tolerating meds Start Time: 17:30 Stop Time: 17:45 Mental Status Exam Vitals: Last Vital Signs Temp 97.0 F 11/23/16 16:00 Pulse 65 11/23/16 16:00 Resp 18 11/23/16 16:00 BP 135/76 11/23/16 16:00 Pulse Ox 96 11/23/16 16:00 Height: 1.88 m Weight: 112.7 kg - Mental Status Exam Muscle Strength/Tone: Normal Dressing: Casual Grooming: Good Attitude: Cooperative Motor Activity: Normal Eye Contact: Fair Speech: Slowed Volume: Soft Rhythm: Appropriate Rhythm Orientation: Oriented to person Mood: Euthymic Rate of Thoughts: Delayed Thought Organization: [place] Associations: Loose-associations Abstract Reasoning: Poor abstract reasoning Thought Content: Ruminations Perception/Psychotic: Perception Normal Current Hallucinations: Visual Language: Naming Impaired Fund of Knowledge: Poor fund of knowledge Memory: Poor-immediate, Poor-recent Suicidal Ideation: None Homicidal Ideation: None Insight: Poor Judgement: Poor Impulse Control: Fair - Laboratory Result Diagrams: 11/22/16 05:36 11/22/16 05:36 Laboratory Results - last 24 hr 11/23/16 07:55 Valproic Acid 30.8 L Assessment and Plan (1) Major neurocognitive disorder due to Alzheimer's disease, probable, with behavioral disturbance Current visit: Yes Status: Acute Hospital Course Summary Disclaimer: The visit summary below is not to be considered part of the above Progress Note. Hospital Course: 11/05/16 hospitalist consult Plan Agree with admission to [facility] unit under the care of Dr. Webster for acute psychiatric evaluation and treatment. Patient has had significant behaviors overnight required multiple when necessary agents. In 10 used to provide a safe environment for patient and staff. Hypernatremia, present on admission with a sodium of 150. Have asked nursing staff to encourage oral intake. If sodium does not improve. Patient may require IV fluids for hydration. Home medications reviewed. At this time it does not appear the patient is on any antihypertensives. We will monitor his blood pressure carefully. Continue with other chronic medical medications including Neurontin, proscar, aspirin, and simvastatin Appreciate medical consultation. We will continue to follow patient during [facility] stay [facility]. At time of discharge his medical care will return to his primary care provider, Dr. Eliazar Barnett 11/05/16 09:44 11/06/16 11:56 Continue current care 11/07/16 11:11 Increase Zyprexa to 7.5mg 11/07/16 12:33-Mirakian. 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 * Continue psychiatric care per team. Continue to provide safe and supportive environment and encourage participation in floor activities. PRN medications as indicated for hallucinations, aggression and impulsive behaviors. Zyprexa increased to 7.5mg. Hypernatremia, acute. * Resolved since admission at 144 on 11/06. Will continue to monitor and encourage oral intake. Anemia. * Hemoglobin on 11/04 showed mild anemia at 13.3. Continue to monitor trends. Hypertension, chronic. * Blood pressure remains slightly elevated with systolic in 140's. Continue to monitor. May consider initiation of antihypertensive in remains elevated. Hyperlipidemia. * Continue home medications. Follow as outpatient. Neuropathy, chronic. * Continue home Neurontin which may cause some drowsiness. Monitor closely. BPH, chronic. * Continue home Proscar. Chronic kidney disease, stage III. * Monitor renal function periodically throughout admission. 11/08/16 18:05 Increase Zyprexa to 10mg at HS 11/09/16-Ortiz. 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 * Continue psychiatric care per team. Continue to provide safe and supportive environment and encourage participation in floor activities. PRN medications as indicated for hallucinations, aggression and impulsive behaviors. Zyprexa increased to 10mg at bedtime. Hypernatremia, acute - RESOLVED. * Resolved since admission at 144 on 11/06. Will continue to monitor and encourage oral intake. Recent lab on 11/08 showed sodium at 142. Anemia. * Persistent anemia noted. Hemoglobin on 11/08 was 12.4. Continue to monitor trends. Hypertension, chronic. * Blood pressure stable. Continue to monitor. Patient is currently not on any antihypertensives. Hyperlipidemia, chronic. * Continue home medications. Follow as outpatient. Neuropathy, chronic. * Continue home Neurontin which may cause some drowsiness. Monitor closely. BPH, chronic. * Continue home Proscar. Chronic kidney disease, stage III. * Monitor renal function periodically throughout admission. 11/09/16 18:59 Continue current care 11/10/16 18:46 Depakote level in AM 11/11/16 18:16 Continue current care 11/11/16 19:33 hospitalist progress note Nurses and patient reassured the lesion is characteristic for an irritated seborrheic keratosis. Differential diagnosis would include herpes zoster, however this is unlikely as he's not had any prodrome of pain and only has 1 lesion. If he should develop further lesions, nurses will alert the hospitalist team. Use triple antibiotic ointment 3 times a day for 4 days. Other chronic problems are stable. Continue current plan. 11/15/16 Hgb is dropping. On 11/04/16 hemoglobin was 13.3. Today hemoglobin is 11.8. MCV and MCH within normal limits. Check hemoccults and get records of most recent colonoscopy and hemoglobin. Continue to follow. Charts, documentation, imaging reviewed during this visit. 11/15/16 18:59 Increasing Depakote to 250mg PO TID 11/16/16 16:52 Zyprexa 2.5mg at 1500 11/17/16 18:14 Continue to have some agitation at night with poor sleep. Will add Ativan 0.5mg PO QHS 11/18/16 19:13 PT continues to have issues with sleep and some aggression at night. Will continue current meds and continue to monitor 11/19/16 11:46 Dementia with behaviors, acute on chronic. * Patient was scheduled for discharge on or around 11/17 which was postponed due to persistent evening behaviors. Continue care per psychiatric team. Some reported improvement with Ativan QHS and afternoon Zyprexa. Continue to provide safe and supportive environment and encourage participation in floor activities. Hypertension, chronic. * Blood pressures fairly well controlled. Continue to monitor closely. Anemia, unspecified. * Concern over hemoglobin trending down from 13.3 on 11/04. Recheck CBC on 11/16 showed hemoglobin at 13.0. Fecal occult was negative. Will recheck CBC on to monitor blood counts. Hyperlipidemia, chronic. * Continue home medication, Zocor, and follow as outpatient. Neuropathy, chronic. * Continue home Neurontin. BPH, chronic. * Continue home Proscar. Monitor closely for signs of urinary retention or infection. Will recheck BMP on 11/22 to monitor electrolytes and renal function. 11/19/16 17:36 Pt continues to have some agitation at night with poor sleep. D/C scheduled Ativan and start Trazodone 50mg PO QHS 11/20/16 13:46 Pt remains some what irritable in the evenings but it is improving. Continue current care 11/21/16 17:11 Some agitation in the evening. Continue current care 11/22/16 18:17 Depakote level in AM. PT continues to be impulsive and have VH 11/23/16 20:49 Depakote level was in the 30's. Will increase Depakote to 250mg daily and 500mg at 1500 and 2100
[2016-11-23] MEDS ORDERED: DIVALPROEX SPRINKLE 125 MG CAPSULE PO SCH (21:00)
[2016-11-24] MEDS: FLUTICASONE NASAL SPRAY 50mcg EA NOSTRIL SCH (11:13)
[2016-11-24] MEDS: FINASTERIDE 5 MG TABLET PO SCH (11:14)
[2016-11-24] MEDS: GABAPENTIN 800 MG TABLET PO SCH ×3 (11:14→19:42)
[2016-11-24] MEDS: DIVALPROEX SPRINKLE 125 MG CAPSULE PO SCH ×3 (11:14→19:41)
[2016-11-24] MEDS: MEMANTINE 10 MG TABLET PO SCH ×2 (11:15→19:42)
[2016-11-24] MEDS: MULTI-VITAMIN + MINERAL TABLET PO SCH (11:15)
[2016-11-24] MEDS: ASPIRIN *EC* 81 MG TABLET PO SCH (11:15)
[2016-11-24] MEDS: OLANZapine 2.5 MG TABLET PO SCH (14:42)
[2016-11-24] MEDS: OLANZapine ODT 5 MG TABLET PO SCH (17:10)
[2016-11-24] MEDS: IBUPROFEN 200 MG TABLET PO SCH (19:42)
[2016-11-24] MEDS: TRAZODONE 50 MG TABLET PO SCH (19:42)
[2016-11-24] MEDS: SIMVASTATIN 20 MG TABLET PO SCH (19:42)
[2016-11-24] MEDS: HALOPERIDOL 5 MG/ML INJECTION IM PRN (20:10)
--- NOTE | 2016-11-24 20:12 | Neuropsych Progress Note ---
[facility] Subjective Date: 11/24/16 - Sujective/Severity of Illness Medications: Acetaminophen (Tylenol) 325 mg PO Q5H PRN PRN Reason: Discomfort Last Admin: 11/23/16 17:04 Dose: 325 mg Aspirin (Ecotrin) 81 mg PO DAILY [facility] Last Admin: 11/24/16 11:15 Dose: 81 mg Bisacodyl (Dulcolax) 10 mg PO DAILY PRN PRN Reason: Constipation Last Admin: 11/21/16 14:56 Dose: 10 mg Divalproex Sodium (Depakote Sprinkle) 250 mg PO DAILY [facility] Last Admin: 11/24/16 11:14 Dose: 250 mg Divalproex Sodium (Depakote Sprinkle) 500 mg PO 1500,2100 [facility] Last Admin: 11/24/16 19:41 Dose: 500 mg Finasteride (Proscar) 5 mg PO DAILY [facility] Last Admin: 11/24/16 11:14 Dose: 5 mg Fluticasone Propionate (Flonase) 1 spray EA NOSTRIL DAILY [facility] Last Admin: 11/24/16 11:13 Dose: 1 spray Gabapentin (Neurontin) 800 mg PO TID [facility] Last Admin: 11/24/16 19:42 Dose: 800 mg Haloperidol (Haldol) 0.5 mg PO Q6H PRN PRN Reason: Extreme agitation Last Admin: 11/19/16 02:35 Dose: 0.5 mg Haloperidol Decanoate (Haldol Liquid) 0.5 mg PO Q6H PRN Last Admin: 11/23/16 13:51 Dose: 0.5 mg Haloperidol Lactate (Haldol) 0.5 mg IM Q6H PRN PRN Reason: Agitation Last Admin: 11/06/16 20:30 Dose: 0.5 mg Ibuprofen (Motrin) 200 mg PO 2100 [facility] Last Admin: 11/24/16 19:42 Dose: 200 mg Lorazepam (Ativan) 0.5 mg PO Q6H PRN PRN Reason: Extreme agitation Last Admin: 11/23/16 20:01 Dose: 0.5 mg Lorazepam (Ativan Inj) 0.5 mg IM Q6H PRN PRN Reason: Extreme agitation Last Admin: 11/06/16 20:30 Dose: 0.5 mg Lorazepam (Ativan Intensol) 0.5 mg SL Q6H PRN Last Admin: 11/22/16 18:29 Dose: 0.5 mg Lorazepam (Ativan Inj) 0.5 mg IM ONCE PRN Last Admin: 11/07/16 00:14 Dose: 0.5 mg Magnesium Hydroxide (Mom) 30 ml PO DAILY PRN PRN Reason: Constipation Last Admin: 11/14/16 10:09 Dose: 30 ml Memantine (Namenda) 10 mg PO BID [facility] Last Admin: 11/24/16 19:42 Dose: 10 mg Multivitamins/Minerals (Therapeutic - M) 1 tab PO DAILY [facility] Last Admin: 11/24/16 11:15 Dose: 1 tab Olanzapine (Zyprexa Zydis) 10 mg PO 1730 [facility] Last Admin: 11/24/16 17:10 Dose: 10 mg Olanzapine (Zyprexa) 2.5 mg PO 1500 [facility] Last Admin: 11/24/16 14:42 Dose: 2.5 mg Simvastatin (Zocor) 20 mg PO 2100 [facility] Last Admin: 11/24/16 19:42 Dose: 20 mg Sodium Chloride (Iv Flush) 10 - 80 ml IVF PRN PRN PRN Reason: Flushing Last Admin: 11/04/16 16:21 Dose: 10 ml Trazodone HCl (Desyrel) 50 mg PO HS [facility] Last Admin: 11/24/16 19:42 Dose: 50 mg Subjective: Pt seen and chart examined. Nursing reports pt continues to be restless and impulsive at times and required and Ativan and Haldol last evening. Pt did sleep well and no aggression noted. On face to face the pt is pleasant but confused. He is only oriented to self. He denies any pain. Tolerating meds Start Time: 17:30 Stop Time: 17:45 Mental Status Exam Vitals: Last Vital Signs Temp 97.6 F 11/24/16 15:57 Pulse 66 11/24/16 15:57 Resp 16 11/24/16 15:57 BP 127/78 11/24/16 15:57 Pulse Ox 96 11/24/16 15:57 Height: 1.88 m Weight: 112.7 kg - Mental Status Exam Muscle Strength/Tone: Normal Dressing: Casual Grooming: Good Attitude: Cooperative Motor Activity: Normal Eye Contact: Fair Speech: Slowed Volume: Soft Rhythm: Appropriate Rhythm Orientation: Oriented to person Mood: Euthymic Rate of Thoughts: Delayed Thought Organization: [place] Associations: Loose-associations Abstract Reasoning: Poor abstract reasoning Thought Content: Ruminations Perception/Psychotic: Perception Normal Current Hallucinations: Visual Language: Naming Impaired Fund of Knowledge: Poor fund of knowledge Memory: Poor-immediate, Poor-recent Suicidal Ideation: None Homicidal Ideation: None Insight: Poor Judgement: Poor Impulse Control: Fair - Laboratory Result Diagrams: 11/22/16 05:36 11/22/16 05:36 Assessment and Plan (1) Major neurocognitive disorder due to Alzheimer's disease, probable, with behavioral disturbance Current visit: Yes Status: Acute Hospital Course Summary Disclaimer: The visit summary below is not to be considered part of the above Progress Note. Hospital Course: 11/05/16 hospitalist consult Plan Agree with admission to [facility] unit under the care of Dr. Webster for acute psychiatric evaluation and treatment. Patient has had significant behaviors overnight required multiple when necessary agents. In 10 used to provide a safe environment for patient and staff. Hypernatremia, present on admission with a sodium of 150. Have asked nursing staff to encourage oral intake. If sodium does not improve. Patient may require IV fluids for hydration. Home medications reviewed. At this time it does not appear the patient is on any antihypertensives. We will monitor his blood pressure carefully. Continue with other chronic medical medications including Neurontin, proscar, aspirin, and simvastatin Appreciate medical consultation. We will continue to follow patient during [facility]. At time of discharge his medical care will return to his primary care provider, Dr. Eliazar Barnett 11/05/16 09:44 11/06/16 11:56 Continue current care 11/07/16 11:11 Increase Zyprexa to 7.5mg 11/07/16 12:33-Mirakian. 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 * Continue psychiatric care per team. Continue to provide safe and supportive environment and encourage participation in floor activities. PRN medications as indicated for hallucinations, aggression and impulsive behaviors. Zyprexa increased to 7.5mg. Hypernatremia, acute. * Resolved since admission at 144 on 11/06. Will continue to monitor and encourage oral intake. Anemia. * Hemoglobin on 11/04 showed mild anemia at 13.3. Continue to monitor trends. Hypertension, chronic. * Blood pressure remains slightly elevated with systolic in 140's. Continue to monitor. May consider initiation of antihypertensive in remains elevated. Hyperlipidemia. * Continue home medications. Follow as outpatient. Neuropathy, chronic. * Continue home Neurontin which may cause some drowsiness. Monitor closely. BPH, chronic. * Continue home Proscar. Chronic kidney disease, stage III. * Monitor renal function periodically throughout admission. 11/08/16 18:05 Increase Zyprexa to 10mg at HS 11/09/16-Ortiz. 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 * Continue psychiatric care per team. Continue to provide safe and supportive environment and encourage participation in floor activities. PRN medications as indicated for hallucinations, aggression and impulsive behaviors. Zyprexa increased to 10mg at bedtime. Hypernatremia, acute - RESOLVED. * Resolved since admission at 144 on 11/06. Will continue to monitor and encourage oral intake. Recent lab on 11/08 showed sodium at 142. Anemia. * Persistent anemia noted. Hemoglobin on 11/08 was 12.4. Continue to monitor trends. Hypertension, chronic. * Blood pressure stable. Continue to monitor. Patient is currently not on any antihypertensives. Hyperlipidemia, chronic. * Continue home medications. Follow as outpatient. Neuropathy, chronic. * Continue home Neurontin which may cause some drowsiness. Monitor closely. BPH, chronic. * Continue home Proscar. Chronic kidney disease, stage III. * Monitor renal function periodically throughout admission. 11/09/16 18:59 Continue current care 11/10/16 18:46 Depakote level in AM 11/11/16 18:16 Continue current care 11/11/16 19:33 hospitalist progress note Nurses and patient reassured the lesion is characteristic for an irritated seborrheic keratosis. Differential diagnosis would include herpes zoster, however this is unlikely as he's not had any prodrome of pain and only has 1 lesion. If he should develop further lesions, nurses will alert the hospitalist team. Use triple antibiotic ointment 3 times a day for 4 days. Other chronic problems are stable. Continue current plan. 11/15/16 Hgb is dropping. On 11/04/16 hemoglobin was 13.3. Today hemoglobin is 11.8. MCV and MCH within normal limits. Check hemoccults and get records of most recent colonoscopy and hemoglobin. Continue to follow. Charts, documentation, imaging reviewed during this visit. 11/15/16 18:59 Increasing Depakote to 250mg PO TID 11/16/16 16:52 Zyprexa 2.5mg at 1500 11/17/16 18:14 Continue to have some agitation at night with poor sleep. Will add Ativan 0.5mg PO QHS 11/18/16 19:13 PT continues to have issues with sleep and some aggression at night. Will continue current meds and continue to monitor 11/19/16 11:46 Dementia with behaviors, acute on chronic. * Patient was scheduled for discharge on or around 11/17 which was postponed due to persistent evening behaviors. Continue care per psychiatric team. Some reported improvement with Ativan QHS and afternoon Zyprexa. Continue to provide safe and supportive environment and encourage participation in floor activities. Hypertension, chronic. * Blood pressures fairly well controlled. Continue to monitor closely. Anemia, unspecified. * Concern over hemoglobin trending down from 13.3 on 11/04. Recheck CBC on 11/16 showed hemoglobin at 13.0. Fecal occult was negative. Will recheck CBC on to monitor blood counts. Hyperlipidemia, chronic. * Continue home medication, Zocor, and follow as outpatient. Neuropathy, chronic. * Continue home Neurontin. BPH, chronic. * Continue home Proscar. Monitor closely for signs of urinary retention or infection. Will recheck BMP on 11/22 to monitor electrolytes and renal function. 11/19/16 17:36 Pt continues to have some agitation at night with poor sleep. D/C scheduled Ativan and start Trazodone 50mg PO QHS 11/20/16 13:46 Pt remains some what irritable in the evenings but it is improving. Continue current care 11/21/16 17:11 Some agitation in the evening. Continue current care 11/22/16 18:17 Depakote level in AM. PT continues to be impulsive and have VH 11/23/16 20:49 Depakote level was in the 30's. Will increase Depakote to 250mg daily and 500mg at 1500 and 2100 11/24/16 20:11 Continues to have some agitation in the evenings but Depakote was recently increased. Continue current care. SW will talk to family about hospice care
[2016-11-25] MEDS: ASPIRIN *EC* 81 MG TABLET PO SCH (11:26)
[2016-11-25] MEDS: FINASTERIDE 5 MG TABLET PO SCH (11:26)
[2016-11-25] MEDS: MULTI-VITAMIN + MINERAL TABLET PO SCH (11:26)
[2016-11-25] MEDS: DIVALPROEX SPRINKLE 125 MG CAPSULE PO SCH ×4 (11:26→20:12)
[2016-11-25] MEDS: GABAPENTIN 800 MG TABLET PO SCH ×3 (11:26→20:13)
[2016-11-25] MEDS: MEMANTINE 10 MG TABLET PO SCH ×2 (11:26→20:13)
[2016-11-25] MEDS: FLUTICASONE NASAL SPRAY 50mcg EA NOSTRIL SCH (11:27)
[2016-11-25] MEDS: OLANZapine 2.5 MG TABLET PO SCH (14:39)
--- NOTE | 2016-11-25 19:54 | Neuropsych Progress Note ---
[facility] Subjective Date: 11/25/16 - Sujective/Severity of Illness Medications: Acetaminophen (Tylenol) 325 mg PO Q5H PRN PRN Reason: Discomfort Last Admin: 11/23/16 17:04 Dose: 325 mg Aspirin (Ecotrin) 81 mg PO DAILY [facility] Last Admin: 11/25/16 11:26 Dose: 81 mg Bisacodyl (Dulcolax) 10 mg PO DAILY PRN PRN Reason: Constipation Last Admin: 11/21/16 14:56 Dose: 10 mg Divalproex Sodium (Depakote Sprinkle) 250 mg PO DAILY [facility] Last Admin: 11/25/16 11:26 Dose: 250 mg Divalproex Sodium (Depakote Sprinkle) 500 mg PO 1500,2100 [facility] Last Admin: 11/25/16 14:38 Dose: 500 mg Finasteride (Proscar) 5 mg PO DAILY [facility] Last Admin: 11/25/16 11:26 Dose: 5 mg Fluticasone Propionate (Flonase) 1 spray EA NOSTRIL DAILY [facility] Last Admin: 11/25/16 11:27 Dose: 1 spray Gabapentin (Neurontin) 800 mg PO TID [facility] Last Admin: 11/25/16 14:38 Dose: 800 mg Haloperidol (Haldol) 0.5 mg PO Q6H PRN PRN Reason: Extreme agitation Last Admin: 11/19/16 02:35 Dose: 0.5 mg Haloperidol Decanoate (Haldol Liquid) 0.5 mg PO Q6H PRN Last Admin: 11/23/16 13:51 Dose: 0.5 mg Haloperidol Lactate (Haldol) 0.5 mg IM Q6H PRN PRN Reason: Agitation Last Admin: 11/24/16 20:10 Dose: 0.5 mg Ibuprofen (Motrin) 200 mg PO 2100 [facility] Last Admin: 11/24/16 19:42 Dose: 200 mg Lorazepam (Ativan) 0.5 mg PO Q6H PRN PRN Reason: Extreme agitation Last Admin: 11/23/16 20:01 Dose: 0.5 mg Lorazepam (Ativan Inj) 0.5 mg IM Q6H PRN PRN Reason: Extreme agitation Last Admin: 11/24/16 20:10 Dose: 0.5 mg Lorazepam (Ativan Intensol) 0.5 mg SL Q6H PRN Last Admin: 11/22/16 18:29 Dose: 0.5 mg Lorazepam (Ativan Inj) 0.5 mg IM ONCE PRN Last Admin: 11/07/16 00:14 Dose: 0.5 mg Magnesium Hydroxide (Mom) 30 ml PO DAILY PRN PRN Reason: Constipation Last Admin: 11/14/16 10:09 Dose: 30 ml Memantine (Namenda) 10 mg PO BID [facility] Last Admin: 11/25/16 11:26 Dose: 10 mg Multivitamins/Minerals (Therapeutic - M) 1 tab PO DAILY [facility] Last Admin: 11/25/16 11:26 Dose: 1 tab Risperidone (Risperdal) 0.5 mg PO BID [facility] Simvastatin (Zocor) 20 mg PO 2100 [facility] Last Admin: 11/24/16 19:42 Dose: 20 mg Sodium Chloride (Iv Flush) 10 - 80 ml IVF PRN PRN PRN Reason: Flushing Last Admin: 11/04/16 16:21 Dose: 10 ml Trazodone HCl (Desyrel) 50 mg PO HS [facility] Last Admin: 11/24/16 19:42 Dose: 50 mg Subjective: Pt seen and chart examined. Nursing reports pt was agitated and aggressive last night and required Haldol and Ativan IM. Pt slept well and has done well today with no behaviors. PT remains impulsive. On face to face the pt is pleasant but confused. He denies any pain. Only oriented to self. Tolerating meds Start Time: 17:00 Stop Time: 17:15 Mental Status Exam Vitals: Last Vital Signs Temp 97.6 F 11/25/16 16:00 Pulse 59 L 11/25/16 16:00 Resp 16 11/25/16 16:00 BP 122/69 11/25/16 16:00 Pulse Ox 98 11/25/16 16:00 Height: 1.88 m Weight: 112.7 kg - Mental Status Exam Muscle Strength/Tone: Normal Dressing: Casual Grooming: Good Attitude: Cooperative Motor Activity: Normal Eye Contact: Fair Speech: Slowed Volume: Soft Rhythm: Appropriate Rhythm Orientation: Oriented to person Mood: Euthymic Rate of Thoughts: Delayed Thought Organization: [place] Associations: Loose-associations Abstract Reasoning: Poor abstract reasoning Thought Content: Ruminations Perception/Psychotic: Perception Normal Current Hallucinations: Visual Language: Naming Impaired Fund of Knowledge: Poor fund of knowledge Memory: Poor-immediate, Poor-recent Suicidal Ideation: None Homicidal Ideation: None Insight: Poor Judgement: Poor Impulse Control: Fair - Laboratory Result Diagrams: 11/22/16 05:36 11/22/16 05:36 Assessment and Plan (1) Major neurocognitive disorder due to Alzheimer's disease, probable, with behavioral disturbance Current visit: Yes Status: Acute Hospital Course Summary Disclaimer: The visit summary below is not to be considered part of the above Progress Note. Hospital Course: 11/05/16 hospitalist consult Plan A[facility] with [facility] under the care of Dr. Webster for acute psychiatric evaluation and treatment. Patient has had significant behaviors overnight required multiple when necessary agents. In 10 used to provide a safe environment for patient and staff. Hypernatremia, present on admission with a sodium of 150. Have asked nursing staff to encourage oral intake. If sodium does not improve. Patient may require IV fluids for hydration. Home medications reviewed. At this time it does not appear the patient is on any antihypertensives. We will monitor his blood pressure carefully. Continue with other chronic medical medications including Neurontin, proscar, aspirin, and simvastatin Appreciate medical consultation. We will continue to follow patient during [facility] stay [facility]. At time of discharge his medical care will return to his primary care provider, Dr. Eliazar Barnett 11/05/16 09:44 11/06/16 11:56 Continue current care 11/07/16 11:11 Increase Zyprexa to 7.5mg 11/07/16 12:33-Mirakian. 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 * Continue psychiatric care per team. Continue to provide safe and supportive environment and encourage participation in floor activities. PRN medications as indicated for hallucinations, aggression and impulsive behaviors. Zyprexa increased to 7.5mg. Hypernatremia, acute. * Resolved since admission at 144 on 11/06. Will continue to monitor and encourage oral intake. Anemia. * Hemoglobin on 11/04 showed mild anemia at 13.3. Continue to monitor trends. Hypertension, chronic. * Blood pressure remains slightly elevated with systolic in 140's. Continue to monitor. May consider initiation of antihypertensive in remains elevated. Hyperlipidemia. * Continue home medications. Follow as outpatient. Neuropathy, chronic. * Continue home Neurontin which may cause some drowsiness. Monitor closely. BPH, chronic. * Continue home Proscar. Chronic kidney disease, stage III. * Monitor renal function periodically throughout admission. 11/08/16 18:05 Increase Zyprexa to 10mg at HS 11/09/16-Ortiz. 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 * Continue psychiatric care per team. Continue to provide safe and supportive environment and encourage participation in floor activities. PRN medications as indicated for hallucinations, aggression and impulsive behaviors. Zyprexa increased to 10mg at bedtime. Hypernatremia, acute - RESOLVED. * Resolved since admission at 144 on 11/06. Will continue to monitor and encourage oral intake. Recent lab on 11/08 showed sodium at 142. Anemia. * Persistent anemia noted. Hemoglobin on 11/08 was 12.4. Continue to monitor trends. Hypertension, chronic. * Blood pressure stable. Continue to monitor. Patient is currently not on any antihypertensives. Hyperlipidemia, chronic. * Continue home medications. Follow as outpatient. Neuropathy, chronic. * Continue home Neurontin which may cause some drowsiness. Monitor closely. BPH, chronic. * Continue home Proscar. Chronic kidney disease, stage III. * Monitor renal function periodically throughout admission. 11/09/16 18:59 Continue current care 11/10/16 18:46 Depakote level in AM 11/11/16 18:16 Continue current care 11/11/16 19:33 hospitalist progress note Nurses and patient reassured the lesion is characteristic for an irritated seborrheic keratosis. Differential diagnosis would include herpes zoster, however this is unlikely as he's not had any prodrome of pain and only has 1 lesion. If he should develop further lesions, nurses will alert the hospitalist team. Use triple antibiotic ointment 3 times a day for 4 days. Other chronic problems are stable. Continue current plan. 11/15/16 Hgb is dropping. On 11/04/16 hemoglobin was 13.3. Today hemoglobin is 11.8. MCV and MCH within normal limits. Check hemoccults and get records of most recent colonoscopy and hemoglobin. Continue to follow. Charts, documentation, imaging reviewed during this visit. 11/15/16 18:59 Increasing Depakote to 250mg PO TID 11/16/16 16:52 Zyprexa 2.5mg at 1500 11/17/16 18:14 Continue to have some agitation at night with poor sleep. Will add Ativan 0.5mg PO QHS 11/18/16 19:13 PT continues to have issues with sleep and some aggression at night. Will continue current meds and continue to monitor 11/19/16 11:46 Dementia with behaviors, acute on chronic. * Patient was scheduled for discharge on or around 11/17 which was postponed due to persistent evening behaviors. Continue care per psychiatric team. Some reported improvement with Ativan QHS and afternoon Zyprexa. Continue to provide safe and supportive environment and encourage participation in floor activities. Hypertension, chronic. * Blood pressures fairly well controlled. Continue to monitor closely. Anemia, unspecified. * Concern over hemoglobin trending down from 13.3 on 11/04. Recheck CBC on 11/16 showed hemoglobin at 13.0. Fecal occult was negative. Will recheck CBC on to monitor blood counts. Hyperlipidemia, chronic. * Continue home medication, Zocor, and follow as outpatient. Neuropathy, chronic. * Continue home Neurontin. BPH, chronic. * Continue home Proscar. Monitor closely for signs of urinary retention or infection. Will recheck BMP on 11/22 to monitor electrolytes and renal function. 11/19/16 17:36 Pt continues to have some agitation at night with poor sleep. D/C scheduled Ativan and start Trazodone 50mg PO QHS 11/20/16 13:46 Pt remains some what irritable in the evenings but it is improving. Continue current care 11/21/16 17:11 Some agitation in the evening. Continue current care 11/22/16 18:17 Depakote level in AM. PT continues to be impulsive and have VH 11/23/16 20:49 Depakote level was in the 30's. Will increase Depakote to 250mg daily and 500mg at 1500 and 2100 11/24/16 20:11 Continues to have some agitation in the evenings but Depakote was recently increased. Continue current care. SW will talk to family about hospice care 11/25/16 19:53 D/C Zyprexa. Risperdal 0.5mg PO BID
[2016-11-25] MEDS: RisperiDONE 0.5 MG TABLET PO SCH ×3 (20:11→23:34)
[2016-11-25] MEDS: HALOPERIDOL 0.5 MG TABLET PO PRN (20:11)
[2016-11-25] MEDS: SIMVASTATIN 20 MG TABLET PO SCH (20:13)
[2016-11-25] MEDS: TRAZODONE 50 MG TABLET PO SCH (20:13)
[2016-11-25] MEDS: IBUPROFEN 200 MG TABLET PO SCH (20:13)
[2016-11-25] MEDS: LORazepam 0.5 MG TABLET PO PRN (21:15)
[2016-11-25] MEDS: OLANZapine ODT 5 MG TABLET PO SCH (23:34)
--- NOTE | 2016-11-26 08:16 | Progress Note ---
Subjective: Mr. Hernandez was resting in bed. At times he seemed slightly agitated and jerked his arms up towards his head, then his muscles became lax again and he seemed more relaxed. He was agitated at the beginning of the shift but then was able to sleep most of the night. He continues to have aggressive behaviors, becoming angry and swearing at staff. He has been eating well. Last BM on 11/23. Objective Vital signs: Temperature 97.7 F 11/25/16 22:28 Pulse Rate 95 11/25/16 22:28 Respiratory Rate 14 11/25/16 22:28 Blood Pressure 128/66 11/25/16 22:28 Pulse Oximetry 94 11/25/16 22:28 Oxygen Delivery Method Room Air Height/Weight/BMI: Height 1.88 m Weight 112.7 kg Body Mass Index 31.8 - Constitutional Present: no acute distress, well nourished, well developed - Routine HEENT Exam ENT: Present: mucous membranes dry - Routine Respiratory Exam Present: CTA bilaterally - Routine Cardiovascular Exam Present: S1, S2 - Routine Abdominal Exam Present: soft, normoactive bowel sounds, non distended - Routine Extremities Exam Present: no edema, normal capillary refill - Routine Skin Exam Present: intact, dry, warm - Routine Neurological Exam Absent: alert (at rest) - Routine Psychiatric Exam Present: unable to assess Results - Labs CBC & Chem 7: 11/22/16 05:36 11/22/16 05:36 Assessment and Plan (1) Dementia with behavioral disturbance Current visit: Yes Status: Acute (2) Hypernatremia Current visit: Yes Status: Resolved 11/19/16 17:47 I reviewed this chart, the patient history, and the DIGITAL COMPUTER SYSTEMS ANALYST's/PA's documented findings as above. We discussed and formulated the assessment and plan as above with the additions below.-Dr. Sung The patient was sleeping in a recliner in the day room. His nurse stated that he required extra medication last night for behaviors and has been somnolent today. When I tried to wake him up to talk or do an exam he lifts the covers off of him and puts them over his head. He will not answer any questions for me. Chest is clear to auscultation. Cardiovascular reveals a regular rate and rhythm. Abdomen is soft and nontender. Extremities are free of edema. Continue with current treatment for now. We will continue to follow along. Resuscitation Status: Do Not Resuscitate Assessment and Plan: Assessment: Dementia with behaviors. Hypertension. Anemia, unspecified. Hyperlipidemia. Neuropathy. BPH. Constipation Plan: Add MiraLAX to med list - he has infrequent BMs. Psych continues to adjust medications. SW may discuss hospice with family. Encourage fluids - Na slightly high at 146 when checked on 11/22. Previous concern about decreasing hgb - this has stabilized. Otherwise medically stable. Sepsis Assessment - Evaluation Sepsis screening result: No Definite Risk Hospital Course Summary Disclaimer: The visit summary below is not to be considered part of the above Progress Note. Hospital Course: 11/05/16 hospitalist consult Plan Agree with admission to [facility] under the care of Dr. Webster for acute psychiatric evaluation and treatment. Patient has had significant behaviors overnight required multiple when necessary agents. In 10 used to provide a safe environment for patient and staff. Hypernatremia, present on admission with a sodium of 150. Have asked nursing staff to encourage oral intake. If sodium does not improve. Patient may require IV fluids for hydration. Home medications reviewed. At this time it does not appear the patient is on any antihypertensives. We will monitor his blood pressure carefully. Continue with other chronic medical medications including Neurontin, proscar, aspirin, and simvastatin Appreciate medical consultation. We will continue to follow patient during his stay on the [facility]. At time of discharge his medical care will return to his primary care provider, Dr. Eliazar Barnett 11/05/16 09:44 11/06/16 11:56 Continue current care 11/07/16 11:11 Increase Zyprexa to 7.5mg 11/07/16 12:33-Mirakian. 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 * Continue psychiatric care per team. Continue to provide safe and supportive environment and encourage participation in floor activities. PRN medications as indicated for hallucinations, aggression and impulsive behaviors. Zyprexa increased to 7.5mg. Hypernatremia, acute. * Resolved since admission at 144 on 11/06. Will continue to monitor and encourage oral intake. Anemia. * Hemoglobin on 11/04 showed mild anemia at 13.3. Continue to monitor trends. Hypertension, chronic. * Blood pressure remains slightly elevated with systolic in 140's. Continue to monitor. May consider initiation of antihypertensive in remains elevated. Hyperlipidemia. * Continue home medications. Follow as outpatient. Neuropathy, chronic. * Continue home Neurontin which may cause some drowsiness. Monitor closely. BPH, chronic. * Continue home Proscar. Chronic kidney disease, stage III. * Monitor renal function periodically throughout admission. 11/08/16 18:05 Increase Zyprexa to 10mg at HS 11/09/16-Ortiz. 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 * Continue psychiatric care per team. Continue to provide safe and supportive environment and encourage participation in floor activities. PRN medications as indicated for hallucinations, aggression and impulsive behaviors. Zyprexa increased to 10mg at bedtime. Hypernatremia, acute - RESOLVED. * Resolved since admission at 144 on 11/06. Will continue to monitor and encourage oral intake. Recent lab on 11/08 showed sodium at 142. Anemia. * Persistent anemia noted. Hemoglobin on 11/08 was 12.4. Continue to monitor trends. Hypertension, chronic. * Blood pressure stable. Continue to monitor. Patient is currently not on any antihypertensives. Hyperlipidemia, chronic. * Continue home medications. Follow as outpatient. Neuropathy, chronic. * Continue home Neurontin which may cause some drowsiness. Monitor closely. BPH, chronic. * Continue home Proscar. Chronic kidney disease, stage III. * Monitor renal function periodically throughout admission. 11/09/16 18:59 Continue current care 11/10/16 18:46 Depakote level in AM 11/11/16 18:16 Continue current care 11/11/16 19:33 hospitalist progress note Nurses and patient reassured the lesion is characteristic for an irritated seborrheic keratosis. Differential diagnosis would include herpes zoster, however this is unlikely as he's not had any prodrome of pain and only has 1 lesion. If he should develop further lesions, nurses will alert the hospitalist team. Use triple antibiotic ointment 3 times a day for 4 days. Other chronic problems are stable. Continue current plan. 11/15/16 Hgb is dropping. On 11/04/16 hemoglobin was 13.3. Today hemoglobin is 11.8. MCV and MCH within normal limits. Check hemoccults and get records of most recent colonoscopy and hemoglobin. Continue to follow. Charts, documentation, imaging reviewed during this visit. 11/15/16 18:59 Increasing Depakote to 250mg PO TID 11/16/16 16:52 Zyprexa 2.5mg at 1500 11/17/16 18:14 Continue to have some agitation at night with poor sleep. Will add Ativan 0.5mg PO QHS 11/18/16 19:13 PT continues to have issues with sleep and some aggression at night. Will continue current meds and continue to monitor 11/19/16 11:46 Dementia with behaviors, acute on chronic. * Patient was scheduled for discharge on or around 11/17 which was postponed due to persistent evening behaviors. Continue care per psychiatric team. Some reported improvement with Ativan QHS and afternoon Zyprexa. Continue to provide safe and supportive environment and encourage participation in floor activities. Hypertension, chronic. * Blood pressures fairly well controlled. Continue to monitor closely. Anemia, unspecified. * Concern over hemoglobin trending down from 13.3 on 11/04. Recheck CBC on 11/16 showed hemoglobin at 13.0. Fecal occult was negative. Will recheck CBC on to monitor blood counts. Hyperlipidemia, chronic. * Continue home medication, Zocor, and follow as outpatient. Neuropathy, chronic. * Continue home Neurontin. BPH, chronic. * Continue home Proscar. Monitor closely for signs of urinary retention or infection. Will recheck BMP on 11/22 to monitor electrolytes and renal function. 11/19/16 17:36 Pt continues to have some agitation at night with poor sleep. D/C scheduled Ativan and start Trazodone 50mg PO QHS 11/20/16 13:46 Pt remains some what irritable in the evenings but it is improving. Continue current care 11/21/16 17:11 Some agitation in the evening. Continue current care 11/22/16 18:17 Depakote level in AM. PT continues to be impulsive and have VH 11/23/16 20:49 Depakote level was in the 30's. Will increase Depakote to 250mg daily and 500mg at 1500 and 2100 11/24/16 20:11 Continues to have some agitation in the evenings but Depakote was recently increased. Continue current care. SW will talk to family about hospice care 11/25/16 19:53 D/C Zyprexa. Risperdal 0.5mg PO BID 11/26/16 Add MiraLAX to med list - he has infrequent BMs. Psych continues to adjust medications. SW may discuss hospice with family. Encourage fluids - Na slightly high at 146 when checked on 11/22. Previous concern about decreasing hgb - this has stabilized. Otherwise medically stable.
[2016-11-26] MEDS: DIVALPROEX SPRINKLE 125 MG CAPSULE PO SCH ×3 (09:55→20:06)
[2016-11-26] MEDS: POLYETHYL GLYCOL 3350 17gm PACKET PO SCH (09:56)
[2016-11-26] MEDS: MEMANTINE 10 MG TABLET PO SCH ×2 (09:56→20:05)
[2016-11-26] MEDS: GABAPENTIN 800 MG TABLET PO SCH ×3 (09:56→20:05)
[2016-11-26] MEDS: FLUTICASONE NASAL SPRAY 50mcg EA NOSTRIL SCH (09:56)
[2016-11-26] MEDS: ASPIRIN *EC* 81 MG TABLET PO SCH (09:56)
[2016-11-26] MEDS: FINASTERIDE 5 MG TABLET PO SCH (09:57)
[2016-11-26] MEDS: RisperiDONE 0.5 MG TABLET PO SCH ×2 (09:57→20:05)
[2016-11-26] MEDS: MULTI-VITAMIN + MINERAL TABLET PO SCH (09:57)
--- NOTE | 2016-11-26 14:16 | Neuropsych Progress Note ---
[facility] Subjective Date: 11/26/16 - Sujective/Severity of Illness Medications: Acetaminophen (Tylenol) 325 mg PO Q5H PRN PRN Reason: Discomfort Last Admin: 11/23/16 17:04 Dose: 325 mg Aspirin (Ecotrin) 81 mg PO DAILY [facility] Last Admin: 11/26/16 09:56 Dose: 81 mg Bisacodyl (Dulcolax) 10 mg PO DAILY PRN PRN Reason: Constipation Last Admin: 11/21/16 14:56 Dose: 10 mg Divalproex Sodium (Depakote Sprinkle) 250 mg PO DAILY [facility] Last Admin: 11/26/16 09:55 Dose: 250 mg Divalproex Sodium (Depakote Sprinkle) 500 mg PO 1500,2100 [facility] Last Admin: 11/25/16 20:12 Dose: 500 mg Finasteride (Proscar) 5 mg PO DAILY [facility] Last Admin: 11/26/16 09:57 Dose: 5 mg Fluticasone Propionate (Flonase) 1 spray EA NOSTRIL DAILY [facility] Last Admin: 11/26/16 09:56 Dose: 1 spray Gabapentin (Neurontin) 800 mg PO TID [facility] Last Admin: 11/26/16 09:56 Dose: 800 mg Haloperidol (Haldol) 0.5 mg PO Q6H PRN PRN Reason: Extreme agitation Last Admin: 11/25/16 20:11 Dose: 0.5 mg Haloperidol Decanoate (Haldol Liquid) 0.5 mg PO Q6H PRN Last Admin: 11/23/16 13:51 Dose: 0.5 mg Haloperidol Lactate (Haldol) 0.5 mg IM Q6H PRN PRN Reason: Agitation Last Admin: 11/24/16 20:10 Dose: 0.5 mg Ibuprofen (Motrin) 200 mg PO 2100 [facility] Last Admin: 11/25/16 20:13 Dose: 200 mg Lorazepam (Ativan) 0.5 mg PO Q6H PRN PRN Reason: Extreme agitation Last Admin: 11/25/16 21:15 Dose: 0.5 mg Lorazepam (Ativan Inj) 0.5 mg IM Q6H PRN PRN Reason: Extreme agitation Last Admin: 11/24/16 20:10 Dose: 0.5 mg Lorazepam (Ativan Intensol) 0.5 mg SL Q6H PRN Last Admin: 11/22/16 18:29 Dose: 0.5 mg Lorazepam (Ativan Inj) 0.5 mg IM ONCE PRN Last Admin: 11/07/16 00:14 Dose: 0.5 mg Magnesium Hydroxide (Mom) 30 ml PO DAILY PRN PRN Reason: Constipation Last Admin: 11/26/16 10:54 Dose: 30 ml Memantine (Namenda) 10 mg PO BID [facility] Last Admin: 11/26/16 09:56 Dose: 10 mg Multivitamins/Minerals (Therapeutic - M) 1 tab PO DAILY [facility] Last Admin: 11/26/16 09:57 Dose: 1 tab Polyethylene Glycol (Miralax) 17 gm PO DAILY [facility] Last Admin: 11/26/16 09:56 Dose: 17 gm Risperidone (Risperdal) 0.5 mg PO BID [facility] Last Admin: 11/26/16 09:57 Dose: 0.5 mg Simvastatin (Zocor) 20 mg PO 2100 [facility] Last Admin: 11/25/16 20:13 Dose: 20 mg Sodium Chloride (Iv Flush) 10 - 80 ml IVF PRN PRN PRN Reason: Flushing Last Admin: 11/04/16 16:21 Dose: 10 ml Trazodone HCl (Desyrel) 50 mg PO HS [facility] Last Admin: 11/25/16 20:13 Dose: 50 mg Subjective: Patient seen and chart reviewed. Case discussed with treatment team. On interview, patient is sleeping and opens his eyes to interview but does not respond verbally. Nursing reports he seems to be more sedated during the day since starting Risperdal. Nursing staff report patient required 2 PRNs (Haldol, Ativan) yesterday evening as he was frustrated with not being able to go to the restroom immediately when he wanted to. Patient has been cooperative otherwise. Patient slept well overnight. VSS. Start Time: 11:00 Stop Time: 11:20 Mental Status Exam Vitals: Last Vital Signs Temp 97.7 F 11/25/16 22:28 Pulse 95 11/25/16 22:28 Resp 14 11/25/16 22:28 BP 128/66 11/25/16 22:28 Pulse Ox 94 11/25/16 22:28 Height: 1.88 m Weight: 112.7 kg - Mental Status Exam Muscle Strength/Tone: Normal Dressing: Casual Grooming: Good Attitude: Cooperative Motor Activity: Retardation Eye Contact: Fair Speech: Other (Did not respond verbally today as was woken up for interview) Orientation: Oriented to person Mood: Neutral Rate of Thoughts: Delayed Thought Organization: [place] Associations: Loose-associations Abstract Reasoning: Poor abstract reasoning Thought Content: Other (Unable to thorougly assess today due to limtied participation in interview) Perception/Psychotic: Perception Normal Language: Naming Impaired Fund of Knowledge: Poor fund of knowledge Memory: Poor-immediate, Poor-recent Suicidal Ideation: None Homicidal Ideation: None Insight: Poor Judgement: Poor Impulse Control: Fair - Laboratory Result Diagrams: 11/22/16 05:36 11/22/16 05:36 Assessment and Plan (1) Major neurocognitive disorder due to Alzheimer's disease, probable, with behavioral disturbance Current visit: Yes Status: Acute Continue current care - monitor for sedation and may need to consider decreasing AM Risperdal dose if he does not gain tolerance; looking into Hospice care for patient. Hospital Course Summary Disclaimer: The visit summary below is not to be considered part of the above Progress Note. Hospital Course: 11/05/16 hospitalist consult Plan Agree with admission to [facility] under the care of Dr. Webster for acute psychiatric evaluation and treatment. Patient has had significant behaviors overnight required multiple when necessary agents. In 10 used to provide a safe environment for patient and staff. Hypernatremia, present on admission with a sodium of 150. Have asked nursing staff to encourage oral intake. If sodium does not improve. Patient may require IV fluids for hydration. Home medications reviewed. At this time it does not appear the patient is on any antihypertensives. We will monitor his blood pressure carefully. Continue with other chronic medical medications including Neurontin, proscar, aspirin, and simvastatin Appreciate medical consultation. We will continue to follow patient during his stay on the [facility]. At time of discharge his medical care will return to his primary care provider, Dr. Eliazar Barnett 11/05/16 09:44 11/06/16 11:56 Continue current care 11/07/16 11:11 Increase Zyprexa to 7.5mg 11/07/16 12:33-Mirakian. 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 * Continue psychiatric care per team. Continue to provide safe and supportive environment and encourage participation in floor activities. PRN medications as indicated for hallucinations, aggression and impulsive behaviors. Zyprexa increased to 7.5mg. Hypernatremia, acute. * Resolved since admission at 144 on 11/06. Will continue to monitor and encourage oral intake. Anemia. * Hemoglobin on 11/04 showed mild anemia at 13.3. Continue to monitor trends. Hypertension, chronic. * Blood pressure remains slightly elevated with systolic in 140's. Continue to monitor. May consider initiation of antihypertensive in remains elevated. Hyperlipidemia. * Continue home medications. Follow as outpatient. Neuropathy, chronic. * Continue home Neurontin which may cause some drowsiness. Monitor closely. BPH, chronic. * Continue home Proscar. Chronic kidney disease, stage III. * Monitor renal function periodically throughout admission. 11/08/16 18:05 Increase Zyprexa to 10mg at HS 11/09/16-Ortiz. 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 * Continue psychiatric care per team. Continue to provide safe and supportive environment and encourage participation in floor activities. PRN medications as indicated for hallucinations, aggression and impulsive behaviors. Zyprexa increased to 10mg at bedtime. Hypernatremia, acute - RESOLVED. * Resolved since admission at 144 on 11/06. Will continue to monitor and encourage oral intake. Recent lab on 11/08 showed sodium at 142. Anemia. * Persistent anemia noted. Hemoglobin on 11/08 was 12.4. Continue to monitor trends. Hypertension, chronic. * Blood pressure stable. Continue to monitor. Patient is currently not on any antihypertensives. Hyperlipidemia, chronic. * Continue home medications. Follow as outpatient. Neuropathy, chronic. * Continue home Neurontin which may cause some drowsiness. Monitor closely. BPH, chronic. * Continue home Proscar. Chronic kidney disease, stage III. * Monitor renal function periodically throughout admission. 11/09/16 18:59 Continue current care 11/10/16 18:46 Depakote level in AM 11/11/16 18:16 Continue current care 11/11/16 19:33 hospitalist progress note Nurses and patient reassured the lesion is characteristic for an irritated seborrheic keratosis. Differential diagnosis would include herpes zoster, however this is unlikely as he's not had any prodrome of pain and only has 1 lesion. If he should develop further lesions, nurses will alert the hospitalist team. Use triple antibiotic ointment 3 times a day for 4 days. Other chronic problems are stable. Continue current plan. 11/15/16 Hgb is dropping. On 11/04/16 hemoglobin was 13.3. Today hemoglobin is 11.8. MCV and MCH within normal limits. Check hemoccults and get records of most recent colonoscopy and hemoglobin. Continue to follow. Charts, documentation, imaging reviewed during this visit. 11/15/16 18:59 Increasing Depakote to 250mg PO TID 11/16/16 16:52 Zyprexa 2.5mg at 1500 11/17/16 18:14 Continue to have some agitation at night with poor sleep. Will add Ativan 0.5mg PO QHS 11/18/16 19:13 PT continues to have issues with sleep and some aggression at night. Will continue current meds and continue to monitor 11/19/16 11:46 Dementia with behaviors, acute on chronic. * Patient was scheduled for discharge on or around 11/17 which was postponed due to persistent evening behaviors. Continue care per psychiatric team. Some reported improvement with Ativan QHS and afternoon Zyprexa. Continue to provide safe and supportive environment and encourage participation in floor activities. Hypertension, chronic. * Blood pressures fairly well controlled. Continue to monitor closely. Anemia, unspecified. * Concern over hemoglobin trending down from 13.3 on 11/04. Recheck CBC on 11/16 showed hemoglobin at 13.0. Fecal occult was negative. Will recheck CBC on to monitor blood counts. Hyperlipidemia, chronic. * Continue home medication, Zocor, and follow as outpatient. Neuropathy, chronic. * Continue home Neurontin. BPH, chronic. * Continue home Proscar. Monitor closely for signs of urinary retention or infection. Will recheck BMP on 11/22 to monitor electrolytes and renal function. 11/19/16 17:36 Pt continues to have some agitation at night with poor sleep. D/C scheduled Ativan and start Trazodone 50mg PO QHS 11/20/16 13:46 Pt remains some what irritable in the evenings but it is improving. Continue current care 11/21/16 17:11 Some agitation in the evening. Continue current care 11/22/16 18:17 Depakote level in AM. PT continues to be impulsive and have VH 11/23/16 20:49 Depakote level was in the 30's. Will increase Depakote to 250mg daily and 500mg at 1500 and 2100 11/24/16 20:11 Continues to have some agitation in the evenings but Depakote was recently increased. Continue current care. SW will talk to family about hospice care 11/25/16 19:53 D/C Zyprexa. Risperdal 0.5mg PO BID 11/26/16 Add MiraLAX to med list - he has infrequent BMs. Psych continues to adjust medications. SW may discuss hospice with family. Encourage fluids - Na slightly high at 146 when checked on 11/22. Previous concern about decreasing hgb - this has stabilized. Otherwise medically stable.
[2016-11-26] MEDS: SIMVASTATIN 20 MG TABLET PO SCH (20:05)
[2016-11-26] MEDS: IBUPROFEN 200 MG TABLET PO SCH (20:05)
[2016-11-26] MEDS: TRAZODONE 50 MG TABLET PO SCH (20:05)
--- NOTE | 2016-11-27 06:26 | Neuropsych Progress Note ---
[facility] Subjective Date: 11/27/16 - Sujective/Severity of Illness Medications: Acetaminophen (Tylenol) 325 mg PO Q5H PRN PRN Reason: Discomfort Last Admin: 11/23/16 17:04 Dose: 325 mg Aspirin (Ecotrin) 81 mg PO DAILY [facility] Last Admin: 11/26/16 09:56 Dose: 81 mg Bisacodyl (Dulcolax) 10 mg PO DAILY PRN PRN Reason: Constipation Last Admin: 11/21/16 14:56 Dose: 10 mg Divalproex Sodium (Depakote Sprinkle) 250 mg PO DAILY [facility] Last Admin: 11/26/16 09:55 Dose: 250 mg Divalproex Sodium (Depakote Sprinkle) 500 mg PO 1500,2100 [facility] Last Admin: 11/26/16 20:06 Dose: 500 mg Finasteride (Proscar) 5 mg PO DAILY [facility] Last Admin: 11/26/16 09:57 Dose: 5 mg Fluticasone Propionate (Flonase) 1 spray EA NOSTRIL DAILY [facility] Last Admin: 11/26/16 09:56 Dose: 1 spray Gabapentin (Neurontin) 800 mg PO TID [facility] Last Admin: 11/26/16 20:05 Dose: 800 mg Haloperidol (Haldol) 0.5 mg PO Q6H PRN PRN Reason: Extreme agitation Last Admin: 11/25/16 20:11 Dose: 0.5 mg Haloperidol Decanoate (Haldol Liquid) 0.5 mg PO Q6H PRN Last Admin: 11/23/16 13:51 Dose: 0.5 mg Haloperidol Lactate (Haldol) 0.5 mg IM Q6H PRN PRN Reason: Agitation Last Admin: 11/24/16 20:10 Dose: 0.5 mg Ibuprofen (Motrin) 200 mg PO 2100 [facility] Last Admin: 11/26/16 20:05 Dose: 200 mg Lorazepam (Ativan) 0.5 mg PO Q6H PRN PRN Reason: Extreme agitation Last Admin: 11/25/16 21:15 Dose: 0.5 mg Lorazepam (Ativan Inj) 0.5 mg IM Q6H PRN PRN Reason: Extreme agitation Last Admin: 11/24/16 20:10 Dose: 0.5 mg Lorazepam (Ativan Intensol) 0.5 mg SL Q6H PRN Last Admin: 11/22/16 18:29 Dose: 0.5 mg Lorazepam (Ativan Inj) 0.5 mg IM ONCE PRN Last Admin: 11/07/16 00:14 Dose: 0.5 mg Magnesium Hydroxide (Mom) 30 ml PO DAILY PRN PRN Reason: Constipation Last Admin: 11/26/16 10:54 Dose: 30 ml Memantine (Namenda) 10 mg PO BID [facility] Last Admin: 11/26/16 20:05 Dose: 10 mg Multivitamins/Minerals (Therapeutic - M) 1 tab PO DAILY [facility] Last Admin: 11/26/16 09:57 Dose: 1 tab Polyethylene Glycol (Miralax) 17 gm PO DAILY [facility] Last Admin: 11/26/16 09:56 Dose: 17 gm Risperidone (Risperdal) 0.5 mg PO BID [facility] Last Admin: 11/26/16 20:05 Dose: 0.5 mg Simvastatin (Zocor) 20 mg PO 2100 [facility] Last Admin: 11/26/16 20:05 Dose: 20 mg Sodium Chloride (Iv Flush) 10 - 80 ml IVF PRN PRN PRN Reason: Flushing Last Admin: 11/04/16 16:21 Dose: 10 ml Trazodone HCl (Desyrel) 50 mg PO HS [facility] Last Admin: 11/26/16 20:05 Dose: 50 mg Subjective: Patient seen and chart reviewed. Case discussed with treatment team. Patient sleeping at time of AM rounds. Nursing reports patient was calm and cooperative since previous note, does seem to be experiencing tactile hallucinations but had no other inappropriate behaviors and no PRNs required. Patient slept well overnight. VSS. Eating well. Start Time: 06:00 Stop Time: 06:15 Mental Status Exam Vitals: Last Vital Signs Temp 98.4 F 11/26/16 19:34 Pulse 98 11/26/16 19:34 Resp 14 11/26/16 19:34 BP 149/86 H 11/26/16 19:34 Pulse Ox 90 11/26/16 19:34 Height: 1.88 m Weight: 108.7 kg - Mental Status Exam Muscle Strength/Tone: Normal Dressing: Casual Grooming: Good Attitude: Cooperative Motor Activity: Retardation Eye Contact: Fair Speech: Other (Did not respond verbally today as was woken up for interview) Volume: Soft Rhythm: Appropriate Rhythm Orientation: Oriented to person Mood: Neutral (Patient currently sleeping - has not had any aggression/ outbursts since previous note) Rate of Thoughts: Delayed Thought Organization: [place] Associations: Loose-associations Abstract Reasoning: Poor abstract reasoning Thought Content: Other (Poverty of thought) Perception/Psychotic: Perception Normal Current Hallucinations: Visual Language: Naming Impaired Fund of Knowledge: Poor fund of knowledge Memory: Poor-immediate, Poor-recent Suicidal Ideation: None Homicidal Ideation: None Insight: Poor Judgement: Poor Impulse Control: Fair - Laboratory Result Diagrams: 11/22/16 05:36 11/22/16 05:36 Assessment and Plan (1) Major neurocognitive disorder due to Alzheimer's disease, probable, with behavioral disturbance Current visit: Yes Status: Acute Continue current care as patient seems to be tolerating current regimen well without behaviors. Hospital Course Summary Disclaimer: The visit summary below is not to be considered part of the above Progress Note. Hospital Course: 11/05/16 hospitalist consult Plan Agree with admission to [facility] under the care of Dr. Webster for acute psychiatric evaluation and treatment. Patient has had significant behaviors overnight required multiple when necessary agents. In 10 used to provide a safe environment for patient and staff. Hypernatremia, present on admission with a sodium of 150. Have asked nursing staff to encourage oral intake. If sodium does not improve. Patient may require IV fluids for hydration. Home medications reviewed. At this time it does not appear the patient is on any antihypertensives. We will monitor his blood pressure carefully. Continue with other chronic medical medications including Neurontin, proscar, aspirin, and simvastatin Appreciate medical consultation. We will continue to follow patient during his stay on the [facility]. At time of discharge his medical care will return to his primary care provider, Dr. Eliazar Barnett 11/05/16 09:44 11/06/16 11:56 Continue current care 11/07/16 11:11 Increase Zyprexa to 7.5mg 11/07/16 12:33-Mirakian. 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 * Continue psychiatric care per team. Continue to provide safe and supportive environment and encourage participation in floor activities. PRN medications as indicated for hallucinations, aggression and impulsive behaviors. Zyprexa increased to 7.5mg. Hypernatremia, acute. * Resolved since admission at 144 on 11/06. Will continue to monitor and encourage oral intake. Anemia. * Hemoglobin on 11/04 showed mild anemia at 13.3. Continue to monitor trends. Hypertension, chronic. * Blood pressure remains slightly elevated with systolic in 140's. Continue to monitor. May consider initiation of antihypertensive in remains elevated. Hyperlipidemia. * Continue home medications. Follow as outpatient. Neuropathy, chronic. * Continue home Neurontin which may cause some drowsiness. Monitor closely. BPH, chronic. * Continue home Proscar. Chronic kidney disease, stage III. * Monitor renal function periodically throughout admission. 11/08/16 18:05 Increase Zyprexa to 10mg at HS 11/09/16-Mirakian. 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 * Continue psychiatric care per team. Continue to provide safe and supportive environment and encourage participation in floor activities. PRN medications as indicated for hallucinations, aggression and impulsive behaviors. Zyprexa increased to 10mg at bedtime. Hypernatremia, acute - RESOLVED. * Resolved since admission at 144 on 11/06. Will continue to monitor and encourage oral intake. Recent lab on 11/08 showed sodium at 142. Anemia. * Persistent anemia noted. Hemoglobin on 11/08 was 12.4. Continue to monitor trends. Hypertension, chronic. * Blood pressure stable. Continue to monitor. Patient is currently not on any antihypertensives. Hyperlipidemia, chronic. * Continue home medications. Follow as outpatient. Neuropathy, chronic. * Continue home Neurontin which may cause some drowsiness. Monitor closely. BPH, chronic. * Continue home Proscar. Chronic kidney disease, stage III. * Monitor renal function periodically throughout admission. 11/09/16 18:59 Continue current care 11/10/16 18:46 Depakote level in AM 11/11/16 18:16 Continue current care 11/11/16 19:33 hospitalist progress note Nurses and patient reassured the lesion is characteristic for an irritated seborrheic keratosis. Differential diagnosis would include herpes zoster, however this is unlikely as he's not had any prodrome of pain and only has 1 lesion. If he should develop further lesions, nurses will alert the hospitalist team. Use triple antibiotic ointment 3 times a day for 4 days. Other chronic problems are stable. Continue current plan. 11/15/16 Hgb is dropping. On 11/04/16 hemoglobin was 13.3. Today hemoglobin is 11.8. MCV and MCH within normal limits. Check hemoccults and get records of most recent colonoscopy and hemoglobin. Continue to follow. Charts, documentation, imaging reviewed during this visit. 11/15/16 18:59 Increasing Depakote to 250mg PO TID 11/16/16 16:52 Zyprexa 2.5mg at 1500 11/17/16 18:14 Continue to have some agitation at night with poor sleep. Will add Ativan 0.5mg PO QHS 11/18/16 19:13 PT continues to have issues with sleep and some aggression at night. Will continue current meds and continue to monitor 11/19/16 11:46 Dementia with behaviors, acute on chronic. * Patient was scheduled for discharge on or around 11/17 which was postponed due to persistent evening behaviors. Continue care per psychiatric team. Some reported improvement with Ativan QHS and afternoon Zyprexa. Continue to provide safe and supportive environment and encourage participation in floor activities. Hypertension, chronic. * Blood pressures fairly well controlled. Continue to monitor closely. Anemia, unspecified. * Concern over hemoglobin trending down from 13.3 on 11/04. Recheck CBC on 11/16 showed hemoglobin at 13.0. Fecal occult was negative. Will recheck CBC on to monitor blood counts. Hyperlipidemia, chronic. * Continue home medication, Zocor, and follow as outpatient. Neuropathy, chronic. * Continue home Neurontin. BPH, chronic. * Continue home Proscar. Monitor closely for signs of urinary retention or infection. Will recheck BMP on 11/22 to monitor electrolytes and renal function. 11/19/16 17:36 Pt continues to have some agitation at night with poor sleep. D/C scheduled Ativan and start Trazodone 50mg PO QHS 11/20/16 13:46 Pt remains some what irritable in the evenings but it is improving. Continue current care 11/21/16 17:11 Some agitation in the evening. Continue current care 11/22/16 18:17 Depakote level in AM. PT continues to be impulsive and have VH 11/23/16 20:49 Depakote level was in the 30's. Will increase Depakote to 250mg daily and 500mg at 1500 and 2100 11/24/16 20:11 Continues to have some agitation in the evenings but Depakote was recently increased. Continue current care. SW will talk to family about hospice care 11/25/16 19:53 D/C Zyprexa. Risperdal 0.5mg PO BID 11/26/16 Add MiraLAX to med list - he has infrequent BMs. Psych continues to adjust medications. SW may discuss hospice with family. Encourage fluids - Na slightly high at 146 when checked on 11/22. Previous concern about decreasing hgb - this has stabilized. Otherwise medically stable.
[2016-11-27] MEDS: MEMANTINE 10 MG TABLET PO SCH ×2 (11:02→20:40)
[2016-11-27] MEDS: FLUTICASONE NASAL SPRAY 50mcg EA NOSTRIL SCH (11:02)
[2016-11-27] MEDS: DIVALPROEX SPRINKLE 125 MG CAPSULE PO SCH ×4 (11:02→20:38)
[2016-11-27] MEDS: POLYETHYL GLYCOL 3350 17gm PACKET PO SCH ×2 (11:02→13:54)
[2016-11-27] MEDS: ASPIRIN *EC* 81 MG TABLET PO SCH (11:02)
[2016-11-27] MEDS: RisperiDONE 0.5 MG TABLET PO SCH ×3 (11:03→20:40)
[2016-11-27] MEDS: GABAPENTIN 800 MG TABLET PO SCH ×4 (11:03→20:35)
[2016-11-27] MEDS: MULTI-VITAMIN + MINERAL TABLET PO SCH (11:03)
[2016-11-27] MEDS: FINASTERIDE 5 MG TABLET PO SCH (11:03)
[2016-11-27] MEDS: Bisacodyl EC TAB 5 MG TABLET PO PRN (13:53)
[2016-11-27] MEDS: IBUPROFEN 200 MG TABLET PO SCH (20:40)
[2016-11-27] MEDS: SIMVASTATIN 20 MG TABLET PO SCH (20:40)
[2016-11-27] MEDS: TRAZODONE 50 MG TABLET PO SCH (20:40)
[2016-11-28] MEDS: ASPIRIN *EC* 81 MG TABLET PO SCH (10:35)
[2016-11-28] MEDS: DIVALPROEX SPRINKLE 125 MG CAPSULE PO SCH ×3 (10:35→20:02)
[2016-11-28] MEDS: POLYETHYL GLYCOL 3350 17gm PACKET PO SCH (10:36)
[2016-11-28] MEDS: FINASTERIDE 5 MG TABLET PO SCH (10:36)
[2016-11-28] MEDS: MEMANTINE 10 MG TABLET PO SCH ×2 (10:36→20:02)
[2016-11-28] MEDS: FLUTICASONE NASAL SPRAY 50mcg EA NOSTRIL SCH (10:36)
[2016-11-28] MEDS: GABAPENTIN 800 MG TABLET PO SCH ×3 (10:36→20:02)
[2016-11-28] MEDS: MULTI-VITAMIN + MINERAL TABLET PO SCH (10:36)
[2016-11-28] MEDS: RisperiDONE 0.5 MG TABLET PO SCH ×2 (10:36→20:02)
--- NOTE | 2016-11-28 14:27 | Neuropsych Progress Note ---
[facility] Subjective Date: 11/28/16 - Sujective/Severity of Illness Medications: Acetaminophen (Tylenol) 325 mg PO Q5H PRN PRN Reason: Discomfort Last Admin: 11/23/16 17:04 Dose: 325 mg Aspirin (Ecotrin) 81 mg PO DAILY [facility] Last Admin: 11/28/16 10:35 Dose: Not Given Bisacodyl (Dulcolax) 10 mg PO DAILY PRN PRN Reason: Constipation Last Admin: 11/27/16 13:53 Dose: 10 mg Divalproex Sodium (Depakote Sprinkle) 250 mg PO DAILY [facility] Last Admin: 11/28/16 10:35 Dose: Not Given Divalproex Sodium (Depakote Sprinkle) 500 mg PO 1500,2100 [facility] Last Admin: 11/27/16 20:38 Dose: 500 mg Finasteride (Proscar) 5 mg PO DAILY [facility] Last Admin: 11/28/16 10:36 Dose: Not Given Fluticasone Propionate (Flonase) 1 spray EA NOSTRIL DAILY [facility] Last Admin: 11/28/16 10:36 Dose: Not Given Gabapentin (Neurontin) 800 mg PO TID [facility] Last Admin: 11/28/16 10:36 Dose: Not Given Haloperidol (Haldol) 0.5 mg PO Q6H PRN PRN Reason: Extreme agitation Last Admin: 11/25/16 20:11 Dose: 0.5 mg Haloperidol Decanoate (Haldol Liquid) 0.5 mg PO Q6H PRN Last Admin: 11/23/16 13:51 Dose: 0.5 mg Haloperidol Lactate (Haldol) 0.5 mg IM Q6H PRN PRN Reason: Agitation Last Admin: 11/24/16 20:10 Dose: 0.5 mg Ibuprofen (Motrin) 200 mg PO 2100 [facility] Last Admin: 11/27/16 20:40 Dose: 200 mg Lorazepam (Ativan) 0.5 mg PO Q6H PRN PRN Reason: Extreme agitation Last Admin: 11/25/16 21:15 Dose: 0.5 mg Lorazepam (Ativan Inj) 0.5 mg IM Q6H PRN PRN Reason: Extreme agitation Last Admin: 11/24/16 20:10 Dose: 0.5 mg Lorazepam (Ativan Intensol) 0.5 mg SL Q6H PRN Last Admin: 11/22/16 18:29 Dose: 0.5 mg Lorazepam (Ativan Inj) 0.5 mg IM ONCE PRN Last Admin: 11/07/16 00:14 Dose: 0.5 mg Magnesium Hydroxide (Mom) 30 ml PO DAILY PRN PRN Reason: Constipation Last Admin: 11/26/16 10:54 Dose: 30 ml Memantine (Namenda) 10 mg PO BID [facility] Last Admin: 11/28/16 10:36 Dose: Not Given Multivitamins/Minerals (Therapeutic - M) 1 tab PO DAILY [facility] Last Admin: 11/28/16 10:36 Dose: Not Given Polyethylene Glycol (Miralax) 17 gm PO DAILY [facility] Last Admin: 11/28/16 10:36 Dose: Not Given Risperidone (Risperdal) 0.5 mg PO BID [facility] Last Admin: 11/28/16 10:36 Dose: Not Given Simvastatin (Zocor) 20 mg PO 2100 [facility] Last Admin: 11/27/16 20:40 Dose: 20 mg Sodium Chloride (Iv Flush) 10 - 80 ml IVF PRN PRN PRN Reason: Flushing Last Admin: 11/04/16 16:21 Dose: 10 ml Trazodone HCl (Desyrel) 50 mg PO HS [facility] Last Admin: 11/27/16 20:40 Dose: 50 mg Subjective: Patient seen and chart reviewed. Case discussed with treatment team. Patient sleeping at time of AM rounds. Nursing reports patient was calm and cooperative since previous note, does seem to be experiencing tactile hallucinations but had no other inappropriate behaviors and no PRNs required. These hallucinations do not appear to be distressing for the patient. Oriented to self only when awake. Patient slept well overnight. VSS. Eating well. Start Time: 10:00 Stop Time: 10:20 Mental Status Exam Vitals: Last Vital Signs Temp 96.6 F L 11/28/16 13:12 Pulse 76 11/28/16 13:12 Resp 12 11/28/16 13:12 BP 127/68 11/28/16 13:12 Pulse Ox 97 11/28/16 13:12 Height: 1.88 m Weight: 108.7 kg - Mental Status Exam Muscle Strength/Tone: Normal Dressing: Casual Grooming: Good Attitude: Cooperative Motor Activity: Retardation Eye Contact: Fair Speech: Other (Did not respond verbally today as was woken up for interview) Volume: Soft Rhythm: Appropriate Rhythm Orientation: Oriented to person Mood: Neutral (Patient currently sleeping - has not had any aggression/ outbursts since previous note) Rate of Thoughts: Delayed Thought Organization: [place] Associations: Loose-associations Abstract Reasoning: Poor abstract reasoning Thought Content: Other (Poverty of thought) Perception/Psychotic: Perception Normal Current Hallucinations: Visual Language: Naming Impaired Fund of Knowledge: Poor fund of knowledge Memory: Poor-immediate, Poor-recent Suicidal Ideation: None Homicidal Ideation: None Insight: Poor Judgement: Poor Impulse Control: Fair - Laboratory Result Diagrams: 11/22/16 05:36 11/22/16 05:36 Assessment and Plan (1) Major neurocognitive disorder due to Alzheimer's disease, probable, with behavioral disturbance Current visit: Yes Status: Acute Plan to discharge to Hospice care on 11/29/16 per family/guardian's wishes. Hospital Course Summary Disclaimer: The visit summary below is not to be considered part of the above Progress Note. Hospital Course: 11/05/16 hospitalist consult Plan Agree with admission to [facility] under the care of Dr. Webster for acute psychiatric evaluation and treatment. Patient has had significant behaviors overnight required multiple when necessary agents. In 10 used to provide a safe environment for patient and staff. Hypernatremia, present on admission with a sodium of 150. Have asked nursing staff to encourage oral intake. If sodium does not improve. Patient may require IV fluids for hydration. Home medications reviewed. At this time it does not appear the patient is on any antihypertensives. We will monitor his blood pressure carefully. Continue with other chronic medical medications including Neurontin, proscar, aspirin, and simvastatin Appreciate medical consultation. We will continue to follow patient during his stay on the [facility]. At time of discharge his medical care will return to his primary care provider, Dr. Eliazar Barnett 11/05/16 09:44 11/06/16 11:56 Continue current care 11/07/16 11:11 Increase Zyprexa to 7.5mg 11/07/16 12:33-Mirakian. 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 * Continue psychiatric care per team. Continue to provide safe and supportive environment and encourage participation in floor activities. PRN medications as indicated for hallucinations, aggression and impulsive behaviors. Zyprexa increased to 7.5mg. Hypernatremia, acute. * Resolved since admission at 144 on 11/06. Will continue to monitor and encourage oral intake. Anemia. * Hemoglobin on 11/04 showed mild anemia at 13.3. Continue to monitor trends. Hypertension, chronic. * Blood pressure remains slightly elevated with systolic in 140's. Continue to monitor. May consider initiation of antihypertensive in remains elevated. Hyperlipidemia. * Continue home medications. Follow as outpatient. Neuropathy, chronic. * Continue home Neurontin which may cause some drowsiness. Monitor closely. BPH, chronic. * Continue home Proscar. Chronic kidney disease, stage III. * Monitor renal function periodically throughout admission. 11/08/16 18:05 Increase Zyprexa to 10mg at HS 11/09/16-Ortiz. 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 * Continue psychiatric care per team. Continue to provide safe and supportive environment and encourage participation in floor activities. PRN medications as indicated for hallucinations, aggression and impulsive behaviors. Zyprexa increased to 10mg at bedtime. Hypernatremia, acute - RESOLVED. * Resolved since admission at 144 on 11/06. Will continue to monitor and encourage oral intake. Recent lab on 11/08 showed sodium at 142. Anemia. * Persistent anemia noted. Hemoglobin on 11/08 was 12.4. Continue to monitor trends. Hypertension, chronic. * Blood pressure stable. Continue to monitor. Patient is currently not on any antihypertensives. Hyperlipidemia, chronic. * Continue home medications. Follow as outpatient. Neuropathy, chronic. * Continue home Neurontin which may cause some drowsiness. Monitor closely. BPH, chronic. * Continue home Proscar. Chronic kidney disease, stage III. * Monitor renal function periodically throughout admission. 11/09/16 18:59 Continue current care 11/10/16 18:46 Depakote level in AM 11/11/16 18:16 Continue current care 11/11/16 19:33 hospitalist progress note Nurses and patient reassured the lesion is characteristic for an irritated seborrheic keratosis. Differential diagnosis would include herpes zoster, however this is unlikely as he's not had any prodrome of pain and only has 1 lesion. If he should develop further lesions, nurses will alert the hospitalist team. Use triple antibiotic ointment 3 times a day for 4 days. Other chronic problems are stable. Continue current plan. 11/15/16 Hgb is dropping. On 11/04/16 hemoglobin was 13.3. Today hemoglobin is 11.8. MCV and MCH within normal limits. Check hemoccults and get records of most recent colonoscopy and hemoglobin. Continue to follow. Charts, documentation, imaging reviewed during this visit. 11/15/16 18:59 Increasing Depakote to 250mg PO TID 11/16/16 16:52 Zyprexa 2.5mg at 1500 11/17/16 18:14 Continue to have some agitation at night with poor sleep. Will add Ativan 0.5mg PO QHS 11/18/16 19:13 PT continues to have issues with sleep and some aggression at night. Will continue current meds and continue to monitor 11/19/16 11:46 Dementia with behaviors, acute on chronic. * Patient was scheduled for discharge on or around 11/17 which was postponed due to persistent evening behaviors. Continue care per psychiatric team. Some reported improvement with Ativan QHS and afternoon Zyprexa. Continue to provide safe and supportive environment and encourage participation in floor activities. Hypertension, chronic. * Blood pressures fairly well controlled. Continue to monitor closely. Anemia, unspecified. * Concern over hemoglobin trending down from 13.3 on 11/04. Recheck CBC on 11/16 showed hemoglobin at 13.0. Fecal occult was negative. Will recheck CBC on to monitor blood counts. Hyperlipidemia, chronic. * Continue home medication, Zocor, and follow as outpatient. Neuropathy, chronic. * Continue home Neurontin. BPH, chronic. * Continue home Proscar. Monitor closely for signs of urinary retention or infection. Will recheck BMP on 11/22 to monitor electrolytes and renal function. 11/19/16 17:36 Pt continues to have some agitation at night with poor sleep. D/C scheduled Ativan and start Trazodone 50mg PO QHS 11/20/16 13:46 Pt remains some what irritable in the evenings but it is improving. Continue current care 11/21/16 17:11 Some agitation in the evening. Continue current care 11/22/16 18:17 Depakote level in AM. PT continues to be impulsive and have VH 11/23/16 20:49 Depakote level was in the 30's. Will increase Depakote to 250mg daily and 500mg at 1500 and 2100 11/24/16 20:11 Continues to have some agitation in the evenings but Depakote was recently increased. Continue current care. SW will talk to family about hospice care 11/25/16 19:53 D/C Zyprexa. Risperdal 0.5mg PO BID 11/26/16 Add MiraLAX to med list - he has infrequent BMs. Psych continues to adjust medications. SW may discuss hospice with family. Encourage fluids - Na slightly high at 146 when checked on 11/22. Previous concern about decreasing hgb - this has stabilized. Otherwise medically stable.
--- NOTE | 2016-11-28 15:02 | Neuropsychiatric Disch Summary ---
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 Per record the pt had been living at home with his until September but due to increasing memory issues moved to a NH. Pt has had increasing agitation and aggression at the retirement and asked the to bring him a gun so he could shoot himself. Nursing staff here states last night pt was having visual hallucinations and was combative at times. On face to face the pt is pleasant today. He is only oriented to self. He is not able to give a hx. He denies any pain. PSYCH ROS: Pt denies feeling depressed or anxious. He is only oriented to self. Staff reports a hx of recent VH but none are noted at this time. He denies any S/I. PAST PSYCH: Family reports a hx of increasing cognitive impairment. No other psychiatric hx is noted. Hospital Course This is a general summary of the patient's hospital course. For more details refer to the complete medical record. Hospital course: 11/05/16 hospitalist consult Plan Agree with admission [facility] under the care of Dr. Webster for acute psychiatric evaluation and treatment. Patient has had significant behaviors overnight required multiple when necessary agents. In 10 used to provide a safe environment for patient and staff. Hypernatremia, present on admission with a sodium of 150. Have asked nursing staff to encourage oral intake. If sodium does not improve. Patient may require IV fluids for hydration. Home medications reviewed. At this time it does not appear the patient is on any antihypertensives. We will monitor his blood pressure carefully. Continue with other chronic medical medications including Neurontin, proscar, aspirin, and simvastatin Appreciate medical consultation. We will continue to follow patient during his stay [facility]. At time of discharge his medical care will return to his primary care provider, Dr. Eliazar Barnett 11/05/16 09:44 11/06/16 11:56 Continue current care 11/07/16 11:11 Increase Zyprexa to 7.5mg 11/07/16 12:33-Mirakian. 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 * Continue psychiatric care per team. Continue to provide safe and supportive environment and encourage participation in floor activities. PRN medications as indicated for hallucinations, aggression and impulsive behaviors. Zyprexa increased to 7.5mg. Hypernatremia, acute. * Resolved since admission at 144 on 11/06. Will continue to monitor and encourage oral intake. Anemia. * Hemoglobin on 11/04 showed mild anemia at 13.3. Continue to monitor trends. Hypertension, chronic. * Blood pressure remains slightly elevated with systolic in 140's. Continue to monitor. May consider initiation of antihypertensive in remains elevated. Hyperlipidemia. * Continue home medications. Follow as outpatient. Neuropathy, chronic. * Continue home Neurontin which may cause some drowsiness. Monitor closely. BPH, chronic. * Continue home Proscar. Chronic kidney disease, stage III. * Monitor renal function periodically throughout admission. 11/08/16 18:05 Increase Zyprexa to 10mg at HS 11/09/16-Mirakian. 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 * Continue psychiatric care per team. Continue to provide safe and supportive environment and encourage participation in floor activities. PRN medications as indicated for hallucinations, aggression and impulsive behaviors. Zyprexa increased to 10mg at bedtime. Hypernatremia, acute - RESOLVED. * Resolved since admission at 144 on 11/06. Will continue to monitor and encourage oral intake. Recent lab on 11/08 showed sodium at 142. Anemia. * Persistent anemia noted. Hemoglobin on 11/08 was 12.4. Continue to monitor trends. Hypertension, chronic. * Blood pressure stable. Continue to monitor. Patient is currently not on any antihypertensives. Hyperlipidemia, chronic. * Continue home medications. Follow as outpatient. Neuropathy, chronic. * Continue home Neurontin which may cause some drowsiness. Monitor closely. BPH, chronic. * Continue home Proscar. Chronic kidney disease, stage III. * Monitor renal function periodically throughout admission. 11/09/16 18:59 Continue current care 11/10/16 18:46 Depakote level in AM 11/11/16 18:16 Continue current care 11/11/16 19:33 hospitalist progress note Nurses and patient reassured the lesion is characteristic for an irritated seborrheic keratosis. Differential diagnosis would include herpes zoster, however this is unlikely as he's not had any prodrome of pain and only has 1 lesion. If he should develop further lesions, nurses will alert the hospitalist team. Use triple antibiotic ointment 3 times a day for 4 days. Other chronic problems are stable. Continue current plan. 11/15/16 Hgb is dropping. On 11/04/16 hemoglobin was 13.3. Today hemoglobin is 11.8. MCV and MCH within normal limits. Check hemoccults and get records of most recent colonoscopy and hemoglobin. Continue to follow. Charts, documentation, imaging reviewed during this visit. 11/15/16 18:59 Increasing Depakote to 250mg PO TID 11/16/16 16:52 Zyprexa 2.5mg at 1500 11/17/16 18:14 Continue to have some agitation at night with poor sleep. Will add Ativan 0.5mg PO QHS 11/18/16 19:13 PT continues to have issues with sleep and some aggression at night. Will continue current meds and continue to monitor 11/19/16 11:46 Dementia with behaviors, acute on chronic. * Patient was scheduled for discharge on or around 11/17 which was postponed due to persistent evening behaviors. Continue care per psychiatric team. Some reported improvement with Ativan QHS and afternoon Zyprexa. Continue to provide safe and supportive environment and encourage participation in floor activities. Hypertension, chronic. * Blood pressures fairly well controlled. Continue to monitor closely. Anemia, unspecified. * Concern over hemoglobin trending down from 13.3 on 11/04. Recheck CBC on 11/16 showed hemoglobin at 13.0. Fecal occult was negative. Will recheck CBC on to monitor blood counts. Hyperlipidemia, chronic. * Continue home medication, Zocor, and follow as outpatient. Neuropathy, chronic. * Continue home Neurontin. BPH, chronic. * Continue home Proscar. Monitor closely for signs of urinary retention or infection. Will recheck BMP on 11/22 to monitor electrolytes and renal function. 11/19/16 17:36 Pt continues to have some agitation at night with poor sleep. D/C scheduled Ativan and start Trazodone 50mg PO QHS 11/20/16 13:46 Pt remains some what irritable in the evenings but it is improving. Continue current care 11/21/16 17:11 Some agitation in the evening. Continue current care 11/22/16 18:17 Depakote level in AM. PT continues to be impulsive and have VH 11/23/16 20:49 Depakote level was in the 30's. Will increase Depakote to 250mg daily and 500mg at 1500 and 2100 11/24/16 20:11 Continues to have some agitation in the evenings but Depakote was recently increased. Continue current care. SW will talk to family about hospice care 11/25/16 19:53 D/C Zyprexa. Risperdal 0.5mg PO BID 11/26/16 Add MiraLAX to med list - he has infrequent BMs. Psych continues to adjust medications. SW may discuss hospice with family. Encourage fluids - Na slightly high at 146 when checked on 11/22. Previous concern about decreasing hgb - this has stabilized. Otherwise medically stable. Discharge Plan - Med Rec/Dispo Referrals/Follow Up: Elisha Barragan [Provider Group] (No Mental Health appt. scheduled due to patient' s advanced Dementia. Mental Health needs will be met by the [facility]. ) Juanita Barnett [Family Provider] - (Patient will follow up with Dr. Eliazar Barnett on December 03, 2016 at 9:45 [address] [place], [place] [phone]) Additional Instructions: Discharge Diagnosis: Reasons for Admission: Increase in visual hallucinations, restless wandering, and exit seeking behaviors. IN CASE OF PSYCHIATRIC EMERGENCY, CONTACT [facility] AT [phone] ( AVAILABLE 224 HOURS A DAY). Prescriptions: New Acetaminophen [Tylenol] 325 mg PO Q5H PRN tablet PRN Reason: Discomfort Aspirin *EC* [Ecotrin] 81 mg PO DAILY tablet Bisacodyl EC Tab [Dulcolax] 10 mg PO DAILY PRN tablet PRN Reason: Constipation Divalproex Sprinkle [Depakote Sprinkle] 500 mg PO 1500,2100 30 Days #60 cap Gabapentin [Neurontin] 800 mg PO TID tablet LORazepam [Ativan] 0.5 mg PO Q6H PRN 30 Days #120 tab PRN Reason: Extreme Agitation RisperiDONE [RisperDAL] 0.5 mg PO BID 30 Days #60 tab Trazodone [Desyrel] 50 mg PO HS 30 Days #30 tab Divalproex Sprinkle [Depakote Sprinkle] 250 mg PO DAILY 30 Days #30 cap Continue Memantine [Namenda] 20 mg PO BID Gabapentin [Neurontin] 800 mg PO TID Ibuprofen 200 mg PO HS Simvastatin 20 mg PO HS Finasteride [Proscar] 5 mg PO DAILY Aspirin [Adult Low Dose Aspirin EC] 81 mg PO DAILY OLANZapine [Olanzapine] 5 mg PO HS 30 Days #30 tablet Multivit-Minerals/Ferrous Fum [Multivitamin Liquid] 15 ml PO DAILY Fluticasone Nasal [place] [Flonase] 1 spray [place] DAILY FLUoxetine [Prozac] 40 mg PO DAILY LORazepam [Ativan] 0.5 mg PO Q8H PRN 30 Days #90 tablet PRN Reason: Anxiety/Agitation - Disposition 04 To [facility]
[2016-11-28] MEDS: LORazepam INTENSOL 1mg/0.5ml ORAL LIQUID SL PRN (15:24)
[2016-11-28] MEDS: ACETAMINOPHEN 325 MG TABLET PO PRN (16:11)
[2016-11-28 16:45] VITALS: RESP 16
[2016-11-28] MEDS: SIMVASTATIN 20 MG TABLET PO SCH (20:02)
[2016-11-28] MEDS: IBUPROFEN 200 MG TABLET PO SCH (20:02)
[2016-11-28] MEDS: TRAZODONE 50 MG TABLET PO SCH (20:02)
[2016-11-29] MEDS: DIVALPROEX SPRINKLE 125 MG CAPSULE PO SCH (12:53)
[2016-11-29] MEDS: FINASTERIDE 5 MG TABLET PO SCH (12:53)
[2016-11-29] MEDS: GABAPENTIN 800 MG TABLET PO SCH (12:53)
[2016-11-29] MEDS: FLUTICASONE NASAL SPRAY 50mcg EA NOSTRIL SCH (12:53)
[2016-11-29] MEDS: RisperiDONE 0.5 MG TABLET PO SCH (12:53)
[2016-11-29] MEDS: ASPIRIN *EC* 81 MG TABLET PO SCH (12:53)
[2016-11-29] MEDS: MULTI-VITAMIN + MINERAL TABLET PO SCH (12:53)
[2016-11-29] MEDS: MEMANTINE 10 MG TABLET PO SCH (12:54)
[2016-11-29] MEDS: POLYETHYL GLYCOL 3350 17gm PACKET PO SCH (12:54)
[2016-11-29] MEDS: LORazepam 0.5 MG TABLET PO PRN (12:56)
[2016-11-29 13:04] VITALS: BP 158/91; PULSE 58; TEMP 97.8; O2SAT 98
== END 2016-11-29 13:35 | disposition hospice, home (50) | DRG 57 ==
LOC: ED 14:23 → GEN 17:57
PROVIDERS: ADMIT Psychiatry & Neurology Psychiatry; ATTEND Psychiatry & Neurology Psychiatry